=== PATIENT | female | born 1950 | race African-American/Black ===

== ENCOUNTER 2018-09-08 09:30 | Inpatient (IN) | payer OTHER ==
--- NOTE | 2018-09-08 10:40 | PDOC ---
Attending Attestation - Resident Resident Name: KiarraBrittnee - ED Attending Attestation I have performed the following: I have examined & evaluated the patient, The case was reviewed & discussed with the resident, I agree w/resident's findings & plan, Exceptions are as noted - HPI HPI: 09/08/18 10:31 68y F presents with back pain. Pt states she had some mild lower back pain several months ago while carrying her granddaughter, the pain is intermittent but seemed to go away for several months and then came back in late May. It was intermittent however the last several days the pain has become more severe and the patient has been unable to ambulate comfortably. The patient notes that it starts in the mid back, is spasm like in nature and radiates to bilateral legs when she is moving around. Pain is worse when she bends or sits up and feels better when she is laying flat. The patient notes some tingling and dnumnbess on the L thigh, denies any numbness otherwise, any tingling or weakness, urinary bowel incontinence, fevers, chills, chest pain, dominant pain , nausea, vomiting. has been taking neproxen and percocet with imil dimprovement, but has been getting worse the past few days No history of falls or injuries GENERAL: The patient is awake, alert, and fully oriented, Nontoxic - in no acute distress. HEAD: Normocephalic, atraumatic. ABDOMEN: Soft, nontender, normoactive bowel sounds. No guarding, no rebound. . No CVA tenderness EXTREMITIES: Normal range of motion, no edema. No clubbing or cyanosis. No cords, erythema, or tenderness. BACK: No focal mildline tenderness, mild paraspinal lumbar ttp, +SLR b/l, sensation intact b/l in LE NEUROLOGICAL: No facial assymetry, Normal speech, strength, symmetric and intact in LE PSYCH: Normal mood, normal affect. SKIN: Warm, Dry, normal turgor, no rasehes noted on back/abdomen suspect muscle apsms will give toradol/valium will obtain xray lumbar spine to r/o fx, mets ua r/o hematuria will reassess - Physicial Exam PE: 09/08/18 15:37 see above - Medical Decision Making 09/08/18 15:37 pts lumbar xray noted for fx - ct was obtained - concerning for pathologic fracture ct pelvis also reviewed - thickening of wall concerning for stool vs neoplatstic disease will give pt some morphien for pain 09/08/18 18:40 pt with persistent pain admitted for further mangaement of back pain pt will also need workup of her pathoalogic fx at some point as an intpatient or outpatient Heart Score/ECG Review - ECG Impressions Comment:: 09/08/18 18:38 Twelve-lead EKG was performed and reviewed by me. There is normal sinus rhythm with a normal rate. Rate of [address] wave changes
[2018-09-08] MEDS ORDERED: CYCLOBENZAPRINE HCL 10 MG TABLET (FP) PO ONE (10:47)
--- NOTE | 2018-09-08 10:48 | PDOC ---
History of Present Illness - General Chief Complaint: Back Pain Stated Complaint: BACK PAIN Time Seen by Provider: 09/08/18 09:52 History Source: Patient Exam Limitations: No Limitations - History of Present Illness Initial Comments: 09/08/18 10:45 Pt is a 68yo f with no significant PMH BIBA for lower back pain. Pt said sometime in March she was picking up her grandson from the tub when she started having lower back pain associated with spasms. Pain lasted for about 1 week then went away. Pt said the pain returned 2 weeks ago when she was sitting in her car and felt as if her "spine went down." Pt had increasing difficulty walking due to pain. She has been unable to get out of bed for the past few days. Pt says pain is in her lower back and associated with numbness and a pins/ needles sensation in her L lateral thigh. She has been taking ibuprofen, naproxen, percocet for the pain which helps. Per pt pain is intermittent, associated with spasms, worse with movements. She denies saddle anesthesia, loss of bowel/bladder, shooting pains, chest pain, sob, trauma or surgeries. PMD: none PMH: none PSH: Meds: ibuprofen, naproxen, advil, percocet Social: denies Allergies: nkda Past History - Past Medical History Allergies/Adverse Reactions: Allergies Allergy/AdvReac Type Severity Reaction Status Date / Time No Known Allergies Allergy Verified 09/08/18 10:48 Home Medications: Ambulatory Orders Ibuprofen [Motrin -] 600 mg PO PRN PRN 09/08/18 Oxycodone HCl/Acetaminophen [Percocet 5-325 mg Tablet] 1 tab PO Q6H 09/08/18 Cardiac Disorders: Yes (Mitral prolaspe) COPD: No (mitral valve prolapse) - Suicide/Smoking/Psychosocial Hx Smoking History: Never smoked Have you smoked in the past 12 months: No Information on smoking cessation initiated: No Hx Alcohol Use: No Drug/Substance Use Hx: No Substance Use Type: None Review of Systems - Review of Systems Constitutional: No: Chills, Fever, Loss of Appetite HEENTM: No: Symptoms Reported Respiratory: No: Cough, Shortness of Breath Cardiac (ROS): No: Chest Pain, Lightheadedness, Palpitations ABD/GI: Yes: Constipated. No: Diarrhea, Nausea, Vomiting, Abdominal cramping, Tarry Stools : No: Burning, Dysuria, Discharge Musculoskeletal: Yes: See HPI, Back Pain (lower back pain). No: Joint Pain, Muscle Pain, Muscle Weakness, Neck Pain Integumentary: No: Pallor, Rash Neurological: Yes: Numbness (L lateral thigh numbness). No: Headache, Tingling , Weakness, Unsteady Gait *Physical Exam - Vital Signs Last Vital Signs Temp Pulse Resp BP Pulse Ox 98.9 F 108 H 20 172/107 H 99 09/08/18 09:30 09/08/18 09:30 09/08/18 09:30 09/08/18 09:30 09/08/18 09:30 - Physical Exam General Appearance: Yes: Nourished, Appropriately Dressed. No: Apparent Distress HEENT: positive: EOMI, ZARINA, Normal ENT Inspection Neck: positive: Trachea midline, Supple. negative: Carotid bruit, Lymphadenopathy (R), Lymphadenopathy (L) Respiratory/Chest: positive: Lungs Clear, Normal Breath Sounds. negative: Paradoxal Breathing, Crackles, Rales, Rhonchi Cardiovascular: positive: Regular Rhythm, S1, S2, Tachycardia. negative: Edema , JVD, Murmur Vascular Pulses: Carotid (R): 2+, Carotid (L): 2+, Dorsalis-Pedis (R): 2+, Doralis-Pedis (L): 2+ Gastrointestinal/Abdominal: positive: Normal Bowel Sounds, Soft. negative: Distended, Guarding, Rebound, Tenderness Rectal Exam: positive: normal rectal tone Musculoskeletal: positive: Muscle Spasm, Vertebral Tenderness (lumbar spine), Other (full passive ROM. Leg raise illiicits pain in back.). negative: CVA Tenderness, Decreased Range of Motion Extremity: positive: Normal Capillary Refill, Pelvis Stable. negative: Swelling , Calf Tenderness Integumentary: positive: Normal Color, Dry, Warm Neurologic: positive: wafer substrate tester II-XII NML intact, Fully Oriented, Alert, Normal Mood/ Affect, Motor Strength 5/5. negative: Respond to painful stimul, Facial Droop, Sensory Deficit (full sensation) Deep Tendon Reflexes: Ankle (L): 2+, Ankle (R): 2+, Knee (L): 2+, Knee (R): 2+ ED Treatment Course - LABORATORY CBC & Chemistry Diagram: 09/08/18 15:26 09/08/18 15:26 - RADIOLOGY Radiology Studies Ordered: Category Date Time Status SPINE-LUMBAR SACRAL [RAD] Stat Radiology 09/08/18 10:41 Ordered Medical Decision Making - Medical Decision Making 09/08/18 18:28 Pt is a 68yo f with no significant PMH BIBA for lower back pain that started again 2 weeks ago with reduced mobility due to pain. Vitals: PE: Lumbar vertebral tenderness with paravertebral muscle spasm. SLR illicits pain in back, no shooting/radicular pain. full sensation, strength 5/5 , normal rectal tone. DDx: cauda equina, sciatica, fracture, sprain, spasm. -low suspicion for cauda equina given normal sensation, full strength, normal rectal tone. lower suspicion for fracture because no evidence or history of trauma. Pt given flexeril, valium and toradol for pain. Xray pending. Xray showed abnormality in lumbar spine around L2. Will order CT. Pt still having pain. Will order tramadol. Pt refused tramadol, will give Percocet. CT lumbar spine: a marked, probably acute pathologic fracture involving L2 vertebral body with mild bony retropulsion. Abnormal heterogeneous density is seen within the L2 vertebral body. Also a focal osteolytic lesion involving left L@ pedile with focal cortical erosion along superior border. Associated small extraosseous soft tissue component along superior border of left pedicle with mild foraminal narrowing. 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 No discrete disc herniation. Mild L5-S1 degenerative disc space narrowing. No degenerative canal stenosis CT pelvis: Mild wall irregularity seen involving upper rectum/adjacent sigmoid colon which may be on the basis of adherent fecal material or possibly neoplastic disease. Sigmoid diverticulosis. Pt says percocet helped, but still in pain. Given morphine. Pt has the ability to drive but due to her condition she is unable to do so. Pain is not adequately controlled and she does not have the ability to be followed outpatient. Will admit patient for pain control and further investigation of causes of osteolytic lesion. Pt agrees to plan. Pt admitted. CXR and EKG ordered. *DC/Admit/Observation/Transfer Diagnosis at time of Disposition: Compression fracture Back pain Qualifiers: Back pain location: low back pain Chronicity: acute Back pain laterality: midline Sciatica presence: without sciatica Qualified Code(s): M54.5 - Low back pain - Discharge Dispostion Condition at time of disposition: Good Decision to Admit order: Yes - Referrals - Patient Instructions - Post Discharge Activity
[2018-09-08] MEDS ORDERED: CYCLOBENZAPRINE HCL 10 MG TABLET (FP) ONE (10:51)
[2018-09-08] MEDS ORDERED: diazePAM 2 MG TABLET PO ONE (10:54)
[2018-09-08] MEDS ORDERED: KETOROLAC TROMETHAMINE 30 MG/1 ML VIAL IM ONE (10:54)
[2018-09-08] MEDS ORDERED: diazePAM 2 MG TABLET ONE (10:56)
[2018-09-08] MEDS ORDERED: KETOROLAC TROMETHAMINE 30 MG/1 ML VIAL ONE (10:56)
[2018-09-08 12:13] LABS: URINE APPEARANCE CLEAR; URINE BILIRUBIN NEGATIVE (<2.0 mg/dL); URINE COLOR YELLOW; URINE GLUCOSE (UA) NEGATIVE (NEGATIVE); URINE KETONE TRACE (NEGATIVE); URINE LEUK ESTERASE TRACE (NEGATIVE); URINE NITRITE NEGATIVE (NEGATIVE); URINE PROTEIN 1+ (NEGATIVE)
[2018-09-08 12:30] LABS: EPI CELLS RARE /HPF (FEW); URINE BACTERIA RARE /hpf (NONE SEEN); URINE MUCUS RARE
[2018-09-08] MEDS ORDERED: traMADol HCL 50 MG TABLET PO ONE (13:46)
[2018-09-08] MEDS ORDERED: traMADol HCL 50 MG TABLET ONE (14:08)
[2018-09-08 15:43] LABS: BASO % 0.2 % (0-2.0); EOS % 0.3 % (0-4.5); HEMATOCRIT 27.1 % (32.4-45.2); HEMOGLOBIN 8.7 GM/dL (10.7-15.3); LYMPH % 6.2 % (8-40); MCH 20.5 pg (25.7-33.7); MCHC 31.9 g/dl (32.0-36.0); MEAN CELL VOLUME 64.1 fl (80-96); MEAN PLT VOLUME 7.6 fl (7.5-11.1); MONO % 7.1 % (3.8-10.2); NEUT % 86.2 % (42.8-82.8); PLATELET COUNT 377 K/MM3 (134-434); RBC 4.23 M/mm3 (3.60-5.2); RDW 16.9 % (11.6-15.6); WHITE BLOOD COUNT 14.7 K/mm3 (4.0-10.0)
[2018-09-08 15:56] LABS: ALBUMIN 2.7 g/dl (3.4-5.0); ALK PHOS 127 U/L (45-117); ANION GAP 12 MMOL/L (8-16); BILIRUBIN,TOTAL 0.7 mg/dL (0.2-1); BLOOD UREA NITROGEN 9 mg/dL (7-18); CALCIUM 8.2 mg/dL (8.5-10.1); CHLORIDE 84 mmol/L (98-107); CO2 27 mmol/L (21-32); CREATININE 0.3 mg/dL (0.55-1.3); GLUCOSE,RANDOM 102 mg/dL (74-106); POTASSIUM 3.1 mmol/L (3.5-5.1); SGOT/AST 28 U/L (15-37); SGPT/ALT 17 U/L (13-61); SODIUM 124 mmol/L (136-145); TOT PROT 7.2 g/dl (6.4-8.2)
[2018-09-08] MEDS ORDERED: morphine CARPU-JECT 2 MG/1 ML DISP.SYRIN IVPUSH ONE (16:45)
--- NOTE | 2018-09-08 19:29 | HP ---
CHIEF COMPLAINT: Worsening back pain PCP: None HISTORY OF PRESENT ILLNESS: 68 year old female with a PMH significant for MR was BIBA for worsening lower back pain. She reports her back pain started 04/25/18 when she lifted her grandson out of the bathtub. When she went to take a bath herself the same night , she had sudden a onset of muscle spasms on both sides of her lower back which prevented her from getting out of the bathtub. The muscle spasms were severe for about a week and it was difficult for her to walk. She took ibuprofen, naproxen, and percocet which mostly eliminated the discomfort. The spasms gradually subsided but never totally went away. About 2 weeks ago, she was driving for about 3 hours straight and the spasms and pain returned again and have worsened over that period of time. She has numbness to her left lateral thigh. Denies incontinence, fevers, dizziness, never had seizures, no chest pain or SOB, no n/v/d. She reports her pain has improved after pain management by the ED. She does not have a PCP and has not been to the doctor in many years. She is on no regular home medications. Upon admission to the ED, she was afebrile, vitals notable for elevated BP in the 160-170s/100-90s. Labs notible for WBC of 14.7, K 3.1, Na 124, UA with trace esterace and [address] showed acute L2 compression fracture. Pelvic CT showed suspicious lesion on rectal wall. She was given valium, ketorolac, morphine, and percocet. Recent Travel: No PAST MEDICAL HISTORY: PAST SURGICAL HISTORY: x 1 Fibroid removal Social History: Smoking: never Alcohol: No Drugs: No Family History: Former psych nurse, one adult daughter Mother: Diabetes age 77 Father: CAD, age 82 Sister: Breast Cancer, age 60 Allergies No Known Allergies Allergy (Verified 09/08/18 10:48) HOME MEDICATIONS: Home Medications Medication Instructions Recorded Ibuprofen [Motrin -] 600 mg PO PRN PRN 09/08/18 Oxycodone HCl/Acetaminophen 1 tab PO Q6H 09/08/18 [Percocet 5-325 mg Tablet] REVIEW OF SYSTEMS CONSTITUTIONAL: (+) weight loss 60 lbs over the past 2 years, loss of appetite Absent: fever, chills, diaphoresis, generalized weakness, malaise HEENT: Absent: rhinorrhea, nasal congestion, throat pain, throat swelling, difficulty swallowing, mouth swelling, ear pain, eye pain, visual changes CARDIOVASCULAR: Absent: chest pain, syncope, palpitations, irregular heart rate, lightheadedness , peripheral edema RESPIRATORY: Absent: cough, shortness of breath, dyspnea with exertion, orthopnea, wheezing, stridor, hemoptysis GASTROINTESTINAL: Absent: abdominal pain, abdominal distension, nausea, vomiting, diarrhea, constipation, melena, hematochezia GENITOURINARY: Absent: dysuria, frequency, urgency, hesitancy, hematuria, flank pain, genital pain MUSCULOSKELETAL: (+++) lower back pain Absent: myalgia, arthralgia, joint swelling, back pain, neck pain SKIN: Absent: rash, itching, pallor HEMATOLOGIC/IMMUNOLOGIC: Absent: easy bleeding, easy bruising, lymphadenopathy, frequent infections ENDOCRINE: Absent: unexplained weight gain, unexplained weight loss, heat intolerance, cold intolerance NEUROLOGIC: (+) paresthesia to left lateral thigh Absent: headache, focal weakness or paresthesias, dizziness, unsteady gait, seizure, mental status changes, bladder or bowel incontinence PSYCHIATRIC: (+) anxiety/depression Absent: suicidal or homicidal ideation, hallucinations. PHYSICAL EXAMINATION Vital Signs - 24 hr 09/08/18 09/08/18 09/08/18 09:30 15:31 19:00 Temperature 98.9 F 98.9 F Pulse Rate 108 H Pulse Rate [ 102 H Right Radial] Respiratory 20 18 18 Rate Blood Pressure 172/107 H Blood Pressure 169/97 [Left Arm] O2 Sat by Pulse 99 96 96 Oximetry (%) 09/08/18 19:01 Temperature 98.3 F Pulse Rate Pulse Rate [ 93 H Right Radial] Respiratory 18 Rate Blood Pressure Blood Pressure 164/91 [Left Arm] O2 Sat by Pulse 96 Oximetry (%) GENERAL: Lying down, awake, alert, and fully oriented, in no acute distress. HEAD: Normal with no signs of trauma. EYES: Pupils equal, round and reactive to light, extraocular movements intact, sclera anicteric, conjunctiva clear. No lid lag. EARS, NOSE, THROAT: nares patent, oropharynx clear without exudates. Moist mucous membranes. NECK: Normal range of motion, supple without lymphadenopathy, JVD, or masses. LUNGS: Breath sounds equal, clear to auscultation bilaterally. No wheezes, and no crackles. No accessory muscle use. HEART: Rapid rate and regular rhythm, normal S1 and S2 without murmur, rub or gallop. ABDOMEN: Soft, nontender, not distended, normoactive bowel sounds, no guarding, no rebound, no masses. No hepatomegaly or splenomegaly. MUSCULOSKELETAL: Leg raise to about 45 degrees -> pain right lower back, normal range of motion at all joints. No bony deformities or tenderness. No CVA tenderness. UPPER EXTREMITIES: 2+ pulses, warm, well-perfused. No cyanosis. No clubbing. No peripheral edema. LOWER EXTREMITIES: non-pitting edema b/l LE L>R, 2+ pulses, warm, well- perfused. No calf tenderness. NEUROLOGICAL: No facial droop, normal speech. Normal gait. PSYCHIATRIC: Cooperative. Good eye contact. Appropriate mood and affect. SKIN: Warm, dry, normal turgor, no rashes or lesions noted, normal capillary refill. Laboratory Results - last 24 hr 09/08/18 09/08/18 09/08/18 11:45 15:26 15:26 WBC 14.7 H RBC 4.23 Hgb 8.7 L Hct 27.1 L MCV 64.1 L MCH 20.5 L MCHC 31.9 L RDW 16.9 H Plt Count 377 MPV 7.6 Absolute Neuts (auto) 12.7 H Neutrophils % 86.2 H Lymphocytes % 6.2 L Monocytes % 7.1 Eosinophils % 0.3 Basophils % 0.2 Nucleated RBC % 0 Sodium 124 L Potassium 3.1 L Chloride 84 L Carbon Dioxide 27 Anion Gap 12 BUN 9 Creatinine 0.3 L Creat Clearance w eGFR > 60 Random Glucose 102 Calcium 8.2 L Total Bilirubin 0.7 AST 28 ALT 17 Alkaline Phosphatase 127 H Total Protein 7.2 Albumin 2.7 L Urine Color Yellow Urine Appearance Clear Urine pH 6.0 Ur Specific [place] 1.016 Urine Protein 1+ H Urine Glucose (UA) Negative Urine Ketones Trace H Urine Blood Negative Urine Nitrite Negative Urine Bilirubin Negative Urine Urobilinogen 2.0 H Ur Leukocyte Esterase Trace Urine WBC (Auto) 13 Urine RBC (Auto) None Ur Epithelial Cells Rare Urine Bacteria Rare Urine Mucus Rare EKG NSR rate of [address] wave changes CT lumbar spine A marked, probably acute pathologic fracture involving L2 vertebral body with mild bony retropulsion. Abnormal heterogeneous density is seen within the L2 vertebral body. Also a focal osteolytic lesion involving left L@ pedile with focal cortical erosion along superior border. Associated small extraosseous soft tissue component along superior border of left pedicle with mild foraminal narrowing. 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 No discrete disc herniation. Mild L5-S1 degenerative disc space narrowing. No degenerative canal stenosis CT pelvis Mild wall irregularity seen involving upper rectum/adjacent sigmoid colon which may be on the basis of adherent fecal material or possibly neoplastic disease. Sigmoid diverticulosis. ASSESSMENT/PLAN: 68 year old female with a PMH significant for MR was BIBA for worsening lower back pain. CT showed L2 compression fracture. She was placed on observation for pain management and neurosurgery consult. L2 Compression fracture - Seen on CT - Baclofen 10 mg TID - Torodol 30 mg IVP Q8HRS - Oxycodone 5 mg PO q4H PRN for pain > 6-10 - Acetaminophen 650 mg PO Q6H PRN for pain < 1-5 - PT consult ordered - Neurosurgery consult ordered Leukocytosis -WBC 14.7 -Afebrile -UA - trace esterace WBC 13, UC ordered -CXR pending -Repeat CBC Elevated BP -160-170s/100-90s -HR 107-93 -On no home medications -Monitor BP -Given Metoprolol 25 mg x 1 -F/u OP with PCP for antihypertensive medication regimen Hypokalemia -3.1 -KCL 20 meq PO given now -BMP tomorrow Hyponatremia -124 -Repeat BMP Mild wall irregularity upper rectum/sigmoid colon -F/u as OP for colonoscopy, patient has never had a colonoscopy FEN - PO intake adequate - Electrolytes replete as indicated - Regular diet DVT Prophylaxis - SCDs Dispo: pt currently requires further inpatient observation and neurosurgery consult. FULL CODE Visit type - Emergency Visit Emergency Visit: Yes ED Registration Date: 09/08/18 Care time: The patient presented to the Emergency Department on the above date and was hospitalized for further evaluation of their emergent condition. - New Patient This patient is new to me today: Yes Date on this admission: 09/08/18 - Critical Care Critical Care patient: No
[2018-09-08] MEDS ORDERED: POTASSIUM CHLORIDE TABS 20 MEQ TABLET.ER (FP) PO ONE (20:00)
[2018-09-08] MEDS ORDERED: METOPROLOL TARTRATE 25 MG TABLET (FP) PO ONE (20:30)
[2018-09-08 21:25] LABS: ANISOCYTOSIS 2+; OVALOCYTE FEW; TARGET CELLS FEW
[2018-09-08] MEDS: BACLOFEN 10 MG TABLET (FP) PO SCH (22:25)
[2018-09-08 23:23] VITALS: BMI 24.7
[2018-09-09] MEDS: oxyCODONE HCL 5 MG TABLET PO SCH ×5 (00:10→23:56)
[2018-09-09] MEDS: ACETAMINOPHEN 325 MG TABLET (FP) PO SCH ×5 (00:12→23:56)
[2018-09-09] MEDS: KETOROLAC TROMETHAMINE 30 MG/1 ML VIAL IVPUSH SCH ×3 (02:06→18:19)
[2018-09-09] MEDS: BACLOFEN 10 MG TABLET (FP) PO SCH ×3 (06:02→21:09)
[2018-09-09 07:41] LABS: HEMATOCRIT 23.3 % (32.4-45.2); HEMOGLOBIN 7.3 GM/dL (10.7-15.3); MCHC 31.6 g/dl (32.0-36.0); MEAN CELL VOLUME 63.3 fl (80-96); MEAN PLT VOLUME 8.1 fl (7.5-11.1); PLATELET COUNT 337 K/MM3 (134-434); RBC 3.68 M/mm3 (3.60-5.2); RDW 16.5 % (11.6-15.6); WHITE BLOOD COUNT 13.6 K/mm3 (4.0-10.0)
[2018-09-09 08:00] LABS: ANION GAP 15 MMOL/L (8-16); BLOOD UREA NITROGEN 11 mg/dL (7-18); CALCIUM 8.1 mg/dL (8.5-10.1); CHLORIDE 85 mmol/L (98-107); CO2 26 mmol/L (21-32); CREATININE 0.3 mg/dL (0.55-1.3); GLUCOSE,RANDOM 83 mg/dL (74-106); MAGNESIUM 1.9 mg/dL (1.8-2.4); SODIUM 125 mmol/L (136-145)
[2018-09-09] MEDS: METOPROLOL TARTRATE 25 MG TABLET (FP) PO SCH ×2 (10:05→21:10)
[2018-09-09] MEDS ORDERED: diazePAM 2 MG TABLET PO ONE (10:24)
[2018-09-09] MEDS: MORPHINE SULFATE 2 MG/ML VIAL IVPUSH PRN (10:34)
--- NOTE | 2018-09-09 10:46 | EKG ---
Test Reason : Blood Pressure : / mmHG Vent. Rate : 097 BPM Atrial Rate : 097 BPM P-R Int : 176 ms QRS Dur : 084 ms QT Int : 370 ms P-R-T Axes : 058 -04 011 degrees QTc Int : 469 ms NORMAL SINUS RHYTHM NONSPECIFIC T WAVE ABNORMALITY ABNORMAL ECG NO PREVIOUS ECGS AVAILABLE Confirmed by TI CALVERT, HEATHER ([id number]) on 09/09/2018 10:46:17 AM Referred By: Confirmed By:HEATHER LUKE MD
--- NOTE | 2018-09-09 13:55 | PN ---
Physical Exam: SUBJECTIVE: Patient seen and examined. C/o 10 pain and anxiety. OBJECTIVE: Vital Signs Period Temp Pulse Resp BP Sys/Zuniga Pulse Ox Last 24 Hr 98.2 F-98.9 F 90-102 18-20 154-180/86-100 96-96 GENERAL: Lying down, awake, alert, and fully oriented, in no acute distress. HEAD: Normal with no signs of trauma. EYES: Pupils equal, round and reactive to light, extraocular movements intact, sclera anicteric, conjunctiva clear. No lid lag. EARS, NOSE, THROAT: nares patent, oropharynx clear without exudates. Moist mucous membranes. NECK: Normal range of motion, supple without lymphadenopathy, JVD, or masses. LUNGS: Breath sounds equal, clear to auscultation bilaterally. No wheezes, and no crackles. No accessory muscle use. HEART: Rapid rate and regular rhythm, normal S1 and S2 without murmur, rub or gallop. ABDOMEN: Soft, nontender, not distended, normoactive bowel sounds, no guarding, no rebound, no masses. No hepatomegaly or splenomegaly. MUSCULOSKELETAL: Leg raise to about 45 degrees -> pain right lower back, normal range of motion at all joints. No bony deformities or tenderness. No CVA tenderness. UPPER EXTREMITIES: 2+ pulses, warm, well-perfused. No cyanosis. No clubbing. No peripheral edema. LOWER EXTREMITIES: non-pitting edema b/l LE L>R, 2+ pulses, warm, well- perfused. No calf tenderness. NEUROLOGICAL: No facial droop, normal speech. Normal gait. PSYCHIATRIC: Cooperative. Good eye contact. Appropriate mood and affect. SKIN: Warm, dry, normal turgor, no rashes or lesions noted, normal capillary refill. Laboratory Results - last 24 hr 09/08/18 09/08/18 09/09/18 15:26 15:26 05:50 WBC 14.7 H 13.6 H RBC 4.23 3.68 Hgb 8.7 L 7.3 L Hct 27.1 L 23.3 L MCV 64.1 L 63.3 L MCH 20.5 L 20.0 L MCHC 31.9 L 31.6 L RDW 16.9 H 16.5 H Plt Count 377 337 MPV 7.6 8.1 Absolute Neuts (auto) 12.7 H Neutrophils % 86.2 H Lymphocytes % 6.2 L Monocytes % 7.1 Eosinophils % 0.3 Basophils % 0.2 Nucleated RBC % 0 Hypochromia 2+ Anisocytosis 2+ Target Cells Few Ovalocytes Few Sodium 124 L Potassium 3.1 L Chloride 84 L Carbon Dioxide 27 Anion Gap 12 BUN 9 Creatinine 0.3 L Creat Clearance w eGFR > 60 Random Glucose 102 Calcium 8.2 L Magnesium Total Bilirubin 0.7 AST 28 ALT 17 Alkaline Phosphatase 127 H Total Protein 7.2 Albumin 2.7 L 09/09/18 05:50 WBC RBC Hgb Hct MCV MCH MCHC RDW Plt Count MPV Absolute Neuts (auto) Neutrophils % Lymphocytes % Monocytes % Eosinophils % Basophils % Nucleated RBC % Hypochromia Anisocytosis Target Cells Ovalocytes Sodium 125 L Potassium 3.0 L Chloride 85 L Carbon Dioxide 26 Anion Gap 15 BUN 11 Creatinine 0.3 L Creat Clearance w eGFR > 60 Random Glucose 83 Calcium 8.1 L Magnesium 1.9 Total Bilirubin AST ALT Alkaline Phosphatase Total Protein Albumin Active Medications Generic Name Dose Route Start Last Admin Trade Name Freq PRN Reason Stop Dose Admin Acetaminophen 325 mg 09/09/18 00:00 09/09/18 12:00 Tylenol - PO 325 mg Q6HPO SAMI Administration Baclofen 10 mg 09/08/18 22:00 09/09/18 06:02 Lioresal - PO 10 mg TID SAMI Administration Ketorolac Tromethamine 30 mg 09/09/18 02:00 09/09/18 09:24 Toradol Injection - IVPUSH 09/13/18 01:59 30 mg Q8H-IV SAMI Administration Metoprolol Tartrate 25 mg 09/09/18 10:00 09/09/18 10:05 Lopressor - PO 25 mg BID SAMI Administration Morphine Sulfate 2 mg 09/09/18 09:59 09/09/18 10:34 Morphine Sulfate IVPUSH 2 mg Q6H PRN Administration PAIN LEVEL 7 - 10 Oxycodone HCl 5 mg 09/09/18 00:00 09/09/18 12:00 Roxicodone - PO 5 mg Q6HPO SAMI Administration ASSESSMENT/PLAN: 68 year old female with a PMH significant for MR was BIBA for worsening lower back pain. CT showed L2 compression fracture. She was placed on observation for pain management and neurosurgery consult. L2 Compression fracture - Seen on CT - Baclofen 10 mg TID - Torodol 30 mg IVP Q8HRS - Apap/Oxycodone 5 mg/Morphine 2 mg IV q 6 hrs PRN - TSLO brace - Lumbar MRI ordered - PT consult ordered - Neurosurgery consult with Dr. Jarvis Leukocytosis -WBC 14.7 -> 13.6 -Afebrile -UA - trace esterace WBC 13, UC ordered -CXR pending -Repeat CBC Elevated BP -160-170s/100-90s -HR 107-93 -On no home medications -Start Metoprolol Tartrate 25 mg BID -Echo ordered -Monitor BP -Consider cardiac consult Hypokalemia -3.1 -> 3.0 -Start KCL 20 meq PO qday. -BMP tomorrow Hyponatremia -124 -> 125 -Start NaCl 1G tabs qday -Monitor BMP -urine osmolarity ordered -Consider renal consult Mild wall irregularity upper rectum/sigmoid colon -F/u as OP for colonoscopy, patient has never had a colonoscopy FEN - PO intake adequate - Electrolytes replete as indicated - Regular diet DVT Prophylaxis - SCDs Dispo: pt currently requires further inpatient observation and neurosurgery consult. FULL CODE Visit type - Emergency Visit Emergency Visit: No - New Patient This patient is new to me today: No - Critical Care Critical Care patient: No
[2018-09-09] MEDS ORDERED: PT OWN MED DRAWER 7, Y5N ONE (15:16)
[2018-09-09] MEDS: POTASSIUM CHLORIDE TABS 20 MEQ TABLET.ER (FP) PO SCH (15:17)
[2018-09-09] MEDS: SODIUM CHLORIDE 1 GM TABLET PO SCH (16:55)
[2018-09-10] MEDS: KETOROLAC TROMETHAMINE 30 MG/1 ML VIAL IVPUSH SCH ×3 (02:47→17:17)
[2018-09-10] MEDS: oxyCODONE HCL 5 MG TABLET PO SCH ×3 (05:21→17:17)
[2018-09-10] MEDS: ACETAMINOPHEN 325 MG TABLET (FP) PO SCH ×3 (05:21→17:16)
[2018-09-10] MEDS: BACLOFEN 10 MG TABLET (FP) PO SCH ×3 (05:21→21:58)
[2018-09-10 07:42] LABS: ANION GAP 8 MMOL/L (8-16); BLOOD UREA NITROGEN 11 mg/dL (7-18); CALCIUM 8.6 mg/dL (8.5-10.1); CHLORIDE 91 mmol/L (98-107); CO2 28 mmol/L (21-32); CREATININE 0.4 mg/dL (0.55-1.3); GLUCOSE,RANDOM 93 mg/dL (74-106); MAGNESIUM 2.2 mg/dL (1.8-2.4); SODIUM 128 mmol/L (136-145)
[2018-09-10 07:46] LABS: HEMATOCRIT 23.5 % (32.4-45.2); HEMOGLOBIN 7.4 GM/dL (10.7-15.3); MCHC 31.3 g/dl (32.0-36.0); MEAN CELL VOLUME 63.6 fl (80-96); MEAN PLT VOLUME 7.6 fl (7.5-11.1); PLATELET COUNT 365 K/MM3 (134-434); RDW 16.8 % (11.6-15.6)
[2018-09-10 08:42] LABS: MCH 19.9 pg (25.7-33.7)
[2018-09-10] MEDS: MORPHINE SULFATE 2 MG/ML VIAL IVPUSH PRN (08:43)
[2018-09-10] MEDS ORDERED: PT OWN MED DRAWER 7, Y5N ONE (09:00)
[2018-09-10] MEDS: POTASSIUM CHLORIDE TABS 20 MEQ TABLET.ER (FP) PO SCH ×2 (09:02→10:00)
[2018-09-10] MEDS: SODIUM CHLORIDE 1 GM TABLET PO SCH (09:02)
[2018-09-10] MEDS: METOPROLOL TARTRATE 25 MG TABLET (FP) PO SCH (09:02)
--- NOTE | 2018-09-10 10:03 | PN ---
Physical Exam: SUBJECTIVE: Patient seen and examined. denies shortness of breath or chest pain OBJECTIVE: for a lumbar spine mri. hmg/hct noted - will monitor/stool for occult blood ordered sigmoid mass? per imaging. gi consulted. incentive spirometer refusing further blood draws today Period Temp Pulse Resp BP Sys/Zuniga Pulse Ox Last 24 Hr 98.2 F-98.6 F 82-96 20-21 153-178/88-100 96 GENERAL: The patient is awake, alert, and fully oriented, in no acute distress. HEAD: Normal with no signs of trauma. EYES: PERRL, extraocular movements intact, sclera anicteric, conjunctiva clear. No ptosis. ENT: Ears normal, nares patent, oropharynx clear without exudates, moist mucous membranes. NECK: Trachea midline, full range of motion, supple. LUNGS: diminished breath sounds anteriorly, limited sounds posterily 2/2 to pain HEART: Regular rate and rhythm, S1, S2 without murmur, rub or gallop. ABDOMEN: Soft, nontender, nondistended, normoactive bowel sounds, no guarding, no rebound, no hepatosplenomegaly, no masses. EXTREMITIES: left leg with non pitting edema NEUROLOGICAL: Normal speech, gait not observed. PSYCH: Normal mood, normal affect. SKIN: Warm, dry, normal turgor, no rashes or lesions noted\ Laboratory Results - last 24 hr 09/10/18 09/10/18 09/10/18 06:30 06:30 07:00 WBC 13.0 H RBC 3.70 Hgb 7.4 L Hct 23.5 L MCV 63.6 L MCH 19.9 L MCHC 31.3 L RDW 16.8 H Plt Count 365 MPV 7.6 Sodium 128 L Potassium 3.0 L Chloride 91 L Carbon Dioxide 28 Anion Gap 8 BUN 11 Creatinine 0.4 L Creat Clearance w eGFR > 60 Random Glucose 93 Calcium 8.6 Magnesium 2.2 Urine Osmolality 139 L Ur Random Sodium 09/10/18 07:00 WBC RBC Hgb Hct MCV MCH MCHC RDW Plt Count MPV Sodium Potassium Chloride Carbon Dioxide Anion Gap BUN Creatinine Creat Clearance w eGFR Random Glucose Calcium Magnesium Urine Osmolality Ur Random Sodium < 18 L Active Medications Generic Name Dose Route Start Last Admin Trade Name Freq PRN Reason Stop Dose Admin Acetaminophen 325 mg 09/09/18 00:00 09/10/18 05:21 Tylenol - PO 325 mg Q6HPO SAMI Administration Baclofen 10 mg 09/08/18 22:00 09/10/18 05:21 Lioresal - PO 10 mg TID ASMI Administration Ketorolac Tromethamine 30 mg 09/09/18 02:00 09/10/18 09:02 Toradol Injection - IVPUSH 09/13/18 01:59 30 mg Q8H-IV SAMI Administration Metoprolol Tartrate 25 mg 09/09/18 10:00 09/10/18 09:02 Lopressor - PO 25 mg BID SAMI Administration Morphine Sulfate 2 mg 09/09/18 09:59 09/10/18 08:43 Morphine Sulfate IVPUSH 2 mg Q6H PRN Administration PAIN LEVEL 7 - 10 Oxycodone HCl 5 mg 09/09/18 00:00 09/10/18 05:21 Roxicodone - PO 5 mg Q6HPO SAMI Administration Potassium Chloride 40 meq 09/10/18 09:11 K-Dur - PO DAILY SAMI Sodium Chloride 1 gm 09/09/18 14:30 09/10/18 09:02 Sodium Chloride Tablet - PO 1 gm DAILY ASMI Administration ASSESSMENT/PLAN: Patient is a 68 year old female with no reported past medical history. She presented to the ED on 09/09/18 for worsening lower back pain. Patient reports that her back pain began on 03/2018 when she lifted her grandson out of the bathtub and began to experience back spasms and severe back pain. The muscle spasms were severe for about a week and it was difficult for her to walk. In time, the spasms gradually subsided but never totally went away. About 2 weeks ago, the back spasms began and gradualy worsened. She has numbness to her left lateral thigh. Of note, patient does not have a PCP and has not been to the doctor in many years. She is on no regular home medications. In the ED she was noted to have hypertensive urgency, elevate wbc @ 14.7, K 3.1 , NA 124. A Lumbar CT in the ED shows acute L2 compression fracture. Pelvic CT showed suspicious lesion on rectal wall. Imaging: Lumbar spine MRI 09/10/2018: L2 significant acute pathological compression fx of l2 vertebral body with total bone marrow replacement of veretral body. bone marrow edema. L5-S1: partial desiccated disc. no evidence of disc displacement. L5 vertebral body hemangioma. left hydronephrosis On T2 coronal images, several t2 mildly hyperintense lesions noted in the right lobe of the liver measuring apx 11mm 12 to 15mm concerning for metastatic disease. ------ hyponatremia hypertensive urgency Back pain L2 Compression fracture Leukocytosis electrolyte imbalance Sigmoid mass? Liver lesions Back Pain L2 compression fracture. On Baclofen, toradol, TSLO brace, oxycodone. Lumbar MRI as noted above. L2 acute pathological compression fracture with incidential findings of levier lesions on the right lobe of the liver concerning for metastatic disease. neurosurgery consulted (Dr. Jarvis) GI: Liver lesions, suspision of mets Sigmoid colon mass/mild wall irregularity upper rectum/sigmoid colon Will send out for tumor markers GI consulted for possible colonoscopy Heme: Anemia, unspecified iron studies monitor hmg/hct stool for occult blood sent ID: Leukocytosis WBC 13.0, afebrile. Will send out blood cultures Card: Hypertensive Urgency BP improving, but not at goal On Metoprolol Tartrate 25 mg BID, will uptitrate Echo done today> LV normal, moderate concentric left vent hypertrophy, left ventricle is hyperdynamic. trace MR, trace tricuspid regurg. Electrolyte imbalance Hypokalemia @ 3.20. will supplement with daily KCL meq Hyponatremia 124>128. started on salt tablets. urine studies ordered. Renal consult fen tolerarting PO monitor electrolytes low salt diet prophy Visit type - Emergency Visit Emergency Visit: Yes ED Registration Date: 09/09/18 Care time: The patient presented to the Emergency Department on the above date and was hospitalized for further evaluation of their emergent condition. - New Patient This patient is new to me today: Yes Date on this admission: 09/10/18 - Critical Care Critical Care patient: No - Discharge Referral Referred to [facility] Med [facility].: No
--- NOTE | 2018-09-10 14:32 | ECHO ---
Name: ROWAN BAY Exam:Adult Echocardiogram Study Date: 09/10/2018 09:00 AM Age: 68 yrs Reason For Study: MR, HTN with Tachycardia Height: 66 in Weight: 153 lb BSA: 1.8 m2 MMode/2D Measurements & Calculations IVSd: 1.3 cm Ao root diam: 2.8 cm LVIDd: 3.2 cm ACS: 1.8 cm LVIDs: 2.1 cm LVPWd: 1.5 cm EDV(Teich): 41.7 ml LVOT diam: 2.1 cm ESV(Teich): 14.4 ml RV S Valentin: 20.7 cm/sec Doppler Measurements & Calculations Med Peak E' Valentin: 12.9 cm/sec Lat Peak E' Valentin: 15.9 cm/sec Procedure A two-dimensional transthoracic echocardiogram with color flow and Doppler was performed. The patient was in normal sinus rhythm during the exam. The patient was in a tachycardic rhythm during the exam. Left Ventricle The left ventricle is normal in size. There is moderate concentric left ventricular hypertrophy. The left ventricle is hyperdynamic. Ejection Fraction = 70. Right Ventricle The right ventricle is normal in size and function. Atria Normal left and right atrial size and function. Mitral Valve There is mild mitral valve thickening. There is trace mitral regurgitation. Tricuspid Valve The tricuspid valve is not well visualized, but is grossly normal. There is trace tricuspid regurgita tion. There was insufficient TR detected to calculate RV systolic pressure. Aortic Valve The aortic valve is normal in structure and function. There is mild aortic valve thickening. No hemodynamically significant valvular aortic stenosis. No aortic regurgitation is present. Pulmonic Valve The pulmonic valve is not well visualized. Great Vessels The aortic root is normal size. Pericardium/Pleura There is no pericardial effusion. Interpretation Summary The left ventricle is normal in size. There is moderate concentric left ventricular hypertrophy. The left ventricle is hyperdynamic. The patient was in a tachycardic rhythm during the exam. There is trace mitral regurgitation. There is trace tricuspid regurgitation. There was insufficient TR detected to calculate RV systolic pressure. No hemodynamically significant valvular aortic stenosis. There is no pericardial effusion. MD Ronny Vazquez 09/10/2018 02:32 PM
--- NOTE | 2018-09-10 16:42 | CONSULT ---
Consult - text type - Consultation Consultation Note: Renal Consult for Hyponatremia This is a 68 year old AA woman with no significnat past medical history that presented with lower back pain and found to have a Na of 124. Pt denies any history of hypnatremia in the past. Does drink ~4L of water daily. Denies any confuison, lethargy or weakness. No N/V. No fever or chills. No diuretics being used at home. Reports that she has been eating and drinking well at home. PMhx: as above Allergies: NKDA Family Hx: NC Social Hx: No T/A/D ROS: as per HPI Home Medications Medication Instructions Recorded Ibuprofen [Motrin -] 600 mg PO PRN PRN 09/08/18 Oxycodone HCl/Acetaminophen 1 tab PO Q6H 09/08/18 [Percocet 5-325 mg Tablet] Vital Signs Temperature 99.1 F 09/10/18 13:39 Pulse Rate 93 H 09/10/18 13:39 Respiratory Rate 18 09/10/18 13:39 Blood Pressure 163/87 09/10/18 13:39 O2 Sat by Pulse Oximetry (%) 96 09/10/18 09:00 Intake & Output 09/07/18 09/08/18 09/09/18 09/10/18 23:59 23:59 23:59 23:59 Intake Total 100 500 Output Total 450 800 Balance -350 -300 Weight 69.513 kg NAD awake and alert Neck supple no JVD RRR, No M/R Dec BS, no rales soft NT/ND no LE edema, clubbing or cyanosis CBC, BMP 09/10/18 06:30 09/10/18 06:30 Current Medications Acetaminophen (Tylenol -) 325 mg PO Q6HPO SAMI Last Admin: 09/10/18 12:09 Dose: 325 mg Baclofen (Lioresal -) 10 mg PO TID SAMI Last Admin: 09/10/18 14:19 Dose: 10 mg Ketorolac Tromethamine (Toradol Injection -) 30 mg IVPUSH Q8H-IV SAMI Stop: 09/13/18 01:59 Last Admin: 09/10/18 09:02 Dose: 30 mg Metoprolol Tartrate (Lopressor -) 50 mg PO BID [facility] Morphine Sulfate (Morphine Sulfate) 2 mg IVPUSH Q6H PRN PRN Reason: PAIN LEVEL 7 - 10 Last Admin: 09/10/18 08:43 Dose: 2 mg Oxycodone HCl (Roxicodone -) 5 mg PO Q6HPO [facility] Last Admin: 09/10/18 12:10 Dose: 5 mg Pantoprazole Sodium (Protonix -) 40 mg PO DAILY [facility] Potassium Chloride (K-Dur -) 40 meq PO DAILY [facility] Last Admin: 09/10/18 10:00 Dose: 40 meq Sodium Chloride (Sodium Chloride Tablet -) 1 gm PO DAILY [facility] Last Admin: 09/10/18 09:02 Dose: 1 gm 68 year old AA woman with no significnat past medical history that presented with lower back pain and found to have a Na of 124. #Hyponatremia (SIADH vs. Hypovolemic hyponatremia, urine Na was < 20 supportive of total body salt depletion) #Lumbar Fracture #Extensive Metastatic lesions (liver, lungs) #Hypokalemia Given low urine Na, will start saline at low rate and trend Na Fluid restriction of 1.5L daily Consider Oncology work up for Lesions noted on imaging studies check Doppler of LE to r/o DVT Continue oral KCL Check Mg levels Hiram Kovacs DO
[2018-09-10] MEDS ORDERED: SODIUM CHLORIDE 1,000 ML IV SCH (17:00)
--- NOTE | 2018-09-10 17:03 | CONSULT ---
Consult - text type - Consultation Consultation Note: NEUROSURGERY CONSULTATIOn Juanis Yeh is a 68 year old female who has a 6 month history of intermittent and progressive back and leg pains. The patient first noted pain when lifting her grandchild from a bath 6 months ago. She developed back pain and then had to lie down. Her pain was severe with any weight bearing such as sitting or standing. She used a mop as a support to move around the house and for 6 weeks, used 2 mops, one in each hand, to help her to get around her house. After this time period, she improved somewhat, however, her back pain has not completely abated. The patient has had episodes of increased pain and recently it has become so bad that she cannot walk and she came to the [facility] ER for further evaluation. CT demonstrates a burst fracture of L2 with retropusion of bone and soft tissue into the anterior spinal canal. There is loss of height in the anterior column and erosion of some of the marrow spaces suggestive of potential pathological fracture. I had a discussion with the patient concerning the risks, benefits and alternatives to various treatment strategies including cement augmentation, bracing, observation and decompression and fusion with either a T12-L4 construct versus a L1-3 construct with possible anterior column support if her bone quality is insufficient for short segment reconstruction. I described the risks of the surgical options as including, but not being limited to: , coma, paralysis, bleeding, infection, CSF leakage possibly requiring spinal drainage or additional surgery, failure to fuse, instrumentation migration/ malfunction/malposition, failure to obtain a diagnosis of the underlying lesion and the need for additional surgery. I explained that metastatic tumors would likely require adjuvant chemotherapy or radiation depending upon the histology and staging. I offered her the option of seeking another opinion or another surgeon. All questions were answered. MRI was not performed when I spoke to the patient. MRI was performed on the afternoon of September 10, 2018 which confirms the suspicion of pathological burst fracture of L2. There is severe spinal canal compromise from bone, disc and potentially tumor. I will meet with the patient on Sunday to review these findings and my recommendation to proceed with surgical decompression and stabilization, potentially on .
--- NOTE | 2018-09-10 18:19 | CON.GI ---
Consult Consult Specialty:: GI - History of Present Illness History of Present Illness: 68 y/o F was admitted with low back pain. MRI revealed a pathologic fracture L2. She denies abdominal pain, nausea, rectal bleeding, melena, dysphagia. Ct was done which possible revealed a possible sigmoid mass. - Alcohol/Substance Use Hx Alcohol Use: No - Smoking History Smoking history: Never smoked Have you smoked in the past 12 months: No Home Medications - Allergies Allergies/Adverse Reactions: Allergies Allergy/AdvReac Type Severity Reaction Status Date / Time No Known Allergies Allergy Verified 09/08/18 10:48 - Home Medications Home Medications: Ambulatory Orders Ibuprofen [Motrin -] 600 mg PO PRN PRN 09/08/18 Oxycodone HCl/Acetaminophen [Percocet 5-325 mg Tablet] 1 tab PO Q6H 09/08/18 Physical Exam-GI Vital Signs: Vital Signs Temperature 99.1 F 09/10/18 13:39 Pulse Rate 93 H 09/10/18 13:39 Respiratory Rate 18 09/10/18 13:39 Blood Pressure 163/87 09/10/18 13:39 O2 Sat by Pulse Oximetry (%) 96 09/10/18 09:00 Constitutional: Yes: Well Nourished Eyes: Yes: Conjunctiva Clear HENT: Yes: Atraumatic, Tonsillar Exudate Cardiovascular: Yes: Regular Rate and Rhythm Respiratory: Yes: CTA Bilaterally ...Palpate: Yes: Soft. No: Firm/Rigid, Guarding, Hepatomegaly, Mass, Pulsatile Mass, Splenomegaly, Tenderness Labs: CBC, BMP 09/10/18 06:30 09/10/18 06:30 Problem List - Problems (1) Microcytic anemia Assessment/Plan: associated with possible sigmoid mass by catscan, pathological fracture of L@, hyponatremia R> 1)will need GI w/u including EGD and colonoscopy once pathological fracture is stabilized and hyponatremia is resolved 2) hematology consult 3) please recall once medically cleared for GI w/u Code(s): D50.9 - IRON DEFICIENCY ANEMIA, UNSPECIFIED
[2018-09-10] MEDS: DOCUSATE SODIUM 100 MG CAPSULE (FP) PO SCH (21:58)
[2018-09-10] MEDS: METOPROLOL TARTRATE 50 MG TABLET (FP) PO SCH (21:58)
[2018-09-11] MEDS: oxyCODONE HCL 5 MG TABLET PO SCH ×4 (00:08→17:44)
[2018-09-11] MEDS: ACETAMINOPHEN 325 MG TABLET (FP) PO SCH ×4 (00:08→17:45)
[2018-09-11] MEDS: KETOROLAC TROMETHAMINE 30 MG/1 ML VIAL IVPUSH SCH ×2 (02:37→10:24)
[2018-09-11] MEDS: DOCUSATE SODIUM 100 MG CAPSULE (FP) PO SCH ×3 (06:07→21:06)
[2018-09-11] MEDS: BACLOFEN 10 MG TABLET (FP) PO SCH ×3 (06:08→21:06)
[2018-09-11 08:32] LABS: ANION GAP 12 MMOL/L (8-16); BLOOD UREA NITROGEN 13 mg/dL (7-18); CALCIUM 8.1 mg/dL (8.5-10.1); CHLORIDE 96 mmol/L (98-107); CO2 24 mmol/L (21-32); CREATININE 0.3 mg/dL (0.55-1.3); GLUCOSE,RANDOM 86 mg/dL (74-106); POTASSIUM 3.5 mmol/L (3.5-5.1); SODIUM 132 mmol/L (136-145)
[2018-09-11 09:17] LABS: BASO % 0.6 % (0-2.0); EOS % 0.9 % (0-4.5); HEMOGLOBIN 7.7 GM/dL (10.7-15.3); LYMPH % 6.9 % (8-40); MCHC 30.7 g/dl (32.0-36.0); MEAN PLT VOLUME 7.5 fl (7.5-11.1); NEUT % 85.6 % (42.8-82.8); PLATELET COUNT 405 K/MM3 (134-434); RBC 3.84 M/mm3 (3.60-5.2); RDW 16.6 % (11.6-15.6); WHITE BLOOD COUNT 16.4 K/mm3 (4.0-10.0)
[2018-09-11 09:39] LABS: ALBUMIN 2.4 g/dl (3.4-5.0); ALK PHOS 134 U/L (45-117); ANION GAP 10 MMOL/L (8-16); BILIRUBIN,TOTAL 0.7 mg/dL (0.2-1); BLOOD UREA NITROGEN 12 mg/dL (7-18); CALCIUM 8.3 mg/dL (8.5-10.1); CHLORIDE 96 mmol/L (98-107); CO2 26 mmol/L (21-32); CREATININE 0.3 mg/dL (0.55-1.3); GLUCOSE,RANDOM 112 mg/dL (74-106); POTASSIUM 3.7 mmol/L (3.5-5.1); SGOT/AST 20 U/L (15-37); SGPT/ALT 19 U/L (13-61); SODIUM 133 mmol/L (136-145); TOT PROT 6.7 g/dl (6.4-8.2)
[2018-09-11] MEDS: PANTOPRAZOLE 40 MG TABLET (FP) PO SCH (10:24)
[2018-09-11] MEDS: POTASSIUM CHLORIDE TABS 20 MEQ TABLET.ER (FP) PO SCH (10:24)
[2018-09-11] MEDS: METOPROLOL TARTRATE 50 MG TABLET (FP) PO SCH ×2 (10:24→21:07)
--- NOTE | 2018-09-11 10:52 | PN ---
Progress Note (short form) - Note Progress Note: Renal follow up for Hyponatremia Pt seen and examined at the bedside awake and alert has no acute complaints no sob, cp, abd pain, N/V/D on IVF overnight making urine has back pain, same as presentation Vital Signs Temperature 98.7 F 09/11/18 05:50 Pulse Rate 93 H 09/11/18 05:50 Respiratory Rate 20 09/11/18 05:50 Blood Pressure 169/95 09/11/18 05:50 O2 Sat by Pulse Oximetry (%) 95 09/10/18 21:00 Intake & Output 09/08/18 09/09/18 09/10/18 09/11/18 23:59 23:59 23:59 23:59 Intake Total 100 2000 700 Output Total 450 1500 Balance -350 500 700 Weight 69.513 kg NAD RRR CTA Trace LE edema CBC, BMP 09/11/18 08:50 09/11/18 06:30 Current Medications Acetaminophen (Tylenol -) 325 mg PO Q6HPO [facility] Last Admin: 09/11/18 06:08 Dose: 325 mg Baclofen (Lioresal -) 10 mg PO TID [facility] Last Admin: 09/11/18 06:08 Dose: 10 mg Docusate Sodium (Colace -) 100 mg PO TID [facility] Last Admin: 09/11/18 06:07 Dose: 100 mg Heparin Sodium (Porcine) (Heparin -) 5,000 unit SQ TID [facility] Sodium Chloride (Normal Saline -) 1,000 mls @ 70 mls/hr IV ASDIR [facility] Last Admin: 09/10/18 17:16 Dose: 70 mls/hr Metoprolol Tartrate (Lopressor -) 50 mg PO BID [facility] Last Admin: 09/11/18 10:24 Dose: 50 mg Morphine Sulfate (Morphine Sulfate) 2 mg IVPUSH Q6H PRN PRN Reason: PAIN LEVEL 7 - 10 Last Admin: 09/10/18 08:43 Dose: 2 mg Oxycodone HCl (Roxicodone -) 5 mg PO Q6HPO [facility] Last Admin: 09/11/18 06:07 Dose: 5 mg Pantoprazole Sodium (Protonix -) 40 mg PO DAILY [facility] Last Admin: 09/11/18 10:24 Dose: 40 mg Polyethylene Glycol (Miralax (For Daily Use) -) 17 gm PO DAILY [facility] Potassium Chloride (K-Dur -) 40 meq PO DAILY [facility]I Last Admin: 09/11/18 10:24 Dose: 40 meq 68 year old AA woman with no significnat past medical history that presented with lower back pain and found to have a Na of 124. #Hyponatremia (SIADH vs. Hypovolemic hyponatremia, urine Na was < 20 supportive of total body salt depletion) #Lumbar Fracture #Extensive Metastatic lesions (liver, lungs) #Hypokalemia #Left Hydronephrosis with preserved renal function Serum na imported with isotonic saline will hold IVF at this time, continue 1.5L fluid restriction and encouraged oral solute intake as tolerated no indication for 3% saline Doppler of LE pending to get CT of Head, Chest, Abd/Pelvis with IV contrast Hydronephrosis seen on Lumbar CT, will further characterize with Abd CT Oncology consult Consider Urologic evaluation but less urgency at this time as pt with preserved renal function Hiram Kovacs DO
--- NOTE | 2018-09-11 10:53 | PN ---
Physical Exam: SUBJECTIVE: Patient seen and examined at the bedside. OBJECTIVE: wbc trending up to 16. blood cultures/urine cultures pending, afebrile, + tachycardia supraclavicular node biopsy and full imaging of spine with MRI ordered, ct scan of head/abd-pelvis ct ordered npo at midnight for possible supraventicular node biopsy with IR. ua now Period Temp Pulse Resp BP Sys/Zuniga Pulse Ox Last 24 Hr 98.7 F-99.1 F 93-100 18-20 159-169/60-100 95 GENERAL: The patient is awake, alert, and fully oriented, in no acute distress. HEAD: Normal with no signs of trauma. EYES: PERRL, extraocular movements intact, sclera anicteric, conjunctiva clear. No ptosis. ENT: Ears normal, nares patent, oropharynx clear without exudates, moist mucous membranes. NECK: Trachea midline, full range of motion, supple. LUNGS: diminished breath sounds anteriorly, limited sounds posterily 2/2 to pain HEART: Regular rate and rhythm, S1, S2 without murmur, rub or gallop. ABDOMEN: Soft, nontender, nondistended, normoactive bowel sounds, no guarding, no rebound, no hepatosplenomegaly, no masses. EXTREMITIES: left leg with non pitting edema NEUROLOGICAL: Normal speech, gait not observed. PSYCH: Normal mood, normal affect. Laboratory Results - last 24 hr 09/10/18 09/11/18 09/11/18 21:15 06:00 06:30 WBC RBC Hgb Hct MCV MCH MCHC RDW Plt Count MPV Absolute Neuts (auto) Neutrophils % Lymphocytes % Monocytes % Eosinophils % Basophils % Nucleated RBC % Sodium 130 L 133 L 132 L Potassium 3.7 3.5 Chloride 96 L 96 L Carbon Dioxide 26 24 Anion Gap 10 12 BUN 12 13 Creatinine 0.3 L 0.3 L Creat Clearance w eGFR > 60 > 60 Random Glucose 112 H 86 Calcium 8.3 L 8.1 L Phosphorus Ferritin Total Bilirubin 0.7 AST 20 ALT 19 Alkaline Phosphatase 134 H Total Protein 6.7 Albumin 2.4 L 09/11/18 09/11/18 09/11/18 08:50 08:50 08:50 WBC 16.4 H RBC 3.84 Hgb 7.7 L Hct 25.0 L MCV 65.0 L MCH 20.0 L MCHC 30.7 L RDW 16.6 H Plt Count 405 MPV 7.5 Absolute Neuts (auto) 14.0 H Neutrophils % 85.6 H Lymphocytes % 6.9 L Monocytes % 6.0 Eosinophils % 0.9 D Basophils % 0.6 Nucleated RBC % 0 Sodium Potassium Chloride Carbon Dioxide Anion Gap BUN Creatinine Creat Clearance w eGFR Random Glucose Calcium Phosphorus 3.1 Ferritin 27.7 Total Bilirubin AST ALT Alkaline Phosphatase Total Protein Albumin Active Medications Generic Name Dose Route Start Last Admin Trade Name Freq PRN Reason Stop Dose Admin Acetaminophen 325 mg 09/09/18 00:00 09/11/18 06:08 Tylenol - PO 325 mg Q6HPO SAMI Administration Baclofen 10 mg 09/08/18 22:00 09/11/18 06:08 Lioresal - PO 10 mg TID SAMI Administration Docusate Sodium 100 mg 09/10/18 22:00 09/11/18 06:07 Colace - PO 100 mg TID SAMI Administration Heparin Sodium (Porcine) 5,000 unit 09/11/18 14:00 Heparin - SQ TID [facility]I Sodium Chloride 1,000 mls @ 70 mls/hr 09/10/18 17:00 09/10/18 17:16 Normal Saline - IV 70 mls/hr ASDIR SAMI Administration Metoprolol Tartrate 50 mg 09/10/18 15:50 09/11/18 10:24 Lopressor - PO 50 mg BID SAMI Administration Morphine Sulfate 2 mg 09/09/18 09:59 09/10/18 08:43 Morphine Sulfate IVPUSH 2 mg Q6H PRN Administration PAIN LEVEL 7 - 10 Oxycodone HCl 5 mg 09/09/18 00:00 09/11/18 06:07 Roxicodone - PO 5 mg Q6HPO SAMI Administration Pantoprazole Sodium 40 mg 09/11/18 10:00 09/11/18 10:24 Protonix - PO 40 mg DAILY [facility]I Administration Polyethylene Glycol 17 gm 09/12/18 10:00 Miralax (For Daily Use) - PO DAILY [facility] Potassium Chloride 40 meq 09/10/18 09:11 09/11/18 10:24 K-Dur - PO 40 meq DAILY [facility]I Administration ASSESSMENT/PLAN: Patient is a 68 year old female with no reported past medical history. She presented to the ED on 09/09/18 for worsening lower back pain. Patient reports that her back pain began on 03/2018 when she lifted her grandson out of the bathtub and began to experience back spasms and severe back pain. The muscle spasms were severe for about a week and it was difficult for her to walk. In time, the spasms gradually subsided but never totally went away. About 2 weeks ago, the back spasms began and gradualy worsened. She has numbness to her left lateral thigh. Imaging: Lumbar spine MRI 09/10/2018: L2 significant acute pathological compression fx of l2 vertebral body with total bone marrow replacement of vertebral body. bone marrow edema. L5-S1: partial desiccated disc. no evidence of disc displacement. L5 vertebral body hemangioma. left hydronephrosis On T2 coronal images, several t2 mildly hyperintense lesions noted in the right lobe of the liver measuring apx 11mm 12 to 15mm concerning for metastatic disease. ------ hyponatremia hypertensive urgency Back pain L2 Compression fracture Leukocytosis electrolyte imbalance Sigmoid mass? Liver lesions Back Pain L2 compression fracture. On Baclofen, toradol, TSLO brace, oxycodone. Lumbar MRI as noted above. L2 acute pathological compression fracture with incidental findings of liver lesions on the right lobe of the liver concerning for metastatic disease. neurosurgery consulted (Dr. Jarvis), patient offered surgery for pathological fracture Oncology/Hematology Patient with liver lesions, chest xray with possible metastatic disease, and possible sigmoid mass. unknown primary cancer supraclavicular node biopsy and full imaging of spine with MRI ordered, ct scan of head/abd-pelvis ct ordered npo at midnight for possible supraventicular node biopsy with IR. Vascular study pending oncology following, radiation oncology consulted by oncology. Anemia, unspecified iron studies are pending GI: Liver lesions, suspicion of mets Sigmoid colon mass/mild wall irregularity upper rectum/sigmoid colon tumor markers pending GI consulted and following ID: Leukocytosis WBC 16.0, afebrile. meets SIRS criteria. ID consulted and following Blood and urine cultures pending Card: Hypertensive Urgency BP improving, but not at goal On Metoprolol Tartrate 25 mg BID, will uptitrate Echo done today> LV normal, moderate concentric left vent hypertrophy, left ventricle is hyperdynamic. trace MR, trace tricuspid regurg. Renal: Electrolyte imbalance Hypokalemia @ 3.5 Hyponatremia 124>128>132. on NS Renal consult and following fen tolerating PO monitor electrolytes low salt diet prophy hepain protonix
--- NOTE | 2018-09-11 11:32 | CON.ID ---
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 originally had back pain in April 03 for two weeks which she attributed to taking care of her grandson. THe back pain improved but never really resolved. Two and a half weeks ago the back pain worsened. mp fevers has lost about 25 pounds over the last 2 years no PMD-has not been to a doctor in years no blood in stool no meds w/u to date leukocytosis anemia hyponatremia pathologic compression fracture L2 left hydronephrosis ?sigmoid lesion of ct scan ?liver lesions abnl cxray - History Source History Provided By: Patient, Medical Record Limitations to Obtaining History: No Limitations - Past Medical History Musculoskeletal: Yes: Other (left ankle fracture) - Past Surgical History Past Surgical History: Yes: (30 years ago, fibroids removed, bartholin cyst in her 20s) - Alcohol/Substance Use Hx Alcohol Use: No - Smoking History Smoking history: Never smoked Have you smoked in the past 12 months: No - Social History Usual Living Arrangement: Alone ADL: Independent Occupation: NURSE- worked several months ago Place of : [facility] History of Recent Travel: No Home Medications - Allergies Allergies/Adverse Reactions: Allergies Allergy/AdvReac Type Severity Reaction Status Date / Time No Known Allergies Allergy Verified 09/08/18 10:48 - Home Medications Home Medications: Ambulatory Orders Ibuprofen [Motrin -] 600 mg PO PRN PRN 09/08/18 Oxycodone HCl/Acetaminophen [Percocet 5-325 mg Tablet] 1 tab PO Q6H 09/08/18 Family Disease History - Family Disease History Family Disease History: CA: Sister (breast ) Review of Systems - Review of Systems Constitutional: reports: No Symptoms, Unintentional Wgt. Loss. denies: Chills, Diaphoresis, Fever, Lethargy, Weakness Eyes: reports: No Symptoms. denies: Blind Spots, Blurred Vision HENT: reports: No Symptoms. denies: Difficult Swallowing, Throat Pain Neck: reports: No Symptoms. denies: Decreased ROM Cardiovascular: reports: No Symptoms, Edema. denies: Chest Pain Respiratory: reports: No Symptoms. denies: Cough, Hemoptysis Gastrointestinal: reports: No Symptoms. denies: Abdominal Pain, Constipation, Diarrhea Genitourinary: reports: No Symptoms. denies: Burning, Discharge Musculoskeletal: reports: Back Pain Physical Exam Vital Signs: Vital Signs Temperature 98.7 F 09/11/18 05:50 Pulse Rate 93 H 09/11/18 05:50 Respiratory Rate 20 09/11/18 05:50 Blood Pressure 169/95 09/11/18 05:50 O2 Sat by Pulse Oximetry (%) 95 09/10/18 21:00 Constitutional: Yes: Well Nourished, No Distress, Calm Eyes: Yes: Conjunctiva Clear HENT: Yes: Atraumatic, Normocephalic Neck: Yes: Supple, Trachea Midline, Lymphadenopathy (hard 3 cm left supraclavicular node) Cardiovascular: Yes: Regular Rate and Rhythm Respiratory: Yes: Regular, CTA Bilaterally Gastrointestinal: Yes: Normal Bowel Sounds, Soft ...Rectal Exam: Yes: Deferred Extremities: Yes: Other (LLE edema) Edema: Yes Edema: LLE: 1+ Peripheral Pulses WNL: Yes Integumentary: Yes: WNL Neurological: Yes: Alert, Oriented Labs: CBC, BMP 09/11/18 08:50 09/11/18 06:30 Imaging - Results Chest X-ray: Report Reviewed, Image Reviewed Cat Scan: Report Reviewed Problem List - Problems (1) Leukocytosis Code(s): D72.829 - ELEVATED WHITE BLOOD CELL COUNT, UNSPECIFIED (2) Malignancy Code(s): C80.1 - MALIGNANT (PRIMARY) NEOPLASM, UNSPECIFIED (3) Microcytic anemia Code(s): D50.9 - IRON DEFICIENCY ANEMIA, UNSPECIFIED (4) Compression fracture Code(s): [id number] - Assessment/Plan suspect reactive leukocytosis but cannot r/o obsturcutive uropathy with left hydronephrosis abnl cxray- suspect malignancy given diffuse nature and lack of infectious symptomtology +hard supraclavicular node c/w malignancy- hyponatremia-?SIADH r/o DVT compression fracture L2 suggest ct scan of chest and abdomen, already had pelvis consider head ct as well cultures sent observe off antibiotics consider biopsy of node oncology consult pending gi consult noted d/w hospitalist d/w renal
[2018-09-11] MEDS: HEPARIN NA (PORCINE) 5,000 UNITS/ML 1ML VIAL SQ SCH ×2 (14:37→21:06)
--- NOTE | 2018-09-11 16:15 | PN ---
Progress Note (short form) - Note Progress Note: I reviewed the imaging findings and clinical suspicion of L2 pathological fracture with severe cauda equina compression with the patient in great detail. I explained the risks of severe neurological injury which may be associated with changes position, hypotension or delay in decompression. I offered the patient decompression and stabilization with T12-L4 posterior fusion and possible anterior column reconstruction. I again reviewed the risks, benefits and alternatives in detail. The patient understands this information and I offered surgery as soon as tomorrow. The patient wishes for "a few days to marinate" to consider her options. I explained the potential deleterious consequences of delay of decompression and the patient accepts this information. I will speak to the patient again tomorrow to reassess her position.
--- NOTE | 2018-09-11 16:33 | CONSULT ---
Consult Consult Specialty:: Heme/Onc Referred by:: Hospitalist Reason for Consultation:: Sigmoid/Liver Mass - History of Present Illness Chief Complaint: Back pain History of Present Illness: 68F with history of mitral valve prolapse (found by Dr. Vaughn at [facility] during an employee physical which was done about 10 years ago) , presents to the hospital for back pain which started when she lifted her grandson from the tub. She states she had back pain in March of this year but it went away after a couple of weeks but did not go away completely. She states the pain was unbearable which made her come to the ER. She was found to have a pathological fracture at L2 with osteolytic lesions. She was also noted to have some liver masses suspicious for metastasis. She also had a CXR which shows possible metastatic lesions. She has not had any dedicated imaging for cancer work up. These lesions were found while working up L2 fracture. On CT of the pelvis she also was noted to have focal wall irregularity and thickening along the upper rectum/adjacent sigmoid colon and concern for neoplastic disease. She has not seen a doctor in many years. She has not had a colonoscopy. Patient seen by GI and GI will work patient up once fracture stabilized and taken care of. Patient has compression of thecal sac and compression of L2 nerve. Patient will possible go for surgery with Dr. Espinoza from neurosurgery. Patient endorses 25 pound intentional weight loss over the past 2 years. Denies blood in her stool. - History Source History Provided By: Patient - Past Medical History Musculoskeletal: Yes: Other (left ankle fracture) Additional Medical History: MItral valve prolapse - Past Surgical History Past Surgical History: Yes: (30 years ago, fibroids removed, bartholin cyst in her 20s) - Alcohol/Substance Use Hx Alcohol Use: No - Smoking History Smoking history: Never smoked Have you smoked in the past 12 months: No - Social History Usual Living Arrangement: Alone ADL: Independent Occupation: NURSE- worked several months ago History of Recent Travel: No Home Medications - Allergies Allergies/Adverse Reactions: Allergies Allergy/AdvReac Type Severity Reaction Status Date / Time No Known Allergies Allergy Verified 09/08/18 10:48 - Home Medications Home Medications: Ambulatory Orders Ibuprofen [Motrin -] 600 mg PO PRN PRN 09/08/18 Oxycodone HCl/Acetaminophen [Percocet 5-325 mg Tablet] 1 tab PO Q6H 09/08/18 Family Disease History - Family Disease History Family Disease History: CA: Sister (breast ) Review of Systems - Review of Systems Constitutional: reports: Other (25 pound intentional weightloss over 2 years) Eyes: reports: No Symptoms HENT: reports: No Symptoms Neck: reports: No Symptoms Cardiovascular: reports: No Symptoms Respiratory: reports: No Symptoms Gastrointestinal: reports: No Symptoms Genitourinary: reports: No Symptoms Breasts: reports: No Symptoms Reported Musculoskeletal: reports: No Symptoms Integumentary: reports: No Symptoms Neurological: reports: No Symptoms Endocrine: reports: No Symptoms Hematology/Lymphatic: reports: No Symptoms Physical Exam Vital Signs: Vital Signs Temperature 98.4 F 09/11/18 13:49 Pulse Rate 100 H 09/11/18 13:49 Respiratory Rate 21 H 09/11/18 13:49 Blood Pressure 151/93 09/11/18 13:49 O2 Sat by Pulse Oximetry (%) 95 09/10/18 21:00 Constitutional: Yes: No Distress Eyes: Yes: EOM Intact, PERRL, Other (conjunctival pallor) HENT: Yes: Atraumatic, Normocephalic Neck: No: Lymphadenopathy Cardiovascular: Yes: Tachycardia, Murmur (3/6 systolic) Respiratory: Yes: Regular, CTA Bilaterally (anteriorly auscultated. Patient could not lean forward due to pain.), Other (their is a Left supraclavicular lymph node present on exam) Gastrointestinal: Yes: Normal Bowel Sounds, Soft. No: Tenderness Breast(s): Yes: Other (no axillary nodes appreciated) Extremities: Yes: Other (no inguinal lymphadenopathy) Edema: No Neurological: Yes: Alert, Oriented, Cran Nerves II-XII Intact, Other (bilateral lower extremity and upper extremity sensation intact. MUscle strength 4/5 in lower extremities at hip flexion. Knee flexion and extension intact but patient hesitant due to pain. dorsiflexion and plantar flexion 5/5. Upper extremity strength 5/5) Labs: CBC, BMP 09/11/18 08:50 09/11/18 06:30 Imaging - Results Chest X-ray: Report Reviewed, Image Reviewed X-ray: Report Reviewed, Image Reviewed Cat Scan: Report Reviewed, Image Reviewed MRI: Report Reviewed, Image Reviewed Assessment/Plan 68F with no significant PMH presents to the ER with a pathological fracture of L2. Problem List: Hypochromic microcytic anemia possible colon Ca liver lung and bone metastasis pathological fracture L2 Impending cord impingement leukocytosis possible hypertension Patient has a left supraclavicular lymph node which should be biopsed for tissue diagnosis. Will get radiation oncology consult would consider complete MRI of spine which may identify other lesions that needs to be treated would also consider CT of chest/Abdomen/Pelvis with IV contrast for staging- ordered When stable consider GI evaluation - Dr dominguez to see after fracture taken care of Will start patient on decadron 10mg iv now and then 6mg iv q6h PPI given steroids Will follow Case discussed with Primary team and neurosurgery Of note went back to see patient with attending Dr. Self. Daughter was present and asked us to come back tomorrow as her mom did not want to hear any bad news. Patient woke up we stated we wanted to take a history and do a physical and we would not discuss any findings with the patient but the patient declined and asked us to leave and return tomorrow.
[2018-09-11] MEDS ORDERED: DEXAMETHASONE SOD PHOSPHATE 4 MG/1 ML VIAL IVPUSH ONE (18:45)
--- NOTE | 2018-09-11 19:36 | PN ---
Teaching Attending Note Name of Resident: Toby Barba ATTENDING PHYSICIAN STATEMENT I saw and evaluated the patient. I reviewed the resident's note and discussed the case with the resident. I agree with the resident's findings and plan as documented. SUBJECTIVE: Patient declined examination and history taking. Daughter at bedside supported decision. Information obtained and discussed with Dr. Barba, primary care, and Dr. Jarvis Patient has extensive bone repulsion impinging on thecal sac and spinal cord. RT and steroids apparently would not adequately deal with this unstable spine condition. In this regard, surgical intervention seems appropriate. Steroids and PPI will be instituted. Consideration for supraclavicular node biopsy and full imaging of spine with MRI and CT imaging for staging will need be done. OBJECTIVE: ASSESSMENT AND PLAN:
[2018-09-11 21:35] LABS: URINE APPEARANCE CLEAR; URINE BILIRUBIN NEGATIVE (<2.0 mg/dL); URINE COLOR YELLOW; URINE GLUCOSE (UA) NEGATIVE (NEGATIVE); URINE KETONE 1+ (NEGATIVE); URINE LEUK ESTERASE 1+ (NEGATIVE); URINE NITRITE NEGATIVE (NEGATIVE); URINE PROTEIN NEGATIVE (NEGATIVE)
[2018-09-11 21:43] LABS: EPI CELLS RARE /HPF (FEW); URINE BACTERIA RARE /hpf (NONE SEEN); URINE MUCUS RARE
[2018-09-12] MEDS: oxyCODONE HCL 5 MG TABLET PO SCH ×4 (00:26→18:59)
[2018-09-12] MEDS: ACETAMINOPHEN 325 MG TABLET (FP) PO SCH ×4 (00:28→18:57)
[2018-09-12] MEDS: DEXAMETHASONE SOD PHOSPHATE 4 MG/1 ML VIAL IVPUSH SCH ×3 (03:11→16:36)
[2018-09-12] MEDS: BACLOFEN 10 MG TABLET (FP) PO SCH ×3 (05:56→22:43)
[2018-09-12] MEDS: DOCUSATE SODIUM 100 MG CAPSULE (FP) PO SCH ×3 (05:57→22:43)
[2018-09-12 06:06] LABS: SERUM IRON SATURATION 5 % (15-55); TOTAL IRON BINDING CAPACITY 312 ug/dL (250-450); UIBC 297 ug/dL (118-369)
[2018-09-12 08:05] LABS: BASO % 0.3 % (0-2.0); HEMATOCRIT 24.7 % (32.4-45.2); HEMOGLOBIN 7.6 GM/dL (10.7-15.3); LYMPH % 2.4 % (8-40); MCHC 30.6 g/dl (32.0-36.0); MEAN CELL VOLUME 65.3 fl (80-96); MEAN PLT VOLUME 7.5 fl (7.5-11.1); MONO % 0.7 % (3.8-10.2); NEUT % 96.6 % (42.8-82.8); PLATELET COUNT 461 K/MM3 (134-434); RBC 3.79 M/mm3 (3.60-5.2); RDW 16.8 % (11.6-15.6); WHITE BLOOD COUNT 15.7 K/mm3 (4.0-10.0)
[2018-09-12 08:27] LABS: ALBUMIN 2.4 g/dl (3.4-5.0); ALK PHOS 139 U/L (45-117); ANION GAP 8 MMOL/L (8-16); BILIRUBIN,TOTAL 0.5 mg/dL (0.2-1); BLOOD UREA NITROGEN 13 mg/dL (7-18); CALCIUM 8.7 mg/dL (8.5-10.1); CHLORIDE 100 mmol/L (98-107); CO2 26 mmol/L (21-32); CREATININE 0.4 mg/dL (0.55-1.3); GLUCOSE,RANDOM 145 mg/dL (74-106); MAGNESIUM 2.1 mg/dL (1.8-2.4); PHOSPHOROUS 4.2 mg/dL (2.5-4.9); POTASSIUM 4.5 mmol/L (3.5-5.1); SGOT/AST 16 U/L (15-37); SGPT/ALT 16 U/L (13-61); SODIUM 134 mmol/L (136-145); TOT PROT 6.9 g/dl (6.4-8.2)
[2018-09-12] MEDS ORDERED: HEPARIN NA (PORCINE) 5,000 UNITS/ML 1ML VIAL IVPUSH PRN ×2 (11:09)
[2018-09-12] MEDS ORDERED: HEPARIN NA (PORCINE) 5,000 UNITS/ML 1ML VIAL IVPUSH ONE (11:09)
--- NOTE | 2018-09-12 11:09 | PN ---
Progress Note (short form) - Note Progress Note: Patient seen and examined at bedside no events overnight DVT study positive for bilateral DVTs Vital Signs Temperature 98.3 F 09/12/18 05:58 Pulse Rate 94 H 09/12/18 05:58 Respiratory Rate 20 09/12/18 05:58 Blood Pressure 168/90 09/12/18 05:58 O2 Sat by Pulse Oximetry (%) 95 09/11/18 21:00 PE: Constitutional: Yes: No Distress Eyes: Yes: EOM Intact, PERRL, Other (conjunctival pallor) HENT: Yes: Atraumatic, Normocephalic Neck: No: Lymphadenopathy Cardiovascular: Yes: Tachycardia, Murmur (3/6 systolic) Respiratory: Yes: Regular, CTA Bilaterally (anteriorly auscultated. Patient could not lean forward due to pain.), Other (their is a Left supraclavicular lymph node present on exam) Gastrointestinal: Yes: Normal Bowel Sounds, Soft. No: Tenderness Breast(s): Yes: Other (no axillary nodes appreciated) Breast exam done with film rental clerk SARAH Padilla. No masses appreciated. Left breast significantly larger than right (Patient states its been like this as long as she can remember) No nipple inversion or discharge. No discoloration of breasts. Left breast does have large pores and there was a concern for peau D'orange but no discoloration warmth or tenderness and patient states she always had the pores large Extremities: Yes: Other (no inguinal lymphadenopathy) Neurological: Yes: Alert, Oriented, Cranial Nerves II-XII grossly Intact, Other (bilateral lower extremity and upper extremity sensation intact. Muscle strength 4/5 in lower extremities at hip flexion. Knee flexion and extension intact but patient hesitant due to pain. dorsiflexion and plantar flexion 5/5. Upper extremity strength 5/5) 09/12/18 09/12/18 06:30 06:30 WBC 15.7 H RBC 3.79 Hgb 7.6 L Hct 24.7 L MCV 65.3 L MCHC 30.6 L RDW 16.8 H Plt Count 461 H Neutrophils % 96.6 H Lymphocytes % 2.4 L D Monocytes % 0.7 L D Eosinophils % 0.0 D Basophils % 0.3 Sodium 134 L Potassium 4.5 Chloride 100 Carbon Dioxide 26 Anion Gap 8 BUN 13 Creatinine 0.4 L 09/10/18 20:00 Urine Culture - Final Urine - Urine Clean Catch NO GROWTH OBTAINED 09/10/18 21:15 Blood Culture - Preliminary Blood - Peripheral Venous NO GROWTH OBTAINED AFTER 24 HOURS, INCUBATION TO CONTINUE FOR 4 DAYS. 09/10/18 21:00 Blood Culture - Preliminary Blood - Peripheral Venous NO GROWTH OBTAINED AFTER 24 HOURS, INCUBATION TO CONTINUE FOR 4 DAYS. 68F with no significant PMH presents to the ER with a pathological fracture of L2. Problem List: Hypochromic microcytic anemia possible colon Ca liver lung and bone metastasis pathological fracture L2 Impending cord impingement leukocytosis possible hypertension Iron deficiency anemia Extensive bilateral DVTs Patient has a left supraclavicular lymph node which should be biopsed for tissue diagnosis-patient was schedule for IR guided biopsy of left supraclavicular lymph node but she refused and she states mentally she can not handle bad news today and wants to do it tomorrow so she can mentally prepare herself. Patient has bilateral DVTs and would start on anticoagulation-in cancer patient lovenox is the anticoagulant of choice of given the likely possibility of multiple procedures in the near future patient was placed on heparin gtt by primary team Will get radiation oncology consult would consider complete MRI of spine which may identify other lesions that needs to be treated would also consider CT of chest/Abdomen/Pelvis with IV contrast for staging- ordered and pending When stable consider GI evaluation - Dr dominguez to see after fracture taken care of Will start patient on decadron 10mg iv now and then 6mg iv q6h PPI given steroids Iron studies noted patient has iron deficiency Will follow Case discussed with Primary team and neurosurgery Of note went back to see patient with attending Dr. Aramis vazquez and Daughter was present and asked us to come back the next day as her mom did not want to hear any bad news. Patient woke up we stated we wanted to take a history and do a physical and we would not discuss any findings with the patient but the patient declined and asked us to leave and return the next day.
[2018-09-12] MEDS ORDERED: HEPARIN INFUSION - 25,000 UNITS/500 ML INFUS.BAG IVPB SCH (11:15)
[2018-09-12 11:53] LABS: INR 1.21 (0.83-1.09); PROTHROMBIN TIME (PATIENT) 14.3 SEC (9.7-13.0)
[2018-09-12 11:56] LABS: ACTIVATED PTT 27.8 SECONDS (25.2-36.5)
[2018-09-12] MEDS: POTASSIUM CHLORIDE TABS 20 MEQ TABLET.ER (FP) PO SCH (12:01)
[2018-09-12] MEDS: PANTOPRAZOLE 40 MG TABLET (FP) PO SCH (12:01)
[2018-09-12] MEDS: METOPROLOL TARTRATE 50 MG TABLET (FP) PO SCH ×2 (12:02→22:43)
[2018-09-12] MEDS: POLYETHYLENE GLYCOL 3350 119 GM BTL PO SCH (13:20)
--- NOTE | 2018-09-12 13:38 | PN ---
Physical Exam: SUBJECTIVE: Patient seen and examined at the bedside. OBJECTIVE: Patient refusing to have surgical intervention of her compression fracture at this time. Dr. Jarvis discussed the importance of immediate surgical intervention, but patient still refused Patient also refusing to go to IR today for biopsy of left supraclavicular node. further refusing to have mri, ct scan done today. wants to wait til tomorrow. US/Duplex/vascular 2 leg study shows the following: bilateral DVT on right proximal, superficial femoral vein, popliteal and posterior tibial vein, left superficial femoral, popliteal and posterior tibial vein. Patient placed on a heparin drip. Patient is for biopsy of left supraclavicular node tomorrow. heparin drip to be stopped 09/13/2018 at 0600 as per IR. discussed with primary RN who will inform the night RN. ordered placed on EMAR. Vital Signs Period Temp Pulse Resp BP Sys/Zuniga Pulse Ox Last 24 Hr 98.3 F-98.4 F 79-100 20-21 120-168/60-93 95 GENERAL: The patient is awake, alert, and fully oriented, in no acute distress. HEAD: Normal with no signs of trauma. EYES: PERRL, extraocular movements intact, sclera anicteric, conjunctiva clear. No ptosis. ENT: Ears normal, nares patent, oropharynx clear without exudates, moist mucous membranes. NECK: Trachea midline, full range of motion, supple. LUNGS: diminished breath sounds anteriorly, limited sounds posterily 2/2 to pain HEART: Regular rate and rhythm ABDOMEN: Soft, nontender, nondistended, normoactive bowel sounds, no guarding, no rebound, no hepatosplenomegaly, no masses. EXTREMITIES: left leg with non pitting edema, extensive bilateral dvts per imaging. NEUROLOGICAL: Normal speech, gait not observed. PSYCH: Normal mood, normal affect. Laboratory Results - last 24 hr 09/11/18 09/11/18 09/11/18 08:50 08:50 20:30 WBC RBC Hgb Hct MCV MCH MCHC RDW Plt Count MPV Absolute Neuts (auto) Neutrophils % Lymphocytes % Monocytes % Eosinophils % Basophils % Nucleated RBC % PT with INR INR PTT (Actin FS) Sodium Potassium Chloride Carbon Dioxide Anion Gap BUN Creatinine Creat Clearance w eGFR Random Glucose Calcium Phosphorus Magnesium Iron 15 L TIBC 312 Iron Saturation 5 L Total Bilirubin AST ALT Alkaline Phosphatase Total Protein Albumin CA 125 Antigen 152.9 H TSH Urine Color Yellow Urine Appearance Clear Urine pH 5.0 Ur Specific [place] 1.014 Urine Protein Negative Urine Glucose (UA) Negative Urine Ketones 1+ H Urine Blood Negative Urine Nitrite Negative Urine Bilirubin Negative Urine Urobilinogen 2.0 H Ur Leukocyte Esterase 1+ H Urine WBC (Auto) 22 Urine RBC (Auto) 1 Ur Epithelial Cells Rare Urine Bacteria Rare Urine Mucus Rare 09/12/18 09/12/18 09/12/18 06:30 06:30 11:15 WBC 15.7 H RBC 3.79 Hgb 7.6 L Hct 24.7 L MCV 65.3 L MCH 20.0 L MCHC 30.6 L RDW 16.8 H Plt Count 461 H MPV 7.5 Absolute Neuts (auto) 15.1 H Neutrophils % 96.6 H Lymphocytes % 2.4 L D Monocytes % 0.7 L D Eosinophils % 0.0 D Basophils % 0.3 Nucleated RBC % 0 PT with INR 14.30 H INR 1.21 H PTT (Actin FS) 27.8 Sodium 134 L Potassium 4.5 Chloride 100 Carbon Dioxide 26 Anion Gap 8 BUN 13 Creatinine 0.4 L Creat Clearance w eGFR > 60 Random Glucose 145 H Calcium 8.7 Phosphorus 4.2 Magnesium 2.1 Iron TIBC Iron Saturation Total Bilirubin 0.5 AST 16 ALT 16 Alkaline Phosphatase 139 H Total Protein 6.9 Albumin 2.4 L CA 125 Antigen TSH 0.76 Urine Color Urine Appearance Urine pH Ur Specific [place] Urine Protein Urine Glucose (UA) Urine Ketones Urine Blood Urine Nitrite Urine Bilirubin Urine Urobilinogen Ur Leukocyte Esterase Urine WBC (Auto) Urine RBC (Auto) Ur Epithelial Cells Urine Bacteria Urine Mucus Active Medications Generic Name Dose Route Start Last Admin Trade Name Freq PRN Reason Stop Dose Admin Acetaminophen 325 mg 09/09/18 00:00 09/12/18 12:01 Tylenol - PO 325 mg Q6HPO SAMI Administration Baclofen 10 mg 09/08/18 22:00 09/12/18 13:20 Lioresal - PO 10 mg TID SAMI Administration Dexamethasone Sodium Phosphate 6 mg 09/12/18 03:00 09/12/18 09:05 Decadron Injection - IVPUSH 6 mg Q6H-IV SAMI Administration Docusate Sodium 100 mg 09/10/18 22:00 09/12/18 13:20 Colace - PO 100 mg TID SAMI Administration Heparin Sodium (Porcine) 2,800 unit 09/12/18 11:09 Heparin - 40 unit/kg (2800 unit) IVPUSH PRN PRN For aPTT 35 to 45 seconds Heparin Sodium (Porcine) 5,600 unit 09/12/18 11:09 09/12/18 12:25 Heparin - 80 unit/kg (5600 unit) 5,600 unit IVPUSH Administration PRN PRN aPTT <35 seconds Heparin Sodium/Dextrose 25,000 units in 500 mls @ 25.025 mls/hr 09/12/18 11: 15 09/12/18 12:26 Heparin Infusion - IVPB 18 units/kg/hr TITR SAMI 25.025 mls/hr Administration Protocol 18 UNITS/KG/HR Metoprolol Tartrate 50 mg 09/10/18 15:50 09/12/18 12:02 Lopressor - PO 50 mg BID SAMI Administration Oxycodone HCl 5 mg 09/09/18 00:00 09/12/18 12:02 Roxicodone - PO 5 mg Q6HPO SAMI Administration Pantoprazole Sodium 40 mg 09/11/18 10:00 09/12/18 12:01 Protonix - PO 40 mg DAILY SAMI Administration Polyethylene Glycol 17 gm 09/12/18 10:00 09/12/18 13:20 Miralax (For Daily Use) - PO 17 grams DAILY SAMI Administration Potassium Chloride 40 meq 09/10/18 09:11 09/12/18 12:01 K-Dur - PO 40 meq DAILY SAMI Administration ASSESSMENT/PLAN: Patient is a 68 year old female with no reported past medical history. She presented to the ED on 09/09/18 for worsening lower back pain. Patient reports that her back pain began on 03/2018 when she lifted her grandson out of the bathtub and began to experience back spasms and severe back pain. The muscle spasms were severe for about a week and it was difficult for her to walk. In time, the spasms gradually subsided but never totally went away. About 2 weeks ago, the back spasms began and gradualy worsened. She has numbness to her left lateral thigh. Imaging: Lumbar spine MRI 09/10/2018: L2 significant acute pathological compression fx of l2 vertebral body with total bone marrow replacement of vertebral body. bone marrow edema. L5-S1: partial desiccated disc. no evidence of disc displacement. L5 vertebral body hemangioma. left hydronephrosis On T2 coronal images, several t2 mildly hyperintense lesions noted in the right lobe of the liver measuring apx 11mm 12 to 15mm concerning for metastatic disease. Vascular doppler study 09/12/2018:bilateral DVT on right proximal, superficial femoral vein, popliteal and posterior tibial vein, left superficial femoral, popliteal and posterior tibial vein. Patient placed on a heparin drip. ------ hyponatremia hypertensive urgency Back pain L2 Compression fracture Leukocytosis electrolyte imbalance Sigmoid mass? Liver lesions elevated tumor markers extensive bilateral dvt Back Pain L2 compression fracture. On Baclofen, toradol, TSLO brace, oxycodone. Lumbar MRI as noted above. L2 acute pathological compression fracture with incidental findings of liver lesions on the right lobe of the liver concerning for metastatic disease. neurosurgery consulted (Dr. Jarvis), patient offered surgery for pathological fracture, but currently refusing surgery. importance of surgery discussed in detail but still refusing. wants to think more about it and discuss with her daughter. Oncology/Hematology Patient with liver lesions, chest xray with possible metastatic disease, and possible sigmoid mass. unknown primary cancer supraclavicular node biopsy and full imaging of spine with MRI ordered, ct scan of head/abd-pelvis ct ordered npo at midnight for possible supraventicular node biopsy with IR. pt refused to have this done today. oncology following, radiation oncology consulted by oncology. Anemia, unspecified hematology following DVT Extensive DVTs on bilateral lower extremities Started on heparin drip per protocol GI: Liver lesions, suspicion of mets Sigmoid colon mass/mild wall irregularity upper rectum/sigmoid colon tumor marker ca 125 and CEA significantly elevated GI consulted ID: Leukocytosis afebrile. meets SIRS criteria. ID consulted and following Blood and urine cultures pending Card: Hypertensive Urgency BP elevated again today. On Metoprolol Tartrate 25 mg BID. Echo done today> LV normal, moderate concentric left vent hypertrophy, left ventricle is hyperdynamic. trace MR, trace tricuspid regurg. cardiology consulted Renal: Electrolyte imbalance Hypokalemia, resolved Hyponatremia, improving Renal consult and following fen tolerating PO monitor electrolytes low salt diet prophy hepain protonix Visit type - Emergency Visit Emergency Visit: Yes ED Registration Date: 09/09/18 Care time: The patient presented to the Emergency Department on the above date and was hospitalized for further evaluation of their emergent condition. - New Patient This patient is new to me today: No - Critical Care Critical Care patient: No - Discharge Referral Referred to [facility] No
[2018-09-12 14:25] LABS: ANISOCYTOSIS 2+; MACROCYTOSIS 0; PLATELET ESTIMATE NORMAL; TARGET CELLS 1+
[2018-09-12] MEDS ORDERED: MORPHINE SULFATE 2 MG/ML VIAL IVPUSH ONE (16:50)
--- NOTE | 2018-09-12 17:03 | CON.CARD ---
Consult Consult Specialty:: cardio Reason for Consultation:: preop eval - History of Present Illness Chief Complaint: back pain History of Present Illness: 68 F presented with severe back pain. Seen by neurosurgery who diagnosed pathological L spine fracture with severe compression of cauda equina at risk for neurological compromise--rec'd surgery but pt deferred for now. We were consulted for preop CV eval in light of uncontrolled HTN and audible murmur. Echo completed 09/10 here shows LVH, hyperdynamic LVEF, with no signif valve dysfunction (including no ). Pt seen by heme-onc consult, due to bilateral DVTs diagnosed as well--being treated with UFH gtt. There are imaging findings consistent with liver, lung, bony mets possibly from colon Ca primary. pt denies any cp or sob with activity at home. no cp here either. PMH: no known CV dz, HTN, DM - Past Medical History Musculoskeletal: Yes: Other (left ankle fracture) Additional Medical History: MItral valve prolapse - Past Surgical History Past Surgical History: Yes: (30 years ago, fibroids removed, bartholin cyst in her 20s) - Alcohol/Substance Use Hx Alcohol Use: No - Smoking History Smoking history: Never smoked Have you smoked in the past 12 months: No - Social History Usual Living Arrangement: Alone ADL: Independent Occupation: NURSE- worked several months ago History of Recent Travel: No Home Medications - Allergies Allergies/Adverse Reactions: Allergies Allergy/AdvReac Type Severity Reaction Status Date / Time No Known Allergies Allergy Verified 09/08/18 10:48 - Home Medications Home Medications: Ambulatory Orders Ibuprofen [Motrin -] 600 mg PO PRN PRN 09/08/18 Oxycodone HCl/Acetaminophen [Percocet 5-325 mg Tablet] 1 tab PO Q6H 09/08/18 Family Disease History - Family Disease History Family Disease History: CA: Sister (breast ) Review of Systems - Review of Systems Constitutional: denies: Chills, Fever Eyes: denies: Eye Pain HENT: denies: Nasal Congestion Neck: denies: Stiffness Cardiovascular: denies: Palpitations Respiratory: denies: Orthopnea, PND Gastrointestinal: denies: Diarrhea, Rectal Bleeding Genitourinary: denies: Burning, Hematuria Musculoskeletal: denies: Muscle Pain Integumentary: denies: Rash Neurological: denies: Numbness, Seizure, Syncope Endocrine: denies: Excessive Sweating Hematology/Lymphatic: denies: Excessive Bleeding Vital Signs: Vital Signs Temperature 98.5 F 09/12/18 14:00 Pulse Rate 115 H 09/12/18 14:00 Respiratory Rate 18 09/12/18 14:00 Blood Pressure 178/107 H 09/12/18 14:00 O2 Sat by Pulse Oximetry (%) 95 09/11/18 21:00 Constitutional: Yes: Well Nourished, No Distress Eyes: No: Sclera Icterus HENT: No: Nasal Congestion Neck: No: Decreased ROM Respiratory: Yes: CTA Bilaterally. No: Accessory Muscle Use, Rales, Wheezes Gastrointestinal: Yes: Normal Bowel Sounds. No: Distention, Hepatomegaly, Palpable Mass, Tenderness Cardiovascular: Yes: Regular Rate and Rhythm JVD: No Carotid Bruit: No PMI: Non-Displaced Heart Sounds: Yes: S1, S2. No: Gallop Murmur: No: Systolic Murmur, Diastolic Murmur Musculoskeletal: Yes: Other (No kyphosis) Extremities: No: Cool, Cyanosis Edema: No Peripheral Pulses: 2+ Left Carotid, 2+ Right Carotid, 2+ Left Doralis Pedis, 2+ Right Dorsalis Pedis Integumentary: No: Jaundice Neurological: Yes: Alert, Oriented (x3) Psychiatric: No: Agitated - Other Data Labs, Other Data: CBC, BMP 09/12/18 06:30 09/12/18 06:30 INR, PTT INR 1.21 (0.83-1.09) H 09/12/18 11:15 Laboratory Tests 09/12/18 09/12/18 06:30 06:30 WBC 15.7 H Hgb 7.6 L Plt Count 461 H Sodium 134 L Potassium 4.5 Carbon Dioxide 26 BUN 13 Creatinine 0.4 L AST 16 ALT 16 Assessment/Plan ECG: NSR, LVH by voltage; nonsp TWA septal leads (no old) Echo here 09/10/18: nl LV size, mod conc LVH, hyperdynamic LVEF. nl RV. nl LA. no /AI, trace MR/TR. CXR: congestive and infiltrative changes with possible met.s images reviewed: findings are likely all sec to met.s, given no vasc redistribution pattern, effusions, or grayson B lines present HTN: -bp here ranging mostly 150s-180s/80s-100 -no prior known h/o HTN, not on bp meds at home--presence of significant concentric LVH on echo suggests longstanding HTN previously -possibly dexamethasone is contributing to BP elevations (given tachycardia also noted), vs ? pain contributing to BP/HR behavior -started on metoprolol 50 bid on 09/10 -bp remains uncontrolled today--start amlodipine 5mg qd malignancy-associated DVTs: -currently on UFH -prison tx per heme-onc pathological L spine frx with cord compressions: -tx per neurosurgery, pt considering surgical intervention preop CV eval: -Revised CV Risk Index = 0, unknown functional capacity -no clinical s/sx of active ischemia or CHF here, echo with normal cardiac function -she is at acceptable CV risk for spine surgery, and no further CV testing is warranted per established guidelines -prefer to have her bp <170/100 preop--observe bp trend with titration of meds ordered
[2018-09-12] MEDS: amLODIPine BESYLATE 5 MG TABLET (FP) PO SCH (18:55)
[2018-09-12] MEDS ORDERED: ALBUTEROL SO4 2.5/IPRATROPIUM 0.5 INH SOL 3 ML VIAL.NEB. NEB PRN (19:33)
[2018-09-12 19:54] LABS: INR 1.24 (0.83-1.09); PROTHROMBIN TIME (PATIENT) 14.7 SEC (9.7-13.0)
--- NOTE | 2018-09-12 20:57 | PN ---
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 supraclavicular node, b/l dvts, L2 fx/retropulsion, thecal sac compression patient not cooperative with w/u very reluctant to make decisions discusseddiagnostic possibilities with her--she nderstands but is still thinking and has not made decisions about ct imaging/surgery etc. agrees to lt. melanie bx
[2018-09-12] MEDS: DEXAMETHASONE SOD PHOSPHATE 4 MG/1 ML VIAL IVPB SCH (22:43)
--- NOTE | 2018-09-12 23:14 | PN ---
Progress Note (short form) - Note Progress Note: Radiation Oncology Pt seen and evaluated this afternoon, chart and films reviewed, dictated consult to follow. 68 yo woman with pathologic L2 fracture associated with cord impingement by bony retropulsion and epidural tumor and paraspinal mass impinging left nerve root causing LLE radiculopathy. Discussed with pt the presumptive diagnosis of metatastic cancer from as yet to be identified origin, the need for additional workup including tissue diagnosis. Agrees to proceed with bx of left SCV mass. Discussed that once diagnosis of malignancy is made, she would be a candidate for palliative RT to spine. However, because of the significant bony retropulsion into the canal and degree of pathologic fracture which could worsen (and certainly not improve) with RT, I would favor surgical stabilization and decompression before RT. She has spoken to neurosurgery and seems to be leaning towards having surgery. On heparin drip for BLE DVTs. Continue decadron/PPI, close neurologic monitoring/followup.
[2018-09-13] MEDS: oxyCODONE HCL 5 MG TABLET PO SCH ×5 (00:01→23:25)
[2018-09-13] MEDS: ACETAMINOPHEN 325 MG TABLET (FP) PO SCH ×5 (00:02→23:25)
[2018-09-13] MEDS: DEXAMETHASONE SOD PHOSPHATE 4 MG/1 ML VIAL IVPB SCH ×3 (03:48→14:54)
[2018-09-13] MEDS: DOCUSATE SODIUM 100 MG CAPSULE (FP) PO SCH ×3 (05:56→22:05)
[2018-09-13] MEDS: BACLOFEN 10 MG TABLET (FP) PO SCH ×3 (05:56→22:05)
[2018-09-13] MEDS: POTASSIUM CHLORIDE TABS 20 MEQ TABLET.ER (FP) PO SCH (11:15)
[2018-09-13] MEDS: METOPROLOL TARTRATE 50 MG TABLET (FP) PO SCH ×2 (11:15→22:05)
[2018-09-13] MEDS: PANTOPRAZOLE 40 MG TABLET (FP) PO SCH (11:16)
[2018-09-13] MEDS: amLODIPine BESYLATE 5 MG TABLET (FP) PO SCH (11:16)
[2018-09-13] MEDS: POLYETHYLENE GLYCOL 3350 119 GM BTL PO SCH (11:17)
[2018-09-13 11:31] LABS: BASO % 0.2 % (0-2.0); HEMATOCRIT 24.4 % (32.4-45.2); HEMOGLOBIN 7.3 GM/dL (10.7-15.3); LYMPH % 6.1 % (8-40); MCHC 29.9 g/dl (32.0-36.0); MEAN CELL VOLUME 64.8 fl (80-96); MEAN PLT VOLUME 7.3 fl (7.5-11.1); MONO % 4.2 % (3.8-10.2); NEUT % 89.5 % (42.8-82.8); PLATELET COUNT 601 K/MM3 (134-434); RBC 3.76 M/mm3 (3.60-5.2); RDW 17.3 % (11.6-15.6)
[2018-09-13 11:35] LABS: MCH 19.4 pg (25.7-33.7)
[2018-09-13 11:56] LABS: ALBUMIN 2.5 g/dl (3.4-5.0); ALK PHOS 132 U/L (45-117); ANION GAP 9 MMOL/L (8-16); BILIRUBIN,TOTAL 0.5 mg/dL (0.2-1); BLOOD UREA NITROGEN 15 mg/dL (7-18); CALCIUM 9.2 mg/dL (8.5-10.1); CHLORIDE 102 mmol/L (98-107); CO2 25 mmol/L (21-32); CREATININE 0.4 mg/dL (0.55-1.3); GLUCOSE,RANDOM 113 mg/dL (74-106); MAGNESIUM 2.3 mg/dL (1.8-2.4); POTASSIUM 4.3 mmol/L (3.5-5.1); SGOT/AST 15 U/L (15-37); SGPT/ALT 16 U/L (13-61); SODIUM 135 mmol/L (136-145); TOT PROT 6.8 g/dl (6.4-8.2)
--- NOTE | 2018-09-13 12:21 | PN ---
Progress Note (short form) - Note Progress Note: Patient seen and examined at bedside no events overnight Going for IR guided biopsy of left supraclavicular LN Vital Signs Temperature 98.5 F 09/12/18 14:00 Pulse Rate 94 H 09/12/18 18:00 Respiratory Rate 20 09/12/18 18:00 Blood Pressure 172/105 H 09/12/18 18:00 O2 Sat by Pulse Oximetry (%) 95 09/11/18 21:00 PE: Constitutional: Yes: No Distress Eyes: Yes: EOM Intact, PERRL, Other (conjunctival pallor) HENT: Yes: Atraumatic, Normocephalic Neck: No: Lymphadenopathy Cardiovascular: Yes: Tachycardia, Murmur (3/6 systolic) Respiratory: Yes: Regular, CTA Bilaterally (anteriorly auscultated. Patient could not lean forward due to pain.), Other (their is a Left supraclavicular lymph node present on exam) Gastrointestinal: Yes: Normal Bowel Sounds, Soft. No: Tenderness Breast(s): Yes: Other (no axillary nodes appreciated) Breast exam done with bindery machine operator SARAH Padilla on 09/12/2018. No masses appreciated. Left breast significantly larger than right (Patient states its been like this as long as she can remember) No nipple inversion or discharge. No discoloration of breasts. Left breast does have large pores and there was a concern for peau D' orange but no discoloration warmth or tenderness and patient states she always had the pores large Extremities: Yes: Other (no inguinal lymphadenopathy) Neurological: Yes: Alert, Oriented, Cranial Nerves II-XII grossly Intact, Other (bilateral lower extremity and upper extremity sensation intact. Muscle strength 4/5 in lower extremities at hip flexion. Knee flexion and extension intact but patient hesitant due to pain. dorsiflexion and plantar flexion 5/5. Upper extremity strength 5/5) 09/12/18 09/13/18 09/13/18 18:45 10:05 10:05 WBC 15.0 H RBC 3.76 Hgb 7.3 L Hct 24.4 L MCV 64.8 L MCHC 29.9 L RDW 17.3 H Plt Count 601 H D Neutrophils % 89.5 H Lymphocytes % 6.1 L D Monocytes % 4.2 D Eosinophils % 0.0 Basophils % 0.2 INR 1.24 H Sodium 135 L Potassium 4.3 Chloride 102 Carbon Dioxide 25 Anion Gap 9 BUN 15 Creatinine 0.4 L 09/10/18 21:15 Blood Culture - Preliminary Blood - Peripheral Venous NO GROWTH OBTAINED AFTER 48 HOURS, INCUBATION TO CONTINUE FOR 3 DAYS. 09/10/18 21:00 Blood Culture - Preliminary Blood - Peripheral Venous NO GROWTH OBTAINED AFTER 48 HOURS, INCUBATION TO CONTINUE FOR 3 DAYS. 09/10/18 20:00 Urine Culture - Final Urine - Urine Clean Catch NO GROWTH OBTAINED 68F with no significant PMH presents to the ER with a pathological fracture of L2. Problem List: Hypochromic microcytic anemia possible colon Ca liver lung and bone metastasis pathological fracture L2 Impending cord impingement leukocytosis possible hypertension Iron deficiency anemia Extensive bilateral DVTs Patient has a left supraclavicular lymph node which should be biopsed for tissue diagnosis-patient scheduled for IR guided biopsy of left supraclavicular lymph node today Patient has bilateral DVTs and would start on anticoagulation-in cancer patient lovenox is the anticoagulant of choice of given the likely possibility of multiple procedures in the near future patient was placed on heparin gtt by primary team radiation oncology consult noted and appreciated would consider complete MRI of spine which may identify other lesions that needs to be treated would also consider CT of chest/Abdomen/Pelvis with IV contrast for staging- ordered but patient refusing today. She endorses she can only mentally focus on one thing at a time and today is dedicated for the biopsy of left supraclavicular LN. Gently tried to convince patient to go down for CT scan today so we can have an idea of the extent of her disease but she kindly refused. When stable consider GI evaluation - Dr dominguez saw and will be reconculted after fracture taken care of decadron 6mg iv q6h PPI given steroids Iron studies noted patient has iron deficiency Will follow Case discussed with Primary team
--- NOTE | 2018-09-13 13:03 | PN ---
Progress Note (short form) - Note Progress Note: Patient with stable Neurological exam in her lower extremities and is not complaining of pain. Patient with increasing level of inappropriate behavior and speech including exposing herself and confusion as well as affective lability. I am concerned that she may have intracranial metastases and would include brain imaging (MRI or CT with and without contrast) Spoke about case at length with patient's daughter Rhina who agrees with my recommendations. -await IR biopsy of supraclavicular lymph node -GI prophylaxis -Brain imaging with CT or MRI -DVT treatment -Psychiatry evaluation -consider health care proxy -if patient is competent and declines all care, there seems to be little role for continuing with inpatient care and hospice or SNF may be considered
[2018-09-13] MEDS ORDERED: HEPARIN NA (PORCINE) 5,000 UNITS/ML 1ML VIAL IVPUSH PRN (13:40)
[2018-09-13] MEDS ORDERED: HEPARIN NA (PORCINE) 5,000 UNITS/ML 1ML VIAL IVPUSH ONE (13:40)
[2018-09-13] MEDS: HEPARIN INFUSION - 25,000 UNITS/500 ML INFUS.BAG IVPB SCH (14:55)
--- NOTE | 2018-09-13 15:46 | CONS ---
DATE OF CONSULTATION: 09/12/2018 REFERRING PHYSICIAN: Emanuel Self MD REASON FOR CONSULTATION: Pathologic lumbar fracture with cord impingement. HISTORY OF PRESENT ILLNESS: The patient is a 68-year-old woman with a history of low back pain for at least 6 months, which acutely worsened after lifting her grandson out of the bathtub in March. She described the pain as a sharp pain, followed by persistent muscle spasms, primarily on the left. The pain improved, but did not completely resolve and 2 weeks ago the pain began to worsen with new pain in the left hip and thigh, as well as numbness in the left lower extremity. She had no changes in urination, including incontinence, or retention, but noted mild constipation, which she has had previously. She denied any weakness in the extremities. She had a 30-pound weight loss over the past 12 to 18 months and states that she was intentionally trying to lose weight. On evaluation at [facility], she underwent chest radiograph, CT scans of the lumbar spine and pelvis and an MRI of the lumbar spine, which disclosed interstitial lung changes with nodularity suspicious for metastasis, multiple liver masses suspicious for metastasis, as well as a severe pathologic fracture of the L2 vertebra with total marrow replacement and bony retropulsion into the spinal canal with significant spinal stenosis and compression of the thecal sac with abnormal left paraspinal soft tissue and stenosis of the L2-L3 neuroforamina and compression of the L2 nerve. In addition, thickening of the rectum and sigmoid colon were noted, as well as left hydronephrosis. She also has a left supraclavicular node. She has been seen by Neurosurgery and Dr. Goodwin has discussed spinal decompression and stabilization. She has commenced Decadron and notes that the left hip pain has improved. She had lower extremity duplex ultrasound, which demonstrated bilateral DVTs. She is on a heparin drip. She was seen by GI and further workup was deferred until the spine is stabilized. She denies history of radiation therapy, inflammatory bowel disease, or collagen vascular disease. She denied melena, bright red blood per rectum, nausea, abdominal pain, pelvic pain, hematuria, incontinence, headaches, dizziness, cough, shortness of breath, hoarseness, or chest pain. PAST MEDICAL HISTORY: Hypertension on this admission, mitral valve prolapse, bilateral lower extremity deep vein thrombosis on this admission, section. PAST SURGICAL HISTORY: As noted above. ALLERGIES: No known drug allergies. CURRENT MEDICATIONS: 1. Decadron 4 mg IV every 6. 2. Heparin drip. 3. Metoprolol. 4. Colace. 5. MiraLax. 6. Norvasc. 7. Baclofen. 8. Oxycodone 5 mg every 6. 9. Protonix 40 mg. 10. Potassium chloride 40 mEq. FAMILY HISTORY: A sister had breast cancer diagnosed at age 60, in her 70s. SOCIAL HISTORY: She is a retired nurse. She has one daughter and a grandson. She does not smoke or consume alcohol regularly. REVIEW OF SYSTEMS: As noted above. PHYSICAL EXAMINATION: General: Well-appearing, well-developed female appearing her chronological age in no acute distress. Vitals: Temperature 98.5, blood pressure 178/107, pulse 115, respiratory rate 18, SAO2 95% room air. HEENT: Normocephalic atraumatic. Moist mucous membranes. Clear oral cavity without mucositis or ulcerations. Neck: Approximately 2 cm mobile mass in the left supraclavicular fossa. Chest: Clear bilaterally. Cardiovascular: Tachycardic with murmur. Abdomen: Soft without tenderness or distention. No abdominal mass or inguinal adenopathy. Extremities: 1+ left lower extremity edema below the calf. No Gloria's or cords. Musculoskeletal: Point tenderness at L2. Neurologic: Alert and oriented x3. Cranial nerves II through XII are grossly intact. Sensation to light touch is intact and no sensory level. Deep tendon reflex equal bilaterally. No pronator drift. Motor 5/5 in bilateral upper extremities and left lower extremity 4+/5 limited by pain. Gait was not tested. Coordination was normal. RADIOLOGIC DATA: See HPI. LABORATORY DATA: WBC 15.7, hemoglobin 7.6, platelet count 461,000. Sodium 134, potassium 4.5, BUN 13, creatinine 0.4, calcium 8.7, phosphorus 4.2, magnesium 2.1, alkaline phosphatase 139, albumin 2.4. CEA 3287, CA125 152.9. IMPRESSION: A 68-year-old woman with pathologic L2 vertebral compression fracture associated with cord/thecal sac compression by bony retropulsion and epidural tumor and paraspinal impingement of the left nerve root causing left lower extremity radiculopathy likely from metastatic cancer. The site of origin has not been identified, though the rectosigmoid region may be one possibility. She has been seen by Dr. Garcia and further GI workup is deferred until the spine is stabilized. She is awaiting supraclavicular node biopsy to establish a diagnosis of malignancy. We discussed the role for palliative radiation therapy to the lumbar spine once a pathologic diagnosis is established. However, because of the significant degree of bony retropulsion into the canal and the degree of pathologic fracture , which could worsen and certainly would not improve with radiation therapy, I would favor surgical stabilization and decompression prior to instituting radiotherapy. She will need additional workup to assess the extent of disease and I agree with CT scans of the chest and abdomen, as well as MRI of the upper spine. She will need to continue Decadron and GI prophylaxis. She is on heparin drip for DVT pending further workup and/or surgery. She is considering surgery and seems agreeable to the overall plan that we discussed. PLAN: Proceed with biopsy for tissue diagnosis and surgical decompression/stabilization if patient is agreeable, followed by consideration for spinal radiotherapy. I will continue to follow her with you. Thank you for asking me to see this patient. NITO BRODERICK M.D. [id number] MTDD
[2018-09-13] MEDS ORDERED: DEXAMETHASONE SOD PHOSPHATE 4 MG/1 ML VIAL IVPB SCH (18:00)
--- NOTE | 2018-09-13 21:43 | PN ---
Physical Exam: SUBJECTIVE: Patient seen and examined, refusing further testing, refusing surgery. wants to do the biopsy per our conversation. no further testing or imaging today. OBJECTIVE: will consult psyche to assess for capacity patient had IR guided biopsy of left supraclavicular node today Vital Signs Period Temp Pulse Resp BP Sys/Zuniga Pulse Ox Last 24 Hr 98.2 F-98.8 F 89-107 18-18 147-168/94-101 GENERAL: The patient is awake, alert, and fully oriented, in no acute distress. HEAD: Normal with no signs of trauma. EYES: PERRL, extraocular movements intact, sclera anicteric, conjunctiva clear. No ptosis. ENT: Ears normal, nares patent, oropharynx clear without exudates, moist mucous membranes. NECK: Trachea midline, full range of motion, supple. LUNGS: diminished breath sounds anteriorly, limited sounds posterily 2/2 to pain HEART: Regular rate and rhythm ABDOMEN: Soft, nontender, nondistended, normoactive bowel sounds, no guarding, no rebound, no hepatosplenomegaly, no masses. EXTREMITIES: left leg with non pitting edema, extensive bilateral dvts per imaging. NEUROLOGICAL: Normal speech, gait not observed. PSYCH: Normal mood, normal affect Laboratory Results - last 24 hr 09/12/18 09/13/18 09/13/18 06:30 05:00 10:05 WBC 15.0 H RBC 3.76 Hgb 7.3 L Hct 24.4 L MCV 64.8 L MCH 19.4 L MCHC 29.9 L RDW 17.3 H Plt Count 601 H D MPV 7.3 L Absolute Neuts (auto) 13.4 H Neutrophils % 89.5 H Lymphocytes % 6.1 L D Monocytes % 4.2 D Eosinophils % 0.0 Basophils % 0.2 Nucleated RBC % 0 PTT (Actin FS) 45.7 H Sodium Potassium Chloride Carbon Dioxide Anion Gap BUN Creatinine Creat Clearance w eGFR Random Glucose Calcium Magnesium Total Bilirubin AST ALT Alkaline Phosphatase Total Protein Albumin Cortisol AM Sample 4.6 09/13/18 10:05 WBC RBC Hgb Hct MCV MCH MCHC RDW Plt Count MPV Absolute Neuts (auto) Neutrophils % Lymphocytes % Monocytes % Eosinophils % Basophils % Nucleated RBC % PTT (Actin FS) Sodium 135 L Potassium 4.3 Chloride 102 Carbon Dioxide 25 Anion Gap 9 BUN 15 Creatinine 0.4 L Creat Clearance w eGFR > 60 Random Glucose 113 H Calcium 9.2 Magnesium 2.3 Total Bilirubin 0.5 AST 15 ALT 16 Alkaline Phosphatase 132 H Total Protein 6.8 Albumin 2.5 L Cortisol AM Sample Active Medications Generic Name Dose Route Start Last Admin Trade Name Freq PRN Reason Stop Dose Admin Acetaminophen 325 mg 09/09/18 00:00 09/13/18 18:58 Tylenol - PO 325 mg Q6HPO SAMI Administration Albuterol/Ipratropium 1 amp 09/12/18 19:33 Duoneb - NEB Q6H PRN SHORTNESS OF BREATH Amlodipine Besylate 5 mg 09/12/18 17:15 09/13/18 11:16 Norvasc - PO 5 mg DAILY SAMI Administration Baclofen 10 mg 09/08/18 22:00 09/13/18 14:54 Lioresal - PO 10 mg TID SAMI Administration Dexamethasone Sodium Phosphate 4 mg 09/13/18 18:00 09/13/18 18:58 Decadron Injection - IVPB 4 mg Q8H-IV SAMI Administration Docusate Sodium 100 mg 09/10/18 22:00 09/13/18 14:54 Colace - PO 100 mg TID SAMI Administration Heparin Sodium (Porcine) 2,800 unit 09/13/18 13:40 Heparin - 40 unit/kg (2800 unit) IVPUSH PRN PRN For aPTT 35 to 45 seconds Heparin Sodium (Porcine) 5,600 unit 09/13/18 13:40 Heparin - 80 unit/kg (5600 unit) IVPUSH PRN PRN aPTT <35 seconds Heparin Sodium/Dextrose 25,000 units in 500 mls @ 25.025 mls/hr 09/13/18 13: 45 09/13/18 14:55 Heparin Infusion - IVPB 18 units/kg/hr TITR SAMI 25.025 mls/hr Administration Protocol 18 UNITS/KG/HR Metoprolol Tartrate 50 mg 09/10/18 15:50 09/13/18 11:15 Lopressor - PO 50 mg BID SAMI Administration Oxycodone HCl 5 mg 09/09/18 00:00 09/13/18 18:58 Roxicodone - PO 5 mg Q6HPO SAMI Administration Pantoprazole Sodium 40 mg 09/11/18 10:00 09/13/18 11:16 Protonix - PO 40 mg DAILY SAMI Administration Polyethylene Glycol 17 gm 09/12/18 10:00 09/13/18 11:17 Miralax (For Daily Use) - PO 17 grams DAILY SAMI Administration Potassium Chloride 40 meq 09/10/18 09:11 09/13/18 11:15 K-Dur - PO 40 meq DAILY SAMI Administration ASSESSMENT/PLAN: Patient is a 68 year old female with no reported past medical history. She presented to the ED on 09/09/18 for worsening lower back pain. Patient reports that her back pain began on 03/2018 when she lifted her grandson out of the bathtub and began to experience back spasms and severe back pain. The muscle spasms were severe for about a week and it was difficult for her to walk. In time, the spasms gradually subsided but never totally went away. About 2 weeks ago, the back spasms began and gradualy worsened. She has numbness to her left lateral thigh. Imaging: Lumbar spine MRI 09/10/2018: L2 significant acute pathological compression fx of l2 vertebral body with total bone marrow replacement of vertebral body. bone marrow edema. L5-S1: partial desiccated disc. no evidence of disc displacement. L5 vertebral body hemangioma. left hydronephrosis On T2 coronal images, several t2 mildly hyperintense lesions noted in the right lobe of the liver measuring apx 11mm 12 to 15mm concerning for metastatic disease. Vascular doppler study 09/12/2018:bilateral DVT on right proximal, superficial femoral vein, popliteal and posterior tibial vein, left superficial femoral, popliteal and posterior tibial vein. Patient placed on a heparin drip. ------ hyponatremia hypertensive urgency Back pain L2 Compression fracture Leukocytosis electrolyte imbalance Sigmoid mass? Liver lesions elevated tumor markers extensive bilateral dvt Back Pain L2 compression fracture. On Baclofen, toradol, TSLO brace, oxycodone. Lumbar MRI as noted above. L2 acute pathological compression fracture with incidental findings of liver lesions on the right lobe of the liver concerning for metastatic disease.neurosurgery consulted (Dr. Jarvis), patient offered surgery for pathological fracture, but currently refusing surgery. importance of surgery discussed in detail but still refusing. wants to think more about it and discuss with her daughter. Oncology/Hematology Patient with liver lesions, chest xray with possible metastatic disease, and possible sigmoid mass. unknown primary cancer supraclavicular node biopsy done today. full imaging of spine with MRI ordered, ct scan of head/abd-pelvis ct ordered, patient refusing to go today Anemia, unspecified hematology following DVT Extensive DVTs on bilateral lower extremities. Started on heparin drip per protocol. will need ivc filter prior to surgical procedure. GI: Liver lesions, suspicion of mets Sigmoid colon mass/mild wall irregularity upper rectum/sigmoid colon tumor marker ca 125 and CEA significantly elevated GI consulted ID: Leukocytosis afebrile. meets SIRS criteria. ID consulted and following Blood and urine cultures pending Card: Hypertension. improving. On Metoprolol Tartrate 25 mg BID. increased amlodopine. Echo> LV normal, moderate concentric left vent hypertrophy, left ventricle is hyperdynamic. trace MR, trace tricuspid regurg. Renal: Electrolyte imbalance Hypokalemia, resolved Hyponatremia, improving fen tolerating PO monitor electrolytes low salt diet prophy hepain protonix Visit type - Emergency Visit Emergency Visit: Yes ED Registration Date: 09/09/18 Care time: The patient presented to the Emergency Department on the above date and was hospitalized for further evaluation of their emergent condition. - New Patient This patient is new to me today: No - Critical Care Critical Care patient: No - Discharge Referral Referred to [facility] Med P.[facility].: No
[2018-09-13] MEDS: HEPARIN NA (PORCINE) 5,000 UNITS/ML 1ML VIAL IVPUSH PRN (23:26)
--- NOTE | 2018-09-14 00:55 | PN ---
Progress Note (short form) - Note Progress Note: Patient seen and examined s/p lt. scln bx Last Vital Signs Temp Pulse Resp BP Pulse Ox 98.4 F 99 H 20 176/107 H 95 09/13/18 22:11 09/13/18 22:11 09/13/18 22:11 09/13/18 22:11 09/11/18 21:00 Cor: RSR, No murmurs, No gallops Lungs: Clear to P&A Abd: Soft, Normal bowel sounds, No organomegaly Ext:No significant edema Abnormal Lab Results 09/13/18 09/13/18 09/13/18 05:00 10:05 10:05 WBC 15.0 H Hgb 7.3 L Hct 24.4 L MCV 64.8 L MCH 19.4 L MCHC 29.9 L RDW 17.3 H Plt Count 601 H D MPV 7.3 L Absolute Neuts (auto) 13.4 H Neutrophils % 89.5 H Lymphocytes % 6.1 L D PTT (Actin FS) 45.7 H Sodium 135 L Creatinine 0.4 L Random Glucose 113 H Alkaline Phosphatase 132 H Albumin 2.5 L 09/13/18 22:00 WBC Hgb Hct MCV MCH MCHC RDW Plt Count MPV Absolute Neuts (auto) Neutrophils % Lymphocytes % PTT (Actin FS) 39.3 H Sodium Creatinine Random Glucose Alkaline Phosphatase Albumin Active Medications Generic Name Dose Route Start Last Admin Trade Name Freq PRN Reason Stop Dose Admin Acetaminophen 325 mg 09/09/18 00:00 09/13/18 23:25 Tylenol - PO 325 mg Q6HPO SAMI Administration Albuterol/Ipratropium 1 amp 09/12/18 19:33 Duoneb - NEB Q6H PRN SHORTNESS OF BREATH Amlodipine Besylate 10 mg 09/13/18 21:52 Norvasc - PO DAILY SAMI Baclofen 10 mg 09/08/18 22:00 09/13/18 22:05 Lioresal - PO 10 mg TID SAMI Administration Dexamethasone Sodium Phosphate 4 mg 09/13/18 18:00 09/13/18 18:58 Decadron Injection - IVPB 4 mg Q8H-IV SAMI Administration Docusate Sodium 100 mg 09/10/18 22:00 09/13/18 22:05 Colace - PO 100 mg TID SAMI Administration Heparin Sodium (Porcine) 2,800 unit 09/13/18 13:40 09/13/18 23:26 Heparin - 40 unit/kg (2800 unit) 2,800 unit IVPUSH Administration PRN PRN For aPTT 35 to 45 seconds Heparin Sodium (Porcine) 5,600 unit 09/13/18 13:40 Heparin - 80 unit/kg (5600 unit) IVPUSH PRN PRN aPTT <35 seconds Heparin Sodium/Dextrose 25,000 units in 500 mls @ 25.025 mls/hr 09/13/18 13: 45 09/13/18 23:43 Heparin Infusion - IVPB 22 units/kg/hr TITR SAMI 30.586 mls/hr Titration Protocol 18 UNITS/KG/HR Metoprolol Tartrate 50 mg 09/10/18 15:50 09/13/18 22:05 Lopressor - PO 50 mg BID SAMI Administration Oxycodone HCl 5 mg 09/09/18 00:00 09/13/18 23:25 Roxicodone - PO 5 mg Q6HPO SAMI Administration Pantoprazole Sodium 40 mg 09/11/18 10:00 09/13/18 11:16 Protonix - PO 40 mg DAILY SAMI Administration Polyethylene Glycol 17 gm 09/12/18 10:00 09/13/18 11:17 Miralax (For Daily Use) - PO 17 grams DAILY SAMI Administration Potassium Chloride 40 meq 09/10/18 09:11 09/13/18 11:15 K-Dur - PO 40 meq DAILY SAMI Administration a/p 68 y/o patient with 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 supraclavicular node, b/l dvts, L2 fx/retropulsion, thecal sac compression patient not cooperative with w/u very reluctant to make decisions discusseddiagnostic possibilities with her--she nderstands but is still thinking and has not made decisions about ct imaging/surgery discussed neurocomplications including paraperesis with thecal sac compression and possible dvt related complications on interruption of a/c. need for ivc filter. she understands the tough spot she is in but is unsure about her decision at this time
[2018-09-14] MEDS: oxyCODONE HCL 5 MG TABLET PO SCH ×3 (06:24→17:47)
[2018-09-14] MEDS: BACLOFEN 10 MG TABLET (FP) PO SCH ×3 (06:24→21:45)
[2018-09-14] MEDS: ACETAMINOPHEN 325 MG TABLET (FP) PO SCH ×3 (06:24→17:48)
[2018-09-14] MEDS: DOCUSATE SODIUM 100 MG CAPSULE (FP) PO SCH ×3 (06:25→21:45)
[2018-09-14 08:05] LABS: BASO % 0.2 % (0-2.0); EOS % 0.1 % (0-4.5); HEMATOCRIT 24.6 % (32.4-45.2); HEMOGLOBIN 7.5 GM/dL (10.7-15.3); LYMPH % 10.9 % (8-40); MCHC 30.3 g/dl (32.0-36.0); MEAN CELL VOLUME 64.6 fl (80-96); MEAN PLT VOLUME 7.3 fl (7.5-11.1); MONO % 6.3 % (3.8-10.2); NEUT % 82.5 % (42.8-82.8); PLATELET COUNT 563 K/MM3 (134-434); RBC 3.81 M/mm3 (3.60-5.2); RDW 17.4 % (11.6-15.6)
[2018-09-14 08:11] LABS: MCH 19.6 pg (25.7-33.7)
[2018-09-14 08:33] LABS: ALBUMIN 2.6 g/dl (3.4-5.0); ALK PHOS 130 U/L (45-117); ANION GAP 8 MMOL/L (8-16); BILIRUBIN,TOTAL 0.6 mg/dL (0.2-1); BLOOD UREA NITROGEN 16 mg/dL (7-18); CALCIUM 9.2 mg/dL (8.5-10.1); CHLORIDE 101 mmol/L (98-107); CO2 25 mmol/L (21-32); CREATININE 0.4 mg/dL (0.55-1.3); GLUCOSE,RANDOM 90 mg/dL (74-106); MAGNESIUM 2.3 mg/dL (1.8-2.4); POTASSIUM 4.3 mmol/L (3.5-5.1); SGOT/AST 15 U/L (15-37); SGPT/ALT 18 U/L (13-61); SODIUM 135 mmol/L (136-145); TOT PROT 6.9 g/dl (6.4-8.2)
[2018-09-14] MEDS: HEPARIN INFUSION - 25,000 UNITS/500 ML INFUS.BAG IVPB SCH ×2 (08:45→21:45)
[2018-09-14] MEDS: PANTOPRAZOLE 40 MG TABLET (FP) PO SCH (10:11)
[2018-09-14] MEDS: amLODIPine BESYLATE 10 MG TABLET (FP) PO SCH (10:11)
[2018-09-14] MEDS: DEXAMETHASONE SOD PHOSPHATE 4 MG/1 ML VIAL IVPB SCH ×3 (10:11→21:45)
[2018-09-14] MEDS: POTASSIUM CHLORIDE TABS 20 MEQ TABLET.ER (FP) PO SCH (10:11)
[2018-09-14] MEDS: METOPROLOL TARTRATE 50 MG TABLET (FP) PO SCH ×2 (10:11→21:45)
[2018-09-14] MEDS: POLYETHYLENE GLYCOL 3350 119 GM BTL PO SCH (10:12)
--- NOTE | 2018-09-14 14:52 | PN ---
Physical Exam: SUBJECTIVE: Patient seen and examined at the bedside. Patient refusing to do head ct, or other studies. still refusing surgery. psych follow up for capacity to make medical decisions. patient is alert and oriented seems hesitant on moving forward with surgery or other tests/ procedures. discussed with her that she has a right to refuse medical treatment and our plan is give her the best care/options. OBJECTIVE: Vital Signs Period Temp Pulse Resp BP Sys/Zuniga Pulse Ox Last 24 Hr 97.9 F-98.6 F 78-99 18-20 139-176/83-107 GENERAL: The patient is awake, alert, and fully oriented, in no acute distress. HEAD: Normal with no signs of trauma. EYES: PERRL, extraocular movements intact, sclera anicteric, conjunctiva clear. No ptosis. ENT: Ears normal, nares patent, oropharynx clear without exudates, moist mucous membranes. NECK: Trachea midline, full range of motion, supple. LUNGS: diminished breath sounds anteriorly, limited sounds posterily 2/2 to pain HEART: Regular rate and rhythm ABDOMEN: Soft, nontender, nondistended, normoactive bowel sounds, no guarding, no rebound, no hepatosplenomegaly, no masses. EXTREMITIES: left leg with non pitting edema, extensive bilateral dvts per imaging. NEUROLOGICAL: Normal speech, gait not observed. PSYCH: Normal mood, normal affect Laboratory Results - last 24 hr 09/13/18 09/14/18 09/14/18 22:00 07:30 07:30 WBC 11.0 H RBC 3.81 Hgb 7.5 L Hct 24.6 L MCV 64.6 L MCH 19.6 L MCHC 30.3 L RDW 17.4 H Plt Count 563 H MPV 7.3 L Absolute Neuts (auto) 9.1 H Neutrophils % 82.5 Lymphocytes % 10.9 D Monocytes % 6.3 Eosinophils % 0.1 D Basophils % 0.2 Nucleated RBC % 0 PTT (Actin FS) 39.3 H Sodium 135 L Potassium 4.3 Chloride 101 Carbon Dioxide 25 Anion Gap 8 BUN 16 Creatinine 0.4 L Creat Clearance w eGFR > 60 POC Glucometer Random Glucose 90 Calcium 9.2 Magnesium 2.3 Total Bilirubin 0.6 AST 15 ALT 18 Alkaline Phosphatase 130 H Total Protein 6.9 Albumin 2.6 L 09/14/18 09/14/18 07:30 11:32 WBC RBC Hgb Hct MCV MCH MCHC RDW Plt Count MPV Absolute Neuts (auto) Neutrophils % Lymphocytes % Monocytes % Eosinophils % Basophils % Nucleated RBC % PTT (Actin FS) 28.1 Sodium Potassium Chloride Carbon Dioxide Anion Gap BUN Creatinine Creat Clearance w eGFR POC Glucometer 114 Random Glucose Calcium Magnesium Total Bilirubin AST ALT Alkaline Phosphatase Total Protein Albumin Active Medications Generic Name Dose Route Start Last Admin Trade Name Freq PRN Reason Stop Dose Admin Acetaminophen 325 mg 09/09/18 00:00 09/14/18 12:21 Tylenol - PO 325 mg Q6HPO SAMI Administration Albuterol/Ipratropium 1 amp 09/12/18 19:33 Duoneb - NEB Q6H PRN SHORTNESS OF BREATH Amlodipine Besylate 10 mg 09/13/18 21:52 09/14/18 10:11 Norvasc - PO 10 mg DAILY [facility]I Administration Baclofen 10 mg 09/08/18 22:00 09/14/18 06:24 Lioresal - PO 10 mg TID SAMI Administration Dexamethasone Sodium Phosphate 4 mg 09/14/18 09:00 09/14/18 10:11 Decadron Injection - IVPB 4 mg Q6H-IV SAMI Administration Docusate Sodium 100 mg 09/10/18 22:00 09/14/18 06:25 Colace - PO 100 mg TID SAMI Administration Heparin Sodium (Porcine) 2,800 unit 09/13/18 13:40 09/13/18 23:26 Heparin - 40 unit/kg (2800 unit) 2,800 unit IVPUSH Administration PRN PRN For aPTT 35 to 45 seconds Heparin Sodium (Porcine) 5,600 unit 09/13/18 13:40 09/14/18 08:43 Heparin - 80 unit/kg (5600 unit) 5,600 unit IVPUSH Administration PRN PRN aPTT <35 seconds Heparin Sodium/Dextrose 25,000 units in 500 mls @ 25.025 mls/hr 09/13/18 13: 45 09/13/18 23:43 Heparin Infusion - IVPB 22 units/kg/hr TITR SAMI 30.586 mls/hr Titration Protocol 18 UNITS/KG/HR Metoprolol Tartrate 50 mg 09/10/18 15:50 09/14/18 10:11 Lopressor - PO 50 mg BID SAMI Administration Oxycodone HCl 5 mg 09/09/18 00:00 09/14/18 12:22 Roxicodone - PO 5 mg Q6HPO [facility]I Administration Pantoprazole Sodium 40 mg 09/11/18 10:00 09/14/18 10:11 Protonix - PO 40 mg DAILY [facility]I Administration Polyethylene Glycol 17 gm 09/12/18 10:00 09/14/18 10:12 Miralax (For Daily Use) - PO Not Given DAILY [facility]I Potassium Chloride 40 meq 09/10/18 09:11 09/14/18 10:11 K-Dur - PO 40 meq DAILY [facility]I Administration ASSESSMENT/PLAN: Patient is a 68 year old female with no reported past medical history. She presented to the ED on 09/09/18 for worsening lower back pain. About 2 weeks ago, the back spasms began and gradually worsened. She has numbness to her left lateral thigh. Lumbar spine MRI showed incidental finding of acute pathological compression of l2 vertebral body with total bone marrow replacement of vertebral body and bone marrow edema. On further imaging she was also found to have liver lesions, possible mets on her chest xray as well as extensive bilateral DVTs. Unknown primary cancer, but likely colon/rectal per hematology/oncology. CEA is elevated. Patient refusing to have repeat CT/MRI scans that have been ordered but agreed and had biopsy of her left supraclaviular node which is still pending. Imaging: Lumbar spine MRI 09/10/2018: L2 significant acute pathological compression fx of l2 vertebral body with total bone marrow replacement of vertebral body. bone marrow edema. L5-S1: partial desiccated disc. no evidence of disc displacement. L5 vertebral body hemangioma. left hydronephrosis On T2 coronal images, several t2 mildly hyperintense lesions noted in the right lobe of the liver measuring apx 11mm 12 to 15mm concerning for metastatic disease. Vascular doppler study 09/12/2018:bilateral DVT on right proximal, superficial femoral vein, popliteal and posterior tibial vein, left superficial femoral, popliteal and posterior tibial vein. Patient placed on a heparin drip. Back Pain: L2 compression fracture. On Baclofen, toradol, TSLO brace, oxycodone. Lumbar MRI as noted above. L2 acute pathological compression fracture with incidental findings of liver lesions on the right lobe of the liver concerning for metastatic disease.neurosurgery consulted (Dr. Jarvis), patient offered surgery for pathological fracture, but currently refusing surgery. importance of surgery discussed in detail but still refusing. wants to think more about it and discuss with her daughter. Oncology/Hematology: Patient with liver lesions, chest xray with possible metastatic disease, and possible sigmoid mass. unknown primary cancer supraclavicular node biopsy pending. full imaging of spine with MRI ordered, ct scan of head/abd-pelvis ct ordered, but patient refusing Anemia, unspecified. hematology following. 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 Started on heparin drip per protocol. will need ivc filter prior to surgical procedure. GI: Liver lesions, suspicion of mets. Sigmoid colon mass/mild wall irregularity upper rectum/sigmoid colon. tumor marker ca 125 and CEA significantly elevated GI consulted and following. ID: Leukocytosis, improving. monitor off antibiotics. Blood and urine cultures negative. Card: Hypertension. improving. On Metoprolol tartrate 25 mg BID. increased amlodopine. Echo> LV normal, moderate concentric left vent hypertrophy, left ventricle is hyperdynamic. trace MR, trace tricuspid regurg. Renal: Electrolyte imbalance. Hypokalemia, resolved Hyponatremia, improving fen tolerating PO monitor electrolytes low salt diet prophy hepain drip protonix Visit type - Emergency Visit Emergency Visit: Yes ED Registration Date: 09/09/18 Care time: The patient presented to the Emergency Department on the above date and was hospitalized for further evaluation of their emergent condition. - New Patient This patient is new to me today: No - Critical Care Critical Care patient: No - Discharge Referral Referred to [facility] Med P.C.: No
[2018-09-15] MEDS: oxyCODONE HCL 5 MG TABLET PO SCH ×5 (00:25→23:45)
[2018-09-15] MEDS: ACETAMINOPHEN 325 MG TABLET (FP) PO SCH ×5 (00:25→23:46)
[2018-09-15] MEDS: DEXAMETHASONE SOD PHOSPHATE 4 MG/1 ML VIAL IVPB SCH ×4 (03:27→22:03)
[2018-09-15] MEDS: DOCUSATE SODIUM 100 MG CAPSULE (FP) PO SCH ×3 (06:14→22:03)
[2018-09-15] MEDS: BACLOFEN 10 MG TABLET (FP) PO SCH ×3 (06:15→22:03)
[2018-09-15] MEDS: HEPARIN INFUSION - 25,000 UNITS/500 ML INFUS.BAG IVPB SCH ×2 (08:07→23:45)
[2018-09-15 08:52] LABS: BASO % 0.1 % (0-2.0); HEMATOCRIT 29.2 % (32.4-45.2); HEMOGLOBIN 8.9 GM/dL (10.7-15.3); LYMPH % 7.6 % (8-40); MCHC 30.4 g/dl (32.0-36.0); MEAN CELL VOLUME 65.2 fl (80-96); MEAN PLT VOLUME 7.8 fl (7.5-11.1); NEUT % 89.3 % (42.8-82.8); PLATELET COUNT 675 K/MM3 (134-434); RBC 4.48 M/mm3 (3.60-5.2); RDW 17.3 % (11.6-15.6); WHITE BLOOD COUNT 7.4 K/mm3 (4.0-10.0)
[2018-09-15 08:59] LABS: ALBUMIN 2.8 g/dl (3.4-5.0); ALK PHOS 135 U/L (45-117); ANION GAP 11 MMOL/L (8-16); BILIRUBIN,TOTAL 0.6 mg/dL (0.2-1); BLOOD UREA NITROGEN 13 mg/dL (7-18); CALCIUM 9.2 mg/dL (8.5-10.1); CHLORIDE 102 mmol/L (98-107); CO2 21 mmol/L (21-32); CREATININE 0.4 mg/dL (0.55-1.3); GLUCOSE,RANDOM 120 mg/dL (74-106); MAGNESIUM 2.3 mg/dL (1.8-2.4); POTASSIUM 4.3 mmol/L (3.5-5.1); SGOT/AST 15 U/L (15-37); SGPT/ALT 17 U/L (13-61); SODIUM 134 mmol/L (136-145); TOT PROT 7.2 g/dl (6.4-8.2)
[2018-09-15 09:01] LABS: MCH 19.8 pg (25.7-33.7)
[2018-09-15] MEDS: METOPROLOL TARTRATE 50 MG TABLET (FP) PO SCH ×2 (09:57→22:03)
[2018-09-15] MEDS: POTASSIUM CHLORIDE TABS 20 MEQ TABLET.ER (FP) PO SCH (09:57)
[2018-09-15] MEDS: amLODIPine BESYLATE 10 MG TABLET (FP) PO SCH (09:57)
[2018-09-15] MEDS: POLYETHYLENE GLYCOL 3350 119 GM BTL PO SCH (10:02)
[2018-09-15] MEDS: PANTOPRAZOLE 40 MG TABLET (FP) PO SCH (10:03)
--- NOTE | 2018-09-15 17:05 | PN ---
GI Progress Note Subjective: chart reviewed. Cea 3000 associated with possible sigmoid mass and liver lesions.Work up on going, made aware the possibility of a sigmoid mass, She refuses colonoscopy at this time - Objective Vital Signs: Vital Signs Temperature 98.0 F 09/15/18 14:00 Pulse Rate 78 09/15/18 14:00 Respiratory Rate 20 09/15/18 14:00 Blood Pressure 146/81 09/15/18 14:00 O2 Sat by Pulse Oximetry (%) 93 L 09/14/18 21:00 Constitutional: Well Nourished Eyes: Yes: Conjunctiva Clear HENT: Yes: Atraumatic Neck: Yes: Supple Respiratory: Yes: CTA Bilaterally ...Palpate: Yes: Soft. No: Firm/Rigid, Guarding, Hepatomegaly, Mass, Pulsatile Mass, Splenomegaly, Tenderness Labs: CBC, BMP 09/15/18 06:00 09/15/18 06:00 INR, PTT INR 1.24 (0.83-1.09) H 09/12/18 18:45 Problem List - Problems (1) Microcytic anemia Code(s): D50.9 - IRON DEFICIENCY ANEMIA, UNSPECIFIED (2) Metastases to the liver Assessment/Plan: r/o sigmoid mass R> for colonoscopy if patient agrees, high risk of developing paraplegia post procedure due to L2 compression Code(s): C78.7 - SECONDARY MALIG NEOPLASM OF LIVER AND INTRAHEPATIC BILE DUCT
--- NOTE | 2018-09-15 19:06 | PN ---
Physical Exam: SUBJECTIVE: Patient seen and examined at the bedside. patient states she is not refusing surgery, just does not want it now does not want further imaging done at this time OBJECTIVE: Vital Signs Period Temp Pulse Resp BP Sys/Zuniga Pulse Ox Last 24 Hr 97.9 F-98.5 F 68-88 17-20 139-160/80-100 93 GENERAL: The patient is awake, alert, and fully oriented, in no acute distress. HEAD: Normal with no signs of trauma. EYES: PERRL, extraocular movements intact, sclera anicteric, conjunctiva clear. No ptosis. ENT: Ears normal, nares patent, oropharynx clear without exudates, moist mucous membranes. NECK: Trachea midline, full range of motion, supple. LUNGS: diminished breath sounds anteriorly, limited sounds posterily 2/2 to pain HEART: Regular rate and rhythm ABDOMEN: Soft, nontender, nondistended, normoactive bowel sounds, no guarding, no rebound, no hepatosplenomegaly, no masses. EXTREMITIES: left leg with non pitting edema, extensive bilateral dvts per imaging. NEUROLOGICAL: Normal speech, gait not observed. PSYCH: Normal mood, normal affect Laboratory Results - last 24 hr 09/14/18 09/15/18 09/15/18 21:30 06:00 06:00 WBC 7.4 RBC 4.48 Hgb 8.9 L Hct 29.2 L D MCV 65.2 L MCH 19.8 L MCHC 30.4 L RDW 17.3 H Plt Count 675 H MPV 7.8 Absolute Neuts (auto) 6.6 Neutrophils % 89.3 H Lymphocytes % 7.6 L D Monocytes % 3.0 L Eosinophils % 0.0 D Basophils % 0.1 Nucleated RBC % 0 PTT (Actin FS) 55.0 H Sodium 134 L Potassium 4.3 Chloride 102 Carbon Dioxide 21 Anion Gap 11 BUN 13 Creatinine 0.4 L Creat Clearance w eGFR > 60 Random Glucose 120 H Calcium 9.2 Magnesium 2.3 Total Bilirubin 0.6 AST 15 ALT 17 Alkaline Phosphatase 135 H Total Protein 7.2 Albumin 2.8 L 09/15/18 09/15/18 06:15 15:45 WBC RBC Hgb Hct MCV MCH MCHC RDW Plt Count MPV Absolute Neuts (auto) Neutrophils % Lymphocytes % Monocytes % Eosinophils % Basophils % Nucleated RBC % PTT (Actin FS) 77.6 H 68.5 H Sodium Potassium Chloride Carbon Dioxide Anion Gap BUN Creatinine Creat Clearance w eGFR Random Glucose Calcium Magnesium Total Bilirubin AST ALT Alkaline Phosphatase Total Protein Albumin Active Medications Generic Name Dose Route Start Last Admin Trade Name Moyq PRN Reason Stop Dose Admin Acetaminophen 325 mg 09/09/18 00:00 09/15/18 17:24 Tylenol - PO 325 mg Q6HPO SAMI Administration Albuterol/Ipratropium 1 amp 09/12/18 19:33 Duoneb - NEB Q6H PRN SHORTNESS OF BREATH Amlodipine Besylate 10 mg 09/13/18 21:52 09/15/18 09:57 Norvasc - PO 10 mg DAILY SAMI Administration Baclofen 10 mg 09/08/18 22:00 09/15/18 14:00 Lioresal - PO 10 mg TID SAMI Administration Dexamethasone Sodium Phosphate 4 mg 09/14/18 09:00 09/15/18 15:30 Decadron Injection - IVPB 4 mg Q6H-IV SAMI Administration Docusate Sodium 100 mg 09/10/18 22:00 09/15/18 14:00 Colace - PO 100 mg TID SAMI Administration Heparin Sodium (Porcine) 2,800 unit 09/13/18 13:40 09/13/18 23:26 Heparin - 40 unit/kg (2800 unit) 2,800 unit IVPUSH Administration PRN PRN For aPTT 35 to 45 seconds Heparin Sodium (Porcine) 5,600 unit 09/13/18 13:40 09/14/18 08:43 Heparin - 80 unit/kg (5600 unit) 5,600 unit IVPUSH Administration PRN PRN aPTT <35 seconds Heparin Sodium/Dextrose 25,000 units in 500 mls @ 25.025 mls/hr 09/13/18 13: 45 09/15/18 08:07 Heparin Infusion - IVPB 26 units/kg/hr TITR SAMI 36.147 mls/hr Administration Protocol 18 UNITS/KG/HR Metoprolol Tartrate 50 mg 09/10/18 15:50 09/15/18 09:57 Lopressor - PO 50 mg BID SAMI Administration Oxycodone HCl 5 mg 09/09/18 00:00 09/15/18 17:23 Roxicodone - PO 5 mg Q6HPO SAMI Administration Pantoprazole Sodium 40 mg 09/11/18 10:00 11/18/18 10:03 Protonix - PO 40 mg DAILY SAMI Administration Polyethylene Glycol 17 gm 09/12/18 10:00 09/15/18 10:02 Miralax (For Daily Use) - PO Not Given DAILY SAMI Potassium Chloride 40 meq 09/10/18 09:11 09/15/18 09:57 K-Dur - PO 40 meq DAILY SAMI Administration ASSESSMENT/PLAN: Patient is a 68 year old female with no reported past medical history. She presented to the ED on 09/09/18 for worsening lower back pain. About 2 weeks ago, the back spasms began and gradually worsened. She has numbness to her left lateral thigh. Lumbar spine MRI showed incidental finding of acute pathological compression of l2 vertebral body with total bone marrow replacement of vertebral body and bone marrow edema. On further imaging she was also found to have liver lesions, possible mets on her chest xray as well as extensive bilateral DVTs. Unknown primary cancer, but likely colon/rectal per hematology/oncology. CEA is elevated. Patient refusing to have repeat CT/MRI scans that have been ordered but agreed and had biopsy of her left supraclaviular node which is still pending. Imaging: Lumbar spine MRI 09/10/2018: L2 significant acute pathological compression fx of l2 vertebral body with total bone marrow replacement of vertebral body. bone marrow edema. L5-S1: partial desiccated disc. no evidence of disc displacement. L5 vertebral body hemangioma. left hydronephrosis On T2 coronal images, several t2 mildly hyperintense lesions noted in the right lobe of the liver measuring apx 11mm 12 to 15mm concerning for metastatic disease. Vascular doppler study 09/12/2018:bilateral DVT on right proximal, superficial femoral vein, popliteal and posterior tibial vein, left superficial femoral, popliteal and posterior tibial vein. Patient placed on a heparin drip. Back Pain: L2 compression fracture. On Baclofen, toradol, TSLO brace, oxycodone. Lumbar MRI as noted above. L2 acute pathological compression fracture with incidental findings of liver lesions on the right lobe of the liver concerning for metastatic disease.neurosurgery consulted (Dr. Jarvis), patient offered surgery for pathological fracture, but currently refusing surgery. importance of surgery discussed in detail but still refusing. wants to think more about it and discuss with her daughter. Oncology/Hematology: Patient with liver lesions, chest xray with possible metastatic disease, and possible sigmoid mass. unknown primary cancer supraclavicular node biopsy pending. full imaging of spine with MRI ordered, ct scan of head/abd-pelvis ct ordered, but patient refusing Anemia, unspecified. hematology following. 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 Started on heparin drip per protocol. will need ivc filter prior to surgical procedure. GI: Liver lesions, suspicion of mets. Sigmoid colon mass/mild wall irregularity upper rectum/sigmoid colon. tumor marker ca 125 and CEA significantly elevated GI consulted and following. ID: Leukocytosis, improving. monitor off antibiotics. Blood and urine cultures negative. Card: Hypertension. improving. On Metoprolol tartrate 25 mg BID. increased amlodopine. Echo> LV normal, moderate concentric left vent hypertrophy, left ventricle is hyperdynamic. trace MR, trace tricuspid regurg. Renal: Electrolyte imbalance. Hypokalemia, resolved Hyponatremia, improving fen tolerating PO monitor electrolytes low salt diet prophy hepain drip protonix Visit type - Emergency Visit Emergency Visit: Yes ED Registration Date: 09/09/18 Care time: The patient presented to the Emergency Department on the above date and was hospitalized for further evaluation of their emergent condition. - New Patient This patient is new to me today: No - Critical Care Critical Care patient: No - Discharge Referral Referred to [facility] Med P.C.: No
[2018-09-16] MEDS: DEXAMETHASONE SOD PHOSPHATE 4 MG/1 ML VIAL IVPB SCH ×4 (02:47→21:40)
[2018-09-16] MEDS: oxyCODONE HCL 5 MG TABLET PO SCH ×4 (05:56→23:55)
[2018-09-16] MEDS: ACETAMINOPHEN 325 MG TABLET (FP) PO SCH ×3 (05:57→17:34)
[2018-09-16] MEDS: DOCUSATE SODIUM 100 MG CAPSULE (FP) PO SCH ×3 (05:57→21:40)
[2018-09-16] MEDS: BACLOFEN 10 MG TABLET (FP) PO SCH ×3 (05:57→21:40)
[2018-09-16 08:49] LABS: ALBUMIN 2.8 g/dl (3.4-5.0); ALK PHOS 139 U/L (45-117); ANION GAP 10 MMOL/L (8-16); BILIRUBIN,TOTAL 0.4 mg/dL (0.2-1); BLOOD UREA NITROGEN 14 mg/dL (7-18); CALCIUM 8.8 mg/dL (8.5-10.1); CHLORIDE 103 mmol/L (98-107); CO2 22 mmol/L (21-32); CREATININE 0.5 mg/dL (0.55-1.3); GLUCOSE,RANDOM 117 mg/dL (74-106); MAGNESIUM 2.3 mg/dL (1.8-2.4); SGOT/AST 15 U/L (15-37); SGPT/ALT 18 U/L (13-61); SODIUM 134 mmol/L (136-145); TOT PROT 7.2 g/dl (6.4-8.2)
[2018-09-16 08:50] LABS: BASO % 0.3 % (0-2.0); HEMATOCRIT 28.4 % (32.4-45.2); HEMOGLOBIN 8.6 GM/dL (10.7-15.3); LYMPH % 7.3 % (8-40); MCHC 30.2 g/dl (32.0-36.0); MEAN CELL VOLUME 64.7 fl (80-96); MONO % 2.8 % (3.8-10.2); NEUT % 89.6 % (42.8-82.8); PLATELET COUNT 710 K/MM3 (134-434); RBC 4.38 M/mm3 (3.60-5.2); RDW 17.5 % (11.6-15.6); WHITE BLOOD COUNT 11.1 K/mm3 (4.0-10.0)
[2018-09-16 08:54] LABS: MCH 19.6 pg (25.7-33.7)
[2018-09-16] MEDS: POTASSIUM CHLORIDE TABS 20 MEQ TABLET.ER (FP) PO SCH (10:27)
[2018-09-16] MEDS: PANTOPRAZOLE 40 MG TABLET (FP) PO SCH (10:28)
[2018-09-16] MEDS: amLODIPine BESYLATE 10 MG TABLET (FP) PO SCH (10:28)
[2018-09-16] MEDS: METOPROLOL TARTRATE 50 MG TABLET (FP) PO SCH ×2 (10:28→21:40)
[2018-09-16 11:04] LABS: ACANTHOCYTES 1+; ANISOCYTOSIS 2+; MACROCYTOSIS 0; PLATELET ESTIMATE INCREASED; TARGET CELLS 1+
--- NOTE | 2018-09-16 11:17 | PN ---
Progress Note (short form) - Note Progress Note: Renal follow up for Hyponatremia Pt discussing tx options with Nuerosurgery and Oncology team Vital Signs Temperature 98.0 F 09/16/18 06:41 Pulse Rate 79 09/16/18 06:41 Respiratory Rate 20 09/16/18 06:41 Blood Pressure 144/83 09/16/18 06:41 O2 Sat by Pulse Oximetry (%) 93 L 09/15/18 21:00 Intake & Output 09/13/18 09/14/18 09/15/18 09/16/18 23:59 23:59 23:59 23:59 Intake Total 1220 1334 1912 1334.4 Output Total 800 2250 2000 1250 Balance 420 -916 -88 84.4 CBC, BMP 09/16/18 06:30 09/16/18 06:30 Current Medications Acetaminophen (Tylenol -) 325 mg PO Q6HPO [facility] Last Admin: 09/16/18 05:57 Dose: 325 mg Albuterol/Ipratropium (Duoneb -) 1 amp NEB Q6H PRN PRN Reason: SHORTNESS OF BREATH Amlodipine Besylate (Norvasc -) 10 mg PO DAILY [facility] Last Admin: 09/16/18 10:28 Dose: 10 mg Baclofen (Lioresal -) 10 mg PO TID [facility] Last Admin: 09/16/18 05:57 Dose: 10 mg Dexamethasone Sodium Phosphate (Decadron Injection -) 4 mg IVPB Q6H-IV [facility] Last Admin: 09/16/18 10:27 Dose: 4 mg Docusate Sodium (Colace -) 100 mg PO TID [facility] Last Admin: 09/16/18 05:57 Dose: 100 mg Heparin Sodium (Porcine) (Heparin -) 2,800 unit 40 unit/kg (2800 unit) IVPUSH PRN PRN PRN Reason: For aPTT 35 to 45 seconds Last Admin: 09/13/18 23:26 Dose: 2,800 unit Heparin Sodium (Porcine) (Heparin -) 5,600 unit 80 unit/kg (5600 unit) IVPUSH PRN PRN PRN Reason: aPTT <35 seconds Last Admin: 09/14/18 08:43 Dose: 5,600 unit Heparin Sodium/Dextrose (Heparin Infusion -) 25,000 units in 500 mls @ 25.025 mls/hr IVPB TITR SAMI; Protocol Last Titration: 09/16/18 10:24 Dose: 23 units/kg/hr, 31.976 mls/hr Metoprolol Tartrate (Lopressor -) 50 mg PO BID [facility] Last Admin: 09/16/18 10:28 Dose: 50 mg Oxycodone HCl (Roxicodone -) 5 mg PO Q6HPO [facility] Last Admin: 09/16/18 05:56 Dose: 5 mg Pantoprazole Sodium (Protonix -) 40 mg PO DAILY [facility] Last Admin: 09/16/18 10:28 Dose: 40 mg Polyethylene Glycol (Miralax (For Daily Use) -) 17 gm PO DAILY [facility] Last Admin: 09/15/18 10:02 Dose: Not Given Potassium Chloride (K-Dur -) 40 meq PO DAILY [facility] Last Admin: 09/16/18 10:27 Dose: 40 meq 68 year old AA woman with no significnat past medical history that presented with lower back pain and found to have a Na of 124. #Hyponatremia (SIADH vs. Hypovolemic hyponatremia, urine Na was < 20 supportive of total body salt depletion) #Lumbar Fracture #Extensive Metastatic lesions (liver, lungs) #Hypokalemia #Left Hydronephrosis with preserved renal function Serum sodium stable at this time no indication for 3% saline Would continue to have 1.5L fluid restriction for now Further management as per primary team, oncology will sign off case at this time please re-consult if any change in status Hiram Kovacs DO
[2018-09-16] MEDS: POLYETHYLENE GLYCOL 3350 119 GM BTL PO SCH (13:00)
--- NOTE | 2018-09-16 13:18 | PN ---
Progress Note (short form) - Note Progress Note: Radiation Oncology Had biopsy of lt scv node, path is pending. Neurologically intact on decadron. 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 Pt remains reluctant to proceed with further workup or surgical decompression/ stabilization. Wants more time to think about it. She understands that we may have a narrow window of opportunity to prevent further neurologic deficits incl loss of bowel/bladder control and paralysis. Cont steroids. Follow up biopsy result. ?RT without surgery (not ideal) given degree of fracture and bony involvement.
--- NOTE | 2018-09-16 13:39 | CON.PSY ---
Psychiatry Consult Chief Complaint: 68 year old female admitted with Back pain. patient seen for Psych eval to determine capacity bto make decisions at this time> she apparantly refusing testing. - Previous Psychiatric Treatment Outpatient: None Inpatient: None - Previous Substance Abuse Treatment Outpatient: None Inpatient: None - Current Medications Current Medications: Active Medications Acetaminophen (Tylenol -) 325 mg PO Q6HPO [facility] Last Admin: 09/16/18 13:01 Dose: 325 mg Albuterol/Ipratropium (Duoneb -) 1 amp NEB Q6H PRN PRN Reason: SHORTNESS OF BREATH Amlodipine Besylate (Norvasc -) 10 mg PO DAILY [facility] Last Admin: 09/16/18 10:28 Dose: 10 mg Baclofen (Lioresal -) 10 mg PO TID [facility] Last Admin: 09/16/18 13:00 Dose: 10 mg Dexamethasone Sodium Phosphate (Decadron Injection -) 4 mg IVPB Q6H-IV [facility] Last Admin: 09/16/18 10:27 Dose: 4 mg Docusate Sodium (Colace -) 100 mg PO TID [facility] Last Admin: 09/16/18 13:01 Dose: 100 mg Heparin Sodium (Porcine) (Heparin -) 2,800 unit 40 unit/kg (2800 unit) IVPUSH PRN PRN PRN Reason: For aPTT 35 to 45 seconds Last Admin: 09/13/18 23:26 Dose: 2,800 unit Heparin Sodium (Porcine) (Heparin -) 5,600 unit 80 unit/kg (5600 unit) IVPUSH PRN PRN PRN Reason: aPTT <35 seconds Last Admin: 09/14/18 08:43 Dose: 5,600 unit Heparin Sodium/Dextrose (Heparin Infusion -) 25,000 units in 500 mls @ 25.025 mls/hr IVPB TITR [facility]; Protocol Last Titration: 09/16/18 10:24 Dose: 23 units/kg/hr, 31.976 mls/hr Metoprolol Tartrate (Lopressor -) 50 mg PO BID [facility] Last Admin: 09/16/18 10:28 Dose: 50 mg Oxycodone HCl (Roxicodone -) 5 mg PO Q6HPO [facility] Last Admin: 09/16/18 13:00 Dose: 5 mg Pantoprazole Sodium (Protonix -) 40 mg PO DAILY [facility] Last Admin: 09/16/18 10:28 Dose: 40 mg Polyethylene Glycol (Miralax (For Daily Use) -) 17 gm PO DAILY [facility] Last Admin: 09/16/18 13:00 Dose: 17 grams Potassium Chloride (K-Dur -) 40 meq PO DAILY [facility] Last Admin: 09/16/18 10:27 Dose: 40 meq - Allergies Allergies: Allergies Allergy/AdvReac Type Severity Reaction Status Date / Time No Known Allergies Allergy Verified 09/08/18 10:48 - Current Living Status Usual Living Arrangement: With Child - Current Mental Status Evaluation Appearance: Well Groomed Attitude: Cooperative - Affect Affect: Full Range Appropriateness: Appropriate to Content - Mood Mood: Euthymic - Speech/Language Expressive: Coherent - Psychomotor Activity Psychomotor Activity: Normal - Thought Process Thought Process: Intact - Thought Content Hallucinations: Absent Delusions: Absent - Self Perception Self Perception: No Impairment - Cognition Attention: Alert Orientation: Time Memory, Immediate Recall: Intact Memory, Short Term: 3/3 Memory, Remote with Promptin/3 - Concentration Serial Sevens Intact: No Simple Calculations Intact: Yes - Abstraction Proverb Interpretation: Intact Judgement: Intact - Insight Insight: Intact - Impulse Control Impulse Control: Good Control - Suicidal Ideation Suicidal Ideation: No - Homicidal Ideation Homicidal Ideation: No Assessment/Plan 1) patient has the mental capacity to to make decisons at this time.
--- NOTE | 2018-09-16 18:34 | PN ---
Physical Exam: SUBJECTIVE: Patient seen and examined at the bedside. patient refusing surgery, but has agreed to CT scan for abd/pelvis/head and chest. Awaiting final biopsy report done september 13. patient seen by Dr Benedict, deemed competent to make her own medical decisions. OBJECTIVE: Vital Signs Period Temp Pulse Resp BP Sys/Zuniga Pulse Ox Last 24 Hr 98.0 F-98.6 F 79-83 20 144-155/83-98 93 GENERAL: The patient is awake, alert, and fully oriented, in no acute distress. HEAD: Normal with no signs of trauma. EYES: PERRL, extraocular movements intact, sclera anicteric, conjunctiva clear. No ptosis. ENT: Ears normal, nares patent, oropharynx clear without exudates, moist mucous membranes. NECK: Trachea midline, full range of motion, supple. LUNGS: diminished breath sounds anteriorly, limited sounds posterily 2/2 to pain HEART: Regular rate and rhythm ABDOMEN: Soft, nontender, nondistended, normoactive bowel sounds, no guarding, no rebound, no hepatosplenomegaly, no masses. EXTREMITIES: left leg with non pitting edema, extensive bilateral dvts per imaging. on a heparin drip. NEUROLOGICAL: Normal speech, gait not observed. PSYCH: Normal mood, normal affect Laboratory Results - last 24 hr 09/16/18 09/16/18 09/16/18 00:00 06:30 06:30 WBC 11.1 H RBC 4.38 Hgb 8.6 L Hct 28.4 L MCV 64.7 L MCH 19.6 L MCHC 30.2 L RDW 17.5 H Plt Count 710 H MPV 8.0 Absolute Neuts (auto) 10.0 H Neutrophils % 89.6 H Lymphocytes % 7.3 L Monocytes % 2.8 L Eosinophils % 0.0 Basophils % 0.3 Nucleated RBC % 0 Hypochromia 1+ Platelet Estimate Increased Polychromasia 0 Poikilocytosis 3+ Anisocytosis 2+ Microcytosis 2+ Macrocytosis 0 Target Cells 1+ Acanthocytes (Spur) 1+ Schistocytes 2+ PTT (Actin FS) 125.1 H Sodium 134 L Potassium 4.0 Chloride 103 Carbon Dioxide 22 Anion Gap 10 BUN 14 Creatinine 0.5 L Creat Clearance w eGFR > 60 Random Glucose 117 H Calcium 8.8 Magnesium 2.3 Total Bilirubin 0.4 AST 15 ALT 18 Alkaline Phosphatase 139 H Total Protein 7.2 Albumin 2.8 L 09/16/18 09/16/18 06:30 16:00 WBC RBC Hgb Hct MCV MCH MCHC RDW Plt Count MPV Absolute Neuts (auto) Neutrophils % Lymphocytes % Monocytes % Eosinophils % Basophils % Nucleated RBC % Hypochromia Platelet Estimate Polychromasia Poikilocytosis Anisocytosis Microcytosis Macrocytosis Target Cells Acanthocytes (Spur) Schistocytes PTT (Actin FS) 119.1 H 86.3 H Sodium Potassium Chloride Carbon Dioxide Anion Gap BUN Creatinine Creat Clearance w eGFR Random Glucose Calcium Magnesium Total Bilirubin AST ALT Alkaline Phosphatase Total Protein Albumin Active Medications Generic Name Dose Route Start Last Admin Trade Name Freq PRN Reason Stop Dose Admin Acetaminophen 325 mg 09/09/18 00:00 09/16/18 17:34 Tylenol - PO 325 mg Q6HPO SAMI Administration Albuterol/Ipratropium 1 amp 09/12/18 19:33 Duoneb - NEB Q6H PRN SHORTNESS OF BREATH Amlodipine Besylate 10 mg 09/13/18 21:52 09/16/18 10:28 Norvasc - PO 10 mg DAILY SAMI Administration Baclofen 10 mg 09/08/18 22:00 09/16/18 13:00 Lioresal - PO 10 mg TID SAMI Administration Dexamethasone Sodium Phosphate 4 mg 09/14/18 09:00 09/16/18 14:23 Decadron Injection - IVPB 4 mg Q6H-IV SAMI Administration Docusate Sodium 100 mg 09/10/18 22:00 09/16/18 13:01 Colace - PO 100 mg TID SAMI Administration Heparin Sodium (Porcine) 2,800 unit 09/13/18 13:40 09/13/18 23:26 Heparin - 40 unit/kg (2800 unit) 2,800 unit IVPUSH Administration PRN PRN For aPTT 35 to 45 seconds Heparin Sodium (Porcine) 5,600 unit 09/13/18 13:40 09/14/18 08:43 Heparin - 80 unit/kg (5600 unit) 5,600 unit IVPUSH Administration PRN PRN aPTT <35 seconds Heparin Sodium/Dextrose 25,000 units in 500 mls @ 25.025 mls/hr 09/13/18 13: 45 09/16/18 10:24 Heparin Infusion - IVPB 23 units/kg/hr TITR SAMI 31.976 mls/hr Titration Protocol 18 UNITS/KG/HR Metoprolol Tartrate 50 mg 09/10/18 15:50 09/16/18 10:28 Lopressor - PO 50 mg BID SAMI Administration Oxycodone HCl 5 mg 09/09/18 00:00 09/16/18 17:33 Roxicodone - PO 5 mg Q6HPO SAMI Administration Pantoprazole Sodium 40 mg 09/11/18 10:00 09/16/18 10:28 Protonix - PO 40 mg DAILY SAMI Administration Polyethylene Glycol 17 gm 09/12/18 10:00 09/16/18 13:00 Miralax (For Daily Use) - PO 17 grams DAILY SAMI Administration Potassium Chloride 40 meq 09/10/18 09:11 09/16/18 10:27 K-Dur - PO 40 meq DAILY SAMI Administration ASSESSMENT/PLAN: Patient is a 68 year old female with no reported past medical history. She presented to the ED on 09/09/18 for worsening lower back pain. About 2 weeks ago, the back spasms began and gradually worsened. She has numbness to her left lateral thigh. Lumbar spine MRI showed incidental finding of acute pathological compression of l2 vertebral body with total bone marrow replacement of vertebral body and bone marrow edema. On further imaging she was also found to have liver lesions, possible mets on her chest xray as well as extensive bilateral DVTs. Unknown primary cancer, but likely colon/rectal per hematology/oncology. CEA is elevated. Patient refusing to have repeat CT/MRI scans that have been ordered but agreed and had biopsy of her left supraclaviular node which is still pending. Imaging: Lumbar spine MRI 09/10/2018: L2 significant acute pathological compression fx of l2 vertebral body with total bone marrow replacement of vertebral body. bone marrow edema. L5-S1: partial desiccated disc. no evidence of disc displacement. L5 vertebral body hemangioma. left hydronephrosis On T2 coronal images, several t2 mildly hyperintense lesions noted in the right lobe of the liver measuring apx 11mm 12 to 15mm concerning for metastatic disease. Vascular doppler study 09/12/2018:bilateral DVT on right proximal, superficial femoral vein, popliteal and posterior tibial vein, left superficial femoral, popliteal and posterior tibial vein. Patient placed on a heparin drip. Back Pain: L2 compression fracture. On Baclofen, toradol, TSLO brace, oxycodone. Lumbar MRI as noted above. L2 acute pathological compression fracture with incidental findings of liver lesions on the right lobe of the liver concerning for metastatic disease.neurosurgery consulted (Dr. Jarvis), patient offered surgery for pathological fracture, but currently refusing surgery. importance of surgery discussed in detail but still refusing. wants to think more about it and discuss with her daughter. Oncology/Hematology: Patient with liver lesions, chest xray with possible metastatic disease, and possible sigmoid mass. unknown primary cancer supraclavicular node biopsy pending. full imaging of spine with MRI ordered, but patient refused. ct scan of head/abd-pelvis ct ordered, and patient has agreed to do this test. Anemia, unspecified. hematology following. 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 Started on heparin drip per protocol. will need ivc filter prior to any surgical procedure. GI: Liver lesions, suspicion of mets. Sigmoid colon mass/mild wall irregularity upper rectum/sigmoid colon. tumor marker ca 125 and CEA significantly elevated GI consulted and following. ID: Leukocytosis, improving. monitor off antibiotics. Blood and urine cultures negative. Card: Hypertension. improving. On Metoprolol tartrate 25 mg BID. increased amlodopine. Echo> LV normal, moderate concentric left vent hypertrophy, left ventricle is hyperdynamic. trace MR, trace tricuspid regurg. Renal: Electrolyte imbalance. Hypokalemia, resolved Hyponatremia, improving fen tolerating PO monitor electrolytes low salt diet prophy hepain drip protonix Visit type - Emergency Visit Emergency Visit: Yes ED Registration Date: 09/09/18 Care time: The patient presented to the Emergency Department on the above date and was hospitalized for further evaluation of their emergent condition. - New Patient This patient is new to me today: No - Critical Care Critical Care patient: No - Discharge Referral Referred to [facility] Med [facility].: No
[2018-09-17] MEDS: ACETAMINOPHEN 325 MG TABLET (FP) PO SCH ×5 (00:01→23:58)
[2018-09-17] MEDS: DEXAMETHASONE SOD PHOSPHATE 4 MG/1 ML VIAL IVPB SCH ×4 (03:02→21:52)
[2018-09-17] MEDS: BACLOFEN 10 MG TABLET (FP) PO SCH ×3 (05:40→21:52)
[2018-09-17] MEDS: oxyCODONE HCL 5 MG TABLET PO SCH ×4 (05:40→23:56)
[2018-09-17] MEDS: DOCUSATE SODIUM 100 MG CAPSULE (FP) PO SCH ×3 (05:40→21:52)
--- NOTE | 2018-09-17 08:58 | PN ---
Progress Note (short form) - Note Progress Note: Vital Signs Temperature 98.2 F 09/17/18 07:47 Pulse Rate 68 09/17/18 07:47 Respiratory Rate 20 09/17/18 07:47 Blood Pressure 139/89 09/17/18 07:47 O2 Sat by Pulse Oximetry (%) 93 L 09/15/18 21:00 GENERAL: The patient is awake, alert, and fully oriented, in no acute distress. HEAD: Normal with no signs of trauma. EYES: PERRL, extraocular movements intact, sclera anicteric, conjunctiva clear. ENT: Ears normal, oropharynx clear without exudates, moist mucous membranes. NECK: Trachea midline, full range of motion, supple. LUNGS: diminished breath sounds anteriorly, limited sounds posterily 2/2 to pain HEART: Regular rate and rhythm ABDOMEN: Soft, nontender, nondistended, normoactive bowel sounds, no guarding, no rebound, no hepatosplenomegaly, no masses. EXTREMITIES: left leg with non pitting edema, extensive bilateral dvts per imaging. NEUROLOGICAL: Normal speech, gait not observed. PSYCH: Normal mood, normal affect CBCD WBC 11.1 K/mm3 (4.0-10.0) H 09/16/18 06:30 RBC 4.38 M/mm3 (3.60-5.2) 09/16/18 06:30 Hgb 8.6 GM/dL (10.7-15.3) L 09/16/18 06:30 Hct 28.4 % (32.4-45.2) L 09/16/18 06:30 MCV 64.7 fl (80-96) L 09/16/18 06:30 MCHC 30.2 g/dl (32.0-36.0) L 09/16/18 06:30 RDW 17.5 % (11.6-15.6) H 09/16/18 06:30 Plt Count 710 K/MM3 (134-434) H 09/16/18 06:30 MPV 8.0 fl (7.5-11.1) 09/16/18 06:30 CMP Sodium 134 mmol/L (136-145) L 09/16/18 06:30 Potassium 4.0 mmol/L (3.5-5.1) 09/16/18 06:30 Chloride 103 mmol/L (98-107) 09/16/18 06:30 Carbon Dioxide 22 mmol/L (21-32) 09/16/18 06:30 Anion Gap 10 MMOL/L (8-16) 09/16/18 06:30 BUN 14 mg/dL (7-18) 09/16/18 06:30 Creatinine 0.5 mg/dL (0.55-1.3) L 09/16/18 06:30 Creat Clearance w eGFR > 60 (>60) 09/16/18 06:30 Random Glucose 117 mg/dL (74-106) H 09/16/18 06:30 Calcium 8.8 mg/dL (8.5-10.1) 09/16/18 06:30 Total Bilirubin 0.4 mg/dL (0.2-1) 09/16/18 06:30 AST 15 U/L (15-37) 09/16/18 06:30 ALT 18 U/L (13-61) 09/16/18 06:30 Alkaline Phosphatase 139 U/L (45-117) H 09/16/18 06:30 Total Protein 7.2 g/dl (6.4-8.2) 09/16/18 06:30 Albumin 2.8 g/dl (3.4-5.0) L 09/16/18 06:30 Current Medications Generic Name Dose Route Start Last Admin Trade Name Freq PRN Reason Stop Dose Admin Acetaminophen 325 mg 09/09/18 00:00 09/17/18 05:40 Tylenol - PO 325 mg Q6HPO SAMI Administration Albuterol/Ipratropium 1 amp 09/12/18 19:33 Duoneb - NEB Q6H PRN SHORTNESS OF BREATH Amlodipine Besylate 10 mg 09/13/18 21:52 09/16/18 10:28 Norvasc - PO 10 mg DAILY SAMI Administration Baclofen 10 mg 09/08/18 22:00 09/17/18 05:40 Lioresal - PO 10 mg TID SAMI Administration Dexamethasone Sodium Phosphate 4 mg 09/14/18 09:00 09/17/18 03:02 Decadron Injection - IVPB 4 mg Q6H-IV SAMI Administration Docusate Sodium 100 mg 09/10/18 22:00 09/17/18 05:40 Colace - PO 100 mg TID SAMI Administration Heparin Sodium (Porcine) 2,800 unit 09/13/18 13:40 09/13/18 23:26 Heparin - 40 unit/kg (2800 unit) 2,800 unit IVPUSH Administration PRN PRN For aPTT 35 to 45 seconds Heparin Sodium (Porcine) 5,600 unit 09/13/18 13:40 09/14/18 08:43 Heparin - 80 unit/kg (5600 unit) 5,600 unit IVPUSH Administration PRN PRN aPTT <35 seconds Heparin Sodium/Dextrose 25,000 units in 500 mls @ 25.025 mls/hr 09/13/18 13: 45 09/17/18 02:42 Heparin Infusion - IVPB 18 units/kg/hr TITR SAMI 25.025 mls/hr Titration Protocol 18 UNITS/KG/HR Metoprolol Tartrate 50 mg 09/10/18 15:50 09/16/18 21:40 Lopressor - PO 50 mg BID SAMI Administration Oxycodone HCl 5 mg 09/09/18 00:00 09/17/18 05:40 Roxicodone - PO 5 mg Q6HPO SAMI Administration Pantoprazole Sodium 40 mg 09/11/18 10:00 09/16/18 10:28 Protonix - PO 40 mg DAILY SAMI Administration Polyethylene Glycol 17 gm 09/12/18 10:00 09/16/18 13:00 Miralax (For Daily Use) - PO 17 grams DAILY SAMI Administration Potassium Chloride 40 meq 09/10/18 09:11 09/16/18 10:27 K-Dur - PO 40 meq DAILY SAMI Administration Home Medications Medication Instructions Recorded Ibuprofen [Motrin -] 600 mg PO PRN PRN 09/08/18 Oxycodone HCl/Acetaminophen 1 tab PO Q6H 09/08/18 [Percocet 5-325 mg Tablet] ASSESSMENT/PLAN: Patient is a 68 year old female with no reported past medical history. She presented to the ED on 09/09/18 for worsening lower back pain. About 2 weeks ago, the back spasms began and gradually worsened. She has numbness to her left lateral thigh. Lumbar spine MRI showed incidental finding of acute pathological compression of l2 vertebral body with total bone marrow replacement of vertebral body and bone marrow edema. On further imaging she was also found to have liver lesions, possible mets on her chest xray as well as extensive bilateral DVTs. Unknown primary cancer, but likely colon/rectal per hematology/oncology. CEA is elevated. Patient refusing to have repeat CT/MRI scans that have been ordered but agreed and had biopsy of her left supraclaviular node which is still pending. Imaging: Lumbar spine MRI 09/10/2018: L2 significant acute pathological compression fx of l2 vertebral body with total bone marrow replacement of vertebral body. bone marrow edema. L5-S1: partial desiccated disc. no evidence of disc displacement. L5 vertebral body hemangioma. left hydronephrosis On T2 coronal images, several t2 mildly hyperintense lesions noted in the right lobe of the liver measuring apx 11mm 12 to 15mm concerning for metastatic disease. Vascular doppler study 09/12/2018:bilateral DVT on right proximal, superficial femoral vein, popliteal and posterior tibial vein, left superficial femoral, popliteal and posterior tibial vein. Patient placed on a heparin drip. Back Pain: L2 compression fracture. On Baclofen, toradol, TSLO brace, oxycodone. Lumbar MRI as noted above. L2 acute pathological compression fracture with incidental findings of liver lesions on the right lobe of the liver concerning for metastatic disease.neurosurgery consulted (Dr. Jarvis), patient offered surgery for pathological fracture, but currently refusing surgery. importance of surgery discussed in detail but still refusing. wants to think more about it and discuss with her daughter. Oncology/Hematology: Patient with liver lesions, chest xray with possible metastatic disease, and possible sigmoid mass. unknown primary cancer supraclavicular node biopsy pending. full imaging of spine with MRI ordered, but patient refused. ct scan of head/abd-pelvis ct ordered, and patient has agreed to do this test. Anemia, unspecified. hematology following. 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 Started on heparin drip per protocol. will need ivc filter prior to any surgical procedure. GI: Liver lesions, suspicion of mets. Sigmoid colon mass/mild wall irregularity upper rectum/sigmoid colon. tumor marker ca 125 and CEA significantly elevated GI consulted and following. ID: Leukocytosis, improving. monitor off antibiotics. Blood and urine cultures negative. Card: Hypertension. improving. On Metoprolol tartrate 25 mg BID. increased amlodopine. Echo> LV normal, moderate concentric left vent hypertrophy, left ventricle is hyperdynamic. trace MR, trace tricuspid regurg. Renal: Electrolyte imbalance. Hypokalemia, resolved Hyponatremia, improving fen tolerating PO monitor electrolytes low salt diet prophy hepain drip protonix
[2018-09-17] MEDS: HEPARIN INFUSION - 25,000 UNITS/500 ML INFUS.BAG IVPB SCH ×3 (09:29→20:28)
[2018-09-17] MEDS: amLODIPine BESYLATE 10 MG TABLET (FP) PO SCH (09:30)
[2018-09-17] MEDS: POTASSIUM CHLORIDE TABS 20 MEQ TABLET.ER (FP) PO SCH (09:30)
[2018-09-17] MEDS: PANTOPRAZOLE 40 MG TABLET (FP) PO SCH (09:30)
[2018-09-17] MEDS: METOPROLOL TARTRATE 50 MG TABLET (FP) PO SCH ×2 (09:30→21:52)
[2018-09-17] MEDS: POLYETHYLENE GLYCOL 3350 119 GM BTL PO SCH (12:15)
--- NOTE | 2018-09-17 16:29 | PN ---
Progress Note, Physician Chief Complaint: She is currently comfortable and laying in bed. Ms. Yeh reports intermittent "pulling/stretching" pain in b/l lower extremities. She is unable to get out of bed or ambulate. 2. Pt requesting more information regarding c-scope and possible risks associated with procedure. She is willing to perform procedure after . She is currently considering her options if she does infact have a malignancy. - Current Medication List Current Medications: Active Medications Acetaminophen (Tylenol -) 325 mg PO Q6HPO [facility] Last Admin: 09/17/18 12:13 Dose: 325 mg Albuterol/Ipratropium (Duoneb -) 1 amp NEB Q6H PRN PRN Reason: SHORTNESS OF BREATH Amlodipine Besylate (Norvasc -) 10 mg PO DAILY [facility] Last Admin: 09/17/18 09:30 Dose: 10 mg Baclofen (Lioresal -) 10 mg PO TID [facility] Last Admin: 09/17/18 14:57 Dose: 10 mg Dexamethasone Sodium Phosphate (Decadron Injection -) 4 mg IVPB Q6H-IV SAMI Last Admin: 09/17/18 14:57 Dose: 4 mg Docusate Sodium (Colace -) 100 mg PO TID [facility] Last Admin: 09/17/18 14:57 Dose: 100 mg Heparin Sodium (Porcine) (Heparin -) 2,800 unit 40 unit/kg (2800 unit) IVPUSH PRN PRN PRN Reason: For aPTT 35 to 45 seconds Last Admin: 09/13/18 23:26 Dose: 2,800 unit Heparin Sodium (Porcine) (Heparin -) 5,600 unit 80 unit/kg (5600 unit) IVPUSH PRN PRN PRN Reason: aPTT <35 seconds Last Admin: 09/14/18 08:43 Dose: 5,600 unit Heparin Sodium/Dextrose (Heparin Infusion -) 25,000 units in 500 mls @ 25.025 mls/hr IVPB TITR [facility]; Protocol Last Admin: 09/17/18 10:35 Dose: 15.03 units/kg/hr, 20.9 mls/hr Metoprolol Tartrate (Lopressor -) 50 mg PO BID [facility] Last Admin: 09/17/18 09:30 Dose: 50 mg Oxycodone HCl (Roxicodone -) 5 mg PO Q6HPO [facility] Last Admin: 11/20/18 12:15 Dose: 5 mg Pantoprazole Sodium (Protonix -) 40 mg PO DAILY [facility] Last Admin: 09/17/18 09:30 Dose: 40 mg Polyethylene Glycol (Miralax (For Daily Use) -) 17 gm PO DAILY [facility] Last Admin: 09/17/18 12:15 Dose: Not Given Potassium Chloride (K-Dur -) 40 meq PO DAILY [facility] Last Admin: 09/17/18 09:30 Dose: 40 meq - Objective Vital Signs: Vital Signs Temperature 98.6 F 09/17/18 14:14 Pulse Rate 59 L 09/17/18 14:14 Respiratory Rate 20 09/17/18 11:00 Blood Pressure 134/96 09/17/18 11:00 O2 Sat by Pulse Oximetry (%) 93 L 09/15/18 21:00 Constitutional: Yes: Well Nourished, No Distress, Calm. No: Anxious, Ashen, Cachectic, Diaphoresis, Mild Distress, Moderate Distress, Severe Distress, Obese , Pallor, Poor Hygeine, Thin, Other Eyes: Yes: Conjunctiva Clear, EOM Intact, PERRL. No: WNL, Cataracts, Diplopia, Occular Prosthesis, Ptosis, Sclera Icterus, Tearing, Other HENT: Yes: Atraumatic, Normocephalic. No: WNL, Drooling, Epistaxis, Hoarseness , Nasal Congestion, Pharyngeal Erythema, Rhinnorhea, Thrush, Tonsillar Exudate, Other Neck: Yes: Supple, Trachea Midline. No: WNL, Decreased ROM, Lymphadenopathy, Rigid, Tenderness, Thyromegaly, Other Cardiovascular: Yes: Regular Rate and Rhythm. No: WNL, Bradycardia, Tachycardia , Pulse Irregular, Bruit, JVD, Gallop, Murmur, Rub, S1, S2, S3, S4, Varicosities , Other Respiratory: Yes: CTA Bilaterally. No: WNL, Regular, Accessory Muscle Use, Bradypnea, Ramón-Rodgers, Cough, Diminished, Dullness, Hyperresonant, Intubated , Kussmaul, Mechanically Ventilated, On BiPap, On Nasal O2, On Venti-Mask, Orthopnea, Poor Air Entry, Rales, Rhonchi, SOB, SOB on Exertion, Stridor, Tachypnea, Wheezes, Other Gastrointestinal: Yes: Normal Bowel Sounds, Soft. No: WNL, Abdomen, Obese, Ascites, Distention, Hematemesis, Hemorrhoids, Hepatomegaly, Hernia, Hyperactive Bowel Sounds, Hypoactive Bowel Sounds, Melena, Palpable Mass, Pulsatile Mass, Rectal Bleeding, Splenomegaly, Tenderness, Tenderness, Epigastrium, Tenderness, Rebound, Vomiting, Other ...Rectal Exam: Yes: Deferred. No: WNL, Erythema, Guaiac Negative, Guaiac Positive, Guaiac Trace, Hemorrhoids/External, Hemorrhoids/Internal, Induration, Inflammation, Mass, Sphincter Tone Normal, Sphincter Tone Poor, Other Extremities: No: WNL, Amputation, Calf Tenderness, Cold, Cool, Cyanosis, Deformity, Delayed Capillary Refill, Erythema, External Rotation, Internal Rotation, Pallor, Shortened, Other Edema: Yes Edema: LLE: 1+ (ankle and pedal edema) Peripheral Pulses: Left Radial: 2+, Right Radial: 2+, Left Doralis Pedis: 2+, Right Dorsalis Pedis: 2+ Integumentary: Yes: WNL. No: Body Piercing, Bruising, Erythema, Incision, Jaundice, Laceration, Petechiae, Pressure Ulcer, Rash, Skin Tear, Tattoos, Tenting, Onychomycosis, Venous Stasis Changes, Other Neurological: Yes: Alert, Oriented, Loss of Sensation, Numbness, Paresthesia, Tingling, Weakness ...Motor Strength: LLE (4/5), RLE (4/5 b/l) Psychiatric: Yes: Alert, Oriented Labs: CBC, BMP 09/16/18 06:30 09/16/18 06:30 INR, PTT INR 1.24 (0.83-1.09) H 09/12/18 18:45 - ....Imaging Cat Scan: Report Reviewed (HEAD CT: 09/16 moderate atrophy No gross evidence of focal intracranial lesions or hemorrhage is seen. MRI brain would be more sensitive in view of the clinical history. CT chest 09/16: official report pending CT abdomen and pelvis 09/16: official report pending) Problem List - Problems (1) Back pain Code(s): M54.9 - DORSALGIA, UNSPECIFIED Qualifiers: Back pain location: low back pain Chronicity: acute Back pain laterality : midline Sciatica presence: without sciatica Qualified Code(s): M54.5 - Low back pain (2) Compression fracture Assessment/Plan: pt ambivalent about spinal surgery neurosurgery signed off, reconsulted if necessary [facility] deemed patient to have mental capacity to make decisions pain controlled with current regimen, no changes warranted. Code(s): LTS7651 - (3) Malignancy Assessment/Plan: pt willing to undergo colonscopy Code(s): C80.1 - MALIGNANT (PRIMARY) NEOPLASM, UNSPECIFIED (4) Metastases to the liver Assessment/Plan: pt being followed by oncology, recommendations appreciated awaiting Left SCV node biopsy results c/w decadron Code(s): C78.7 - SECONDARY MALIG NEOPLASM OF LIVER AND INTRAHEPATIC BILE DUCT (5) DVT (deep venous thrombosis) Assessment/Plan: c/w heparin infusion as per protocol bleeding precautions trend H/H and PLts on heparin drip Code(s): I82.409 - ACUTE EMBOLISM AND THOMBOS UNSP DEEP VN UNSP LOWER EXTREMITY (6) HTN (hypertension) Assessment/Plan: BP improved, today 139/89mmHg c/w metoprolol 50mg BID and norvasc 10mg daily Code(s): I10 - ESSENTIAL (PRIMARY) HYPERTENSION Visit type - Emergency Visit Emergency Visit: Yes ED Registration Date: 09/09/18 Care time: The patient presented to the Emergency Department on the above date and was hospitalized for further evaluation of their emergent condition. - New Patient This patient is new to me today: Yes Date on this admission: 09/17/18 - Critical Care Critical Care patient: No - Discharge Referral Referred to [facility] Med [facility] No
[2018-09-17] MEDS: HEPARIN NA (PORCINE) 5,000 UNITS/ML 1ML VIAL IVPUSH PRN (20:29)
[2018-09-18] MEDS: DEXAMETHASONE SOD PHOSPHATE 4 MG/1 ML VIAL IVPB SCH ×4 (02:45→22:46)
[2018-09-18] MEDS: HEPARIN INFUSION - 25,000 UNITS/500 ML INFUS.BAG IVPB SCH ×4 (03:45→23:55)
[2018-09-18] MEDS: oxyCODONE HCL 5 MG TABLET PO SCH ×4 (06:40→23:08)
[2018-09-18] MEDS: DOCUSATE SODIUM 100 MG CAPSULE (FP) PO SCH ×3 (06:40→22:45)
[2018-09-18] MEDS: BACLOFEN 10 MG TABLET (FP) PO SCH ×3 (06:40→22:45)
[2018-09-18] MEDS: ACETAMINOPHEN 325 MG TABLET (FP) PO SCH ×3 (06:41→23:07)
[2018-09-18] MEDS: METOPROLOL TARTRATE 50 MG TABLET (FP) PO SCH ×2 (10:41→22:45)
[2018-09-18] MEDS: amLODIPine BESYLATE 10 MG TABLET (FP) PO SCH (10:41)
[2018-09-18] MEDS: PANTOPRAZOLE 40 MG TABLET (FP) PO SCH (10:41)
[2018-09-18] MEDS: POTASSIUM CHLORIDE TABS 20 MEQ TABLET.ER (FP) PO SCH (10:41)
[2018-09-18] MEDS: POLYETHYLENE GLYCOL 3350 119 GM BTL PO SCH (12:48)
--- NOTE | 2018-09-18 18:12 | PN ---
Physical Exam: SUBJECTIVE: Patient seen and examined. She is eager to get up and walk around again. She reports her pain is well-controlled, she says she is trying to process all the possiblity of her having metastatic cancer. OBJECTIVE: Vital Signs Period Temp Pulse Resp BP Sys/Zuniga Pulse Ox Last 24 Hr 98.0 F-98.5 F 67-81 18-20 121-153/74-89 97 GENERAL: The patient is awake, alert, and fully oriented, in no acute distress. HEAD: Normal with no signs of trauma. EYES: PERRL, extraocular movements intact, sclera anicteric, conjunctiva clear. No ptosis. ENT: Ears normal, nares patent, oropharynx clear without exudates, moist mucous membranes. NECK: Trachea midline, full range of motion, supple. LUNGS: diminished breath sounds anteriorly, limited sounds posterily 2/2 to pain HEART: Regular rate and rhythm ABDOMEN: Soft, nontender, nondistended, normoactive bowel sounds, no guarding, no rebound, no hepatosplenomegaly, no masses. EXTREMITIES: left leg with non pitting edema, extensive bilateral dvts per imaging. on a heparin drip. NEUROLOGICAL: Normal speech, gait not observed. PSYCH: Normal mood, normal affect Laboratory Results - last 24 hr 09/17/18 09/18/18 09/18/18 18:00 02:30 09:58 PTT (Actin FS) 44.6 H 153.5 H 98.5 H Active Medications Generic Name Dose Route Start Last Admin Trade Name Freq PRN Reason Stop Dose Admin Acetaminophen 325 mg 09/09/18 00:00 09/18/18 12:48 Tylenol - PO 325 mg Q6HPO SAMI Administration Albuterol/Ipratropium 1 amp 09/12/18 19:33 Duoneb - NEB Q6H PRN SHORTNESS OF BREATH Amlodipine Besylate 10 mg 09/13/18 21:52 09/18/18 10:41 Norvasc - PO 10 mg DAILY SAMI Administration Baclofen 10 mg 09/08/18 22:00 09/18/18 15:00 Lioresal - PO 10 mg TID SAMI Administration Dexamethasone Sodium Phosphate 4 mg 09/14/18 09:00 09/18/18 15:00 Decadron Injection - IVPB 4 mg Q6H-IV SAMI Administration Docusate Sodium 100 mg 09/10/18 22:00 09/18/18 15:00 Colace - PO 100 mg TID SAMI Administration Heparin Sodium (Porcine) 2,800 unit 09/13/18 13:40 09/17/18 20:29 Heparin - 40 unit/kg (2800 unit) 2,800 unit IVPUSH Administration PRN PRN For aPTT 35 to 45 seconds Heparin Sodium (Porcine) 5,600 unit 09/13/18 13:40 09/14/18 08:43 Heparin - 80 unit/kg (5600 unit) 5,600 unit IVPUSH Administration PRN PRN aPTT <35 seconds Heparin Sodium/Dextrose 25,000 units in 500 mls @ 25.025 mls/hr 09/13/18 13: 45 09/18/18 13:26 Heparin Infusion - IVPB 18 units/kg/hr TITR SAMI 25.025 mls/hr Administration Protocol 18 UNITS/KG/HR Metoprolol Tartrate 50 mg 09/10/18 15:50 09/18/18 10:41 Lopressor - PO 50 mg BID SAMI Administration Oxycodone HCl 5 mg 09/09/18 00:00 09/18/18 17:21 Roxicodone - PO 5 mg Q6HPO SAMI Administration Pantoprazole Sodium 40 mg 09/11/18 10:00 09/18/18 10:41 Protonix - PO 40 mg DAILY SAMI Administration Polyethylene Glycol 17 gm 09/12/18 10:00 09/18/18 12:48 Miralax (For Daily Use) - PO Not Given DAILY SAMI Potassium Chloride 40 meq 09/10/18 09:11 09/18/18 10:41 K-Dur - PO 40 meq DAILY SAMI Administration ASSESSMENT/PLAN: 68 year old female who had been out of medical care for many years presented d to the ED on 09/09/18 for worsening lower back pain over 2 weeks. Lumbar spine MRI showed incidental finding of acute pathological compression of l2 vertebral body with total bone marrow replacement of vertebral body and bone marrow edema. On further imaging she was also found to have liver lesions, possible mets on her chest xray as well as extensive bilateral DVTs. Unknown primary cancer, but likely colon/rectal per hematology/oncology. CEA is elevated. Patient refusing to have repeat CT/MRI scans that have been ordered but agreed and had biopsy of her left supraclaviular node which is still pending. Imaging: Lumbar spine MRI 09/10/2018: L2 significant acute pathological compression fx of l2 vertebral body with total bone marrow replacement of vertebral body. bone marrow edema. L5-S1: partial desiccated disc. no evidence of disc displacement. L5 vertebral body hemangioma. left hydronephrosis On T2 coronal images, several t2 mildly hyperintense lesions noted in the right lobe of the liver measuring apx 11mm 12 to 15mm concerning for metastatic disease. Vascular doppler study 09/12/2018:bilateral DVT on right proximal, superficial femoral vein, popliteal and posterior tibial vein, left superficial femoral, popliteal and posterior tibial vein. Patient placed on a heparin drip. Back Pain - L2 compression fracture - Continue Baclofen, toradol, TSLO brace, oxycodone. - Neurosurgery consult with Dr. Jarvis. - Patient declining surgery for pathological fracture; she wants to think more about it and discuss with her daughter. Liver lesions - CXR with possible metastatic disease, and possible sigmoid mass - Unknown primary cancer supraclavicular node biopsy pending - Full imaging of spine with MRI ordered, but patient refused - Ct scan of head/abd-pelvis ct ordered, and patient has agreed to do this test. 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 Sigmoid colon mass/mild wall irregularity upper rectum/sigmoid colon - Tumor marker ca 125 and CEA significantly elevated - GI consulted and following. Leukocytosis - Improving; monitor off antibiotics - Blood and urine cultures negative. Hypertension - Improving - On Metoprolol tartrate 25 mg BID - Amlodopine 10 mg PO qday - Echo> LV normal, moderate concentric left vent hypertrophy, left ventricle is hyperdynamic. trace MR, trace tricuspid regurg. Hypokalemia, resolved Hyponatremia, improving FEN - Tolerating PO - Monitor electrolytes - Low sodium diet Prophylaxis DVT: Hepain drip GI: Protonix Disp: Patient requires further inpatient monitoring. Visit type - Emergency Visit Emergency Visit: No - New Patient This patient is new to me today: No - Critical Care Critical Care patient: No
[2018-09-19] MEDS: ACETAMINOPHEN 325 MG TABLET (FP) PO SCH ×5 (01:03→23:27)
[2018-09-19] MEDS: DEXAMETHASONE SOD PHOSPHATE 4 MG/1 ML VIAL IVPB SCH ×4 (03:04→21:58)
[2018-09-19] MEDS: DOCUSATE SODIUM 100 MG CAPSULE (FP) PO SCH ×3 (05:28→22:24)
[2018-09-19] MEDS: BACLOFEN 10 MG TABLET (FP) PO SCH ×3 (05:29→22:24)
[2018-09-19] MEDS: oxyCODONE HCL 5 MG TABLET PO SCH ×4 (05:29→23:27)
[2018-09-19] MEDS: HEPARIN INFUSION - 25,000 UNITS/500 ML INFUS.BAG IVPB SCH ×2 (07:32→14:03)
[2018-09-19 08:32] LABS: ANION GAP 11 MMOL/L (8-16); BLOOD UREA NITROGEN 16 mg/dL (7-18); CALCIUM 8.7 mg/dL (8.5-10.1); CHLORIDE 103 mmol/L (98-107); CO2 22 mmol/L (21-32); CREATININE 0.5 mg/dL (0.55-1.3); GLUCOSE,RANDOM 121 mg/dL (74-106); MAGNESIUM 2.2 mg/dL (1.8-2.4); POTASSIUM 4.5 mmol/L (3.5-5.1); SODIUM 136 mmol/L (136-145)
[2018-09-19] MEDS: PANTOPRAZOLE 40 MG TABLET (FP) PO SCH (09:07)
[2018-09-19] MEDS: POTASSIUM CHLORIDE TABS 20 MEQ TABLET.ER (FP) PO SCH (09:08)
[2018-09-19] MEDS: METOPROLOL TARTRATE 50 MG TABLET (FP) PO SCH ×2 (09:08→22:24)
[2018-09-19] MEDS: amLODIPine BESYLATE 10 MG TABLET (FP) PO SCH (09:08)
[2018-09-19] MEDS: POLYETHYLENE GLYCOL 3350 119 GM BTL PO SCH (09:08)
[2018-09-19 09:16] LABS: HEMATOCRIT 23.6 % (32.4-45.2); HEMOGLOBIN 7.6 GM/dL (10.7-15.3); MCH 20.6 pg (25.7-33.7); MCHC 32.4 g/dl (32.0-36.0); MEAN CELL VOLUME 63.5 fl (80-96); PLATELET COUNT 617 K/MM3 (134-434); RBC 3.72 M/mm3 (3.60-5.2); RDW 17.6 % (11.6-15.6); WHITE BLOOD COUNT 17.8 K/mm3 (4.0-10.0)
--- NOTE | 2018-09-19 12:39 | PN ---
Physical Exam: SUBJECTIVE: Patient seen and examined. No new complaints, pain well controlled, no chest pain, SOB, n/v/d. Eating well. Patient remains eager to get OOB. Patient concerned about having discomfort when she is being positioned for her upcoming MRI. OBJECTIVE: Vital Signs Period Temp Pulse Resp BP Sys/Zuniga Pulse Ox Last 24 Hr 97.7 F-98.9 F 64-75 16-20 109-152/60-82 97-97 GENERAL: The patient is awake, alert, resting comfortably, mildly confused. HEAD: Normal with no signs of trauma. EYES: PERRL, extraocular movements intact, sclera anicteric, conjunctiva clear. No ptosis. ENT: Ears normal, nares patent, oropharynx clear without exudates, moist mucous membranes. NECK: Trachea midline, full range of motion, supple. LUNGS: diminished breath sounds anteriorly, limited sounds posterily 2/2 to pain HEART: Regular rate and rhythm ABDOMEN: Soft, nontender, nondistended, normoactive bowel sounds, no guarding, no rebound, no hepatosplenomegaly, no masses. EXTREMITIES: left leg with non pitting edema, extensive bilateral dvts per imaging. on a heparin drip. NEUROLOGICAL: Normal speech, gait not observed. PSYCH: Normal mood, normal affect Laboratory Results - last 24 hr 09/18/18 09/19/18 09/19/18 18:50 07:30 07:30 WBC 17.8 H RBC 3.72 Hgb 7.6 L Hct 23.6 L D MCV 63.5 L MCH 20.6 L MCHC 32.4 RDW 17.6 H Plt Count 617 H MPV 8.0 PTT (Actin FS) 51.1 H 53.7 H Sodium Potassium Chloride Carbon Dioxide Anion Gap BUN Creatinine Creat Clearance w eGFR Random Glucose Calcium Magnesium 09/19/18 07:30 WBC RBC Hgb Hct MCV MCH MCHC RDW Plt Count MPV PTT (Actin FS) Sodium 136 Potassium 4.5 Chloride 103 Carbon Dioxide 22 Anion Gap 11 BUN 16 Creatinine 0.5 L Creat Clearance w eGFR > 60 Random Glucose 121 H Calcium 8.7 Magnesium 2.2 Active Medications Generic Name Dose Route Start Last Admin Trade Name Freq PRN Reason Stop Dose Admin Acetaminophen 325 mg 09/09/18 00:00 09/19/18 11:54 Tylenol - PO 325 mg Q6HPO SAMI Administration Albuterol/Ipratropium 1 amp 09/12/18 19:33 Duoneb - NEB Q6H PRN SHORTNESS OF BREATH Amlodipine Besylate 10 mg 09/13/18 21:52 09/19/18 09:08 Norvasc - PO 10 mg DAILY SAMI Administration Baclofen 10 mg 09/08/18 22:00 09/19/18 05:29 Lioresal - PO 10 mg TID SAMI Administration Dexamethasone Sodium Phosphate 4 mg 09/14/18 09:00 09/19/18 09:08 Decadron Injection - IVPB 4 mg Q6H-IV SAMI Administration Docusate Sodium 100 mg 09/10/18 22:00 09/19/18 05:28 Colace - PO 100 mg TID SAMI Administration Heparin Sodium (Porcine) 2,800 unit 09/13/18 13:40 09/17/18 20:29 Heparin - 40 unit/kg (2800 unit) 2,800 unit IVPUSH Administration PRN PRN For aPTT 35 to 45 seconds Heparin Sodium (Porcine) 5,600 unit 09/13/18 13:40 09/14/18 08:43 Heparin - 80 unit/kg (5600 unit) 5,600 unit IVPUSH Administration PRN PRN aPTT <35 seconds Heparin Sodium/Dextrose 25,000 units in 500 mls @ 25.025 mls/hr 09/13/18 13: 45 09/19/18 07:32 Heparin Infusion - IVPB 18 units/kg/hr TITR SAMI 25.025 mls/hr Administration Protocol 18 UNITS/KG/HR Metoprolol Tartrate 50 mg 09/10/18 15:50 09/19/18 09:08 Lopressor - PO 50 mg BID SAMI Administration Oxycodone HCl 5 mg 09/09/18 00:00 09/19/18 11:54 Roxicodone - PO 5 mg Q6HPO SAMI Administration Pantoprazole Sodium 40 mg 09/11/18 10:00 09/19/18 09:07 Protonix - PO 40 mg DAILY SAMI Administration Polyethylene Glycol 17 gm 09/12/18 10:00 09/19/18 09:08 Miralax (For Daily Use) - PO Not Given DAILY SAMI Potassium Chloride 40 meq 09/10/18 09:11 09/19/18 09:08 K-Dur - PO 40 meq DAILY SAMI Administration ASSESSMENT/PLAN: 68 year old female who had been out of medical care for many years presented d to the ED on 09/09/18 for worsening lower back pain over 2 weeks. Lumbar spine MRI showed incidental finding of acute pathological compression of l2 vertebral body with total bone marrow replacement of vertebral body and bone marrow edema. On further imaging she was also found to have liver lesions, possible mets on her chest xray as well as extensive bilateral DVTs. Unknown primary cancer, but likely colon/rectal per hematology/oncology. CEA is elevated. Patient refusing to have repeat CT/MRI scans that have been ordered but agreed and had biopsy of her left supraclaviular node which is still pending. Imaging: Lumbar spine MRI 09/10/2018: L2 significant acute pathological compression fx of l2 vertebral body with total bone marrow replacement of vertebral body. bone marrow edema. L5-S1: partial desiccated disc. no evidence of disc displacement. L5 vertebral body hemangioma. left hydronephrosis On T2 coronal images, several t2 mildly hyperintense lesions noted in the right lobe of the liver measuring apx 11mm 12 to 15mm concerning for metastatic disease. Vascular doppler study 09/12/2018:bilateral DVT on right proximal, superficial femoral vein, popliteal and posterior tibial vein, left superficial femoral, popliteal and posterior tibial vein. Patient placed on a heparin drip. Back Pain - L2 compression fracture - Continue Baclofen, toradol, TSLO brace, oxycodone. - Neurosurgery consult with Dr. Jarvis. - Patient declining surgery for pathological fracture; she wants to think more about it and discuss with her daughter. Liver lesions - CXR with possible metastatic disease, and possible sigmoid mass - Unknown primary cancer supraclavicular node biopsy pending - Full imaging of spine with MRI ordered, but patient refused - Ct scan of head/abd-pelvis ct ordered, and patient has agreed to do this test. 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 Sigmoid colon mass/mild wall irregularity upper rectum/sigmoid colon - Tumor marker ca 125 and CEA significantly elevated - GI consulted and following. Leukocytosis - Worsening 11.1 ->17.8 in 3 days - Afebrile - Blood and urine cultures ordered Hypertension - Improving - On Metoprolol tartrate 25 mg BID - Amlodopine 10 mg PO qday - Echo> LV normal, moderate concentric left vent hypertrophy, left ventricle is hyperdynamic. trace MR, trace tricuspid regurg. Hypokalemia, resolved Hyponatremia, resolved FEN - Tolerating PO - Monitor electrolytes - Low sodium diet Prophylaxis DVT: Hepain drip GI: Protonix Disp: Patient requires further inpatient monitoring. Visit type - Emergency Visit Emergency Visit: No - New Patient This patient is new to me today: No - Critical Care Critical Care patient: No
[2018-09-19 15:22] LABS: URINE APPEARANCE CLEAR; URINE BILIRUBIN NEGATIVE (<2.0 mg/dL); URINE COLOR LTYELLOW; URINE GLUCOSE (UA) NEGATIVE (NEGATIVE); URINE KETONE NEGATIVE (NEGATIVE); URINE LEUK ESTERASE NEGATIVE (NEGATIVE); URINE NITRITE NEGATIVE (NEGATIVE); URINE PROTEIN NEGATIVE (NEGATIVE); URINE UROBILINOGEN 4.0 E.U/dl mg/dL (0.2-1.0)
[2018-09-20] MEDS: DEXAMETHASONE SOD PHOSPHATE 4 MG/1 ML VIAL IVPB SCH ×4 (03:46→21:43)
[2018-09-20] MEDS: HEPARIN INFUSION - 25,000 UNITS/500 ML INFUS.BAG IVPB SCH ×2 (03:48→14:00)
[2018-09-20] MEDS: DOCUSATE SODIUM 100 MG CAPSULE (FP) PO SCH ×3 (06:21→22:19)
[2018-09-20] MEDS: ACETAMINOPHEN 325 MG TABLET (FP) PO SCH ×4 (06:22→23:37)
[2018-09-20] MEDS: BACLOFEN 10 MG TABLET (FP) PO SCH ×3 (06:23→21:43)
[2018-09-20] MEDS: oxyCODONE HCL 5 MG TABLET PO SCH ×4 (06:23→23:36)
[2018-09-20 08:05] LABS: HEMATOCRIT 25.3 % (32.4-45.2); HEMOGLOBIN 8.1 GM/dL (10.7-15.3); MCH 20.6 pg (25.7-33.7); MEAN CELL VOLUME 64.2 fl (80-96); MEAN PLT VOLUME 7.7 fl (7.5-11.1); PLATELET COUNT 584 K/MM3 (134-434); RBC 3.94 M/mm3 (3.60-5.2); RDW 17.7 % (11.6-15.6); WHITE BLOOD COUNT 15.3 K/mm3 (4.0-10.0)
[2018-09-20 08:33] LABS: ANION GAP 10 MMOL/L (8-16); BLOOD UREA NITROGEN 16 mg/dL (7-18); CALCIUM 8.8 mg/dL (8.5-10.1); CHLORIDE 101 mmol/L (98-107); CO2 25 mmol/L (21-32); CREATININE 0.4 mg/dL (0.55-1.3); GLUCOSE,RANDOM 115 mg/dL (74-106); MAGNESIUM 2.2 mg/dL (1.8-2.4); POTASSIUM 4.5 mmol/L (3.5-5.1); SODIUM 136 mmol/L (136-145)
[2018-09-20] MEDS: PANTOPRAZOLE 40 MG TABLET (FP) PO SCH (09:08)
[2018-09-20] MEDS: METOPROLOL TARTRATE 50 MG TABLET (FP) PO SCH ×2 (09:08→22:19)
[2018-09-20] MEDS: POLYETHYLENE GLYCOL 3350 119 GM BTL PO SCH (09:08)
[2018-09-20] MEDS: POTASSIUM CHLORIDE TABS 20 MEQ TABLET.ER (FP) PO SCH (09:08)
[2018-09-20] MEDS: amLODIPine BESYLATE 10 MG TABLET (FP) PO SCH (09:08)
--- NOTE | 2018-09-20 10:53 | PATH ---
Surgical Pathology Report Patient Name: ROWAN BAY Med. Rec. #: [id number] /Age/Gender: 1950 (Age: 68) / F Account: [id number] Location: [address] [place] [address]/[facility] Taken: 09/13/2018 Received: 09/13/2018 Reported: 09/20/2018 Physicians: Roberto Forte M.D. PHYSICIAN EMERGENCY DEPT Specimen(s) Received LEFT NECK MASS (ALSO RECEIVED TISSUEIN RPMI) Clinical History 68 year old female with multiple metastatic process of unclear primary Final Diagnosis NECK MASS, LEFT, CORE BIOPSY: ADENOCARCINOMA, MODERATELY DIFFERENTIATED. SEE COMMENT. Comment: Immunohistochemical stains performed and interpreted at [facility] show the tumor is positive for AE1/3 and CK20, while negative for CK7, TTF-1;. Additional immunohistochemical stains performed at [place], [place] ([id number]) and interpreted at [facility] show the tumor cells to be positive for CDX2 and SATB2, while negative for NAPSIN A. Overall findings are consistent with lower gastrointestinal tract origin. Suggest clinical and radiologic correlation. Findings discussed with Dr. Velasco by Dr. Avelar on 09/17/2018. Electronically Signed Luisa Crawford M.D. Gross Description Received in formalin labeled "left neck mass," are 7 garcia fragments of soft tissue from 0.2-0.6 cm in length and averaging 0.1 cm in diameter. The specimens are submitted in toto in one cassette. There is additional tissue received in RPMI solution which is sent for flow cytometry. /09/13/2018 saudi09/13/2018
--- NOTE | 2018-09-20 13:33 | PN ---
Physical Exam: SUBJECTIVE: Patient seen and examined. Patient refused MRI yesterday. Patient reporting that her pain is not well controlled, even though she denies pain now and denied pain upon exam yesterday. RN reported she refused pain medication this AM because she said OBJECTIVE: Vital Signs Period Temp Pulse Resp BP Sys/Zuniga Pulse Ox Last 24 Hr 98.0 F-98.5 F 61-72 17-18 127-139/72-89 97-97 GENERAL: The patient is awake, alert, resting comfortably, mildly confused/ agitated HEAD: Normal with no signs of trauma. EYES: PERRL, extraocular movements intact, sclera anicteric, conjunctiva clear. No ptosis. ENT: Ears normal, nares patent, oropharynx clear without exudates, moist mucous membranes. NECK: Trachea midline, full range of motion, supple. LUNGS: diminished breath sounds anteriorly, limited sounds posterily 2/2 to pain HEART: Regular rate and rhythm ABDOMEN: Soft, nontender, nondistended, normoactive bowel sounds, no guarding, no rebound, no hepatosplenomegaly, no masses. EXTREMITIES: left leg with non pitting edema, extensive bilateral dvts per imaging. on a heparin drip. NEUROLOGICAL: Normal speech, gait not observed. PSYCH: Agitated mood, flat affect Laboratory Results - last 24 hr 09/19/18 09/20/18 09/20/18 14:00 06:45 06:45 WBC 15.3 H RBC 3.94 Hgb 8.1 L Hct 25.3 L MCV 64.2 L MCH 20.6 L MCHC 32.0 RDW 17.7 H Plt Count 584 H MPV 7.7 PTT (Actin FS) Sodium 136 Potassium 4.5 Chloride 101 Carbon Dioxide 25 Anion Gap 10 BUN 16 Creatinine 0.4 L Creat Clearance w eGFR > 60 Random Glucose 115 H Calcium 8.8 Magnesium 2.2 Urine Color Ltyellow Urine Appearance Clear Urine pH 6.0 Ur Specific [place] 1.011 Urine Protein Negative Urine Glucose (UA) Negative Urine Ketones Negative Urine Blood Negative Urine Nitrite Negative Urine Bilirubin Negative Urine Urobilinogen 4.0 e.u/dl H Ur Leukocyte Esterase Negative 09/20/18 06:45 WBC RBC Hgb Hct MCV MCH MCHC RDW Plt Count MPV PTT (Actin FS) 61.8 H Sodium Potassium Chloride Carbon Dioxide Anion Gap BUN Creatinine Creat Clearance w eGFR Random Glucose Calcium Magnesium Urine Color Urine Appearance Urine pH Ur Specific [place] Urine Protein Urine Glucose (UA) Urine Ketones Urine Blood Urine Nitrite Urine Bilirubin Urine Urobilinogen Ur Leukocyte Esterase Active Medications Generic Name Dose Route Start Last Admin Trade Name Freq PRN Reason Stop Dose Admin Acetaminophen 325 mg 09/09/18 00:00 09/20/18 11:36 Tylenol - PO Not Given Q6HPO SAMI Albuterol/Ipratropium 1 amp 09/12/18 19:33 Duoneb - NEB Q6H PRN SHORTNESS OF BREATH Amlodipine Besylate 10 mg 09/13/18 21:52 09/20/18 09:08 Norvasc - PO 10 mg DAILY SAMI Administration Baclofen 10 mg 09/08/18 22:00 09/20/18 06:23 Lioresal - PO 10 mg TID SAMI Administration Dexamethasone Sodium Phosphate 4 mg 09/14/18 09:00 09/20/18 09:08 Decadron Injection - IVPB 4 mg Q6H-IV SAMI Administration Docusate Sodium 100 mg 09/10/18 22:00 09/20/18 06:21 Colace - PO 100 mg TID SAMI Administration Heparin Sodium (Porcine) 2,800 unit 09/13/18 13:40 09/17/18 20:29 Heparin - 40 unit/kg (2800 unit) 2,800 unit IVPUSH Administration PRN PRN For aPTT 35 to 45 seconds Heparin Sodium (Porcine) 5,600 unit 09/13/18 13:40 09/14/18 08:43 Heparin - 80 unit/kg (5600 unit) 5,600 unit IVPUSH Administration PRN PRN aPTT <35 seconds Heparin Sodium/Dextrose 25,000 units in 500 mls @ 25.025 mls/hr 09/13/18 13: 45 09/20/18 03:48 Heparin Infusion - IVPB 18 units/kg/hr TITR SAMI 25.025 mls/hr Administration Protocol 18 UNITS/KG/HR Metoprolol Tartrate 50 mg 09/10/18 15:50 09/20/18 09:08 Lopressor - PO 50 mg BID SAMI Administration Oxycodone HCl 5 mg 09/09/18 00:00 09/20/18 11:36 Roxicodone - PO Not Given Q6HPO SAMI Pantoprazole Sodium 40 mg 09/11/18 10:00 09/20/18 09:08 Protonix - PO 40 mg DAILY SAMI Administration Polyethylene Glycol 17 gm 09/12/18 10:00 09/20/18 09:08 Miralax (For Daily Use) - PO Not Given DAILY SAMI Potassium Chloride 40 meq 09/10/18 09:11 09/20/18 09:08 K-Dur - PO 40 meq DAILY SAMI Administration ASSESSMENT/PLAN: 68 year old female who had been out of medical care for many years presented d to the ED on 09/09/18 for worsening lower back pain over 2 weeks. Lumbar spine MRI showed incidental finding of acute pathological compression of l2 vertebral body with total bone marrow replacement of vertebral body and bone marrow edema. On further imaging she was also found to have liver lesions, possible mets on her chest xray as well as extensive bilateral DVTs. Unknown primary cancer, but likely colon/rectal per hematology/oncology. CEA is elevated. Patient refusing to have repeat CT/MRI scans that have been ordered but agreed and had biopsy of her left supraclaviular node which is still pending. Imaging: Lumbar spine MRI 09/10/2018: L2 significant acute pathological compression fx of l2 vertebral body with total bone marrow replacement of vertebral body. bone marrow edema. L5-S1: partial desiccated disc. no evidence of disc displacement. L5 vertebral body hemangioma. left hydronephrosis On T2 coronal images, several t2 mildly hyperintense lesions noted in the right lobe of the liver measuring apx 11mm 12 to 15mm concerning for metastatic disease. Vascular doppler study 09/12/2018:bilateral DVT on right proximal, superficial femoral vein, popliteal and posterior tibial vein, left superficial femoral, popliteal and posterior tibial vein. Patient placed on a heparin drip. Back Pain - L2 compression fracture - Continue Baclofen, toradol, TSLO brace, oxycodone. - Neurosurgery consult with Dr. Jarvis. - Patient declining surgery for pathological fracture; she wants to think more about it and discuss with her daughter. 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 Irregular concentric wall thickening involving the lower sigmoid colon/upper rectum which could be the basis of neoplastic disease. Marked pathologic L2 vertebral body compression fracture with bony retropulsion. - Refused MRI yesterday - Discussed with case management about plan. 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 trace MR, trace tricuspid regurg. Hypokalemia, resolved Hyponatremia, resolved FEN - Tolerating PO - Monitor electrolytes - Low sodium diet Prophylaxis DVT: Hepain drip GI: Protonix Disp: Patient requires further inpatient monitoring. Visit type - Emergency Visit Emergency Visit: No - New Patient This patient is new to me today: No - Critical Care Critical Care patient: No
--- NOTE | 2018-09-20 15:31 | PN ---
Progress Note (short form) - Note Progress Note: Patient seen and examined Continues to procrastinate and not want to deal with medical necessity. Last Vital Signs Temp Pulse Resp BP Pulse Ox 98.4 F 67 18 136/89 97 09/20/18 07:35 09/20/18 07:35 09/20/18 07:35 09/20/18 07:35 09/20/18 08:48 left supraclavicular node Cor: RSR, systolic murmur Lungs: Clear to P&A Abd: Soft, Normal bowel sounds, No organomegaly Ext:No significant edema Skin: No rashes, Integument intact CBC, BMP 09/20/18 06:45 09/20/18 06:45 Current Medications Generic Name Dose Route Start Last Admin Trade Name Freq PRN Reason Stop Dose Admin Acetaminophen 325 mg 09/09/18 00:00 09/20/18 11:36 Tylenol - PO Not Given Q6HPO SAMI Albuterol/Ipratropium 1 amp 09/12/18 19:33 Duoneb - NEB Q6H PRN SHORTNESS OF BREATH Amlodipine Besylate 10 mg 09/13/18 21:52 09/20/18 09:08 Norvasc - PO 10 mg DAILY SAMI Administration Baclofen 10 mg 09/08/18 22:00 09/20/18 14:17 Lioresal - PO 10 mg TID SAMI Administration Dexamethasone Sodium Phosphate 4 mg 09/14/18 09:00 09/20/18 14:17 Decadron Injection - IVPB 4 mg Q6H-IV SAMI Administration Docusate Sodium 100 mg 09/10/18 22:00 09/20/18 14:17 Colace - PO 100 mg TID SAMI Administration Heparin Sodium/Dextrose 25,000 units in 500 mls @ 25.025 mls/hr 09/13/18 13: 45 09/20/18 03:48 Heparin Infusion - IVPB 18 units/kg/hr TITR SAMI 25.025 mls/hr Administration Protocol 18 UNITS/KG/HR Metoprolol Tartrate 50 mg 09/10/18 15:50 09/20/18 09:08 Lopressor - PO 50 mg BID SAMI Administration Oxycodone HCl 5 mg 09/09/18 00:00 09/20/18 11:36 Roxicodone - PO Not Given Q6HPO SAMI Pantoprazole Sodium 40 mg 09/11/18 10:00 09/20/18 09:08 Protonix - PO 40 mg DAILY SAMI Administration Polyethylene Glycol 17 gm 09/12/18 10:00 09/20/18 09:08 Miralax (For Daily Use) - PO Not Given DAILY SAMI Potassium Chloride 40 meq 09/10/18 09:11 09/20/18 09:08 K-Dur - PO 40 meq DAILY SAMI Administration Impression: Widespread metastatic disease Continuing to procrastinate as to management and need for spinal surgery. Knowing the primary would not change the acute management nor need for surgical intervention. It might be risky in fact for colonoscopy n view of spinal disease.
[2018-09-21] MEDS: HEPARIN INFUSION - 25,000 UNITS/500 ML INFUS.BAG IVPB SCH ×2 (00:35→23:08)
[2018-09-21] MEDS: DEXAMETHASONE SOD PHOSPHATE 4 MG/1 ML VIAL IVPB SCH ×4 (02:24→21:59)
[2018-09-21] MEDS: oxyCODONE HCL 5 MG TABLET PO SCH ×3 (06:22→18:02)
[2018-09-21] MEDS: ACETAMINOPHEN 325 MG TABLET (FP) PO SCH ×3 (06:23→18:02)
[2018-09-21] MEDS: DOCUSATE SODIUM 100 MG CAPSULE (FP) PO SCH ×3 (06:23→21:59)
[2018-09-21] MEDS: BACLOFEN 10 MG TABLET (FP) PO SCH ×3 (06:23→21:59)
[2018-09-21 06:30] LABS: HEMATOCRIT 25.8 % (32.4-45.2); HEMOGLOBIN 7.7 GM/dL (10.7-15.3); MEAN CELL VOLUME 63.9 fl (80-96); MEAN PLT VOLUME 7.1 fl (7.5-11.1); PLATELET COUNT 373 K/MM3 (134-434); RBC 4.03 M/mm3 (3.60-5.2); RDW 17.8 % (11.6-15.6); WHITE BLOOD COUNT 15.8 K/mm3 (4.0-10.0)
[2018-09-21 06:57] LABS: MCH 19.2 pg (25.7-33.7)
[2018-09-21 07:19] LABS: ANION GAP 11 MMOL/L (8-16); BLOOD UREA NITROGEN 19 mg/dL (7-18); CALCIUM 8.5 mg/dL (8.5-10.1); CHLORIDE 103 mmol/L (98-107); CO2 22 mmol/L (21-32); CREATININE 0.5 mg/dL (0.55-1.3); GLUCOSE,RANDOM 137 mg/dL (74-106); MAGNESIUM 2.2 mg/dL (1.8-2.4); POTASSIUM 4.2 mmol/L (3.5-5.1); SODIUM 136 mmol/L (136-145)
[2018-09-21] MEDS: POLYETHYLENE GLYCOL 3350 119 GM BTL PO SCH (09:09)
[2018-09-21] MEDS: PANTOPRAZOLE 40 MG TABLET (FP) PO SCH (09:09)
[2018-09-21] MEDS: METOPROLOL TARTRATE 50 MG TABLET (FP) PO SCH ×2 (09:09→21:59)
[2018-09-21] MEDS: POTASSIUM CHLORIDE TABS 20 MEQ TABLET.ER (FP) PO SCH (09:09)
[2018-09-21] MEDS: amLODIPine BESYLATE 10 MG TABLET (FP) PO SCH (09:09)
--- NOTE | 2018-09-21 15:25 | PN ---
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 Refusing to move ahead with management of spine pathologic fracture, thinking about getting a second opinion. Informed that while it's not unreasonable to do so, delaying treatment +/- stabilization of spine may lead to severe and permanent neurologic deficits including paralysis and loss of bladder/bowel control. Discussed BAR of palliative RT ideally after surgical stabilization/ decompression. Wants to wait till Sunday to decide. Cont steroids.
--- NOTE | 2018-09-21 19:48 | PN ---
Physical Exam: SUBJECTIVE: Patient seen and examined. Still undecided about whether to do surgical intervention vs palliative. She would like a second opinion from [facility]. Resistant to making a decision. Seen by Radiation Oncology who revealed neck biopsy results with her and discussed treatment options. OBJECTIVE: Vital Signs Period Temp Pulse Resp BP Sys/Zuniga Pulse Ox Last 24 Hr 98.3 F-98.7 F 70-87 18-20 117-138/71-82 97 GENERAL: The patient is awake, alert, resting comfortably, mildly confused/ agitated HEAD: Normal with no signs of trauma. EYES: PERRL, extraocular movements intact, sclera anicteric, conjunctiva clear. No ptosis. ENT: Ears normal, nares patent, oropharynx clear without exudates, moist mucous membranes. NECK: Trachea midline, full range of motion, supple. LUNGS: diminished breath sounds anteriorly, limited sounds posterily 2/2 to pain HEART: Regular rate and rhythm ABDOMEN: Soft, nontender, nondistended, normoactive bowel sounds, no guarding, no rebound, no hepatosplenomegaly, no masses. EXTREMITIES: left leg with non pitting edema, extensive bilateral dvts per imaging. on a heparin drip. NEUROLOGICAL: Normal speech, gait not observed. PSYCH: Agitated mood, flat affect Laboratory Results - last 24 hr 09/21/18 09/21/18 09/21/18 01:08 06:10 06:10 WBC 15.8 H RBC 4.03 Hgb 7.7 L Hct 25.8 L MCV 63.9 L MCH 19.2 L MCHC 30.0 L RDW 17.8 H Plt Count 373 D MPV 7.1 L PTT (Actin FS) 46.7 H 65.8 H Sodium Potassium Chloride Carbon Dioxide Anion Gap BUN Creatinine Creat Clearance w eGFR Random Glucose Calcium Magnesium 09/21/18 09/21/18 06:10 14:25 WBC RBC Hgb Hct MCV MCH MCHC RDW Plt Count MPV PTT (Actin FS) 56.3 H Sodium 136 Potassium 4.2 Chloride 103 Carbon Dioxide 22 Anion Gap 11 BUN 19 H Creatinine 0.5 L Creat Clearance w eGFR > 60 Random Glucose 137 H Calcium 8.5 Magnesium 2.2 Active Medications Generic Name Dose Route Start Last Admin Trade Name Freq PRN Reason Stop Dose Admin Acetaminophen 325 mg 09/09/18 00:00 09/21/18 18:02 Tylenol - PO 325 mg Q6HPO SAMI Administration Amlodipine Besylate 10 mg 09/13/18 21:52 09/21/18 09:09 Norvasc - PO 10 mg DAILY SAMI Administration Baclofen 10 mg 09/08/18 22:00 09/21/18 14:06 Lioresal - PO 10 mg TID SAMI Administration Dexamethasone Sodium Phosphate 4 mg 09/14/18 09:00 09/21/18 14:06 Decadron Injection - IVPB 4 mg Q6H-IV SAMI Administration Docusate Sodium 100 mg 09/10/18 22:00 09/21/18 14:06 Colace - PO 100 mg TID SAMI Administration Heparin Sodium/Dextrose 25,000 units in 500 mls @ 25.025 mls/hr 09/13/18 13: 45 09/21/18 15:49 Heparin Infusion - IVPB 18 units/kg/hr TITR SAMI 25.025 mls/hr Titration Protocol 18 UNITS/KG/HR Metoprolol Tartrate 50 mg 09/10/18 15:50 09/21/18 09:09 Lopressor - PO 50 mg BID SAMI Administration Oxycodone HCl 5 mg 09/09/18 00:00 09/21/18 18:02 Roxicodone - PO 5 mg Q6HPO SAMI Administration Pantoprazole Sodium 40 mg 09/11/18 10:00 09/21/18 09:09 Protonix - PO 40 mg DAILY SAMI Administration Polyethylene Glycol 17 gm 09/12/18 10:00 09/21/18 09:09 Miralax (For Daily Use) - PO Not Given DAILY SAMI Potassium Chloride 40 meq 09/10/18 09:11 09/21/18 09:09 K-Dur - PO 40 meq DAILY SAMI Administration ASSESSMENT/PLAN: 68 year old female who had been out of medical care for many years presented d to the ED on 09/09/18 for worsening lower back pain over 2 weeks. Lumbar spine MRI showed incidental finding of acute pathological compression of l2 vertebral body with total bone marrow replacement of vertebral body and bone marrow edema. On further imaging she was also found to have liver lesions, possible mets on her chest xray as well as extensive bilateral DVTs. Unknown primary cancer, but likely colon/rectal per hematology/oncology. CEA is elevated. 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 Imaging: Lumbar spine MRI 09/10/2018: L2 significant acute pathological compression fx of l2 vertebral body with total bone marrow replacement of vertebral body. bone marrow edema. L5-S1: partial desiccated disc. no evidence of disc displacement. L5 vertebral body hemangioma. left hydronephrosis On T2 coronal images, several t2 mildly hyperintense lesions noted in the right lobe of the liver measuring apx 11mm 12 to 15mm concerning for metastatic disease. Vascular doppler study 09/12/2018:bilateral DVT on right proximal, superficial femoral vein, popliteal and posterior tibial vein, left superficial femoral, popliteal and posterior tibial vein. Patient placed on a heparin drip. Back Pain - L2 compression fracture - Continue Baclofen, toradol, TSLO brace, oxycodone. - Neurosurgery consult with Dr. Jarvis. - Patient declining surgery for pathological fracture; she wants to think more about it and discuss with her daughter. Sigmoid colon mass/mild wall irregularity upper rectum/sigmoid colon - Left neck mass biopsy: Adenocarcinoma, moderately differentiated, findings consistent with lower GI origin. - Seen by radiation oncology today who discussed results and treatment options with her. 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 Irregular concentric wall thickening involving the lower sigmoid colon/upper rectum which could be the basis of neoplastic disease. Marked pathologic L2 vertebral body compression fracture with bony retropulsion. - Patient says she will make a decision on Sunday. 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 trace MR, trace tricuspid regurg. Hypokalemia, resolved Hyponatremia, resolved FEN - Tolerating PO - Monitor electrolytes - Low sodium diet Prophylaxis DVT: Hepain drip GI: Protonix Disp: Patient requires further inpatient monitoring. Visit type - Emergency Visit Emergency Visit: No - New Patient This patient is new to me today: No - Critical Care Critical Care patient: No
[2018-09-22] MEDS: ACETAMINOPHEN 325 MG TABLET (FP) PO SCH ×5 (00:01→23:59)
[2018-09-22] MEDS: oxyCODONE HCL 5 MG TABLET PO SCH ×4 (00:02→18:32)
[2018-09-22] MEDS: DEXAMETHASONE SOD PHOSPHATE 4 MG/1 ML VIAL IVPB SCH ×4 (02:40→22:14)
[2018-09-22] MEDS: BACLOFEN 10 MG TABLET (FP) PO SCH ×3 (05:54→22:14)
[2018-09-22] MEDS: DOCUSATE SODIUM 100 MG CAPSULE (FP) PO SCH ×3 (05:54→22:14)
[2018-09-22 08:41] LABS: HEMATOCRIT 26.4 % (32.4-45.2); HEMOGLOBIN 7.9 GM/dL (10.7-15.3); MCHC 30.1 g/dl (32.0-36.0); MEAN CELL VOLUME 64.6 fl (80-96); MEAN PLT VOLUME 8.2 fl (7.5-11.1); PLATELET COUNT 245 K/MM3 (134-434); RBC 4.08 M/mm3 (3.60-5.2); WHITE BLOOD COUNT 16.4 K/mm3 (4.0-10.0)
[2018-09-22 08:45] LABS: MCH 19.4 pg (25.7-33.7)
[2018-09-22 09:08] LABS: ANION GAP 12 MMOL/L (8-16); BLOOD UREA NITROGEN 18 mg/dL (7-18); CALCIUM 8.8 mg/dL (8.5-10.1); CHLORIDE 100 mmol/L (98-107); CO2 22 mmol/L (21-32); CREATININE 0.4 mg/dL (0.55-1.3); GLUCOSE,RANDOM 104 mg/dL (74-106); POTASSIUM 4.3 mmol/L (3.5-5.1); SODIUM 134 mmol/L (136-145)
[2018-09-22] MEDS: METOPROLOL TARTRATE 50 MG TABLET (FP) PO SCH ×2 (09:13→22:14)
[2018-09-22] MEDS: PANTOPRAZOLE 40 MG TABLET (FP) PO SCH (09:13)
[2018-09-22] MEDS: POTASSIUM CHLORIDE TABS 20 MEQ TABLET.ER (FP) PO SCH (09:13)
[2018-09-22] MEDS: POLYETHYLENE GLYCOL 3350 119 GM BTL PO SCH (09:13)
[2018-09-22] MEDS: amLODIPine BESYLATE 10 MG TABLET (FP) PO SCH (09:13)
--- NOTE | 2018-09-22 10:48 | PN ---
Physical Exam: SUBJECTIVE: Patient seen and examined. Appears very depressed today, poor eye contact minimal verbal responses. Denies pain. Reports she is "fine." OBJECTIVE: Vital Signs Period Temp Pulse Resp BP Sys/Zuniga Pulse Ox Last 24 Hr 98.1 F-98.7 F 64-73 20-20 117-143/72-90 GENERAL: The patient is awake, alert, resting comfortably, mildly confused/ agitated HEAD: Normal with no signs of trauma. EYES: PERRL, extraocular movements intact, sclera anicteric, conjunctiva clear. No ptosis. ENT: Ears normal, nares patent, oropharynx clear without exudates, moist mucous membranes. NECK: Trachea midline, full range of motion, supple. LUNGS: diminished breath sounds anteriorly, limited sounds posterily 2/2 to pain HEART: Regular rate and rhythm ABDOMEN: Soft, nontender, nondistended, normoactive bowel sounds, no guarding, no rebound, no hepatosplenomegaly, no masses. EXTREMITIES: left leg with non pitting edema, extensive bilateral dvts per imaging. on a heparin drip. NEUROLOGICAL: Normal speech, gait not observed. PSYCH: depressed mood, flat affect Laboratory Results - last 24 hr 09/21/18 09/21/18 09/22/18 14:25 22:38 08:00 WBC 16.4 H RBC 4.08 Hgb 7.9 L Hct 26.4 L MCV 64.6 L MCH 19.4 L MCHC 30.1 L RDW 18.0 H Plt Count 245 D MPV 8.2 D PTT (Actin FS) 56.3 H 68.8 H Sodium Potassium Chloride Carbon Dioxide Anion Gap BUN Creatinine Creat Clearance w eGFR Random Glucose Calcium 09/22/18 09/22/18 08:00 08:00 WBC RBC Hgb Hct MCV MCH MCHC RDW Plt Count MPV PTT (Actin FS) 69.8 H Sodium 134 L Potassium 4.3 Chloride 100 Carbon Dioxide 22 Anion Gap 12 BUN 18 Creatinine 0.4 L Creat Clearance w eGFR > 60 Random Glucose 104 Calcium 8.8 Active Medications Generic Name Dose Route Start Last Admin Trade Name Freq PRN Reason Stop Dose Admin Acetaminophen 325 mg 09/09/18 00:00 09/22/18 05:54 Tylenol - PO 325 mg Q6HPO SAMI Administration Amlodipine Besylate 10 mg 09/13/18 21:52 09/22/18 09:13 Norvasc - PO 10 mg DAILY SAMI Administration Baclofen 10 mg 09/08/18 22:00 09/22/18 05:54 Lioresal - PO 10 mg TID SAMI Administration Dexamethasone Sodium Phosphate 4 mg 09/14/18 09:00 09/22/18 09:13 Decadron Injection - IVPB 4 mg Q6H-IV SAMI Administration Docusate Sodium 100 mg 09/10/18 22:00 09/22/18 05:54 Colace - PO 100 mg TID SAMI Administration Heparin Sodium/Dextrose 25,000 units in 500 mls @ 25.025 mls/hr 09/13/18 13: 45 09/22/18 09:06 Heparin Infusion - IVPB 18 units/kg/hr TITR SAMI 25.025 mls/hr Titration Protocol 18 UNITS/KG/HR Metoprolol Tartrate 50 mg 09/10/18 15:50 09/22/18 09:13 Lopressor - PO 50 mg BID SAMI Administration Oxycodone HCl 5 mg 09/09/18 00:00 09/22/18 05:54 Roxicodone - PO 5 mg Q6HPO SAMI Administration Pantoprazole Sodium 40 mg 09/11/18 10:00 09/22/18 09:13 Protonix - PO 40 mg DAILY SAMI Administration Polyethylene Glycol 17 gm 09/12/18 10:00 09/22/18 09:13 Miralax (For Daily Use) - PO Not Given DAILY SAMI Potassium Chloride 40 meq 09/10/18 09:11 09/22/18 09:13 K-Dur - PO 40 meq DAILY SAMI Administration ASSESSMENT/PLAN: 68 year old female who had been out of medical care for many years presented d to the ED on 09/09/18 for worsening lower back pain over 2 weeks. Lumbar spine MRI showed incidental finding of acute pathological compression of l2 vertebral body with total bone marrow replacement of vertebral body and bone marrow edema. On further imaging she was also found to have liver lesions, possible mets on her chest xray as well as extensive bilateral DVTs. Unknown primary cancer, but likely colon/rectal per hematology/oncology. CEA is elevated. 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 Imaging: Lumbar spine MRI 09/10/2018: L2 significant acute pathological compression fx of l2 vertebral body with total bone marrow replacement of vertebral body. bone marrow edema. L5-S1: partial desiccated disc. no evidence of disc displacement. L5 vertebral body hemangioma. left hydronephrosis On T2 coronal images, several t2 mildly hyperintense lesions noted in the right lobe of the liver measuring apx 11mm 12 to 15mm concerning for metastatic disease. Vascular doppler study 09/12/2018:bilateral DVT on right proximal, superficial femoral vein, popliteal and posterior tibial vein, left superficial femoral, popliteal and posterior tibial vein. Patient placed on a heparin drip. Back Pain - L2 compression fracture - Continue Baclofen, toradol, TSLO brace, oxycodone. - Neurosurgery consult with Dr. Jarvis. - Patient declining surgery for pathological fracture; she wants to think more about it and discuss with her daughter. Sigmoid colon mass/mild wall irregularity upper rectum/sigmoid colon - Left neck mass biopsy: Adenocarcinoma, moderately differentiated, findings consistent with lower GI origin. - Seen by radiation oncology today who discussed results and treatment options with her. 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 Irregular concentric wall thickening involving the lower sigmoid colon/upper rectum which could be the basis of neoplastic disease. Marked pathologic L2 vertebral body compression fracture with bony retropulsion. - Patient says she will make a decision on Sunday. Anemia, unspecified - 8.6 ->7.6 ->8.1 -> 7.7 -> 7.9 - Monitor CBC - FOB pending - UA neg for blood - Followed by hematology Bilateal DVTs - Extensive DVTs on bilateral lower extremities - On heparin drip per protocol - Will need ivc filter prior to any surgical procedure Leukocytosis - 11.1 ->17.8 -> 15.3 -> 15.8 -> 16.4 - Afebrile - UA negative - Blood and urine cultures ordered - Possibly r/t steroid use Hypertension - Improving - On Metoprolol tartrate 25 mg BID - Amlodopine 10 mg PO qday - Echo> LV normal, moderate concentric left vent hypertrophy, left ventricle is hyperdynamic. trace MR, trace tricuspid regurg. Hypokalemia, resolved Hyponatremia, resolved FEN - Tolerating PO - Monitor electrolytes - Low sodium diet Prophylaxis DVT: Hepain drip GI: Protonix Disp: Patient requires further inpatient monitoring. Visit type - Emergency Visit Emergency Visit: No - New Patient This patient is new to me today: No - Critical Care Critical Care patient: No
[2018-09-22] MEDS: HEPARIN INFUSION - 25,000 UNITS/500 ML INFUS.BAG IVPB SCH ×3 (14:27→22:15)
[2018-09-23] MEDS: DEXAMETHASONE SOD PHOSPHATE 4 MG/1 ML VIAL IVPB SCH ×4 (02:56→21:20)
[2018-09-23] MEDS: BACLOFEN 10 MG TABLET (FP) PO SCH ×3 (05:56→21:20)
[2018-09-23] MEDS: ACETAMINOPHEN 325 MG TABLET (FP) PO SCH ×3 (05:56→17:28)
[2018-09-23] MEDS: DOCUSATE SODIUM 100 MG CAPSULE (FP) PO SCH ×3 (05:56→21:20)
[2018-09-23] MEDS: oxyCODONE HCL 5 MG TABLET PO SCH ×4 (05:57→17:28)
[2018-09-23 07:18] LABS: HEMATOCRIT 26.2 % (32.4-45.2); HEMOGLOBIN 8.4 GM/dL (10.7-15.3); MCH 20.3 pg (25.7-33.7); MCHC 32.2 g/dl (32.0-36.0); MEAN CELL VOLUME 63.1 fl (80-96); MEAN PLT VOLUME 8.3 fl (7.5-11.1); PLATELET COUNT 232 K/MM3 (134-434); RBC 4.15 M/mm3 (3.60-5.2); RDW 18.4 % (11.6-15.6); WHITE BLOOD COUNT 13.6 K/mm3 (4.0-10.0)
[2018-09-23 08:01] LABS: ANION GAP 10 MMOL/L (8-16); BLOOD UREA NITROGEN 18 mg/dL (7-18); CALCIUM 8.9 mg/dL (8.5-10.1); CHLORIDE 98 mmol/L (98-107); CO2 23 mmol/L (21-32); CREATININE 0.5 mg/dL (0.55-1.3); GLUCOSE,RANDOM 118 mg/dL (74-106); POTASSIUM 4.2 mmol/L (3.5-5.1); SODIUM 131 mmol/L (136-145)
[2018-09-23] MEDS: PANTOPRAZOLE 40 MG TABLET (FP) PO SCH (09:18)
[2018-09-23] MEDS: POTASSIUM CHLORIDE TABS 20 MEQ TABLET.ER (FP) PO SCH (09:18)
[2018-09-23] MEDS: amLODIPine BESYLATE 10 MG TABLET (FP) PO SCH (09:18)
[2018-09-23] MEDS: METOPROLOL TARTRATE 50 MG TABLET (FP) PO SCH ×2 (09:18→21:22)
[2018-09-23] MEDS: POLYETHYLENE GLYCOL 3350 119 GM BTL PO SCH (09:21)
--- NOTE | 2018-09-23 13:22 | PN ---
Progress Note (short form) - Note Progress Note: PROGRESS NOTE FOR HEMATOLOGY/ONCOLOGY Patient seen and examined by me at bedside. Patient still refusing treatment. Radiation Oncologist spoke to patient () and discussed neck node biopsy and the importance of treatment. Explained to patient that delaying treatment may lead to severe or permanent neurological deficit such as paralysis. Patient would like second opinion from [facility]. Otherwise, patient reports she is able to lift her legs but unable to walk. Otherwise, patient denies any fever, chills, nausea, vomiting, chest pain, palpitations, shortness of breath. Vital Signs Temperature 98.6 F 09/23/18 10:00 Pulse Rate 81 09/23/18 10:00 Respiratory Rate 20 09/23/18 10:00 Blood Pressure 142/89 09/23/18 10:00 O2 Sat by Pulse Oximetry (%) 97 09/20/18 22:00 PHYSICAL EXAMINATION GENERAL: Awake, Alert, oriented x3. In no acute distress NECK: Left Supraclavicular node. CARDIO: RRR, 3/6 Systolic murmur LUNGS: CTA Bilaterally ABDOMEN: Soft, Non-tender, nondistended, normal bowel sounds, no organomegaly EXTREMITIES: No peripheral edema Skin: No rashes or lesions noted Laboratory Tests 09/23/18 06:30 09/23/18 06:30 ASSESSMENT AND PLAN: Patient is a 68 year old female who presented with back pain and was found to have a Pathological fracture with metastatic cancer. Problem List: Hypochromic microcytic anemia Possible Colon Ca liver lung and bone metastasis Pathological fracture L2 with severe cauda equina compression Leukocytosis Possible hypertension Iron deficiency anemia Extensive bilateral DVTs PLAN: Patient has widespread metastatic disease with neck node biopsy showing Adenocarcinoma, probably of lower GI origin. Patient continues to delay management and has refused spinal surgery and radiation, despite risks explained to her such as permanent paralysis. In view of spinal disease, might be high risk for colonoscopy to rule out lower GI origin of malignancy Patient requesting second opinion from [facility] Will need to set up a family discussion.
--- NOTE | 2018-09-23 16:19 | PN ---
Progress Note, Physician Chief Complaint: Patient expresses desire for second opinion. [facility] in [place] and pt must be ambulatory without the need for tertiary care in order to be seen outpt. Entire medical records must be brought at the time of her visit. Patient would like to restart PT because she has not been out of bed for several days. - Current Medication List Current Medications: Active Medications Acetaminophen (Tylenol -) 325 mg PO Q6HPO [facility] Last Admin: 09/23/18 11:50 Dose: 325 mg Amlodipine Besylate (Norvasc -) 10 mg PO DAILY [facility] Last Admin: 09/23/18 09:18 Dose: 10 mg Baclofen (Lioresal -) 10 mg PO TID [facility]I Last Admin: 09/23/18 14:48 Dose: 10 mg Dexamethasone Sodium Phosphate (Decadron Injection -) 4 mg IVPB Q6H-IV [facility]I Last Admin: 09/23/18 14:48 Dose: 4 mg Docusate Sodium (Colace -) 100 mg PO TID [facility] Last Admin: 09/23/18 14:48 Dose: Not Given Heparin Sodium/Dextrose (Heparin Infusion -) 25,000 units in 500 mls @ 25.025 mls/hr IVPB TITR SAMI; Protocol Last Titration: 09/23/18 07:49 Dose: 16 units/kg/hr, 22.244 mls/hr Metoprolol Tartrate (Lopressor -) 50 mg PO BID [facility] Last Admin: 09/23/18 09:18 Dose: 50 mg Oxycodone HCl (Roxicodone -) 5 mg PO Q6HPO [facility] Last Admin: 09/23/18 11:50 Dose: 5 mg Pantoprazole Sodium (Protonix -) 40 mg PO DAILY [facility] Last Admin: 09/23/18 09:18 Dose: 40 mg Polyethylene Glycol (Miralax (For Daily Use) -) 17 gm PO DAILY [facility] Last Admin: 09/23/18 09:21 Dose: Not Given Potassium Chloride (K-Dur -) 40 meq PO DAILY [facility] Last Admin: 09/23/18 09:18 Dose: 40 meq - Objective Vital Signs: Vital Signs Temperature 98.6 F 09/23/18 10:00 Pulse Rate 81 09/23/18 10:00 Respiratory Rate 20 09/23/18 10:00 Blood Pressure 142/89 09/23/18 10:00 O2 Sat by Pulse Oximetry (%) 97 09/20/18 22:00 Constitutional: Yes: No Distress, Calm Eyes: Yes: Conjunctiva Clear HENT: Yes: Atraumatic, Normocephalic Neck: Yes: Supple Cardiovascular: Yes: Regular Rate and Rhythm Respiratory: Yes: Regular, CTA Bilaterally Gastrointestinal: Yes: Normal Bowel Sounds, Soft ...Rectal Exam: Yes: Deferred Musculoskeletal: Yes: Back Pain, Muscle Pain, Muscle Weakness Extremities: Yes: WNL Edema: No Peripheral Pulses WNL: Yes Peripheral Pulses: Left Radial: 2+, Right Radial: 2+, Left Doralis Pedis: 2+, Right Dorsalis Pedis: 2+ Integumentary: Yes: WNL Neurological: Yes: Alert, Oriented, Paresthesia, Unsteady Gait, Weakness ...Motor Strength: LLE (4/5), RLE (4/5) Psychiatric: Yes: Alert, Oriented Labs: CBC, BMP 09/23/18 06:30 09/23/18 06:30 INR, PTT INR 1.24 (0.83-1.09) H 09/12/18 18:45 Problem List - Problems (1) Back pain Assessment/Plan: baclofen and toradol for pain control PT re-ordered. Code(s): M54.9 - DORSALGIA, UNSPECIFIED Qualifiers: Back pain location: low back pain Chronicity: acute Back pain laterality : midline Sciatica presence: without sciatica Qualified Code(s): M54.5 - Low back pain (2) Compression fracture Assessment/Plan: pt followed by Dr. Jarvis currently refuses surgical intervention PRN oxycodone for pain Code(s): QZR7951 - (3) Malignancy Assessment/Plan: left neck biopsy + adenocarcinoma pt remains ambivalent regarding making a decision for treatment Code(s): C80.1 - MALIGNANT (PRIMARY) NEOPLASM, UNSPECIFIED (4) Metastases to the liver Assessment/Plan: will continue to monitor LFTs Code(s): C78.7 - SECONDARY MALIG NEOPLASM OF LIVER AND INTRAHEPATIC BILE DUCT (5) DVT (deep venous thrombosis) Assessment/Plan: d/c heparin start rivaroxaban 15 mg twice a day for 21 days, then 20 mg daily; bleeding precautions on oral anticoagulation Code(s): I82.409 - ACUTE EMBOLISM AND THOMBOS UNSP DEEP VN UNSP LOWER EXTREMITY (6) HTN (hypertension) Assessment/Plan: continue metoprolol 25mg BID amd norvasc 10mg daily low sodium diet Code(s): I10 - ESSENTIAL (PRIMARY) HYPERTENSION (7) Prophylactic measure Assessment/Plan: AC with Xarelto fall precautions bleeding precautions Code(s): Z29.9 - ENCOUNTER FOR PROPHYLACTIC MEASURES, UNSPECIFIED Impression/Plan Impression/Plan: DISPO: Full code Visit type - Emergency Visit Emergency Visit: Yes ED Registration Date: 09/09/18 Care time: The patient presented to the Emergency Department on the above date and was hospitalized for further evaluation of their emergent condition. - New Patient This patient is new to me today: No - Critical Care Critical Care patient: No - Discharge Referral Referred to [facility] No
[2018-09-23] MEDS: HEPARIN INFUSION - 25,000 UNITS/500 ML INFUS.BAG IVPB SCH (17:29)
--- NOTE | 2018-09-23 23:17 | PN ---
Teaching Attending Note Name of Resident: Aviva Tariq ATTENDING PHYSICIAN STATEMENT I saw and evaluated the patient. I reviewed the resident's note and discussed the case with the resident. I agree with the resident's findings and plan as documented. 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
[2018-09-24] MEDS: oxyCODONE HCL 5 MG TABLET PO SCH ×4 (00:31→18:07)
[2018-09-24] MEDS: ACETAMINOPHEN 325 MG TABLET (FP) PO SCH ×4 (00:32→18:07)
[2018-09-24] MEDS: DEXAMETHASONE SOD PHOSPHATE 4 MG/1 ML VIAL IVPB SCH ×4 (02:07→21:26)
[2018-09-24] MEDS: DOCUSATE SODIUM 100 MG CAPSULE (FP) PO SCH ×3 (05:49→21:26)
[2018-09-24] MEDS: BACLOFEN 10 MG TABLET (FP) PO SCH ×3 (05:50→21:28)
[2018-09-24 08:36] LABS: BASO % 0.1 % (0-2.0); HEMATOCRIT 24.9 % (32.4-45.2); HEMOGLOBIN 8.1 GM/dL (10.7-15.3); LYMPH % 4.2 % (8-40); MCH 20.6 pg (25.7-33.7); MCHC 32.4 g/dl (32.0-36.0); MEAN CELL VOLUME 63.6 fl (80-96); MEAN PLT VOLUME 8.7 fl (7.5-11.1); MONO % 2.7 % (3.8-10.2); PLATELET COUNT 193 K/MM3 (134-434); RBC 3.91 M/mm3 (3.60-5.2); WHITE BLOOD COUNT 14.9 K/mm3 (4.0-10.0)
[2018-09-24 09:09] LABS: ALBUMIN 2.6 g/dl (3.4-5.0); ALK PHOS 159 U/L (45-117); ANION GAP 11 MMOL/L (8-16); BILIRUBIN,TOTAL 0.3 mg/dL (0.2-1); BLOOD UREA NITROGEN 19 mg/dL (7-18); CALCIUM 8.5 mg/dL (8.5-10.1); CHLORIDE 100 mmol/L (98-107); CO2 22 mmol/L (21-32); CREATININE 0.5 mg/dL (0.55-1.3); GLUCOSE,RANDOM 121 mg/dL (74-106); POTASSIUM 4.3 mmol/L (3.5-5.1); SGOT/AST 15 U/L (15-37); SGPT/ALT 46 U/L (13-61); SODIUM 132 mmol/L (136-145); TOT PROT 6.4 g/dl (6.4-8.2)
[2018-09-24] MEDS: PANTOPRAZOLE 40 MG TABLET (FP) PO SCH (09:22)
[2018-09-24] MEDS: METOPROLOL TARTRATE 50 MG TABLET (FP) PO SCH ×2 (09:22→21:26)
[2018-09-24] MEDS: POTASSIUM CHLORIDE TABS 20 MEQ TABLET.ER (FP) PO SCH (09:22)
[2018-09-24] MEDS: POLYETHYLENE GLYCOL 3350 119 GM BTL PO SCH (09:23)
[2018-09-24] MEDS: amLODIPine BESYLATE 10 MG TABLET (FP) PO SCH (09:25)
[2018-09-24 10:59] LABS: ANISOCYTOSIS 2+; MACROCYTOSIS 0; PLATELET ESTIMATE NORMAL; TARGET CELLS 1+
[2018-09-24] MEDS: RIVAROXABAN 15 MG TABLET PO SCH ×2 (11:45→21:26)
--- NOTE | 2018-09-24 13:54 | PN ---
Physical Exam: SUBJECTIVE: Patient seen and examined at the bedside. Spoke to patient again about her options. she wants to go to SNF for physical therapy and is in agreement. does not want to have surgery here "I dont want it right now" despite being informed of her risks of paralysis and worsening functional status without surgery by various disciplines/providers. She wants a 2nd opinion at [facility] regarding her metastatic disease.She has been deemed competent to make her own medical decisions by psyche. OBJECTIVE: discharge planning: stopped heparin drip. started on rivaroxaban 15mg BID x 3 weeks (from 09/24/2018 ->10/14/2018), then rivaroxaban 20mg once per day. she will need follow up with hematology/onc[facility] [place] [facility]. Vital Signs Period Temp Pulse Resp BP Sys/Zuniga Pulse Ox Last 24 Hr 98.4 F-98.5 F 67-72 18-20 132-147/42-87 GENERAL: The patient is awake, alert, and fully oriented, in no acute distress. HEAD: Normal with no signs of trauma. EYES: PERRL, extraocular movements intact, sclera anicteric, conjunctiva clear. No ptosis. ENT: Ears normal, nares patent, oropharynx clear without exudates, moist mucous membranes. NECK: Trachea midline, full range of motion, supple. LUNGS: Breath sounds equal, clear to auscultation bilaterally, no wheezes HEART: Regular rate and rhythm ABDOMEN: Soft, nontender, nondistended, normoactive bowel sounds, no guarding EXTREMITIES: left lower ext non pitting edema. found to have bilateral extensive dvts NEUROLOGICAL: Normal speech, gait not observed. PSYCH: Normal mood, normal affect. SKIN: Warm, dry, normal turgor, no rashes or lesions noted Laboratory Results - last 24 hr 09/23/18 09/24/18 09/24/18 14:30 05:55 05:55 WBC 14.9 H RBC 3.91 Hgb 8.1 L Hct 24.9 L MCV 63.6 L MCH 20.6 L MCHC 32.4 RDW 18.0 H Plt Count 193 MPV 8.7 Absolute Neuts (auto) 13.8 H Neutrophils % 93.0 H Neutrophils % (Manual) 96.0 H Band Neutrophils % 0.0 Lymphocytes % 4.2 L D Lymphocytes % (Manual) 1.0 L Monocytes % 2.7 L Monocytes % (Manual) 3 L D Eosinophils % 0.0 Eosinophils % (Manual) 0.0 Basophils % 0.1 Basophils % (Manual) 0.0 Myelocytes % (Man) 0 Promyelocytes % (Man) 0 Blast Cells % (Manual) 0 Nucleated RBC % 0 Metamyelocytes 0 Hypochromia 2+ Platelet Estimate Normal Polychromasia 0 Poikilocytosis 2+ Anisocytosis 2+ Microcytosis 2+ Macrocytosis 0 Target Cells 1+ Schistocytes 1+ PTT (Actin FS) 56.7 H 67.0 H Sodium Potassium Chloride Carbon Dioxide Anion Gap BUN Creatinine Creat Clearance w eGFR Random Glucose Calcium Total Bilirubin AST ALT Alkaline Phosphatase Total Protein Albumin 09/24/18 09/24/18 05:55 12:34 WBC RBC Hgb Hct MCV MCH MCHC RDW Plt Count MPV Absolute Neuts (auto) Neutrophils % Neutrophils % (Manual) Band Neutrophils % Lymphocytes % Lymphocytes % (Manual) Monocytes % Monocytes % (Manual) Eosinophils % Eosinophils % (Manual) Basophils % Basophils % (Manual) Myelocytes % (Man) Promyelocytes % (Man) Blast Cells % (Manual) Nucleated RBC % Metamyelocytes Hypochromia Platelet Estimate Polychromasia Poikilocytosis Anisocytosis Microcytosis Macrocytosis Target Cells Schistocytes PTT (Actin FS) 32.9 Sodium 132 L Potassium 4.3 Chloride 100 Carbon Dioxide 22 Anion Gap 11 BUN 19 H Creatinine 0.5 L Creat Clearance w eGFR > 60 Random Glucose 121 H Calcium 8.5 Total Bilirubin 0.3 AST 15 ALT 46 Alkaline Phosphatase 159 H Total Protein 6.4 Albumin 2.6 L Active Medications Generic Name Dose Route Start Last Admin Trade Name Freq PRN Reason Stop Dose Admin Acetaminophen 325 mg 09/09/18 00:00 09/24/18 11:45 Tylenol - PO 325 mg Q6HPO SAMI Administration Amlodipine Besylate 10 mg 09/13/18 21:52 09/24/18 09:25 Norvasc - PO 10 mg DAILY SAMI Administration Baclofen 10 mg 09/08/18 22:00 09/24/18 05:50 Lioresal - PO 10 mg TID SAMI Administration Dexamethasone Sodium Phosphate 4 mg 09/14/18 09:00 09/24/18 09:23 Decadron Injection - IVPB 4 mg Q6H-IV SAMI Administration Docusate Sodium 100 mg 09/10/18 22:00 09/24/18 05:49 Colace - PO 100 mg TID SAMI Administration Metoprolol Tartrate 50 mg 09/10/18 15:50 09/24/18 09:22 Lopressor - PO 50 mg BID SAMI Administration Oxycodone HCl 5 mg 09/09/18 00:00 09/24/18 11:45 Roxicodone - PO 5 mg Q6HPO ASMI Administration Pantoprazole Sodium 40 mg 09/11/18 10:00 09/24/18 09:22 Protonix - PO 40 mg DAILY SAMI Administration Polyethylene Glycol 17 gm 09/12/18 10:00 09/24/18 09:23 Miralax (For Daily Use) - PO 17 grams DAILY SAMI Administration Potassium Chloride 40 meq 09/10/18 09:11 09/24/18 09:22 K-Dur - PO 40 meq DAILY SAMI Administration Rivaroxaban 15 mg 09/24/18 11:30 09/24/18 11:45 Xarelto - PO 15 mg BID SAMI Administration ASSESSMENT/PLAN: Patient is a 68 year old female with no reported past medical history. She presented to the ED on 09/09/18 for worsening lower back pain. Lumbar spine MRI showed incidental finding of acute pathological compression of l2 vertebral body with total bone marrow replacement of vertebral body and bone marrow edema. On further imaging she was also found to have liver lesions, possible mets on her chest xray as well as extensive bilateral DVTs. Unknown primary cancer, but likely colon/rectal per hematology/oncology. CEA is elevated. 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 Imaging: Lumbar spine MRI 09/10/2018: L2 significant acute pathological compression fx of l2 vertebral body with total bone marrow replacement of vertebral body. bone marrow edema. L5-S1: partial desiccated disc. no evidence of disc displacement. L5 vertebral body hemangioma. left hydronephrosis On T2 coronal images, several t2 mildly hyperintense lesions noted in the right lobe of the liver measuring apx 11mm 12 to 15mm concerning for metastatic disease. Vascular doppler study 09/12/2018:bilateral DVT on right proximal, superficial femoral vein, popliteal and posterior tibial vein, left superficial femoral, popliteal and posterior tibial vein. --------- Back Pain: L2 compression fracture. On Baclofen, toradol, TSLO brace, oxycodone. Lumbar MRI as noted above. L2 acute pathological compression fracture with incidental findings of liver lesions on the right lobe of the liver concerning for metastatic disease.neurosurgery consulted (Dr. Jarvis), patient offered surgery for pathological fracture, but currently refusing surgery. again, importance of surgery discussed in detail but still refusing. Oncology/Hematology: Patient with liver lesions, chest xray with possible metastatic disease, and possible sigmoid mass. 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 Anemia, unspecified. hematology following. 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 stopped heparin drip today. started on rivaroxaban 15mg BID x 3 weeks (from 09/24/2018 ->2017), then rivaroxaban 20mg once per day. she will need follow up with hematology/onc. GI: Liver lesions, suspicion of mets. Sigmoid colon mass/mild wall irregularity upper rectum/sigmoid colon. tumor marker ca 125 and CEA significantly elevated GI following. ID: Leukocytosis, improving. monitor off antibiotics. Blood and urine cultures have been negative. Card: Hypertension. controlled. On Metoprolol tartrate 25 mg BID. amlodopine 10mg Echo> LV normal, moderate concentric left vent hypertrophy, left ventricle is hyperdynamic. trace MR, trace tricuspid regurg. Renal: Electrolyte imbalance. Hypokalemia, resolved Hyponatremia, improving fen tolerating PO monitor electrolytes low salt diet prophy xarelto protonix full code Visit type - Emergency Visit Emergency Visit: Yes ED Registration Date: 09/09/18 Care time: The patient presented to the Emergency Department on the above date and was hospitalized for further evaluation of their emergent condition. - New Patient This patient is new to me today: No - Critical Care Critical Care patient: No - Discharge Referral Referred to [facility] Med P.C.: No
[2018-09-24] MEDS ORDERED: PT OWN MED DRAWER 7, Y5N ONE (20:43)
[2018-09-25] MEDS: ACETAMINOPHEN 325 MG TABLET (FP) PO SCH ×3 (00:29→11:27)
[2018-09-25] MEDS: oxyCODONE HCL 5 MG TABLET PO SCH ×3 (00:29→11:28)
[2018-09-25] MEDS: DEXAMETHASONE SOD PHOSPHATE 4 MG/1 ML VIAL IVPB SCH ×2 (03:04→10:47)
[2018-09-25] MEDS: BACLOFEN 10 MG TABLET (FP) PO SCH ×2 (06:28→13:28)
[2018-09-25] MEDS: DOCUSATE SODIUM 100 MG CAPSULE (FP) PO SCH ×2 (06:29→13:28)
[2018-09-25 09:56] LABS: BASO % 0.1 % (0-2.0); HEMATOCRIT 30.6 % (32.4-45.2); HEMOGLOBIN 9.9 GM/dL (10.7-15.3); LYMPH % 3.9 % (8-40); MCH 20.6 pg (25.7-33.7); MCHC 32.3 g/dl (32.0-36.0); MEAN CELL VOLUME 63.7 fl (80-96); MEAN PLT VOLUME 8.8 fl (7.5-11.1); MONO % 4.7 % (3.8-10.2); NEUT % 91.3 % (42.8-82.8); PLATELET COUNT 143 K/MM3 (134-434); RDW 18.3 % (11.6-15.6); WHITE BLOOD COUNT 21.2 K/mm3 (4.0-10.0)
[2018-09-25 10:27] LABS: ALK PHOS 179 U/L (45-117); ANION GAP 13 MMOL/L (8-16); BILIRUBIN,TOTAL 0.4 mg/dL (0.2-1); BLOOD UREA NITROGEN 31 mg/dL (7-18); CALCIUM 8.8 mg/dL (8.5-10.1); CHLORIDE 98 mmol/L (98-107); CO2 19 mmol/L (21-32); CREATININE 0.6 mg/dL (0.55-1.3); GLUCOSE,RANDOM 95 mg/dL (74-106); POTASSIUM 4.1 mmol/L (3.5-5.1); SGOT/AST 15 U/L (15-37); SGPT/ALT 44 U/L (13-61); SODIUM 130 mmol/L (136-145); TOT PROT 7.3 g/dl (6.4-8.2)
[2018-09-25] MEDS: amLODIPine BESYLATE 10 MG TABLET (FP) PO SCH (10:46)
[2018-09-25] MEDS: POTASSIUM CHLORIDE TABS 20 MEQ TABLET.ER (FP) PO SCH (10:46)
[2018-09-25] MEDS: METOPROLOL TARTRATE 50 MG TABLET (FP) PO SCH (10:47)
[2018-09-25] MEDS: PANTOPRAZOLE 40 MG TABLET (FP) PO SCH (10:47)
[2018-09-25] MEDS: POLYETHYLENE GLYCOL 3350 119 GM BTL PO SCH (10:47)
[2018-09-25] MEDS ORDERED: LOPERAMIDE HCL 2 MG CAPSULE PO ONE ×2 (10:48→13:40)
[2018-09-25] MEDS ORDERED: PT OWN MED DRAWER 7, Y5N ONE (10:53)
[2018-09-25] MEDS: RIVAROXABAN 15 MG TABLET PO SCH (10:55)
--- NOTE | 2018-09-25 12:56 | DS ---
Physical Exam: SUBJECTIVE: Patient seen and examined OBJECTIVE: Vital Signs Period Temp Pulse Resp BP Sys/Zuniga Pulse Ox Last 24 Hr 98.2 F-98.4 F 74-91 20-20 116-130/78-92 PHYSICAL EXAM GENERAL: The patient is awake, alert, and fully oriented, in no acute distress. HEAD: Normal with no signs of trauma. EYES: PERRL, extraocular movements intact, sclera anicteric, conjunctiva clear. ENT: Ears normal, nares patent, oropharynx clear without exudates, moist mucous membranes. NECK: Trachea midline, full range of motion, supple. LUNGS: Breath sounds equal, clear to auscultation bilaterally, no wheezes, no crackles, no accessory muscle use. HEART: Regular rate and rhythm, S1, S2 without murmur, rub or gallop. ABDOMEN: Soft, nontender, nondistended, normoactive bowel sounds, no guarding, no rebound, no hepatosplenomegaly, no masses. EXTREMITIES: 2+ pulses, warm, well-perfused, no edema. NEUROLOGICAL: Cranial nerves II through XII grossly intact. Normal speech, gait not observed. PSYCH: Normal mood, normal affect. SKIN: Warm, dry, normal turgor, no rashes or lesions noted. LABS Laboratory Results - last 24 hr 09/24/18 09/25/18 09/25/18 12:34 09:05 09:05 WBC 21.2 H RBC 4.80 Hgb 9.9 L Hct 30.6 L D MCV 63.7 L MCH 20.6 L MCHC 32.3 RDW 18.3 H Plt Count 143 D MPV 8.8 Absolute Neuts (auto) 19.4 H Neutrophils % 91.3 H Lymphocytes % 3.9 L Monocytes % 4.7 Eosinophils % 0.0 Basophils % 0.1 Nucleated RBC % 0 PTT (Actin FS) 32.9 Sodium 130 L Potassium 4.1 Chloride 98 Carbon Dioxide 19 L Anion Gap 13 BUN 31 H Creatinine 0.6 Creat Clearance w eGFR > 60 Random Glucose 95 Calcium 8.8 Magnesium 2.0 Total Bilirubin 0.4 AST 15 ALT 44 Alkaline Phosphatase 179 H Total Protein 7.3 Albumin 3.0 L HOSPITAL COURSE: Date of Admission:09/09/18 Date of Discharge: 09/25/18 discharge planning: stopped heparin drip. started on rivaroxaban 15mg BID x 3 weeks (from 09/24/2018 ->10/14/2018), then rivaroxaban 20mg once per day. she will need follow up with hematology/onc. here or at [place]. Discharge Summary Reason For Visit: COMPRESSION FRACTURE, BACK PAIN Current Active Problems Back pain (Acute) Compression fracture (Acute) DVT (deep venous thrombosis) (Acute) HTN (hypertension) (Acute) Leukocytosis (Acute) Malignancy (Acute) Metastases to the liver (Acute) Microcytic anemia (Acute) Prophylactic measure (Acute) Condition: Fair - Instructions Referrals: Negrito Jarvis MD, FAANS [Staff Physician] - 1 Week Priscila Velasco MD [Staff Physician] - 1 Week Emanuel Self MD [Staff Physician] - 1 Week Hiram Kovacs MD [Staff Physician] - Disposition: [facility] - Home Medications Comprehensive Discharge Medication List: Ambulatory Orders Ibuprofen [Motrin -] 600 mg PO PRN PRN 09/08/18 Oxycodone HCl/Acetaminophen [Percocet 5-325 mg Tablet] 1 tab PO Q6H 09/08/18 - Discharge Referral Referred to [facility] Med P.C.: No
--- NOTE | 2018-09-25 13:23 | DS ---
Physical Exam: SUBJECTIVE: Patient seen and examined at the bedside. denies pain, denies shortness of breath. OBJECTIVE: for discharge today to [facility] Vital Signs Period Temp Pulse Resp BP Sys/Zuniga Pulse Ox Last 24 Hr 98.2 F-98.4 F 74-91 20-20 116-130/78-92 PHYSICAL EXAM GENERAL: The patient is awake, alert, and fully oriented, in no acute distress. HEAD: Normal with no signs of trauma. EYES: PERRL, extraocular movements intact, sclera anicteric, conjunctiva clear. No ptosis. ENT: Ears normal, nares patent, oropharynx clear without exudates, moist mucous membranes. NECK: Trachea midline, full range of motion, supple. LUNGS: Breath sounds equal, clear to auscultation bilaterally, no wheezes HEART: Regular rate and rhythm ABDOMEN: Soft, nontender, nondistended, normoactive bowel sounds, no guarding EXTREMITIES: left lower ext non pitting edema. found to have bilateral extensive dvts NEUROLOGICAL: Normal speech, gait not observed. PSYCH: Normal mood, normal affect. SKIN: Warm, dry, normal turgor, no rashes or lesions noted LABS Laboratory Results - last 24 hr 09/24/18 09/25/18 09/25/18 12:34 09:05 09:05 WBC 21.2 H RBC 4.80 Hgb 9.9 L Hct 30.6 L D MCV 63.7 L MCH 20.6 L MCHC 32.3 RDW 18.3 H Plt Count 143 D MPV 8.8 Absolute Neuts (auto) 19.4 H Neutrophils % 91.3 H Lymphocytes % 3.9 L Monocytes % 4.7 Eosinophils % 0.0 Basophils % 0.1 Nucleated RBC % 0 PTT (Actin FS) 32.9 Sodium 130 L Potassium 4.1 Chloride 98 Carbon Dioxide 19 L Anion Gap 13 BUN 31 H Creatinine 0.6 Creat Clearance w eGFR > 60 Random Glucose 95 Calcium 8.8 Magnesium 2.0 Total Bilirubin 0.4 AST 15 ALT 44 Alkaline Phosphatase 179 H Total Protein 7.3 Albumin 3.0 L HOSPITAL COURSE: Patient is a 68 year old female with no reported past medical history. She presented to the ED on 09/09/18 for worsening lower back pain. Lumbar spine MRI showed incidental finding of acute pathological compression of l2 vertebral body with total bone marrow replacement of vertebral body and bone marrow edema. On further imaging she was also found to have liver lesions, possible mets on her chest xray as well as extensive bilateral DVTs. Unknown primary cancer, but likely colon/rectal per hematology/oncology. CEA is elevated. 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 Imaging: Lumbar spine MRI 09/10/2018: L2 significant acute pathological compression fx of l2 vertebral body with total bone marrow replacement of vertebral body. bone marrow edema. L5-S1: partial desiccated disc. no evidence of disc displacement. L5 vertebral body hemangioma. left hydronephrosis On T2 coronal images, several t2 mildly hyperintense lesions noted in the right lobe of the liver measuring apx 11mm 12 to 15mm concerning for metastatic disease. Vascular doppler study 09/12/2018:bilateral DVT on right proximal, superficial femoral vein, popliteal and posterior tibial vein, left superficial femoral, popliteal and posterior tibial vein. --------- Back Pain: L2 compression fracture. On Baclofen, toradol, TSLO brace, oxycodone. Lumbar MRI as noted above. L2 acute pathological compression fracture with incidental findings of liver lesions on the right lobe of the liver concerning for metastatic disease.neurosurgery consulted (Dr. Jarvis), patient offered surgery for pathological fracture, but currently refusing surgery. again, importance of surgery discussed in detail but still refusing. Oncology/Hematology: Patient with liver lesions, chest xray with possible metastatic disease, and possible sigmoid mass. 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 Hematology and oncology evaluated patient during hospitalization and recommended back surgery to stablize fracture. Radiation therapy also followed patient. patient refused. Anemia, unspecified. hematology follow up outpatient. 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 stopped heparin drip on 09/24/18. started on rivaroxaban 15mg BID x 3 weeks (from 09/24/2018 -> 10/14/2018), then rivaroxaban 20mg once per day. she will need follow up with hematology/onc. GI: Liver lesions, suspicion of mets. Sigmoid colon mass/mild wall irregularity upper rectum/sigmoid colon. tumor marker ca 125 and CEA significantly elevated GI following. ID: Leukocytosis, elevated secondary to Decadron. No signs of infection Card: Hypertension. controlled. On Metoprolol tartrate 25 mg BID. amlodopine 10mg Echo> LV normal, moderate concentric left vent hypertrophy, left ventricle is hyperdynamic. trace MR, trace tricuspid regurg. Renal: Hypokalemia, resolved Hyponatremia, - hydration by mouth encouraged. hyponatremia likely secondary to her advanced cancer. Date of Admission:09/09/18 Date of Discharge: 09/25/18 Minutes to complete discharge: 60 Discharge Summary Reason For Visit: COMPRESSION FRACTURE, BACK PAIN Current Active Problems Back pain (Acute) Compression fracture (Acute) DVT (deep venous thrombosis) (Acute) HTN (hypertension) (Acute) Leukocytosis (Acute) Malignancy (Acute) Metastases to the liver (Acute) Microcytic anemia (Acute) Prophylactic measure (Acute) Condition: Fair - Instructions Diet, Activity, Other Instructions: Mrs Yeh: You were admitted for back pain and an L2 significant acute pathological compression fx of l2 vertebral body with total bone marrow replacement of vertebral body and bone marrow edema was found on our imaging. Further imaging and testing consistent with colon/rectal cancer. You were also found to have extensive DVTs on vascular study. You have been started on Xarelto on 09/24/2018. Continue taking it as follows: Started on rivaroxaban (xarelto) 15mg BID x 3 weeks (from 09/24/2018 ->10/14/2018), then rivaroxaban (Xarelto) 20mg once per day. You will need follow up with hematology /onc. here or at [facility]. 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 stopped heparin. started on rivaroxaban 15mg BID x 3 weeks (from 09/24/2018 ->10/14/2018), then rivaroxaban 20mg once per day. You will need follow up with hematology/onc (referrals enclosed) GI: Liver lesions, suspicion of mets. Sigmoid colon mass/mild wall irregularity upper rectum/sigmoid colon. tumor marker ca 125 and CEA significantly elevated GI follow up outpatient. ID: Leukocytosis, wbc elevated, no fevers, vitals stable. Patient on Decadron which is causing her elevated WBC. Card: Hypertension. controlled. On Metoprolol tartrate 25 mg BID. amlodopine 10mg Echo> LV normal, moderate concentric left vent hypertrophy, left ventricle is hyperdynamic. trace MR, trace tricuspid regurg. Renal: Electrolyte imbalance. follow up with Dr. Fermín Gandhi for any electrolyte abnormalities. Imaging: Lumbar spine MRI 09/10/2018: L5-S1: partial desiccated disc. no evidence of disc displacement. L5 vertebral body hemangioma. left hydronephrosis On T2 coronal images, several t2 mildly hyperintense lesions noted in the right lobe of the liver measuring apx 11mm 12 to 15mm concerning for metastatic disease. Vascular doppler study 09/12/2018:bilateral DVT on right proximal, superficial femoral vein, popliteal and posterior tibial vein, left superficial femoral, popliteal and posterior tibial vein. -------- We strongly urge you to reach out to Dr. Jarvis or another neurosurgeon of your choosing for possible surgery of the L2 compression fracture. Please call me with any questions that you may have. I have also attached referrals for Dr. Francois and Dr. Self (oncologist) in your discharge packet. Please call me with any questions that you may have. Thank you for allowing us to care for you. Continue the Decadron 4 times per day without skipping doses. Please follow up with Dr. Self/Dr. Francois [facility] [phone] Referrals: Negrito Jarvis MD, FAANS [Staff Physician] - 1 Week Priscila Velasco MD [Staff Physician] - 1 Week Emanuel Self MD [Staff Physician] - 1 Week Hiram Kovacs MD [Staff Physician] - Disposition: ASSISTED FACILITY - Home Medications Comprehensive Discharge Medication List: Ambulatory Orders Oxycodone HCl/Acetaminophen [Percocet 5-325 mg Tablet] 1 tab PO Q6H 09/08/18 Amlodipine Besylate [Norvasc -] 10 mg PO DAILY tablet 09/25/18 Baclofen [Lioresal -] 10 mg PO TID tablet 09/25/18 Dexamethasone [Decadron -] 4 mg PO Q6HPO tablet 09/25/18 Docusate Sodium [Colace -] 100 mg PO TID capsule 09/25/18 Metoprolol Tartrate [Lopressor -] 50 mg PO BID tablet 09/25/18 Pantoprazole Sodium [Protonix -] 40 mg PO DAILY tablet.ec 09/25/18 Polyethylene Glycol 3350 [Miralax 119 gm Btl -] 17 gm PO DAILY bottle 09/25/18 Potassium Chloride [K-Dur -] 40 meq PO DAILY tablet.er 09/25/18 Rivaroxaban [Xarelto -] 15 mg PO BID tablet 09/25/18 oxyCODONE HCL [Roxicodone -] 5 mg PO Q6HPO #30 tablet MDD 4 09/25/18 This patient is new to me today: No Emergency Visit: Yes ED Registration Date: 09/09/18 Care time: The patient presented to the Emergency Department on the above date and was hospitalized for further evaluation of their emergent condition. Critical Care patient: No - Discharge Referral Referred to [facility] Med P.C.: No
[2018-09-25] MEDS ORDERED: LORazepam 0.5 MG TABLET PO PRN (14:17)
[2018-09-25 14:30] LABS: ANISOCYTOSIS 2+; MACROCYTOSIS 0; PLATELET ESTIMATE DECREASED
[2018-09-25 14:36] VITALS: BP 123/72; PULSE 87; TEMP 97.8
[2018-09-25] MEDS ORDERED: oxyCODONE HCL 5 MG TABLET PO ONE (15:31)
[2018-09-25] MEDS ORDERED: DEXAMETHASONE 4 MG TABLET (FP) PO SCH (18:00)
== END 2018-09-25 17:22 | DRG 375 ==
LOC: JER 09:30 → JERBED 18:13 → J6S 21:54 → OBSVTOIN 09-09 11:16
PROVIDERS: ADMIT Internal Medicine; ATTEND Nurse Practitioner Family
PROC: 07D23ZX Extraction of Left Neck Lymphatic, Percutaneous Approach, Diagnostic (ICD-10-PCS; principal; 2018-09-13)
DX: D37.4 Neoplasm of uncertain behavior of colon (principal); M84.58XA Pathological fracture in neoplastic disease, other specified site, initial encounter for fracture; E87.1 Hypo-osmolality and hyponatremia; N13.30 Unspecified hydronephrosis; C78.7 Secondary malignant neoplasm of liver and intrahepatic bile duct; R64 Cachexia; G95.20 Unspecified cord compression; I82.413 Acute embolism and thrombosis of femoral vein, bilateral; I82.433 Acute embolism and thrombosis of popliteal vein, bilateral; I82.443 Acute embolism and thrombosis of tibial vein, bilateral; D72.829 Elevated white blood cell count, unspecified; C76.0 Malignant neoplasm of head, face and neck; E87.6 Hypokalemia; I16.0 Hypertensive urgency; E87.8 Other disorders of electrolyte and fluid balance, not elsewhere classified; D64.9 Anemia, unspecified; D50.9 Iron deficiency anemia, unspecified; M89.58 Osteolysis, other site; D18.00 Hemangioma unspecified site; I34.1 Nonrheumatic mitral (valve) prolapse
CPT/HCPCS: 36415; 70450-TC; 71045-TC-FY; 71250-TC; 72100-TC-FY; 72131-TC; 72148-TC; 72192-TC; 74176-TC; 76942-TC; 80048; 80053; 81003; 81015; 82378; 82533; 82728; 82962; 83540; 83550; 83735; 83935; 84100; 84295; 84300; 84443; 85025; 85027; 85610; 85730; 86304; 87040; 87086; 87899; 88305-TC; 88341-TC; 93005; 93010; 93306-TC; 93970-TC; 97116-GP; 97162-GP; 99284-25; G0378; J0475; J1644; J7030

== ENCOUNTER 2018-10-03 13:27 | Inpatient (IN) | payer OTHER ==
[2018-10-03 14:06] VITALS: BMI 27.4
--- NOTE | 2018-10-03 14:13 | PDOC ---
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 Patient bed bound following compression fracture, in brace. Reports waking up yesterday morning ( unknown time), with weakness, and difficulty lifting arm and leg. Reports waking up this AM 0600 with inability to move right leg,a dn inability to rase right arm, but still able to move right hand. Recent [facility] admission. Colon/rectal per heme /onc and elevated CEA, and CA-125. 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 Lumbar spiune MRI 09/10/18 with L2 acute pathological compression and total bone marrow replacement of vertebral body. T2 cornoal images with mildly hyperintense lesdions of right lobe liver 11 x 12 x 15 mm concerning for mets. 09/12/18 with BL DVT R proximal, superficial femoral, popliteal and post tibial vein. Patient on Xarelto 15 mg BID (09/24/18- 10/14/18). Patient refuses neurosurgery for pathologic fracture. Seen by Dr. chris prior hospitalization. Patient seen by Dr. Shai conti and noted to have mental capacity. Patient denies N/V, F,C, CP, SOB, urinary complaints, abdominal pain, diarrhea, constipation, lightheadedness, weakness, sensory changes. PMHx: as noted above ROS: as noted Allergies: Lactose PMD: Zohreh Darnell = <Petros Elizalde - Last Filed: 10/04/18 00:40> <Jose Elias Ellsworth - Last Filed: 10/04/18 02:07> - General Stated Complaint: POSS STROKE Time Seen by Provider: 10/03/18 13:39 Past History - Past Medical History Cardiac Disorders: Yes (Mitral prolaspe) COPD: No (mitral valve prolapse) - Suicide/Smoking/Psychosocial Hx Smoking History: Unknown if ever smoked Have you smoked in the past 12 months: No Information on smoking cessation initiated: No Hx Alcohol Use: No Drug/Substance Use Hx: No Substance Use Type: None <Petros Elizalde - Last Filed: 10/04/18 00:40> <Jose Elias Ellsworth - Last Filed: 10/04/18 02:07> - Past Medical History Allergies/Adverse Reactions: Allergies Allergy/AdvReac Type Severity Reaction Status Date / Time lactose AdvReac Verified 09/16/18 20:49 Home Medications: Ambulatory Orders Amlodipine Besylate [Norvasc -] 10 mg PO DAILY tablet 09/25/18 Baclofen [Lioresal -] 10 mg PO TID tablet 09/25/18 Metoprolol Tartrate [Lopressor -] 50 mg PO BID tablet 09/25/18 Pantoprazole Sodium [Protonix -] 40 mg PO DAILY tablet.ec 09/25/18 Polyethylene Glycol 3350 [Miralax 119 gm Btl -] 17 gm PO DAILY bottle 09/25/18 Rivaroxaban [Xarelto] 15 mg PO BID tablet 09/25/18 oxyCODONE HCL [Roxicodone -] 5 mg PO Q6HPO #30 tablet MDD 4 09/25/18 Dexamethasone [Decadron -] 4 mg PO TID 10/03/18 Docusate Sodium [Colace -] 100 mg PO DAILY 10/03/18 Potassium Chloride [K-Dur -] 10 meq PO DAILY 10/03/18 Silver Sulfadiazine 1% Top Cr [Silvadene -] 1 applic TP PRN PRN 10/03/18 Review of Systems - Review of Systems Comments:: 10/03/18 14:13 GENERAL/CONSTITUTIONAL: No fever or chills. No weakness. HEAD, EYES, EARS, NOSE AND THROAT: No change in vision. No ear pain or discharge. No sore throat. CARDIOVASCULAR: No chest pain or shortness of breath RESPIRATORY: No cough, wheezing, or hemoptysis. GASTROINTESTINAL: No nausea, vomiting, diarrhea or constipation. GENITOURINARY: No dysuria, frequency, or change in urination. MUSCULOSKELETAL: + Back pain. SKIN: No rash NEUROLOGIC: + R sided weakness. No headache, vertigo, loss of consciousness, or change in sensation. ENDOCRINE: No increased thirst. No abnormal weight change HEMATOLOGIC/LYMPHATIC: No anemia, easy bleeding, or history of blood clots. ALLERGIC/IMMUNOLOGIC: No hives or skin allergy. <Petros Elizalde - Last Filed: 10/04/18 00:40> *Physical Exam - Vital Signs Last Vital Signs Temp Pulse Resp BP Pulse Ox 98.1 F 95 H 18 113/84 92 L 10/03/18 13:54 10/03/18 13:54 10/03/18 13:54 10/03/18 13:54 10/03/18 13:54 - Physical Exam Comments: 10/03/18 14:13 GENERAL: Awake, alert, and fully oriented, in no acute distress HEAD: No signs of trauma, normocephalic, atraumatic EYES: PERRLA, EOMI, sclera anicteric, conjunctiva clear ENT: Auricles normal inspection, hearing grossly normal, nares patent, oropharynx clear without exudates. Moist mucosa NECK: Normal ROM, supple, no lymphadenopathy, JVD, or masses LUNGS: No distress, speaks full sentences, clear to auscultation bilaterally HEART: Regular rate and rhythm, normal S1 and S2, no murmurs, rubs or gallops, peripheral pulses normal and equal bilaterally. ABDOMEN: Soft, nontender, normoactive bowel sounds. No guarding, no rebound. No masses EXTREMITIES : Normal inspection, Normal range of motion, no edema. No clubbing or cyanosis. NEUROLOGICAL: + 0/5 strength, R arm, RLE. 4/5 LLE. Cranial nerves II through XII grossly intact. no focal sensory deficit. Patient immobilized with back brace in place. SKIN: Warm, Dry, normal turgor, no rashes or lesions noted <Petros Elizalde - Last Filed: 10/04/18 00:40> - Vital Signs Last Vital Signs Temp Pulse Resp BP Pulse Ox 98.1 F 91 H 17 112/79 100 10/03/18 13:54 10/03/18 17:23 10/03/18 19:13 10/03/18 17:23 10/03/18 19:13 <Jose Elias Ellsworth - Last Filed: 10/04/18 02:07> NIH Stroke Scale - Last Known Well Date/Time & Onset Date Last Known Well: 10/01/18 Time Last Known Well: 10:00 - Initial Evaluation Level of consciousness: Alert Ask patient the month and their age: Answers both correctly Ask patient to open & close eyes; make fist and let go: Obeys both correctly Best gaze (horizontal eye movement): Normal Visual field testing: No visual field loss Facial paresis (Show teeth/raise eyebrows/close eyes tight): Normal symmetrical movement Motor Function: Left Arm: Normal Motor Function: Right Arm: No movement Motor Function: Left Leg: Normal (extends leg 30 degrees for 5 seconds without drift) Motor Function: Right Leg: No movement Limb Ataxia: No ataxia Sensory(Use pinprick test arms,legs,trunk,face/side to side): Normal Best language (Describe picture, name items, read sentences): Mild to moderate aphasia Dysarthria (read several words): Mild to moderate slurring of words Extinction and Inattention: No abnormality - Total Score NIH Stroke Scale Score: 10 <Petros Elizalde - Last Filed: 10/04/18 00:40> tPA Exclusion checklist 3-4.5h - Time Elapsed Date last known well: 10/01/18 Time last known well: 10:00 Elaspsed time: 2 Day(s) and 14 Hour(s) and 40 Minutes - Thrombolytic Therapy Candidate Is patient eligible for thrombolytic therapy: No - Exclusion Criteria 3-4.5 hr SBP greater than 185 or DBP greater than 110mmHg despite tx: No Recent IC/spinal surgery,head trauma or stroke<3mos.: No Hx IC hemorrhage, IC neoplasm, AV malformation or aneurysm: No Active internal bleeding: No Blding diathesis(low plt ct, inc PTT,INR>1.7 or use of NOAC): No Symptoms suggest subarachnoid hemorrhage: No CT demonstrates multilobar infarct(>1/3 cerebral hemiphere): No Arterial puncture at noncompressible site in previous 7 days: No Blood glucose concentration less than 50mg/dL (2.7mmol/L): No - Relative Exclusion Criteria 3-4.5 hr Life expectancy <1 yr or severe co-morbid illness: Yes : No Patient/family refused: No Rapid improvement: No Stroke severity too mild: No Recent acute ME (w/in previous 3 months): No Seizure at onset with postictal residual neuro impairments: No Major surgery or serious trauma w/in previous 14 days: No Recent GI or hemorrhage (w/in previous 21 days): No - Add'l Relative Exclusion 3-4.5 hr Age > 80: No Hx of both diabetes AND prior ischemic stroke: No Taking an oral anticoagulant regardless of INR: Yes NIHSS >25: No - Ineligibility reason(s) Reasons No tPA given: See reason(s) noted above <Petros Elizalde - Last Filed: 10/04/18 00:40> Moderate Sedation - Procedure Monitoring Vital Signs: Procedure Monitoring Vital Signs Temperature 98.1 F 10/03/18 13:54 Pulse Rate 95 H 10/03/18 13:54 Respiratory Rate 18 10/03/18 13:54 Blood Pressure 113/84 10/03/18 13:54 O2 Sat by Pulse Oximetry (%) 92 L 10/03/18 13:54 <Petros Elizalde - Last Filed: 10/04/18 00:40> - Procedure Monitoring Vital Signs: Procedure Monitoring Vital Signs Temperature 98.1 F 10/03/18 13:54 Pulse Rate 91 H 10/03/18 17:23 Respiratory Rate 17 10/03/18 19:13 Blood Pressure 112/79 10/03/18 17:23 O2 Sat by Pulse Oximetry (%) 100 10/03/18 19:13 <Jose Elias Ellsworth - Last Filed: 10/04/18 02:07> Critical Care Time/MDM Note - Medical Decision Making Note: 10/03/18 14:35 68 yo F with h/o HTN, Tricuspid regurgitation, metastatic cancer ( unknown origin ), metastatic vertebral metastasis with pathologic compression of L2 vertebral body, BL LE DVT on Xarelto, Unknown primary cancer ( GI suspected), [facility] acute right sided leg, and arm weakness. VSS, AF , A&Ox3, + 0/5 strength, NIHSS ~10,R arm, RLE. 4/5 LLE. Possible CVA/TIA vs. cervical cord compression. Patient on Xarelto not TpA candidate. Ed Course: CTH/TIA No sensory level Dr. Oro evaluated patient bedside. Does not believe presentation is stroke related. Possible cord compression. IV dexamethaosne 10 mg. 10/03/18 14:49 EKG: NSR with absent LENA, STD. Normal axis and interval 10/03/18 15:13 CTH: No acute change. Chronic microvascular ischemic changes. 10/03/18 16:[address] Darnell. Patient pending MRI. MRI CERVICAL SPINE Morphine 2mg, Zofran 4 mg 10/03/18 18:38 Patient refusing MRI 10/03/18 20:26 Dr. Chris made aware of case. [place]. Second attempt to notify Dr. Kiet Kirk (Neurosurgery exhibition designer) of patient case. Message left at [phone] 10/03/18 20:28 Patient continues to refuse MRI. Daughter at bedside reports that pt. does not want to continue with MRI until neurosurgery approves. 10/03/18 21:22 Ativan 1 mg 10/04/18 00:[address] C SPINE NON CON. Refuses contrast Continued back pain, and nausea. Baclofen, Zofran Will admit to med/surg <Petros Elizalde - Last Filed: 10/04/18 00:40> *DC/Admit/Observation/Transfer - Discharge Dispostion Decision to Admit order: Yes <Petros Elizalde - Last Filed: 10/04/18 00:40> - Discharge Dispostion Decision to Admit order: Yes <Jose Elias Ellsworth - Last Filed: 10/04/18 02:07> Diagnosis at time of Disposition: Hemiplegia affecting dominant side, Intractable back pain - Referrals Referrals: Zohreh Darnell MD [Primary Care Provider] -
[2018-10-03] MEDS: SODIUM CHLORIDE 1,000 ML IV SCH (14:33)
[2018-10-03 14:53] LABS: BASO % 0.2 % (0-2.0); HEMATOCRIT 28.1 % (32.4-45.2); HEMOGLOBIN 9.1 GM/dL (10.7-15.3); LYMPH % 1.7 % (8-40); MCH 20.9 pg (25.7-33.7); MCHC 32.5 g/dl (32.0-36.0); MEAN CELL VOLUME 64.3 fl (80-96); MEAN PLT VOLUME 8.4 fl (7.5-11.1); MONO % 4.5 % (3.8-10.2); NEUT % 93.6 % (42.8-82.8); PLATELET COUNT 165 K/MM3 (134-434); RBC 4.37 M/mm3 (3.60-5.2); RDW 20.3 % (11.6-15.6); WHITE BLOOD COUNT 22.7 K/mm3 (4.0-10.0)
[2018-10-03 15:12] LABS: ACTIVATED PTT 24.2 SECONDS (25.2-36.5)
[2018-10-03] MEDS ORDERED: DEXAMETHASONE SOD PHOSPHATE 10 MG/1 ML VIAL IVPUSH ONE (15:15)
--- NOTE | 2018-10-03 15:15 | CON.NEURO ---
Consult - Past Medical History Musculoskeletal: Yes: Other (left ankle fracture) Additional Medical History: MItral valve prolapse - Past Surgical History Past Surgical History: Yes: (30 years ago, fibroids removed, bartholin cyst in her 20s) - Alcohol/Substance Use Hx Alcohol Use: No - Smoking History Smoking history: Unknown if ever smoked Have you smoked in the past 12 months: No - Social History Usual Living Arrangement: With Child ADL: Independent Occupation: NURSE- worked several months ago History of Recent Travel: No Home Medications - Allergies Allergies/Adverse Reactions: Allergies Allergy/AdvReac Type Severity Reaction Status Date / Time lactose AdvReac Verified 09/16/18 20:49 - Home Medications Home Medications: Ambulatory Orders Amlodipine Besylate [Norvasc -] 10 mg PO DAILY tablet 09/25/18 Baclofen [Lioresal -] 10 mg PO TID tablet 09/25/18 Dexamethasone [Decadron -] 4 mg PO Q6HPO tablet 09/25/18 Docusate Sodium [Colace -] 100 mg PO TID capsule 09/25/18 Metoprolol Tartrate [Lopressor -] 50 mg PO BID tablet 09/25/18 Pantoprazole Sodium [Protonix -] 40 mg PO DAILY tablet.ec 09/25/18 Polyethylene Glycol 3350 [Miralax 119 gm Btl -] 17 gm PO DAILY bottle 09/25/18 Potassium Chloride [K-Dur -] 40 meq PO DAILY tablet.er 09/25/18 Rivaroxaban [Xarelto] 15 mg PO BID tablet 09/25/18 oxyCODONE HCL [Roxicodone -] 5 mg PO Q6HPO #30 tablet MDD 4 09/25/18 Family Disease History - Family Disease History Family Disease History: CA: Sister (breast ) Physical Exam-Neuro Vital Signs: Vital Signs Temperature 98.1 F 10/03/18 13:54 Pulse Rate 95 H 10/03/18 13:54 Respiratory Rate 18 10/03/18 13:54 Blood Pressure 113/84 10/03/18 13:54 O2 Sat by Pulse Oximetry (%) 98 10/03/18 14:42 Labs: CBC, BMP 10/03/18 13:46 Assessment/Plan cc Sudden onset right arm and leg weakness HPI 68 year old female history of HTN, Metastatic cancer ( unknown origin), she has vertebral mets and pathological compression fracture of L 2. Patient was seen by Dr Anderson and refused surgery. Patient had supraclavicular lymph node biopsy and primary was suspected to be GI adenocarcinoma. Patient was at home and woke up this morning feeling right arm and leg weakness. On questioning she also feel left leg weakness. She did not ahve neck pain or denies any sensory symptoms or bowel or bladder symptoms. She is on xarelto for dvt . Patient denies any dysphagia, dysarthria or diplopia, or droopiness of face or swallowing difficulty. Her ct scan of brain was unremarkable. PMHx: as noted above Allergies: Lactose PMD: Annabi, Iyad = Allergies/Adverse Reactions: Allergies Allergy/AdvReac Type Severity Reaction Status Date / Time lactose AdvReac Verified 09/16/18 20:49 Home Medications: Ambulatory Orders Amlodipine Besylate [Norvasc -] 10 mg PO DAILY tablet 09/25/18 Baclofen [Lioresal -] 10 mg PO TID tablet 09/25/18 Dexamethasone [Decadron -] 4 mg PO Q6HPO tablet 09/25/18 Docusate Sodium [Colace -] 100 mg PO TID capsule 09/25/18 Metoprolol Tartrate [Lopressor -] 50 mg PO BID tablet 09/25/18 Pantoprazole Sodium [Protonix -] 40 mg PO DAILY tablet.ec 09/25/18 Polyethylene Glycol 3350 [Miralax 119 gm Btl -] 17 gm PO DAILY bottle 09/25/18 Potassium Chloride [K-Dur -] 40 meq PO DAILY tablet.er 09/25/18 Rivaroxaban [Xarelto] 15 mg PO BID tablet 09/25/18 oxyCODONE HCL [Roxicodone -] 5 mg PO Q6HPO #30 tablet MDD 4 09/25/18 ROS and FH reviewed in chart NEUROLOGICAL EXAMINATION alert oriented x 3, speech is normal , able to repeat she is quite nervous but able to give history and engage in conversation. she denies any neck pain, no neck tenderness EOMI, PUPILS reactive, no face asymmetry Motor right upper extremity is grade 2 and right lower extremity is grade 3 Left lower extremity is weakness on hip flexion and knee extensor to grade 4- left upper extremity is grade 5 sensation is normal planter is mute reflex are generalized diminished, no evidence of spasticity ct head unrearmakable Assessment :68 year old female historyoy of HTN, Metatstic cancer ( primary unknown) , dvt on xarelto, came with right sided arm and leg weakness ( sudden onset ) without any sensory symptoms. She denies any neck pain. Patient was on dexamethasone for Spinal fracture. Plan: Suspician for cord compression is high given right arm and leg weakness and left leg weakness, I suggest to do ct of C spine and consult Neurosurgery kristyn . and Given one dose of dexamethasone 10 mg iv once, Spoke to resident Dr grace at bedside. - may do further stroke work up if there is no evidence of cord compression, - will follow up with primary Thanking you so much Aneesh Oro MD
[2018-10-03 15:21] LABS: ALBUMIN 2.6 g/dl (3.4-5.0); ALK PHOS 161 U/L (45-117); ANION GAP 10 MMOL/L (8-16); BILIRUBIN,TOTAL 0.5 mg/dL (0.2-1); BLOOD UREA NITROGEN 26 mg/dL (7-18); CALCIUM 8.7 mg/dL (8.5-10.1); CHLORIDE 101 mmol/L (98-107); CHOLESTEROL 329 mg/dL (50-200); CO2 24 mmol/L (21-32); CREATININE 0.6 mg/dL (0.55-1.3); GLUCOSE,RANDOM 98 mg/dL (74-106); HDL CHOLESTEROL 62 mg/dL (40-60); POTASSIUM 4.2 mmol/L (3.5-5.1); SGOT/AST 23 U/L (15-37); SGPT/ALT 24 U/L (13-61); SODIUM 135 mmol/L (136-145); TOT PROT 6.2 g/dl (6.4-8.2); TRIGLYCERIDES 149 mg/dL (0-150)
[2018-10-03 15:31] LABS: URINE APPEARANCE SLCLOUDY; URINE BILIRUBIN NEGATIVE (<2.0 mg/dL); URINE COLOR YELLOW; URINE GLUCOSE (UA) NEGATIVE (NEGATIVE); URINE KETONE NEGATIVE (NEGATIVE); URINE LEUK ESTERASE NEGATIVE (NEGATIVE); URINE NITRITE NEGATIVE (NEGATIVE); URINE PROTEIN NEGATIVE (NEGATIVE); URINE UROBILINOGEN NEGATIVE mg/dL (0.2-1.0)
[2018-10-03] MEDS ORDERED: DEXAMETHASONE SOD PHOSPHATE 10 MG/1 ML VIAL ONE (15:49)
[2018-10-03 15:51] LABS: EPI CELLS RARE /HPF (FEW); URINE BACTERIA MANY /hpf (NONE SEEN); URINE HYALINE CAST 2 /lpf; URINE MUCUS FEW; YEAST FEW
[2018-10-03] MEDS ORDERED: morphine CARPU-JECT 4 MG/1 ML DISP.SYRIN IVPUSH ONE (16:09)
[2018-10-03] MEDS ORDERED: morphine SULFATE 4 MG/ML VIAL ONE (16:17)
[2018-10-03 16:59] LABS: INR 1.58 (0.83-1.09); PROTHROMBIN TIME (PATIENT) 18.7 SEC (9.7-13.0)
[2018-10-03] MEDS ORDERED: ONDANSETRON 4 MG/2 ML VIAL IVPB ONE (17:13)
[2018-10-03] MEDS ORDERED: morphine CARPU-JECT 2 MG/1 ML DISP.SYRIN IVPUSH ONE (17:13)
[2018-10-03] MEDS ORDERED: MORPHINE SULFATE 2 MG/ML VIAL ONE (17:18)
[2018-10-03] MEDS ORDERED: ONDANSETRON 4 MG/2 ML VIAL ONE (17:18)
[2018-10-03 20:07] LABS: ANISOCYTOSIS 1+; PLATELET ESTIMATE ADEQUATE
[2018-10-03] MEDS ORDERED: LORazepam 2 MG/ML SDV VIAL ONE (21:41)
[2018-10-04] MEDS ORDERED: ONDANSETRON 4 MG/2 ML VIAL IVPB ONE (00:17)
[2018-10-04] MEDS ORDERED: BACLOFEN 10 MG TABLET (FP) PO ONE (00:17)
--- NOTE | 2018-10-04 02:35 | HP ---
CHIEF COMPLAINT: Right upper and lower limb paralysis PCP: Mann HISTORY OF PRESENT ILLNESS: 68 year old female history of HTN, Metatstic cancer ( primary unknown-suspected GI) , dvt on xarelto presented with acute onset of upper and lower extremity weakness for one day duration. No reported sensory deficits appreciated. C/o severe back pain. Patient was given one time dose of dexamethasone 10mg IV as per neurology recommendations. Recent [facility] admission. Colon/rectal per heme/onc and elevated CEA, and CA-125. 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 Lumbar spiune MRI 09/10/18 with L2 acute pathological compression and total bone marrow replacement of vertebral body. ER course was notable for: (1) CT C spine (2) head CT (3) Recent Travel: no PAST MEDICAL HISTORY: as above PAST SURGICAL HISTORY: no Social History: Smoking: no Alcohol: no Drugs: no Family History: no Allergies lactose Adverse Reaction (Verified 09/16/18 20:49) HOME MEDICATIONS: Home Medications Medication Instructions Recorded Amlodipine Besylate [Norvasc -] 10 mg PO DAILY tablet 09/25/18 Baclofen [Lioresal -] 10 mg PO TID tablet 09/25/18 Metoprolol Tartrate [Lopressor -] 50 mg PO BID tablet 09/25/18 Pantoprazole Sodium [Protonix -] 40 mg PO DAILY tablet.ec 09/25/18 Polyethylene Glycol 3350 [Miralax 17 gm PO DAILY bottle 09/25/18 119 gm Btl -] Rivaroxaban [Xarelto] 15 mg PO BID tablet 09/25/18 oxyCODONE HCL [Roxicodone -] 5 mg PO Q6HPO #30 tablet MDD 4 09/25/18 Dexamethasone [Decadron -] 4 mg PO TID 10/03/18 Docusate Sodium [Colace -] 100 mg PO DAILY 10/03/18 Potassium Chloride [K-Dur -] 10 meq PO DAILY 10/03/18 Silver Sulfadiazine 1% Top Cr 1 applic TP PRN PRN 10/03/18 [Silvadene -] REVIEW OF SYSTEMS CONSTITUTIONAL: Absent: fever, chills, diaphoresis, generalized weakness, malaise, loss of appetite, weight change HEENT: Absent: rhinorrhea, nasal congestion, throat pain, throat swelling, difficulty swallowing, mouth swelling, ear pain, eye pain, visual changes CARDIOVASCULAR: Absent: chest pain, syncope, palpitations, irregular heart rate, lightheadedness , peripheral edema RESPIRATORY: Absent: cough, shortness of breath, dyspnea with exertion, orthopnea, wheezing, stridor, hemoptysis GASTROINTESTINAL: Absent: abdominal pain, abdominal distension, nausea, vomiting, diarrhea, constipation, melena, hematochezia GENITOURINARY: Absent: dysuria, frequency, urgency, hesitancy, hematuria, flank pain, genital pain MUSCULOSKELETAL: Absent: myalgia, arthralgia, joint swelling, back pain, neck pain SKIN: Absent: rash, itching, pallor HEMATOLOGIC/IMMUNOLOGIC: Absent: easy bleeding, easy bruising, lymphadenopathy, frequent infections ENDOCRINE: Absent: unexplained weight gain, unexplained weight loss, heat intolerance, cold intolerance NEUROLOGIC: Absent: headache,, dizziness, unsteady gait, seizure, mental status changes, bladder or bowel incontinence Present- focal weakness or paresthesias PSYCHIATRIC: Absent: anxiety, depression, suicidal or homicidal ideation, hallucinations. PHYSICAL EXAMINATION Vital Signs - 24 hr 10/03/18 10/03/18 10/03/18 13:54 14:42 15:35 Temperature 98.1 F Pulse Rate 95 H Pulse Rate [ 102 H Apical] Respiratory 18 17 Rate Blood Pressure 113/84 Blood Pressure 120/90 [Left] O2 Sat by Pulse 92 L 98 100 Oximetry (%) 10/03/18 10/03/18 10/03/18 16:01 16:20 17:23 Temperature Pulse Rate Pulse Rate [ 113 H 91 H Apical] Respiratory 17 Rate Blood Pressure Blood Pressure 129/81 112/79 [Left] O2 Sat by Pulse 99 99 100 Oximetry (%) 10/03/18 19:13 Temperature Pulse Rate Pulse Rate [ Apical] Respiratory 17 Rate Blood Pressure Blood Pressure [Left] O2 Sat by Pulse 100 Oximetry (%) GENERAL: drowsy HEAD: Normal with no signs of trauma. EYES: Pupils equal, round and reactive to light, extraocular movements intact, sclera anicteric, conjunctiva clear. No lid lag. EARS, NOSE, THROAT: Ears normal, nares patent, oropharynx clear without exudates. Moist mucous membranes. NECK: Normal range of motion, supple without lymphadenopathy, JVD, or masses. LUNGS: Breath sounds equal, clear to auscultation bilaterally. No wheezes, and no crackles. No accessory muscle use. HEART: Regular rate and rhythm, normal S1 and S2 without murmur, rub or gallop. ABDOMEN: Soft, nontender, not distended, normoactive bowel sounds, no guarding, no rebound, no masses. No hepatomegaly or splenomegaly. MUSCULOSKELETAL: Normal range of motion at all joints. No bony deformities or tenderness. No CVA tenderness. UPPER EXTREMITIES: right upper extremity paralysis LOWER EXTREMITIES: right lower extremity paralysis NEUROLOGICAL: as above, bedbound PSYCHIATRIC: drowsy SKIN: Warm, dry, normal turgor, no rashes or lesions noted, normal capillary refill. Laboratory Results - last 24 hr 10/03/18 10/03/18 10/03/18 13:46 13:46 13:46 WBC 22.7 H RBC 4.37 Hgb 9.1 L Hct 28.1 L MCV 64.3 L MCH 20.9 L MCHC 32.5 RDW 20.3 H Plt Count 165 MPV 8.4 Absolute Neuts (auto) 21.3 H Neutrophils % 93.6 H Neutrophils % (Manual) 84.0 H Band Neutrophils % 6.0 Lymphocytes % 1.7 L D Lymphocytes % (Manual) 6.0 L D Monocytes % 4.5 Monocytes % (Manual) 4 D Eosinophils % 0.0 Basophils % 0.2 Nucleated RBC % 0 Hypochromia 3+ Platelet Estimate Adequate Platelet Comment No clumping noted Anisocytosis 1+ Microcytosis 1+ PT with INR INR PTT (Actin FS) Sodium 135 L Potassium 4.2 Chloride 101 Carbon Dioxide 24 Anion Gap 10 BUN 26 H Creatinine 0.6 Creat Clearance w eGFR > 60 Random Glucose 98 Calcium 8.7 Total Bilirubin 0.5 AST 23 ALT 24 Alkaline Phosphatase 161 H Creatine Kinase 56 Troponin I 0.32 H Cancelled Total Protein 6.2 L Albumin 2.6 L Triglycerides 149 Cholesterol 329 H Total LDL Cholesterol 241 H HDL Cholesterol 62 H Urine Color Urine Appearance Urine pH Ur Specific [place] Urine Protein Urine Glucose (UA) Urine Ketones Urine Blood Urine Nitrite Urine Bilirubin Urine Urobilinogen Ur Leukocyte Esterase Urine WBC (Auto) Urine RBC (Auto) Ur Epithelial Cells Urine Bacteria Hyaline Casts Urine Mucus Urine Yeast Blood Type Antibody Screen 10/03/18 10/03/18 10/03/18 13:46 13:46 15:00 WBC RBC Hgb Hct MCV MCH MCHC RDW Plt Count MPV Absolute Neuts (auto) Neutrophils % Neutrophils % (Manual) Band Neutrophils % Lymphocytes % Lymphocytes % (Manual) Monocytes % Monocytes % (Manual) Eosinophils % Basophils % Nucleated RBC % Hypochromia Platelet Estimate Platelet Comment Anisocytosis Microcytosis PT with INR 18.70 H INR 1.58 H PTT (Actin FS) 24.2 L Sodium Potassium Chloride Carbon Dioxide Anion Gap BUN Creatinine Creat Clearance w eGFR Random Glucose Calcium Total Bilirubin AST ALT Alkaline Phosphatase Creatine Kinase Troponin I Total Protein Albumin Triglycerides Cholesterol Total LDL Cholesterol HDL Cholesterol Urine Color Yellow Urine Appearance Slcloudy Urine pH 5.0 Ur Specific [place] 1.018 Urine Protein Negative Urine Glucose (UA) Negative Urine Ketones Negative Urine Blood 1+ H Urine Nitrite Negative Urine Bilirubin Negative Urine Urobilinogen Negative Ur Leukocyte Esterase Negative Urine WBC (Auto) 3 Urine RBC (Auto) 1 Ur Epithelial Cells Rare Urine Bacteria Many Hyaline Casts 2 Urine Mucus Few Urine Yeast Few Blood Type O POSITIVE Antibody Screen Negative 10/03/18 20:41 WBC RBC Hgb Hct MCV MCH MCHC RDW Plt Count MPV Absolute Neuts (auto) Neutrophils % Neutrophils % (Manual) Band Neutrophils % Lymphocytes % Lymphocytes % (Manual) Monocytes % Monocytes % (Manual) Eosinophils % Basophils % Nucleated RBC % Hypochromia Platelet Estimate Platelet Comment Anisocytosis Microcytosis PT with INR INR PTT (Actin FS) Sodium Potassium Chloride Carbon Dioxide Anion Gap BUN Creatinine Creat Clearance w eGFR Random Glucose Calcium Total Bilirubin AST ALT Alkaline Phosphatase Creatine Kinase Troponin I Total Protein Albumin Triglycerides Cholesterol Total LDL Cholesterol HDL Cholesterol Urine Color Urine Appearance Urine pH Ur Specific [place] Urine Protein Urine Glucose (UA) Urine Ketones Urine Blood Urine Nitrite Urine Bilirubin Urine Urobilinogen Ur Leukocyte Esterase Urine WBC (Auto) Urine RBC (Auto) Ur Epithelial Cells Urine Bacteria Hyaline Casts Urine Mucus Urine Yeast Blood Type O POSITIVE Antibody Screen Head CT and C Spine CTs reviewed- pulm nodules suggestive of mets seen. ASSESSMENT/PLAN: #68yo woman with metastatic cancer of uncertain origin with new onset of right lower and upper extremity paralysis concerning for CVA vs mets to spine with resultant compression. Head CT was negative. High dose steroids given. -admit to telemetry -neurology consult - Dr. Hamm -neurosurgery consult - Dr. Chris -MRI of thorax/lumbar spine/sacrum -adequate pain control with morphine IV prn -dexamethasone 10mg loading dose given initially, will continue 4mg IV q6hrs for now -NPO -check fingersticks -f/u neuro recs for possible CVA -echo -carotid duplex b/l -neuro checks q4hrs #History of b/l DVT -on xarelto -SCDs Visit type - Emergency Visit Emergency Visit: Yes ED Registration Date: 10/04/18 Care time: The patient presented to the Emergency Department on the above date and was hospitalized for further evaluation of their emergent condition. - New Patient This patient is new to me today: Yes Date on this admission: 10/04/18 - Critical Care Critical Care patient: No
[2018-10-04] MEDS ORDERED: morphine CARPU-JECT 4 MG/1 ML DISP.SYRIN IVPUSH PRN (02:40)
[2018-10-04] MEDS ORDERED: SILVER SULFADIAZINE 1% TOP CREAM 400 GM JAR TP PRN (02:40)
[2018-10-04] MEDS ORDERED: morphine SULFATE 4 MG/ML VIAL ONE (03:00)
[2018-10-04] MEDS ORDERED: morphine SULFATE 4 MG/ML VIAL IVPUSH PRN (03:12)
[2018-10-04] MEDS ORDERED: DEXAMETHASONE 4 MG TABLET (FP) PO SCH (06:00)
[2018-10-04] MEDS: DOCUSATE SODIUM 100 MG CAPSULE (FP) PO SCH ×3 (06:42→22:05)
[2018-10-04] MEDS: BACLOFEN 10 MG TABLET (FP) PO SCH ×2 (06:42→14:06)
[2018-10-04] MEDS ORDERED: RIVAROXABAN 15 MG TABLET PO SCH ×2 (08:00→17:30)
[2018-10-04] MEDS ORDERED: POLYETHYLENE GLYCOL 3350 119 GM BTL PO SCH (10:00)
[2018-10-04] MEDS ORDERED: ENOXAPARIN NA (PORCINE) 40 MG/0.4 ML DISP.SYRIN SQ SCH (10:00)
[2018-10-04] MEDS ORDERED: POTASSIUM CHLORIDE TABS 10 MEQ TABLET.ER (FP) PO SCH (10:00)
[2018-10-04] MEDS ORDERED: METOPROLOL TARTRATE 50 MG TABLET (FP) PO SCH ×2 (10:00→22:00)
[2018-10-04] MEDS ORDERED: amLODIPine BESYLATE 10 MG TABLET (FP) PO SCH (10:00)
[2018-10-04] MEDS ORDERED: PANTOPRAZOLE 40 MG TABLET (FP) PO SCH (10:00)
[2018-10-04] MEDS ORDERED: DOCUSATE SODIUM 100 MG CAPSULE (FP) PO SCH (10:00)
--- NOTE | 2018-10-04 10:25 | CONSULT ---
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 Peer admission note, pt was verbal, oriented, no speech/language deficits, no facial droop Selected Entries 10/03/18 10/04/18 13:54 04:35 Temperature 98.1 F 98.4 F Laboratory Tests 10/03/18 13:46 WBC 22.7 H This is my first consult with this pt. Apparent progression of symptoms since admission. Pt seen bedside, non vocal, non verbal, Severe Aphasia, right facial paralysis noted when grimaCES/MOANS. History Source: Medical Record Limitations to Obtaining History: Clinical Condition (Aphasia. Non verbal.) - Past Medical History Musculoskeletal: Yes: Other (left ankle fracture) - Past Surgical History Past Surgical History: Yes: (30 years ago, fibroids removed, bartholin cyst in her 20s) - Smoking History Smoking history: Unknown if ever smoked Have you smoked in the past 12 months: No - Alcohol/Substance Use Hx Alcohol Use: No - Social History ADL: Independent Occupation: NURSE- worked several months ago History of Recent Travel: No History - Admission Reason For Visit: HEMIPLEGIA OF DOMINANT SIGN - Diagnostics X-ray: Report Reviewed CT Scan: Report Reviewed MRI: Pending (head), Report Reviewed (spine noted. also, r/o PNA) - General Ability to Follow Directions: Poor - Hearing Hearing: Normal Speech Evaluation - Communication Primary Language: WELSH Communication: Yes: Non-Communicable Oral Expression Ability: Yes: Non-Verbal (audible phonation while moaning only. No volitional phonation) - Speech Production Apraxia: Yes Able to Make Needs Known: Yes: Severely Impaired - Language/Auditory Comprehension Observation: Able to respond to yes/no queries: No, Comprehends Conversational Speech: No (followed "squeeze hand" only) - Swallow Evaluation/Bedside Assessment Current Nutritional Intake: NPO Facial Symmetry at Rest: Facial Droop Right Laryngeal Elevation: Impaired Laryngeal Movement: Reduced Excursion, Labored,delay initiation Bolus Size: Small Labial Seal: WFL Oral Prep Time: Increased A-P Transit: Impaired Timing of Swallow: Delayed Coughing/Throat Clear: Yes (with and without PO trial. Cough/congestion) Recommendations - Speech Evaluation, Impression/Plan Impression: Apparent progression of symptoms since admission. Pt seen bedside, non vocal, non verbal, Severe Aphasia, right facial paralysis noted when grimaces/moans. No yes/no head shake but tracks with eyes. Follows "squeeze hand /release" with left hand .Pt with delayed, weak swallow.Pt sounds congested, has cough. Aphasia/Apraxia/Dysphagia/Right Hemiplegia . r/o acute Left CVA/r/o PNA - Dysphagia Impressions/Plan Swallowing Skills: Impaired Dysphagia Impressions: Ongoing Evaluation *Silent aspiration: cannot be R/O at bedside Recommendations: Neuro Consult (f/u) - Recommendations Diet Consistency: NPO Medication Administration: Crushed with applesauce (if neccessary) Liquids: NPO
--- NOTE | 2018-10-04 10:36 | ECHO ---
Name: ROWAN BAY Exam:Adult Echocardiogram Study Date: 10/04/2018 08:41 AM Age: 68 yrs Reason For Study: FOCAL NEURO DEFICITS Height: 62 in Weight: 150 lb BSA: 1.7 m2 MMode/2D Measurements & Calculations IVSd: 0.96 cm Ao root diam: 2.9 cm LVIDd: 3.4 cm LA dimension: 2.7 cm LVIDs: 2.6 cm LVPWd: 0.89 cm EDV(Teich): 48.3 ml ESV(Teich): 23.8 ml Doppler Measurements & Calculations MV E max dao: 98.2 cm/sec AI P1/2t: 298.7 msec MV A max dao: 19.3 cm/sec MV E/A: 5.1 MV dec time: 0.12 sec AI max dao: 165.1 cm/sec AI max P.9 mmHg AI dec slope: 161.8 cm/sec2 Left Ventricle There is mild concentric left ventricular hypertrophy. Left ventricular systolic function is normal. Ejection Fraction = 50-55%. Left Ventricular Filling pattern is normal for age. Right Ventricle The right ventricle is grossly normal size. The right ventricular systolic function is grossly normal . Atria The left atrial size is normal. The interatrial septum is not well visualized. Mitral Valve The mitral valve is normal in structure and function. There is no mitral valve stenosis. There is tra ce mitral regurgitation. Tricuspid Valve The tricuspid valve is not well visualized, but is grossly normal. There is mild tricuspid regurgitat ion. Aortic Valve The aortic valve opens well. No hemodynamically significant valvular aortic stenosis. Trace to mild a ortic regurgitation. Pulmonic Valve The pulmonic valve is not well seen, but is grossly normal. There is no pulmonic valvular stenosis. T here is no pulmonic valvular regurgitation. Great Vessels The aortic root is normal size. Pericardium/Pleura There is no pericardial effusion. Interpretation Summary There is mild concentric left ventricular hypertrophy. Left ventricular systolic function is normal. Ejection Fraction = 50-55%. The interatrial septum is not well visualized. There is trace mitral regurgitation. There is mild tricuspid regurgitation. Trace to mild aortic regurgitation. There is no pericardial effusion. MD Lawrence *Rosemarie 10/04/2018 10:35 AM
[2018-10-04] MEDS: DEXAMETHASONE SOD PHOSPHATE 4 MG/1 ML VIAL IVPUSH SCH ×3 (10:39→22:05)
[2018-10-04 10:47] LABS: HEMATOCRIT 27.2 % (32.4-45.2); HEMOGLOBIN 8.8 GM/dL (10.7-15.3); MCH 20.9 pg (25.7-33.7); MCHC 32.3 g/dl (32.0-36.0); MEAN CELL VOLUME 64.6 fl (80-96); MEAN PLT VOLUME 8.8 fl (7.5-11.1); PLATELET COUNT 145 K/MM3 (134-434); RBC 4.21 M/mm3 (3.60-5.2); RDW 21.3 % (11.6-15.6); WHITE BLOOD COUNT 19.8 K/mm3 (4.0-10.0)
[2018-10-04 11:40] LABS: ANION GAP 13 MMOL/L (8-16); BLOOD UREA NITROGEN 33 mg/dL (7-18); CALCIUM 8.4 mg/dL (8.5-10.1); CHLORIDE 102 mmol/L (98-107); CO2 23 mmol/L (21-32); CREATININE 0.6 mg/dL (0.55-1.3); GLUCOSE,RANDOM 118 mg/dL (74-106); POTASSIUM 4.2 mmol/L (3.5-5.1); SODIUM 139 mmol/L (136-145)
--- NOTE | 2018-10-04 11:42 | PN ---
Progress Note, Physician - Current Medication List Current Medications: Active Medications Albuterol/Ipratropium (Duoneb -) 1 amp NEB RQID [facility] Amlodipine Besylate (Norvasc -) 10 mg PO DAILY [facility] Last Admin: 10/04/18 10:40 Dose: Not Given Baclofen (Lioresal -) 10 mg PO TID [facility] Last Admin: 10/04/18 06:42 Dose: Not Given Dexamethasone Sodium Phosphate (Decadron Injection -) 4 mg IVPUSH Q6H-IV [facility] Last Admin: 10/04/18 10:39 Dose: 4 mg Docusate Sodium (Colace -) 100 mg PO TID [facility] Last Admin: 10/04/18 06:42 Dose: Not Given Sodium Chloride (Normal Saline -) 1,000 mls @ 42 mls/hr IV ASDIR [facility] Last Admin: 10/03/18 14:33 Dose: 42 mls/hr Metoprolol Tartrate (Lopressor -) 50 mg PO BID [facility] Last Admin: 10/04/18 10:38 Dose: Not Given Morphine Sulfate (Morphine Sulfate) 4 mg IVPUSH Q4H PRN PRN Reason: PAIN LEVEL 6-10 Pantoprazole Sodium (Protonix -) 40 mg PO DAILY [facility] Last Admin: 10/04/18 10:38 Dose: Not Given Polyethylene Glycol (Miralax (For Daily Use) -) 17 gm PO DAILY [facility] Last Admin: 10/04/18 10:38 Dose: Not Given Potassium Chloride (K-Dur -) 10 meq PO DAILY [facility] Last Admin: 10/04/18 10:38 Dose: Not Given Rivaroxaban (Xarelto) 15 mg PO BIDWM [facility] Last Admin: 10/04/18 10:37 Dose: Not Given - Objective Vital Signs: Vital Signs Temperature 98.4 F 10/04/18 04:35 Pulse Rate 114 H 10/04/18 04:35 Respiratory Rate 20 10/04/18 04:35 Blood Pressure 123/90 10/04/18 04:35 O2 Sat by Pulse Oximetry (%) 93 L 10/04/18 02:07 Cardiovascular: Yes: S1, S2 Respiratory: Yes: Diminished, Rhonchi Gastrointestinal: Yes: Normal Bowel Sounds, Soft Neurological: Yes: Alert, Unresponsive, Weakness, Other (unable to move right side and left leg) Labs: CBC, BMP 10/04/18 10:10 10/04/18 10:10 INR, PTT INR 1.58 (0.83-1.09) H 10/03/18 13:46 Problem List - Problems (1) Hemiplegia affecting dominant side Assessment/Plan: -Progressive--now with left leg paralysis--r/o CVA --progressive neuropathy neuropathy--maliganacy--mets -Icu care -neurology consult - Dr. Hamm -neurosurgery consult - Dr. Chris -MRI of thorax/lumbar spine/sacrum -dexamethasone 10mg loading dose given initially, will continue 4mg IV q6hrs for now -NPO -check fingersticks -MRI of head stat -neuro checks q4hrs -Emg Code(s): G81.90 - HEMIPLEGIA, UNSPECIFIED AFFECTING UNSPECIFIED SIDE (2) HTN (hypertension) Code(s): I10 - ESSENTIAL (PRIMARY) HYPERTENSION (3) Malignancy Assessment/Plan: -Oncology consult -Continue with steroids Code(s): C80.1 - MALIGNANT (PRIMARY) NEOPLASM, UNSPECIFIED (4) Troponin level elevated Assessment/Plan: monitor tele cardio Code(s): R74.8 - ABNORMAL LEVELS OF OTHER SERUM ENZYMES (5) Leukocytosis Assessment/Plan: -Maybe from steoids -r/o sepsis -id -abx -cxr Code(s): D72.829 - ELEVATED WHITE BLOOD CELL COUNT, UNSPECIFIED
[2018-10-04] MEDS ORDERED: PIPERACILLIN/TAZOB 3.375 GM 3.375 GM in DEXTROSE 5%-WATER - 50 ML IVPB SCH ×2 (11:45→18:00)
--- NOTE | 2018-10-04 11:47 | EKG ---
Test Reason : Blood Pressure : / mmHG Vent. Rate : 097 BPM Atrial Rate : 097 BPM P-R Int : 154 ms QRS Dur : 080 ms QT Int : 344 ms P-R-T Axes : 057 012 039 degrees QTc Int : 436 ms NORMAL SINUS RHYTHM POSSIBLE LEFT ATRIAL ENLARGEMENT BORDERLINE ECG WHEN COMPARED WITH ECG OF 08-SEP-2018 18:33, T WAVE INVERSION NO LONGER EVIDENT IN ANTERIOR LEADS Confirmed by MARY ANNE CALVERT, LAZARA ([id number]) on 10/04/2018 11:46:59 AM Referred By: Confirmed By:LAZARA NORTH MD
[2018-10-04] MEDS: PIPERACILLIN/TAZOB 3.375 GM 3.375 GM in DEXTROSE 5%-WATER - 50 ML IVPB SCH ×2 (12:00→17:17)
[2018-10-04] MEDS: ALBUTEROL SO4 2.5/IPRATROPIUM 0.5 INH SOL 3 ML VIAL.NEB. NEB SCH ×3 (12:15→20:50)
[2018-10-04 12:30] LABS: ALBUMIN 2.7 g/dl (3.4-5.0); ALK PHOS 162 U/L (45-117); BILIRUBIN,DIRECT 0.2 mg/dL (0.0-0.2); BILIRUBIN,TOTAL 0.6 mg/dL (0.2-1); SGOT/AST 27 U/L (15-37); SGPT/ALT 27 U/L (13-61); TOT PROT 6.4 g/dl (6.4-8.2)
--- NOTE | 2018-10-04 12:46 | CON.CARD ---
Consult Consult Specialty:: cardiology Referred by:: Mohini Reason for Consultation:: Elevated cardiac markers - History of Present Illness Chief Complaint: Acute paralysis History of Present Illness: The patient is a 68-year-old female, with a history of hypertension, metastatic cancer of unknown primary, DVT [place] relative, now admitted with acute upper and lower extremity paralysis. The patient is alert but nonverbal. She is in no apparent distress. - History Source History Provided By: Medical Record Limitations to Obtaining History: Other (non verbal) - Past Medical History RESIDENTIAL BUILDER: Yes: CVA Cardio/Vascular: Yes: Deep Vein Thrombosis, HTN Musculoskeletal: Yes: Other (left ankle fracture) Additional Medical History: MItral valve prolapse - Past Surgical History Past Surgical History: Yes: (30 years ago, fibroids removed, bartholin cyst in her 20s) - Alcohol/Substance Use Hx Alcohol Use: No - Smoking History Smoking history: Unknown if ever smoked Have you smoked in the past 12 months: No - Social History Usual Living Arrangement: With Child ADL: Independent Occupation: NURSE- worked several months ago History of Recent Travel: No Home Medications - Allergies Allergies/Adverse Reactions: Allergies Allergy/AdvReac Type Severity Reaction Status Date / Time lactose AdvReac Verified 09/16/18 20:49 - Home Medications Home Medications: Ambulatory Orders Amlodipine Besylate [Norvasc -] 10 mg PO DAILY tablet 09/25/18 Baclofen [Lioresal -] 10 mg PO TID tablet 09/25/18 Metoprolol Tartrate [Lopressor -] 50 mg PO BID tablet 09/25/18 Pantoprazole Sodium [Protonix -] 40 mg PO DAILY tablet.ec 09/25/18 Polyethylene Glycol 3350 [Miralax 119 gm Btl -] 17 gm PO DAILY bottle 09/25/18 Rivaroxaban [Xarelto] 15 mg PO BID tablet 09/25/18 oxyCODONE HCL [Roxicodone -] 5 mg PO Q6HPO #30 tablet MDD 4 09/25/18 Dexamethasone [Decadron -] 4 mg PO TID 10/03/18 Docusate Sodium [Colace -] 100 mg PO DAILY 10/03/18 Potassium Chloride [K-Dur -] 10 meq PO DAILY 10/03/18 Silver Sulfadiazine 1% Top Cr [Silvadene -] 1 applic TP PRN PRN 10/03/18 Family Disease History - Family Disease History Family Disease History: CA: Sister (breast ) Review of Systems - Review of Systems Constitutional: reports: Other (Acute paralysis) Eyes: reports: No Symptoms HENT: reports: No Symptoms Neck: reports: No Symptoms Cardiovascular: reports: No Symptoms Respiratory: reports: No Symptoms Gastrointestinal: reports: No Symptoms Genitourinary: reports: No Symptoms Breasts: reports: No Symptoms Reported Musculoskeletal: reports: Other (Paralysis) Integumentary: reports: No Symptoms Neurological: reports: Change in Speech, Other (Upper and lower extremity paralysis) Endocrine: reports: No Symptoms Hematology/Lymphatic: reports: No Symptoms Psychiatric: reports: No Symptoms Vital Signs: Vital Signs Temperature 98.5 F 10/04/18 10:00 Pulse Rate 122 H 10/04/18 10:00 Respiratory Rate 18 10/04/18 10:00 Blood Pressure 132/60 10/04/18 10:00 O2 Sat by Pulse Oximetry (%) 93 L 10/04/18 02:07 Constitutional: Yes: No Distress, Cachectic Eyes: Yes: WNL, Conjunctiva Clear HENT: Yes: WNL, Atraumatic, Normocephalic Neck: Yes: WNL, Supple, Trachea Midline Respiratory: Yes: WNL, Regular, CTA Bilaterally, Other (Poor inspiratory effort) Gastrointestinal: Yes: WNL, Normal Bowel Sounds, Soft Renal/: Yes: WNL Cardiovascular: Yes: WNL, Regular Rate and Rhythm, Tachycardia JVD: No Carotid Bruit: No PMI: Non-Displaced Heart Sounds: Yes: S1, S2 Murmur: Yes: Systolic Murmur, Grade 2 Musculoskeletal: Yes: Other (Upper and lower extremity paralysis) Extremities: Yes: Other (Paralysis) Edema: No Peripheral Pulses WNL: Yes Integumentary: Yes: WNL Neurological: Yes: Other (Upper and lower extremity paralysis) Psychiatric: Yes: Other (Nonverbal) - Other Data Labs, Other Data: CBC, BMP 10/04/18 10:10 10/04/18 10:10 INR, PTT INR 1.58 (0.83-1.09) H 10/03/18 13:46 Troponin, BNP 10/03/18 10/03/18 10/04/18 13:46 13:46 10:10 Troponin I 0.32 H Cancelled 0.65 H* Troponin, BNP 10/03/18 10/03/18 10/04/18 13:46 13:46 10:10 Troponin I 0.32 H Cancelled 0.65 H* Assessment/Plan The patient is a 68-year-old female, with a history of hypertension, metastatic cancer of unknown primary, DVT [place] relative, now admitted with acute upper and lower extremity paralysis. The patient is alert but nonverbal. She is in no apparent distress. Troponin is elevated. CPKs normal. The patient is in sinus rhythm. There are no acute ECG changes. Doubt acute coronary syndrome. Telemetry shows sinus tachycardia. No other clinically important findings on telemetry. There is no need for further cardiac workup in this setting. Continue neurological workup as needed. Continue Xarelto and current regimen. Please do not hesitate to call us when necessary.
[2018-10-04] MEDS ORDERED: PIPERACILLIN/TAZOBACTAM 3.375 GM VIAL IVPB ONE ×2 (13:16→17:11)
[2018-10-04] MEDS ORDERED: DEXTROSE 5%-WATER - 50 ML IVPB ONE ×2 (13:18→17:11)
[2018-10-04] MEDS: SODIUM CHLORIDE 1,000 ML IV SCH ×2 (14:29→17:25)
--- NOTE | 2018-10-04 16:03 | CONSULT ---
Consultation: REQUESTING PROVIDER: CONSULT REQUEST: New onset quadriplegia in patient with brain mets. 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 The patient initially presented from [facility] with R sided leg and arm weakness which has progressed within 1 day to now include the L sided leg and arm weakness. The patient was seen by Dr. Chris prior to this hospitalization for her pathologic lumbar fracture and she refused neurosurgery. Patient was previously seen by Dr. Gibbons and was noted to have mental capacity at that time. REVIEW OF SYSTEMS: CONSTITUTIONAL: Absent: fever, chills, diaphoresis, generalized weakness, malaise, loss of appetite, weight change HEENT: Absent: rhinorrhea, nasal congestion, throat pain, throat swelling, difficulty swallowing, mouth swelling, ear pain, eye pain, visual changes CARDIOVASCULAR: Absent: chest pain, syncope, palpitations, irregular heart rate, lightheadedness , peripheral edema RESPIRATORY: Absent: cough, shortness of breath, dyspnea with exertion, orthopnea, wheezing, stridor, hemoptysis GASTROINTESTINAL: Absent: abdominal pain, abdominal distension, nausea, vomiting, diarrhea, constipation, melena, hematochezia GENITOURINARY: Absent: dysuria, frequency, urgency, hesitancy, hematuria, flank pain, genital pain MUSCULOSKELETAL: Absent: myalgia, arthralgia, joint swelling, back pain, neck pain SKIN: Absent: rash, itching, pallor HEMATOLOGIC/IMMUNOLOGIC: Absent: easy bleeding, easy bruising, lymphadenopathy, frequent infections ENDOCRINE: Absent: unexplained weight gain, unexplained weight loss, heat intolerance, cold intolerance NEUROLOGIC: Absent: headache, focal weakness or paresthesias, dizziness, unsteady gait, seizure, mental status changes, bladder or bowel incontinence PSYCHIATRIC: Absent: anxiety, depression, suicidal or homicidal ideation, hallucinations. PHYSICAL EXAMINATION Vital Signs - 24 hr 10/03/18 10/03/18 10/03/18 15:35 16:01 16:20 Temperature Pulse Rate Pulse Rate [ 102 H 113 H Apical] Respiratory 17 Rate Blood Pressure Blood Pressure 120/90 129/81 [Left] O2 Sat by Pulse 100 99 99 Oximetry (%) 10/03/18 10/03/18 10/04/18 17:23 19:13 02:07 Temperature Pulse Rate Pulse Rate [ 91 H Apical] Respiratory 17 17 Rate Blood Pressure Blood Pressure 112/79 [Left] O2 Sat by Pulse 100 100 93 L Oximetry (%) 10/04/18 10/04/18 10/04/18 04:35 09:00 10:00 Temperature 98.4 F 98.5 F Pulse Rate 114 H 122 H Pulse Rate [ Apical] Respiratory 20 18 18 Rate Blood Pressure 123/90 132/60 Blood Pressure [Left] O2 Sat by Pulse 98 98 Oximetry (%) 10/04/18 14:35 Temperature 97.9 F Pulse Rate 127 H Pulse Rate [ Apical] Respiratory 20 Rate Blood Pressure 117/79 Blood Pressure [Left] O2 Sat by Pulse Oximetry (%) GENERAL: slightly alert to name, with HEAD: Normal with no signs of trauma. EYES: Pupils equal, round and reactive to light, EARS, NOSE, THROAT: dry mucous membranes, with cracked lips NECK: Normal range of motion LUNGS: + coarse breath sounds bilaterally L > R. No wheezes, and no crackles. No accessory muscle use. HEART: tachycardic rate and regular rhythm, normal S1 and S2 without murmur, rub or gallop. ABDOMEN: Soft, nontender, not distended, normoactive bowel sounds, no guarding, no rebound, no masses. MUSCULOSKELETAL: flaccid extremities, will withdraw R toe to nailbed pressure UPPER EXTREMITIES: 2+ pulses, warm, well-perfused. No cyanosis. No clubbing. Cap refill <2 seconds. No peripheral edema. LOWER EXTREMITIES: 2+ pulses, warm, well-perfused. No calf tenderness. No peripheral edema. NEUROLOGICAL: PERRLA, can follow some commands, mildly alerts to name, will withdraw R toe to nailbed pressure, blink reflex to confrontation/threat SKIN: Warm, dry, normal turgor, no rashes or lesions noted. Laboratory Results - last 24 hr 10/03/18 10/03/18 10/03/18 13:46 13:46 13:46 WBC RBC Hgb Hct MCV MCH MCHC RDW Plt Count MPV Neutrophils % (Manual) 84.0 H Band Neutrophils % 6.0 Lymphocytes % (Manual) 6.0 L D Monocytes % (Manual) 4 D Hypochromia 3+ Platelet Estimate Adequate Platelet Comment No clumping noted Anisocytosis 1+ Microcytosis 1+ PT with INR INR PTT (Actin FS) Sodium 135 L Potassium 4.2 Chloride 101 Carbon Dioxide 24 Anion Gap 10 BUN 26 H Creatinine 0.6 Creat Clearance w eGFR > 60 Random Glucose 98 Calcium 8.7 Total Bilirubin 0.5 Direct Bilirubin AST 23 ALT 24 Alkaline Phosphatase 161 H Creatine Kinase 56 Troponin I 0.32 H Total Protein 6.2 L Albumin 2.6 L Triglycerides 149 Cholesterol 329 H Total LDL Cholesterol 241 H HDL Cholesterol 62 H Urine Color Urine Appearance Urine pH Ur Specific [place] Urine Protein Urine Glucose (UA) Urine Ketones Urine Blood Urine Nitrite Urine Bilirubin Urine Urobilinogen Ur Leukocyte Esterase Urine WBC (Auto) Urine RBC (Auto) Ur Epithelial Cells Urine Bacteria Hyaline Casts Urine Mucus Urine Yeast Blood Type O POSITIVE Antibody Screen Negative 10/03/18 10/03/18 10/03/18 13:46 15:00 20:41 WBC RBC Hgb Hct MCV MCH MCHC RDW Plt Count MPV Neutrophils % (Manual) Band Neutrophils % Lymphocytes % (Manual) Monocytes % (Manual) Hypochromia Platelet Estimate Platelet Comment Anisocytosis Microcytosis PT with INR 18.70 H INR 1.58 H PTT (Actin FS) 24.2 L Sodium Potassium Chloride Carbon Dioxide Anion Gap BUN Creatinine Creat Clearance w eGFR Random Glucose Calcium Total Bilirubin Direct Bilirubin AST ALT Alkaline Phosphatase Creatine Kinase Troponin I Total Protein Albumin Triglycerides Cholesterol Total LDL Cholesterol HDL Cholesterol Urine Color Yellow Urine Appearance Slcloudy Urine pH 5.0 Ur Specific [place] 1.018 Urine Protein Negative Urine Glucose (UA) Negative Urine Ketones Negative Urine Blood 1+ H Urine Nitrite Negative Urine Bilirubin Negative Urine Urobilinogen Negative Ur Leukocyte Esterase Negative Urine WBC (Auto) 3 Urine RBC (Auto) 1 Ur Epithelial Cells Rare Urine Bacteria Many Hyaline Casts 2 Urine Mucus Few Urine Yeast Few Blood Type O POSITIVE Antibody Screen 10/04/18 10/04/18 10:10 10:10 WBC 19.8 H RBC 4.21 Hgb 8.8 L Hct 27.2 L MCV 64.6 L MCH 20.9 L MCHC 32.3 RDW 21.3 H Plt Count 145 MPV 8.8 Neutrophils % (Manual) Band Neutrophils % Lymphocytes % (Manual) Monocytes % (Manual) Hypochromia Platelet Estimate Platelet Comment Anisocytosis Microcytosis PT with INR INR PTT (Actin FS) Sodium 139 Potassium 4.2 Chloride 102 Carbon Dioxide 23 Anion Gap 13 BUN 33 H Creatinine 0.6 Creat Clearance w eGFR > 60 Random Glucose 118 H Calcium 8.4 L Total Bilirubin 0.6 Direct Bilirubin 0.2 AST 27 ALT 27 Alkaline Phosphatase 162 H Creatine Kinase 80 Troponin I 0.65 H* Total Protein 6.4 Albumin 2.7 L Triglycerides Cholesterol Total LDL Cholesterol HDL Cholesterol Urine Color Urine Appearance Urine pH Ur Specific [place] Urine Protein Urine Glucose (UA) Urine Ketones Urine Blood Urine Nitrite Urine Bilirubin Urine Urobilinogen Ur Leukocyte Esterase Urine WBC (Auto) Urine RBC (Auto) Ur Epithelial Cells Urine Bacteria Hyaline Casts Urine Mucus Urine Yeast Blood Type Antibody Screen Active Medications Generic Name Dose Route Start Last Admin Trade Name Freq PRN Reason Stop Dose Admin Albuterol/Ipratropium 1 amp 10/04/18 12:00 10/04/18 12:15 Duoneb - NEB 1 amp RQID SAMI Administration Amlodipine Besylate 10 mg 10/04/18 10:00 10/04/18 10:40 Norvasc - PO Not Given DAILY [facility] Atorvastatin Calcium 40 mg 10/04/18 22:00 Lipitor - PO [facility] Baclofen 10 mg 10/04/18 06:00 10/04/18 14:06 Lioresal - PO Not Given TID [facility] Chlorhexidine Gluconate 1 applic 10/04/18 22:00 Hibiclens For Decolonization - TP HS [facility] Dexamethasone Sodium Phosphate 4 mg 10/04/18 09:00 10/04/18 14:39 Decadron Injection - IVPUSH 4 mg Q6H-IV [facility] Administration Docusate Sodium 100 mg 10/04/18 06:00 10/04/18 14:06 Colace - PO Not Given TID [facility] Sodium Chloride 1,000 mls @ 42 mls/hr 10/03/18 14:00 10/04/18 14:29 Normal Saline - IV 42 mls/hr ASDIR SAMI Administration Piperacillin Sod/Tazobactam 50 mls @ 100 mls/hr 10/04/18 11:45 Sod 3.375 gm/ Dextrose IVPB Q8H-IV SAMI Protocol Piperacillin Sod/Tazobactam 50 mls @ 100 mls/hr 10/04/18 11:45 10/04/18 12:00 Sod 3.375 gm/ Dextrose IVPB 10/05/18 02:29 100 mls/hr Q8H-IV SAMI Administration Protocol Metoprolol Tartrate 50 mg 10/04/18 10:00 10/04/18 10:38 Lopressor - PO Not Given BID [facility]I Morphine Sulfate 4 mg 10/04/18 03:12 Morphine Sulfate IVPUSH Q4H PRN PAIN LEVEL 6-10 Mupirocin 1 applic 10/04/18 22:00 Bactroban Ointment (For Decolonization) - NS 10/09/18 21:59 BID SAMI Pantoprazole Sodium 40 mg 10/04/18 10:00 10/04/18 10:38 Protonix - PO Not Given DAILY [facility] Polyethylene Glycol 17 gm 10/04/18 10:00 10/04/18 10:38 Miralax (For Daily Use) - PO Not Given DAILY [facility] Potassium Chloride 10 meq 10/04/18 10:00 10/04/18 10:38 K-Dur - PO Not Given DAILY [facility] Rivaroxaban 15 mg 10/04/18 08:00 10/04/18 10:37 Xarelto PO Not Given BIDWM ASMI ASSESSMENT/PLAN: 68 year old woman with history of HTN, 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 The patient initially presented from [facility] with R sided leg and arm weakness which has progressed within 1 day to now include the L sided leg and arm weakness. Patient had negative head CT and was given high dose steroids now cont at 4mg Q6H. Neuro Hx of brain mets, infarct of frontal and parietal lobe, new onset quadriplegia - Neurology following case (Dr. Oro) - Neurosurgery following case (Dr. Chris) - Dexamethasone 10 mg loading dose, cont at 4mg IV Q6H - Head CT (10/03) - without bleed, unremarkable - Cervical CT (10/03) - unremarkable, w/o fx - Brain MRI (10/04) - Large acute infarct in frontal and parietal lobe, acute/ subacute lacunar infarct in bilateral supra and infratentoria, R basal ganglia, R thalamus and L thalamus. No mass lesions or intracranial hemorrhage. - pending MRI of thorax, lumbar spine, sacrum - pending EMG - pending carotid US - permissive HTN threshold of 220/110 - HOB > 30 degrees - consider Keppra for seizure ppx - Neuro checks Q2H ID Leukocytosis Consider sepsis vs steroid induced leukocytosis - ID following - Per primary team: Zosyn - pending blood culture, urine culture Cardiac HTN, HLD, troponinemia - Cardiology following - ECHO (10/04): mild concentric LVH, EF 50-55%, mild TR, mild AR - tele monitoring - contoniue home: amlodipine, metoprolol, lipitor - trend troponins, likely demand Ortho L2 Compression Fracture - Lumbar spine MRI 09/10/18 with L2 acute pathological compression and total bone marrow replacement of vertebral body. Pulm - CXR (10/04): nodular opacities in both lungs - supplemental O2 as needed - considering neuro status, may require intubation GI possible liver mets - Lumbar Spine MRI (09/10/18) showed hyperintense images in the R lobe of the liver [id number] concerning for mets. Vascular Bilateral DVT - Xarelto course 09/22 - 10/14 Analgesia - pain control with Morphine prn F/E/N - NPO - check fingersticks Lines, Tubes: gilmore, PIV DVT ppx: xarelto GI ppx: protonix Code status: full Dispo: We will continue to follow the patient. Thank you for this consultative opportunity. Visit type - Emergency Visit Emergency Visit: Yes ED Registration Date: 10/03/18 Care time: The patient presented to the Emergency Department on the above date and was hospitalized for further evaluation of their emergent condition. - New Patient This patient is new to me today: Yes Date on this admission: 10/04/18 - Critical Care Critical Care patient: Yes Total Critical Care Time (in minutes): 35 Critical Care Statement: The care of this patient involved high complexity decision making to prevent further life threatening deterioration of the patient 's condition and/or to evaluate & treat vital organ system(s) failure or risk of failure.
[2018-10-04] MEDS ORDERED: ASPIRIN 325 MG ENTERIC COATED TABLET (FP) PO ONE (16:09)
[2018-10-04] MEDS ORDERED: ATORVASTATIN CA 80 MG TABLET (FP) PO ONE (16:10)
[2018-10-04] MEDS ORDERED: SODIUM CHLORIDE 1,000 ML IV SCH ×3 (16:58→17:15)
[2018-10-04 17:12] LABS: BASO % 0.9 % (0-2.0); HEMATOCRIT 26.6 % (32.4-45.2); HEMOGLOBIN 8.7 GM/dL (10.7-15.3); LYMPH % 1.2 % (8-40); MCH 20.9 pg (25.7-33.7); MCHC 32.8 g/dl (32.0-36.0); MEAN CELL VOLUME 63.8 fl (80-96); MEAN PLT VOLUME 8.4 fl (7.5-11.1); MONO % 3.5 % (3.8-10.2); NEUT % 94.4 % (42.8-82.8); PLATELET COUNT 103 K/MM3 (134-434); RBC 4.17 M/mm3 (3.60-5.2); RDW 21.3 % (11.6-15.6); WHITE BLOOD COUNT 21.1 K/mm3 (4.0-10.0)
--- NOTE | 2018-10-04 17:38 | CONSULT ---
Consultation: REQUESTING PROVIDER: Dr. Darnell CONSULT REQUEST: We have been asked to medically evaluate this patient for GI Adenocarcinoma with metastasis HISTORY OF PRESENT ILLNESS: Patient is a 68 year old female with a PMHx of Mitral valve prolapse, HTN, Adenocarcinoma from GI origin, Bilateral DVT (On Xarelto) who was recently admitted 08/2018 for back pain and was found to have pathological fractre of L2 with osteolytic lesions and was diagnosed with Adenocarcinoma from GI origin with bone/liver mets and severe cauda equina compression. Patient refused treatment and recommendations and wanted a second opinion from [facility]. Patient was eventually discharged to rehab center and is now bed bound in a brace. Patient on this admission was BIBEMS from [facility] due to progressive right and left sided leg and arm weakness with slurred speech. Brain MRI done and revealed Large acute infarct in the left high convexity involving the frontal and parietal lobe. Multiple bilateral supra and infratentorial lacunar infarcts. Acute/subacute infarcts in right basal ganglia and right and left thalamus. 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 Lives alone and independent Denies smoking Denies alcohol use Denies drug use Allergies: NKDA REVIEW OF SYSTEMS: CONSTITUTIONAL: Absent: fever, chills, diaphoresis, generalized weakness, malaise, loss of appetite, weight change HEENT: Absent: rhinorrhea, nasal congestion, throat pain, throat swelling, difficulty swallowing, mouth swelling, ear pain, eye pain, visual changes CARDIOVASCULAR: Absent: chest pain, syncope, palpitations, irregular heart rate, lightheadedness , peripheral edema RESPIRATORY: Absent: cough, shortness of breath, dyspnea with exertion, orthopnea, wheezing, stridor, hemoptysis GASTROINTESTINAL: Absent: abdominal pain, abdominal distension, nausea, vomiting, diarrhea, constipation, melena, hematochezia GENITOURINARY: Absent: dysuria, frequency, urgency, hesitancy, hematuria, flank pain, genital pain MUSCULOSKELETAL: Absent: myalgia, arthralgia, joint swelling, back pain, neck pain SKIN: Absent: rash, itching, pallor HEMATOLOGIC/IMMUNOLOGIC: Absent: easy bleeding, easy bruising, lymphadenopathy, frequent infections ENDOCRINE: Absent: unexplained weight gain, unexplained weight loss, heat intolerance, cold intolerance NEUROLOGIC: focal weakness or paresthesia Absent: headaches, dizziness, unsteady gait, seizure, mental status changes, bladder or bowel incontinence PSYCHIATRIC: Absent: anxiety, depression, suicidal or homicidal ideation, hallucinations. PHYSICAL EXAMINATION Vital Signs Temperature 98.2 F 10/04/18 16:25 Pulse Rate 128 H 10/04/18 16:25 Respiratory Rate 24 H 10/04/18 17:34 Blood Pressure 129/97 10/04/18 16:25 O2 Sat by Pulse Oximetry (%) 98 10/04/18 17:34 GENERAL: Awake ,drowsy, oriented person and place. HEAD: Normal with no signs of trauma. EYES: Pupils equal, round and reactive to light, sclera anicteric, conjunctiva clear. ENT: Dry mucous membranes. NECK: Normal range of motion, supple without lymphadenopathy, JVD, or masses. LUNGS: Coarse breath sounds bilaterally L > R. No wheezes, and no crackles. No accessory muscle use. HEART: Tachycardic with regular rhythm, normal S1 and S2 (+) 3/6 Systolic murmur ABDOMEN: Soft, nontender, not distended, normoactive bowel sounds, no guarding, no rebound, no masses. No hepatomegaly or splenomegaly. EXTREMITIES: 2+ pulses, warm, well-perfused. No calf tenderness. No peripheral edema. NEUROLOGICAL: 1/5 motor strength on the right, Left hand business account leader, unable to lift, Left lower limb able to wiggle toes on command but unable to lift. Unable to speak but coughs when asked to speak PSYCHIATRIC: Poor eye contact SKIN: Warm, dry, normal turgor, no rashes or lesions noted. Laboratory Results 10/04/18 16:30 10/04/18 16:30 10/03/18 10/04/18 13:46 16:30 INR 1.58 H PTT (Actin FS) 24.2 L Alkaline Phosphatase 151 H Total Protein 6.1 L Albumin 2.5 L Active Medications Generic Name Dose Route Start Last Admin Trade Name Freq PRN Reason Stop Dose Admin Albuterol/Ipratropium 1 amp 10/04/18 20:00 Duoneb - NEB RQID SAMI Amlodipine Besylate 10 mg 10/05/18 10:00 Norvasc - PO DAILY [facility] Aspirin 81 mg 10/05/18 10:00 Ecotrin - PO DAILY [facility] Atorvastatin Calcium 40 mg 10/04/18 22:00 Lipitor - PO HS [facility] Baclofen 10 mg 10/04/18 22:00 Lioresal - PO TID [facility] Dexamethasone Sodium Phosphate 4 mg 10/04/18 21:00 Decadron Injection - IVPUSH Q6H-IV [facility]I Docusate Sodium 100 mg 10/04/18 22:00 Colace - PO TID [facility] Piperacillin Sod/Tazobactam 50 mls @ 100 mls/hr 10/04/18 11:45 10/04/18 12:00 Sod 3.375 gm/ Dextrose IVPB 10/05/18 02:29 100 mls/hr Q8H-IV SAMI Administration Protocol Sodium Chloride 1,000 mls @ 42 mls/hr 10/04/18 16:58 Normal Saline - IV ASDIR SAMI Piperacillin Sod/Tazobactam 50 mls @ 100 mls/hr 10/04/18 18:00 Sod 3.375 gm/ Dextrose IVPB Q8H-IV SAMI Protocol Metoprolol Tartrate 50 mg 10/04/18 22:00 Lopressor - PO BID [facility]I Morphine Sulfate 4 mg 10/04/18 16:58 Morphine Sulfate IVPUSH Q4H PRN PAIN LEVEL 6-10 Pantoprazole Sodium 40 mg 10/05/18 10:00 Protonix - PO DAILY [facility] Polyethylene Glycol 17 gm 10/05/18 10:00 Miralax (For Daily Use) - PO DAILY [facility] Potassium Chloride 10 meq 10/05/18 10:00 K-Dur - PO DAILY [facility] Rivaroxaban 15 mg 10/04/18 17:30 Xarelto PO BIDWM [facility] ASSESSMENT/PLAN: Patient is a 68 year old female who presented for progressive bilateral upper and lower extremity weakness and Brain MRI revealed multiple infarcts. We were consulted for further monitoring and management. Problem List: Upper and Lower extremity weakness Bilateral acute / subacute infarcts Adenocarcinoma from GI origin with mets to bone/liver Bilateral DVT (On Xarelto) Pathological fracture L2 with severe cauda equina compression Quadriplegia Leukocytosis Mitral valve prolapse HTN PLAN: -CVA due to hypercoaguable state from malignancy. Discussed with neurology and will continue AC with Lovenox. -Recommend MRI of brain with contrast and cervical MRI with contrast to confirm if mets vs infarct. If mets, would recommend neurosurgery consult and radiation oncologist. Dispo: We will continue to follow the patient. Thank you for this consultative opportunity. Visit type - Emergency Visit Emergency Visit: Yes ED Registration Date: 10/04/18 Care time: The patient presented to the Emergency Department on the above date and was hospitalized for further evaluation of their emergent condition. - New Patient This patient is new to me today: Yes Date on this admission: 10/04/18 - Critical Care Critical Care patient: Yes Total Critical Care Time (in minutes): 45 Critical Care Statement: The care of this patient involved high complexity decision making to prevent further life threatening deterioration of the patient 's condition and/or to evaluate & treat vital organ system(s) failure or risk of failure.
--- NOTE | 2018-10-04 17:45 | PN ---
Teaching Attending Note Name of Resident: Myah Cordero ATTENDING PHYSICIAN STATEMENT I saw and evaluated the patient. I reviewed the resident's note and discussed the case with the resident. I agree with the resident's findings and plan as documented. SUBJECTIVE: Patient seen and examined in the ICU. 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 Re-admitted with Right sided leg and arm weakness. Clinical decompensation over the last few hours. Poorly responsive and decreased bilateral motor function. MRI: Bialteral acute/subacute infarcts / no bleed / no mass lesions PHYSICAL EXAMINATION Vital Signs - 24 hr 10/03/18 10/03/18 10/03/18 15:35 16:01 16:20 Temperature Pulse Rate Pulse Rate [ 102 H 113 H Apical] Respiratory 17 Rate Blood Pressure Blood Pressure 120/90 129/81 [Left] O2 Sat by Pulse 100 99 99 Oximetry (%) 10/03/18 10/03/18 10/04/18 17:23 19:13 02:07 Temperature Pulse Rate Pulse Rate [ 91 H Apical] Respiratory 17 17 Rate Blood Pressure Blood Pressure 112/79 [Left] O2 Sat by Pulse 100 100 93 L Oximetry (%) 10/04/18 10/04/18 10/04/18 04:35 09:00 10:00 Temperature 98.4 F 98.5 F Pulse Rate 114 H 122 H Pulse Rate [ Apical] Respiratory 20 18 18 Rate Blood Pressure 123/90 132/60 Blood Pressure [Left] O2 Sat by Pulse 98 98 Oximetry (%) 10/04/18 14:35 Temperature 97.9 F Pulse Rate 127 H Pulse Rate [ Apical] Respiratory 20 Rate Blood Pressure 117/79 Blood Pressure [Left] O2 Sat by Pulse Oximetry (%) GENERAL: lethargic and not able to answer questions. Moves her head and UE intermittently HEAD: Normal with no signs of trauma. EYES: Pupils equal but sluggish EARS, NOSE, THROAT: dry mucous membranes, with cracked lips NECK: Normal range of motion LUNGS: coarse breath sounds HEART: tachycardic rate and regular rhythm, normal S1 and S2 without murmur, rub or gallop. ABDOMEN: Soft, nontender, not distended, normoactive bowel sounds, no guarding, no rebound, no masses. MUSCULOSKELETAL: flaccid extremities, will withdraw R toe to nailbed pressure UPPER EXTREMITIES: 2+ pulses, warm, well-perfused. No cyanosis. No clubbing. Cap refill <2 seconds. No peripheral edema. LOWER EXTREMITIES: 2+ pulses, warm, well-perfused. No calf tenderness. No peripheral edema. NEUROLOGICAL: lethargic, LE plegia SKIN: Warm, dry, normal turgor, no rashes or lesions noted. Laboratory Results - last 24 hr 10/03/18 10/03/18 10/03/18 13:46 13:46 13:46 WBC RBC Hgb Hct MCV MCH MCHC RDW Plt Count MPV Neutrophils % (Manual) 84.0 H Band Neutrophils % 6.0 Lymphocytes % (Manual) 6.0 L D Monocytes % (Manual) 4 D Hypochromia 3+ Platelet Estimate Adequate Platelet Comment No clumping noted Anisocytosis 1+ Microcytosis 1+ PT with INR INR PTT (Actin FS) Sodium 135 L Potassium 4.2 Chloride 101 Carbon Dioxide 24 Anion Gap 10 BUN 26 H Creatinine 0.6 Creat Clearance w eGFR > 60 Random Glucose 98 Calcium 8.7 Total Bilirubin 0.5 Direct Bilirubin AST 23 ALT 24 Alkaline Phosphatase 161 H Creatine Kinase 56 Troponin I 0.32 H Total Protein 6.2 L Albumin 2.6 L Triglycerides 149 Cholesterol 329 H Total LDL Cholesterol 241 H HDL Cholesterol 62 H Urine Color Urine Appearance Urine pH Ur Specific [place] Urine Protein Urine Glucose (UA) Urine Ketones Urine Blood Urine Nitrite Urine Bilirubin Urine Urobilinogen Ur Leukocyte Esterase Urine WBC (Auto) Urine RBC (Auto) Ur Epithelial Cells Urine Bacteria Hyaline Casts Urine Mucus Urine Yeast Blood Type O POSITIVE Antibody Screen Negative 10/03/18 10/03/18 10/03/18 13:46 15:00 20:41 WBC RBC Hgb Hct MCV MCH MCHC RDW Plt Count MPV Neutrophils % (Manual) Band Neutrophils % Lymphocytes % (Manual) Monocytes % (Manual) Hypochromia Platelet Estimate Platelet Comment Anisocytosis Microcytosis PT with INR 18.70 H INR 1.58 H PTT (Actin FS) 24.2 L Sodium Potassium Chloride Carbon Dioxide Anion Gap BUN Creatinine Creat Clearance w eGFR Random Glucose Calcium Total Bilirubin Direct Bilirubin AST ALT Alkaline Phosphatase Creatine Kinase Troponin I Total Protein Albumin Triglycerides Cholesterol Total LDL Cholesterol HDL Cholesterol Urine Color Yellow Urine Appearance Slcloudy Urine pH 5.0 Ur Specific [place] 1.018 Urine Protein Negative Urine Glucose (UA) Negative Urine Ketones Negative Urine Blood 1+ H Urine Nitrite Negative Urine Bilirubin Negative Urine Urobilinogen Negative Ur Leukocyte Esterase Negative Urine WBC (Auto) 3 Urine RBC (Auto) 1 Ur Epithelial Cells Rare Urine Bacteria Many Hyaline Casts 2 Urine Mucus Few Urine Yeast Few Blood Type O POSITIVE Antibody Screen 10/04/18 10/04/18 10:10 10:10 WBC 19.8 H RBC 4.21 Hgb 8.8 L Hct 27.2 L MCV 64.6 L MCH 20.9 L MCHC 32.3 RDW 21.3 H Plt Count 145 MPV 8.8 Neutrophils % (Manual) Band Neutrophils % Lymphocytes % (Manual) Monocytes % (Manual) Hypochromia Platelet Estimate Platelet Comment Anisocytosis Microcytosis PT with INR INR PTT (Actin FS) Sodium 139 Potassium 4.2 Chloride 102 Carbon Dioxide 23 Anion Gap 13 BUN 33 H Creatinine 0.6 Creat Clearance w eGFR > 60 Random Glucose 118 H Calcium 8.4 L Total Bilirubin 0.6 Direct Bilirubin 0.2 AST 27 ALT 27 Alkaline Phosphatase 162 H Creatine Kinase 80 Troponin I 0.65 H* Total Protein 6.4 Albumin 2.7 L Triglycerides Cholesterol Total LDL Cholesterol HDL Cholesterol Urine Color Urine Appearance Urine pH Ur Specific [place] Urine Protein Urine Glucose (UA) Urine Ketones Urine Blood Urine Nitrite Urine Bilirubin Urine Urobilinogen Ur Leukocyte Esterase Urine WBC (Auto) Urine RBC (Auto) Ur Epithelial Cells Urine Bacteria Hyaline Casts Urine Mucus Urine Yeast Blood Type Antibody Screen Active Medications Generic Name Dose Route Start Last Admin Trade Name Freq PRN Reason Stop Dose Admin Albuterol/Ipratropium 1 amp 10/04/18 12:00 10/04/18 12:15 Duoneb - NEB 1 amp RQID SAMI Administration Amlodipine Besylate 10 mg 10/04/18 10:00 10/04/18 10:40 Norvasc - PO Not Given DAILY SAMI Atorvastatin Calcium 40 mg 10/04/18 22:00 Lipitor - PO HS [facility] Baclofen 10 mg 10/04/18 06:00 10/04/18 14:06 Lioresal - PO Not Given TID [facility]I Chlorhexidine Gluconate 1 applic 10/04/18 22:00 Hibiclens For Decolonization - TP HS [facility] Dexamethasone Sodium Phosphate 4 mg 10/04/18 09:00 10/04/18 14:39 Decadron Injection - IVPUSH 4 mg Q6H-IV SAMI Administration Docusate Sodium 100 mg 10/04/18 06:00 10/04/18 14:06 Colace - PO Not Given TID SAMI Sodium Chloride 1,000 mls @ 42 mls/hr 10/03/18 14:00 10/04/18 14:29 Normal Saline - IV 42 mls/hr ASDIR SAMI Administration Piperacillin Sod/Tazobactam 50 mls @ 100 mls/hr 10/04/18 11:45 Sod 3.375 gm/ Dextrose IVPB Q8H-IV SMAI Protocol Piperacillin Sod/Tazobactam 50 mls @ 100 mls/hr 10/04/18 11:45 10/04/18 12:00 Sod 3.375 gm/ Dextrose IVPB 10/05/18 02:29 100 mls/hr Q8H-IV SAMI Administration Protocol Metoprolol Tartrate 50 mg 10/04/18 10:00 10/04/18 10:38 Lopressor - PO Not Given BID [facility] Morphine Sulfate 4 mg 10/04/18 03:12 Morphine Sulfate IVPUSH Q4H PRN PAIN LEVEL 6-10 Mupirocin 1 applic 10/04/18 22:00 Bactroban Ointment (For Decolonization) - NS 10/09/18 21:59 BID [facility] Pantoprazole Sodium 40 mg 10/04/18 10:00 10/04/18 10:38 Protonix - PO Not Given DAILY [facility] Polyethylene Glycol 17 gm 10/04/18 10:00 10/04/18 10:38 Miralax (For Daily Use) - PO Not Given DAILY [facility] Potassium Chloride 10 meq 10/04/18 10:00 10/04/18 10:38 K-Dur - PO Not Given DAILY [facility] Rivaroxaban 15 mg 10/04/18 08:00 10/04/18 10:37 Xarelto PO Not Given BIDWM [facility] ASSESSMENT/PLAN: Bilateral acute / subacute infarcts HTN 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 w/ pathological compression of L2 vertebral body now bed bound in a brace (09/10/18) Bilateral LE DVT (09/12/18) on xarelto Quadriplegia Leukocytosis HPL Elevated troponin Permissive HTN: (220/120) first 24 hours Was not a candidate for tPA Hold AC Aspiration precautions O2 as needed Neuro evaluation Neuro checks Noted empiric ABX Need to discuss with family GOC: ideally given her overall condition should be DNR/DNI Dr Pierre Critical Care patient: Yes Total Critical Care Time (in minutes): 35 Critical Care Statement: The care of this patient involved high complexity decision making to prevent further life threatening deterioration of the patient 's condition and/or to evaluate & treat vital organ system(s) failure or risk of failure.
--- NOTE | 2018-10-04 18:04 | PN ---
Progress Note (short form) - Note Progress Note: 68 year old female history of HTN, Metastatic cancer ( unknown origin), she has vertebral mets and pathological compression fracture of L 2. Patient was seen by Dr Anderson and refused surgery. Patient had supraclavicular lymph node biopsy and primary was suspected to be GI adenocarcinoma. Patient was at home and woke up on October 03 feeling right arm and leg weaknes She got worse overnight and became aphasic and left leg weakness and left upper extremity weakness . She did have mri of gerardo and showed left forntal lobe and temporal lobe stroke and multiple stroke in both supra and infra tentorial area. NEUROLOGICAL EXAMINATION Drowsy and opens eye and not following command and not able to understand eomi, pupils reactive, she is quite nervous but able to give history and engage in conversation. she denies any neck pain, no neck tenderness EOMI, PUPILS reactive, no face asymmetry right upper and lower extremity is complete paralysis Left lower extremity is wiggling her toes ( grade 1) and left upper extremity she is able to napper tender ct head unrearmakable mri of brain showed left fronto temporal infarct nad multiple acute infarct in supra and infratentorial infarct in both hemisphere Assessment :68 year old female historyoy of HTN, Metatstic cancer ( primary unknown) , dvt on xarelto, came with right sided arm and leg weakness and she become owrse and developed aphasia and left sided weakness and mri of brain showed there is bi hemispheric ischemic lesion vs mets Plan: suggest to continue steroid ( dexamethasone 4 mg iv q 8 hour ) - continue anticoagulation as she has dvt and suspect for bi hemipsheric stroke , suggest to do stroke work up including echo and she may need YESSENIA once stable , there is high risk of bleed on anticoagulation given she has bihemispheric stroke - she may need intubation tonight - once she is stable, she would need mri of brain with contrast and cervical mri iwth contrast , once mets confirmed, she would need radiation oncologist and neurosurgeyr consult - please feel free to call me if any question Thanking you so much Aneesh Oro MD
--- NOTE | 2018-10-04 18:19 | PN ---
Teaching Attending Note Name of Resident: Aviva Tariq ATTENDING PHYSICIAN STATEMENT I saw and evaluated the patient. I reviewed the resident's note and discussed the case with the resident. I agree with the resident's findings and plan as documented. ASSESSMENT AND PLAN: Patient is a 68 year old female who presented for progressive bilateral upper and lower extremity weakness and Brain MRI revealed multiple infarcts. 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 -Discussed with neurology and will continue AC with Lovenox. -Recommend palliative care discussions Discussed with patients daughter her overallpoor prognosis and recommended hospice care. Family to decide on goals of care
[2018-10-04 18:29] LABS: ALBUMIN 2.5 g/dl (3.4-5.0); ALK PHOS 151 U/L (45-117); ANION GAP 12 MMOL/L (8-16); BILIRUBIN,TOTAL 0.8 mg/dL (0.2-1); BLOOD UREA NITROGEN 33 mg/dL (7-18); CALCIUM 8.3 mg/dL (8.5-10.1); CHLORIDE 103 mmol/L (98-107); CO2 23 mmol/L (21-32); CREATININE 0.6 mg/dL (0.55-1.3); GLUCOSE,RANDOM 147 mg/dL (74-106); MAGNESIUM 2.9 mg/dL (1.8-2.4); PHOSPHOROUS 3.5 mg/dL (2.5-4.9); POTASSIUM 4.2 mmol/L (3.5-5.1); SGOT/AST 36 U/L (15-37); SGPT/ALT 29 U/L (13-61); SODIUM 138 mmol/L (136-145); TOT PROT 6.1 g/dl (6.4-8.2)
[2018-10-04 19:22] LABS: PLATELET ESTIMATE DECREASED
[2018-10-04] MEDS ORDERED: MUPIROCIN 2% TOPICAL OINTMENT FOR DECOLONIZATION NS SCH ×2 (22:00)
[2018-10-04] MEDS ORDERED: CHLORHEXIDINE GLUCONATE 4% CLEANSER FOR DECOLONIZATION TP SCH ×2 (22:00)
[2018-10-04] MEDS ORDERED: ATORVASTATIN CA 40 MG TABLET (FP) PO SCH ×2 (22:00)
[2018-10-04] MEDS: ENOXAPARIN NA (PORCINE) 80 MG/0.8 ML DISP.SYRIN SQ SCH (22:05)
[2018-10-04] MEDS ORDERED: PT OWN MED DRAWER 7, Y5N ONE (22:07)
[2018-10-05] MEDS: morphine SULFATE 4 MG/ML VIAL IVPUSH PRN ×2 (00:08→22:08)
[2018-10-05] MEDS: BACLOFEN 10 MG TABLET (FP) PO SCH ×3 (00:09→14:38)
[2018-10-05] MEDS ORDERED: PIPERACILLIN/TAZOBACTAM 3.375 GM VIAL IVPB ONE ×3 (01:18→17:12)
[2018-10-05] MEDS ORDERED: DEXTROSE 5%-WATER - 50 ML IVPB ONE ×3 (01:19→17:12)
[2018-10-05] MEDS: PIPERACILLIN/TAZOB 3.375 GM 3.375 GM in DEXTROSE 5%-WATER - 50 ML IVPB SCH ×3 (01:29→17:15)
[2018-10-05] MEDS: DEXAMETHASONE SOD PHOSPHATE 4 MG/1 ML VIAL IVPUSH SCH ×4 (02:10→22:07)
[2018-10-05 06:00] LABS: HEMATOCRIT 24.8 % (32.4-45.2); HEMOGLOBIN 7.5 GM/dL (10.7-15.3); LYMPH % 1.8 % (8-40); MCHC 30.4 g/dl (32.0-36.0); MEAN CELL VOLUME 64.7 fl (80-96); MEAN PLT VOLUME 8.5 fl (7.5-11.1); MONO % 3.2 % (3.8-10.2); PLATELET COUNT 85 K/MM3 (134-434); RBC 3.83 M/mm3 (3.60-5.2); RDW 21.2 % (11.6-15.6); WHITE BLOOD COUNT 20.7 K/mm3 (4.0-10.0)
[2018-10-05 06:05] LABS: MCH 19.7 pg (25.7-33.7)
[2018-10-05] MEDS: DOCUSATE SODIUM 100 MG CAPSULE (FP) PO SCH ×2 (06:28→14:38)
[2018-10-05 06:32] LABS: ALBUMIN 2.2 g/dl (3.4-5.0); ALK PHOS 129 U/L (45-117); ANION GAP 10 MMOL/L (8-16); BILIRUBIN,TOTAL 0.7 mg/dL (0.2-1); BLOOD UREA NITROGEN 35 mg/dL (7-18); CALCIUM 7.9 mg/dL (8.5-10.1); CHLORIDE 106 mmol/L (98-107); CO2 24 mmol/L (21-32); CREATININE 0.5 mg/dL (0.55-1.3); GLUCOSE,RANDOM 134 mg/dL (74-106); MAGNESIUM 2.7 mg/dL (1.8-2.4); N-TERMINAL BNP 997.6 pg/ml (5-125); PHOSPHOROUS 3.5 mg/dL (2.5-4.9); SGOT/AST 68 U/L (15-37); SGPT/ALT 43 U/L (13-61); SODIUM 141 mmol/L (136-145); TOT PROT 5.4 g/dl (6.4-8.2)
[2018-10-05 06:45] LABS: ARTERIAL BLD GAS O2 SATURATION 92.2 % (90-98.9); ARTERIAL BLOOD GAS BASE EXCESS 2.2 meq/l (-2-2); ARTERIAL BLOOD GAS PCO2 34.5 mmHg (35-45); ARTERIAL BLOOD GAS PO2 64.2 mmHg (80-100); ARTERIAL BLOOD GAS pH 7.48 (7.35-7.45)
[2018-10-05 06:52] LABS: ALLENS TEST POSITIVE
[2018-10-05] MEDS: ALBUTEROL SO4 2.5/IPRATROPIUM 0.5 INH SOL 3 ML VIAL.NEB. NEB SCH ×4 (07:25→20:51)
[2018-10-05 08:02] LABS: INR 1.56 (0.83-1.09); PROTHROMBIN TIME (PATIENT) 18.5 SEC (9.7-13.0)
[2018-10-05 08:05] LABS: ACTIVATED PTT 32.6 SECONDS (25.2-36.5)
--- NOTE | 2018-10-05 09:56 | PN ---
Teaching Attending Note Name of Resident: Azul Tariq ATTENDING PHYSICIAN STATEMENT I saw and evaluated the patient. I reviewed the resident's note and discussed the case with the resident. I agree with the resident's findings and plan as documented. SUBJECTIVE: Patient seen and examined in the ICU. Lethargic but arousable. Intermittently following commands (gripping with left hand). (+) blood culture noted. Intake & Output 10/02/18 10/03/18 10/04/18 10/05/18 23:59 23:59 23:59 23:59 Intake Total 416 524 Output Total 800 Balance 416 -276 Weight 150 lb 150 lb Last Vital Signs Temp Pulse Resp BP Pulse Ox 98.2 F 119 H 23 H 136/90 95 10/05/18 08:53 10/05/18 08:53 10/05/18 08:53 10/05/18 08:53 10/05/18 08:45 Active Medications Albuterol/Ipratropium (Duoneb -) 1 amp NEB RQID [facility] Last Admin: 10/05/18 07:25 Dose: 1 amp Aspirin (Ecotrin -) 81 mg PO DAILY [facility] Atorvastatin Calcium (Lipitor -) 40 mg PO HS [facility] Last Admin: 10/04/18 22:04 Dose: 40 mg Baclofen (Lioresal -) 10 mg PO TID [facility] Last Admin: 10/05/18 06:28 Dose: 10 mg Dexamethasone Sodium Phosphate (Decadron Injection -) 4 mg IVPUSH Q6H-IV [facility] Last Admin: 10/05/18 02:10 Dose: 4 mg Docusate Sodium (Colace -) 100 mg PO TID [facility] Last Admin: 10/05/18 06:28 Dose: Not Given Enoxaparin Sodium (Lovenox -) 70 mg SQ BID [facility] Last Admin: 10/04/18 22:05 Dose: 70 mg Piperacillin Sod/Tazobactam (Sod 3.375 gm/ Dextrose) 50 mls @ 100 mls/hr IVPB Q8H-IV [facility]I; Protocol Sodium Chloride (Normal Saline -) 1,000 mls @ 75 mls/hr IV ASDIR [facility]I Last Admin: 10/04/18 17:25 Dose: 75 mls/hr Levetiracetam (Keppra Injection -) 500 mg IVPB BID [facility] Morphine Sulfate (Morphine Sulfate) 4 mg IVPUSH Q4H PRN PRN Reason: PAIN LEVEL 6-10 Last Admin: 10/05/18 00:08 Dose: 4 mg Pantoprazole Sodium (Protonix -) 40 mg PO DAILY [facility] Polyethylene Glycol (Miralax (For Daily Use) -) 17 gm PO DAILY [facility] Potassium Chloride (K-Dur -) 10 meq PO DAILY [facility] GENERAL: lethargic and not able to answer questions. Moves her head and UE intermittently HEAD: Normal with no signs of trauma. EYES: Pupils equal but sluggish EARS, NOSE, THROAT: dry mucous membranes, with cracked lips NECK: Normal range of motion LUNGS: coarse breath sounds HEART: tachycardic rate and regular rhythm, normal S1 and S2 without murmur, rub or gallop. ABDOMEN: Soft, nontender, not distended, normoactive bowel sounds, no guarding, no rebound, no masses. MUSCULOSKELETAL: flaccid extremities, will withdraw R toe to nailbed pressure UPPER EXTREMITIES: 2+ pulses, warm, well-perfused. No cyanosis. No clubbing. Cap refill <2 seconds. No peripheral edema. LOWER EXTREMITIES: 2+ pulses, warm, well-perfused. No calf tenderness. No peripheral edema. NEUROLOGICAL: lethargic, LE plegia SKIN: Warm, dry, normal turgor, no rashes or lesions noted. Laboratory Results - last 24 hr 10/04/18 10/04/18 10/04/18 10:10 10:10 16:30 WBC 19.8 H 21.1 H RBC 4.21 4.17 Hgb 8.8 L 8.7 L Hct 27.2 L 26.6 L MCV 64.6 L 63.8 L MCH 20.9 L 20.9 L MCHC 32.3 32.8 RDW 21.3 H 21.3 H Plt Count 145 103 L D MPV 8.8 8.4 Absolute Neuts (auto) 19.9 H Neutrophils % 94.4 H Neutrophils % (Manual) 97.0 H Band Neutrophils % 1.0 Lymphocytes % 1.2 L D Lymphocytes % (Manual) 0.0 L Monocytes % 3.5 L Monocytes % (Manual) 1 L Eosinophils % 0.0 Eosinophils % (Manual) 0.0 Basophils % 0.9 D Basophils % (Manual) 0.0 Nucleated RBC % 0 Hypersegmented Neuts Few Platelet Estimate Decreased Platelet Comment No clumping noted PT with INR INR PTT (Actin FS) Anticoagulation Therapy Puncture Site ABG pH ABG pCO2 at Pt Temp ABG pO2 at Pt Temp ABG HCO3 ABG O2 Sat (Measured) ABG O2 Content ABG Base Excess Adi Test O2 Delivery Device Oxygen Flow Rate Vent Mode Vent Rate Mechanical Rate Pressure Support Vent Sodium 139 Potassium 4.2 Chloride 102 Carbon Dioxide 23 Anion Gap 13 BUN 33 H Creatinine 0.6 Creat Clearance w eGFR > 60 Random Glucose 118 H Lactic Acid Calcium 8.4 L Phosphorus Magnesium Total Bilirubin 0.6 Direct Bilirubin 0.2 AST 27 ALT 27 Alkaline Phosphatase 162 H Creatine Kinase 80 Troponin I 0.65 H* B-Natriuretic Peptide Total Protein 6.4 Albumin 2.7 L 10/04/18 10/04/18 10/05/18 16:30 16:30 05:30 WBC 20.7 H RBC 3.83 Hgb 7.5 L Hct 24.8 L MCV 64.7 L MCH 19.7 L MCHC 30.4 L RDW 21.2 H Plt Count 85 L MPV 8.5 Absolute Neuts (auto) 19.6 H Neutrophils % 95.0 H Neutrophils % (Manual) Band Neutrophils % Lymphocytes % 1.8 L D Lymphocytes % (Manual) Monocytes % 3.2 L Monocytes % (Manual) Eosinophils % 0.0 Eosinophils % (Manual) Basophils % 0.0 Basophils % (Manual) Nucleated RBC % 0 Hypersegmented Neuts Platelet Estimate Platelet Comment PT with INR INR PTT (Actin FS) Anticoagulation Therapy Puncture Site ABG pH ABG pCO2 at Pt Temp ABG pO2 at Pt Temp ABG HCO3 ABG O2 Sat (Measured) ABG O2 Content ABG Base Excess Adi Test O2 Delivery Device Oxygen Flow Rate Vent Mode Vent Rate Mechanical Rate Pressure Support Vent Sodium 138 Potassium 4.2 Chloride 103 Carbon Dioxide 23 Anion Gap 12 BUN 33 H Creatinine 0.6 Creat Clearance w eGFR > 60 Random Glucose 147 H Lactic Acid 2.3 H* Calcium 8.3 L Phosphorus 3.5 Magnesium 2.9 H Total Bilirubin 0.8 Direct Bilirubin AST 36 ALT 29 Alkaline Phosphatase 151 H Creatine Kinase Troponin I 1.55 H* B-Natriuretic Peptide Total Protein 6.1 L Albumin 2.5 L 10/05/18 10/05/18 10/05/18 05:30 05:30 05:30 WBC RBC Hgb Hct MCV MCH MCHC RDW Plt Count MPV Absolute Neuts (auto) Neutrophils % Neutrophils % (Manual) Band Neutrophils % Lymphocytes % Lymphocytes % (Manual) Monocytes % Monocytes % (Manual) Eosinophils % Eosinophils % (Manual) Basophils % Basophils % (Manual) Nucleated RBC % Hypersegmented Neuts Platelet Estimate Platelet Comment PT with INR 18.50 H INR 1.56 H PTT (Actin FS) 32.6 Anticoagulation Therapy Puncture Site ABG pH ABG pCO2 at Pt Temp ABG pO2 at Pt Temp ABG HCO3 ABG O2 Sat (Measured) ABG O2 Content ABG Base Excess Adi Test O2 Delivery Device Oxygen Flow Rate Vent Mode Vent Rate Mechanical Rate Pressure Support Vent Sodium 141 Potassium 4.0 Chloride 106 Carbon Dioxide 24 Anion Gap 10 BUN 35 H Creatinine 0.5 L Creat Clearance w eGFR > 60 Random Glucose 134 H Lactic Acid 1.6 Calcium 7.9 L Phosphorus 3.5 Magnesium 2.7 H Total Bilirubin 0.7 Direct Bilirubin AST 68 H ALT 43 Alkaline Phosphatase 129 H Creatine Kinase 135 Troponin I 3.20 H* B-Natriuretic Peptide 997.6 H Total Protein 5.4 L Albumin 2.2 L 10/05/18 10/05/18 06:00 08:25 WBC RBC Hgb Hct MCV MCH MCHC RDW Plt Count MPV Absolute Neuts (auto) Neutrophils % Neutrophils % (Manual) Band Neutrophils % Lymphocytes % Lymphocytes % (Manual) Monocytes % Monocytes % (Manual) Eosinophils % Eosinophils % (Manual) Basophils % Basophils % (Manual) Nucleated RBC % Hypersegmented Neuts Platelet Estimate Platelet Comment PT with INR INR PTT (Actin FS) Anticoagulation Therapy No Result Required. Puncture Site Right radial ABG pH 7.48 H ABG pCO2 at Pt Temp 34.5 L ABG pO2 at Pt Temp 64.2 L ABG HCO3 25.3 ABG O2 Sat (Measured) 92.2 ABG O2 Content 10.4 L ABG Base Excess 2.2 H Adi Test Positive O2 Delivery Device Nasal cannula Oxygen Flow Rate 5l Vent Mode No Result Required. Vent Rate No Result Required. Mechanical Rate No Result Required. Pressure Support Vent No Result Required. 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 w/ pathological compression of L2 vertebral body now bed bound in a brace (09/10/18) Bilateral LE DVT (09/12/18) on xarelto Quadriplegia Leukocytosis HPL Elevated troponin Was not a candidate for tPA Need to discuss with team risks and benefits of AC in the acute setting of CVA: she is high risk for hemorrhagic conversion Aspiration precautions O2 as needed Neuro evaluation Neuro checks ABX per ID Need to discuss with family GOC: ideally given her overall condition should be DNR/DNI Dr Pierre Critical Care patient: Yes Total Critical Care Time (in minutes): 35 Critical Care Statement: The care of this patient involved high complexity decision making to prevent further life threatening deterioration of the patient 's condition and/or to evaluate & treat vital organ system(s) failure or risk of failure.
[2018-10-05] MEDS ORDERED: amLODIPine BESYLATE 10 MG TABLET (FP) PO SCH (10:00)
[2018-10-05] MEDS ORDERED: ASPIRIN COATED 81 MG TABLET.EC PO SCH (10:00)
[2018-10-05 10:13] LABS: ANISOCYTOSIS 2+; MACROCYTOSIS 0; PLATELET ESTIMATE DECREASED; TEAR DROP CELLS 1+
[2018-10-05] MEDS ORDERED: PT OWN MED DRAWER 7, Y5N ONE ×2 (10:14→22:33)
[2018-10-05] MEDS: POTASSIUM CHLORIDE TABS 10 MEQ TABLET.ER (FP) PO SCH (10:16)
[2018-10-05] MEDS: levETIRAcetam 500 MG/5 ML INJECTION VIAL IVPB SCH ×2 (10:17→22:07)
[2018-10-05] MEDS: PANTOPRAZOLE 40 MG TABLET (FP) PO SCH (10:17)
[2018-10-05] MEDS: POLYETHYLENE GLYCOL 3350 119 GM BTL PO SCH (10:17)
--- NOTE | 2018-10-05 10:33 | PN ---
Physical Exam: SUBJECTIVE: Patient seen and examined. Following commands. Attempts to open mouth when asked. Nasal cannula. 96% on nasal cannula. OBJECTIVE: Vital Signs Period Temp Pulse Resp BP Sys/Zuniga Pulse Ox Last 24 Hr 97.9 F-98.9 F 90-130 16-33 99-138/59-98 95-100 GENERAL: follows commands. not able to answer questions. lethargic EYES: reactive pupils ENT: moist mucous membranes. LUNGS: course breath sounds HEART: regular rate ABDOMEN: Soft, nondistended, no grimacing to palpation EXTREMITIES: 2+ pulses NEUROLOGICAL: squeezes hand with L hand. No LLE,RUE,RLE movemens. Laboratory Results - last 24 hr 10/04/18 10/04/18 10/04/18 10:10 10:10 16:30 WBC 19.8 H 21.1 H RBC 4.21 4.17 Hgb 8.8 L 8.7 L Hct 27.2 L 26.6 L MCV 64.6 L 63.8 L MCH 20.9 L 20.9 L MCHC 32.3 32.8 RDW 21.3 H 21.3 H Plt Count 145 103 L D MPV 8.8 8.4 Absolute Neuts (auto) 19.9 H Neutrophils % 94.4 H Neutrophils % (Manual) 97.0 H Band Neutrophils % 1.0 Lymphocytes % 1.2 L D Lymphocytes % (Manual) 0.0 L Monocytes % 3.5 L Monocytes % (Manual) 1 L Eosinophils % 0.0 Eosinophils % (Manual) 0.0 Basophils % 0.9 D Basophils % (Manual) 0.0 Nucleated RBC % 0 Hypersegmented Neuts Few Platelet Estimate Decreased Platelet Comment No clumping noted PT with INR INR PTT (Actin FS) Anticoagulation Therapy Puncture Site ABG pH ABG pCO2 at Pt Temp ABG pO2 at Pt Temp ABG HCO3 ABG O2 Sat (Measured) ABG O2 Content ABG Base Excess Adi Test O2 Delivery Device Oxygen Flow Rate Vent Mode Vent Rate Mechanical Rate Pressure Support Vent Sodium 139 Potassium 4.2 Chloride 102 Carbon Dioxide 23 Anion Gap 13 BUN 33 H Creatinine 0.6 Creat Clearance w eGFR > 60 Random Glucose 118 H Lactic Acid Calcium 8.4 L Phosphorus Magnesium Total Bilirubin 0.6 Direct Bilirubin 0.2 AST 27 ALT 27 Alkaline Phosphatase 162 H Creatine Kinase 80 Troponin I 0.65 H* B-Natriuretic Peptide Total Protein 6.4 Albumin 2.7 L 10/04/18 10/04/18 10/05/18 16:30 16:30 05:30 WBC 20.7 H RBC 3.83 Hgb 7.5 L Hct 24.8 L MCV 64.7 L MCH 19.7 L MCHC 30.4 L RDW 21.2 H Plt Count 85 L MPV 8.5 Absolute Neuts (auto) 19.6 H Neutrophils % 95.0 H Neutrophils % (Manual) Band Neutrophils % Lymphocytes % 1.8 L D Lymphocytes % (Manual) Monocytes % 3.2 L Monocytes % (Manual) Eosinophils % 0.0 Eosinophils % (Manual) Basophils % 0.0 Basophils % (Manual) Nucleated RBC % 0 Hypersegmented Neuts Platelet Estimate Platelet Comment PT with INR INR PTT (Actin FS) Anticoagulation Therapy Puncture Site ABG pH ABG pCO2 at Pt Temp ABG pO2 at Pt Temp ABG HCO3 ABG O2 Sat (Measured) ABG O2 Content ABG Base Excess Adi Test O2 Delivery Device Oxygen Flow Rate Vent Mode Vent Rate Mechanical Rate Pressure Support Vent Sodium 138 Potassium 4.2 Chloride 103 Carbon Dioxide 23 Anion Gap 12 BUN 33 H Creatinine 0.6 Creat Clearance w eGFR > 60 Random Glucose 147 H Lactic Acid 2.3 H* Calcium 8.3 L Phosphorus 3.5 Magnesium 2.9 H Total Bilirubin 0.8 Direct Bilirubin AST 36 ALT 29 Alkaline Phosphatase 151 H Creatine Kinase Troponin I 1.55 H* B-Natriuretic Peptide Total Protein 6.1 L Albumin 2.5 L 10/05/18 10/05/18 10/05/18 05:30 05:30 05:30 WBC RBC Hgb Hct MCV MCH MCHC RDW Plt Count MPV Absolute Neuts (auto) Neutrophils % Neutrophils % (Manual) Band Neutrophils % Lymphocytes % Lymphocytes % (Manual) Monocytes % Monocytes % (Manual) Eosinophils % Eosinophils % (Manual) Basophils % Basophils % (Manual) Nucleated RBC % Hypersegmented Neuts Platelet Estimate Platelet Comment PT with INR 18.50 H INR 1.56 H PTT (Actin FS) 32.6 Anticoagulation Therapy Puncture Site ABG pH ABG pCO2 at Pt Temp ABG pO2 at Pt Temp ABG HCO3 ABG O2 Sat (Measured) ABG O2 Content ABG Base Excess Adi Test O2 Delivery Device Oxygen Flow Rate Vent Mode Vent Rate Mechanical Rate Pressure Support Vent Sodium 141 Potassium 4.0 Chloride 106 Carbon Dioxide 24 Anion Gap 10 BUN 35 H Creatinine 0.5 L Creat Clearance w eGFR > 60 Random Glucose 134 H Lactic Acid 1.6 Calcium 7.9 L Phosphorus 3.5 Magnesium 2.7 H Total Bilirubin 0.7 Direct Bilirubin AST 68 H ALT 43 Alkaline Phosphatase 129 H Creatine Kinase 135 Troponin I 3.20 H* B-Natriuretic Peptide 997.6 H Total Protein 5.4 L Albumin 2.2 L 10/05/18 10/05/18 06:00 08:25 WBC RBC Hgb Hct MCV MCH MCHC RDW Plt Count MPV Absolute Neuts (auto) Neutrophils % Neutrophils % (Manual) Band Neutrophils % Lymphocytes % Lymphocytes % (Manual) Monocytes % Monocytes % (Manual) Eosinophils % Eosinophils % (Manual) Basophils % Basophils % (Manual) Nucleated RBC % Hypersegmented Neuts Platelet Estimate Platelet Comment PT with INR INR PTT (Actin FS) Anticoagulation Therapy No Result Required. Puncture Site Right radial ABG pH 7.48 H ABG pCO2 at Pt Temp 34.5 L ABG pO2 at Pt Temp 64.2 L ABG HCO3 25.3 ABG O2 Sat (Measured) 92.2 ABG O2 Content 10.4 L ABG Base Excess 2.2 H Adi Test Positive O2 Delivery Device Nasal cannula Oxygen Flow Rate 5l Vent Mode No Result Required. Vent Rate No Result Required. Mechanical Rate No Result Required. Pressure Support Vent No Result Required. Sodium Potassium Chloride Carbon Dioxide Anion Gap BUN Creatinine Creat Clearance w eGFR Random Glucose Lactic Acid Calcium Phosphorus Magnesium Total Bilirubin Direct Bilirubin AST ALT Alkaline Phosphatase Creatine Kinase 154 Troponin I 3.71 H* B-Natriuretic Peptide Total Protein Albumin Active Medications Generic Name Dose Route Start Last Admin Trade Name Freq PRN Reason Stop Dose Admin Albuterol/Ipratropium 1 amp 10/04/18 20:00 10/05/18 07:25 Duoneb - NEB 1 amp RQID SAMI Administration Aspirin 81 mg 10/05/18 10:00 Ecotrin - PO DAILY SAMI Atorvastatin Calcium 40 mg 10/04/18 22:00 10/04/18 22:04 Lipitor - PO 40 mg HS SAMI Administration Baclofen 10 mg 10/04/18 22:00 10/05/18 06:28 Lioresal - PO 10 mg TID SAMI Administration Dexamethasone Sodium Phosphate 4 mg 10/04/18 21:00 10/05/18 02:10 Decadron Injection - IVPUSH 4 mg Q6H-IV SAMI Administration Docusate Sodium 100 mg 10/04/18 22:00 10/05/18 06:28 Colace - PO Not Given TID SAMI Piperacillin Sod/Tazobactam 50 mls @ 100 mls/hr 10/04/18 18:00 Sod 3.375 gm/ Dextrose IVPB Q8H-IV SAMI Protocol Sodium Chloride 1,000 mls @ 75 mls/hr 10/04/18 17:24 10/04/18 17:25 Normal Saline - IV 75 mls/hr ASDIR SAMI Administration Levetiracetam 500 mg 10/05/18 10:00 Keppra Injection - IVPB BID SAMI Morphine Sulfate 4 mg 10/04/18 16:58 10/05/18 00:08 Morphine Sulfate IVPUSH 4 mg Q4H PRN Administration PAIN LEVEL 6-10 Pantoprazole Sodium 40 mg 10/05/18 10:00 Protonix - PO DAILY SAMI Polyethylene Glycol 17 gm 10/05/18 10:00 Miralax (For Daily Use) - PO DAILY SAMI Potassium Chloride 10 meq 10/05/18 10:00 K-Dur - PO DAILY SAMI ASSESSMENT/PLAN: Neuro Hx of brain mets, infarct of frontal and parietal lobe -Decadron at 4mg IV Q6H -Head CT (10/03) - without bleed, unremarkable -Cervical CT (10/03) - unremarkable, w/o fx -Brain MRI (10/04) - Large acute infarct in frontal and parietal lobe, acute/ subacute lacunar infarct in bilateral supra and infratentoria, R basal ganglia, R thalamus and L thalamus. No mass lesions or intracranial hemorrhage. -Neurology following case (Dr. Oro) -Neurosurgery following case (Dr. Chris) -pending EMG -Carotid u/s unremarkable -permissive HTN threshold of 220/110 -HOB > 30 degrees -Keppra for seizure ppx -Neuro checks Q2H ID Leukocytosis Consider sepsis vs steroid induced leukocytosis -Blood cultures growing gram - - ID on board - Per primary team: Garthn - pending blood culture, urine culture Cardiac HTN, HLD, troponinemia - Cardiology following -Trops rising. now 3.71 from 3.2 -trend - ECHO (10/04): mild concentric LVH, EF 50-55%, mild TR, mild AR - cardiac monitoring - contoniue home: amlodipine, metoprolol, lipitor Ortho L2 Compression Fracture - Lumbar spine MRI 09/10/18 with L2 acute pathological compression and total bone marrow replacement of vertebral body. Pulm - supplemental O2 as needed - considering neuro status, may require intubation GI possible liver mets - Lumbar Spine MRI (09/10/18) showed hyperintense images in the R lobe of the liver [id number] concerning for mets. Vascular Bilateral DVT -Xarelto course 09/22 - 10/14 -hold AC for now. High risk for hemorrhagic conversion. Analgesia - pain control with Morphine prn F/E/N - NS @75 - monitor lytes -NPO Lines, Tubes: gilmore DVT ppx: SCDs GI ppx: protonix Dispo: Palliative consult. Discuss goals of care with family. Visit type - Emergency Visit Emergency Visit: Yes ED Registration Date: 10/04/18 Care time: The patient presented to the Emergency Department on the above date and was hospitalized for further evaluation of their emergent condition. - New Patient This patient is new to me today: Yes Date on this admission: 10/07/18 - Critical Care Critical Care patient: Yes Total Critical Care Time (in minutes): 35 Critical Care Statement: The care of this patient involved high complexity decision making to prevent further life threatening deterioration of the patient 's condition and/or to evaluate & treat vital organ system(s) failure or risk of failure.
--- NOTE | 2018-10-05 11:06 | PN ---
Progress Note, Physician History of Present Illness: In icu - Current Medication List Current Medications: Active Medications Albuterol/Ipratropium (Duoneb -) 1 amp NEB RQID [facility] Last Admin: 10/05/18 07:25 Dose: 1 amp Aspirin (Ecotrin -) 81 mg PO DAILY [facility] Last Admin: 10/05/18 10:16 Dose: 81 mg Atorvastatin Calcium (Lipitor -) 40 mg PO HS [facility] Last Admin: 10/04/18 22:04 Dose: 40 mg Baclofen (Lioresal -) 10 mg PO TID [facility] Last Admin: 10/05/18 06:28 Dose: 10 mg Dexamethasone Sodium Phosphate (Decadron Injection -) 4 mg IVPUSH Q6H-IV [facility]I Last Admin: 10/05/18 10:17 Dose: 4 mg Docusate Sodium (Colace -) 100 mg PO TID [facility] Last Admin: 10/05/18 06:28 Dose: Not Given Piperacillin Sod/Tazobactam (Sod 3.375 gm/ Dextrose) 50 mls @ 100 mls/hr IVPB Q8H-IV SAMI; Protocol Sodium Chloride (Normal Saline -) 1,000 mls @ 75 mls/hr IV ASDIR [facility] Last Admin: 10/04/18 17:25 Dose: 75 mls/hr Piperacillin Sod/Tazobactam (Sod 2.25 gm/ Dextrose) 50 mls @ 100 mls/hr IVPB ONCE ONE; Protocol Stop: 10/05/18 10:59 Levetiracetam (Keppra Injection -) 500 mg IVPB BID [facility] Last Admin: 10/05/18 10:17 Dose: 500 mg Morphine Sulfate (Morphine Sulfate) 4 mg IVPUSH Q4H PRN PRN Reason: PAIN LEVEL 6-10 Last Admin: 10/05/18 00:08 Dose: 4 mg Pantoprazole Sodium (Protonix -) 40 mg PO DAILY [facility] Last Admin: 10/05/18 10:17 Dose: 40 mg Polyethylene Glycol (Miralax (For Daily Use) -) 17 gm PO DAILY [facility] Last Admin: 10/05/18 10:17 Dose: 17 gm Potassium Chloride (K-Dur -) 10 meq PO DAILY [facility] Last Admin: 10/05/18 10:16 Dose: 10 meq - Objective Vital Signs: Vital Signs Temperature 98.2 F 10/05/18 08:53 Pulse Rate 119 H 12/08/18 08:53 Respiratory Rate 23 H 10/05/18 08:53 Blood Pressure 136/90 10/05/18 08:53 O2 Sat by Pulse Oximetry (%) 95 10/05/18 08:45 Cardiovascular: Yes: S1, S2 Respiratory: Yes: Regular, CTA Bilaterally Gastrointestinal: Yes: Normal Bowel Sounds, Soft Neurological: Yes: Aphasia, Weakness, Other (unble to move ext) Labs: CBC, BMP 10/05/18 05:30 10/05/18 05:30 INR, PTT INR 1.56 (0.83-1.09) H 10/05/18 05:30 Problem List - Problems (1) Hemiplegia affecting dominant side Assessment/Plan: -Progressive--now with left leg paralysis--r/o CVA --progressive neuropathy neuropathy--maliganacy--mets -Icu care -MRI Acute cva -R/O mets -AC per neuro -Monitor BP Code(s): G81.90 - HEMIPLEGIA, UNSPECIFIED AFFECTING UNSPECIFIED SIDE (2) HTN (hypertension) Assessment/Plan: Vital Signs Period Temp Pulse Resp BP Sys/Zuniga Pulse Ox Last 24 Hr 97.9 F-98.9 F 90-130 16-33 99-138/59-98 95-100 Code(s): I10 - ESSENTIAL (PRIMARY) HYPERTENSION (3) Malignancy Assessment/Plan: -Oncology consult -Continue with steroids -Further W/u once stable Code(s): C80.1 - MALIGNANT (PRIMARY) NEOPLASM, UNSPECIFIED (4) Troponin level elevated Assessment/Plan: monitor tele cardio Code(s): R74.8 - ABNORMAL LEVELS OF OTHER SERUM ENZYMES (5) Leukocytosis Assessment/Plan: -Maybe from steoids -r/o sepsis -id -abx -cxr Code(s): D72.829 - ELEVATED WHITE BLOOD CELL COUNT, UNSPECIFIED (6) Anemia Assessment/Plan: -PRBC -HOLD AC due to drop in hgb Code(s): D64.9 - ANEMIA, UNSPECIFIED
[2018-10-05] MEDS: ENOXAPARIN NA (PORCINE) 80 MG/0.8 ML DISP.SYRIN SQ SCH (11:30)
--- NOTE | 2018-10-05 12:13 | PN ---
Progress Note (short form) - Note Progress Note: ID Consult dictated Gram Negative sepsis CVA Metastatic ca Leukocytosis Thrombocytopenia lactic acidosis Pending c/s empiric zosyn Prognosis guarded
[2018-10-05] MEDS ORDERED: PIPERACILLIN/TAZOB 2.25 GM 2.25 GM in DEXTROSE 5%-WATER - 50 ML IVPB ONE (12:15)
--- NOTE | 2018-10-05 13:21 | CONS ---
DATE OF CONSULTATION: 10/05/2018 HISTORY OF PRESENT ILLNESS: The patient is a 68-year-old female evaluated for gram-negative sepsis. She was recently hospitalized at [facility] from August 09 through August 25 after complaining of back pain. She was found to have a pathologic fracture of the second lumbar vertebra. 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 She was noted to have bone and liver metastases. She was in a alf facility. She is now readmitted after developing right hemiparesis. MRI showed bilateral cerebral infarcts. She was seen in consultation by Neurology and was felt to possibly have cord compression. She was treated with dexamethasone. Blood cultures are now positive for gram-negative rods. At the present time, she is in the Intensive Care Unit. She was transferred after she became poorly responsive. She is not currently awake or responsive and is unable to give any additional details. Her course has been significant for an elevated white blood cell count and now for blood cultures that are positive for gram-negative rods. There are no reports of labored breathing, cough, sputum production, vomiting, diarrhea or grossly purulent urine. She does have pressure sores on the buttocks. PAST MEDICAL HISTORY: Positive for recently diagnosed metastatic adenocarcinoma, pathological fracture of L2, bone and liver metastases, hypertension, mitral valve prolapse, bilateral lower extremity DVTs. ALLERGIES: No known drug allergies. MEDICATIONS: Currently, these include Decadron 4 mg every 6 hours, Keppra, Colace, Baclofen, Lipitor, Ecotrin, morphine and Protonix. SOCIAL HISTORY: The patient was residing in a alf facility. No alcohol or tobacco use history. REVIEW OF SYSTEMS: Neurologic: As per HPI. Cardiac: Negative for chest pain or palpitations. Respiratory: Negative for cough or sputum production. Gastrointestinal: Negative for vomiting or diarrhea. Genitourinary: Negative for urinary tract infection. LABORATORY DATA: White count 20.7, 95% neutrophils, 2% lymphocytes, 3% monocytes. Hemoglobin 7.5, hematocrit 24.8, platelet count 85, creatinine 0.5, total bilirubin 0.7, alkaline phosphatase 129, AST 68, ALT 43. Lactic acid 2.3. Urinalysis shows 3 white cells. A chest x-ray shows increased markings bilaterally and diffuse nodular changes bilaterally with possible superimposed infiltrates. PHYSICAL EXAMINATION: General: She is poorly responsive. She is in no acute respiratory distress. Vital Signs: Temperature 98.2, pulse 119 and regular, blood pressure 136/90, respiratory rate 23 per minute. HEENT: Sclerae anicteric. Fullness present, left supraclavicular area. Heart: Heart sounds S1, S2. Lungs: Diminished breath sounds bilaterally. Abdomen: Soft and nontender. Extremities: There is 1+ edema. IMPRESSION: 1. Gram-negative bacteremia/sepsis, unclear source. 2. Acute cerebrovascular accident. 3. Metastatic carcinoma. 4. Leukocytosis, multifactorial. 5. Thrombocytopenia. 6. Bilateral DVTs. PLAN: 1. Await identification of blood isolate. Empiric antibiotic coverage with Zosyn 3.375 grams IV piggyback every 8 hours. 2. Continue supportive measures. 3. Monitor white blood cell count and platelet count. PROGNOSIS: Guarded. CRITICAL CARE TIME SPENT: 35 minutes. Thank you for the kind referral. EDGARDO CAMPOVERDE M.D. [id number]
[2018-10-05] MEDS ORDERED: METOPROLOL TARTRATE 5 MG/5 ML VIAL IVPUSH ONE (13:27)
--- NOTE | 2018-10-05 14:36 | PN ---
Progress Note (short form) - Note Progress Note: 68 year old female history of HTN, Metastatic cancer ( unknown origin), she has vertebral mets and pathological compression fracture of L 2. Patient was seen by Dr Anderson and refused surgery. Patient had supraclavicular lymph node biopsy and primary was suspected to be GI adenocarcinoma. 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, not moving right arm, leg and left lower eg NEUROLOGICAL EXAMINATION Drowsy and opens eye and not following command and not able to understand eomi, pupils reactive, right facial palsy right upper and lower extremity is complete paralysis Left lower extremity is wiggling her toes ( grade 1) and left upper extremity she is able to diagnostics tech minimal ct head unrearmakable mri of brain showed left fronto temporal infarct nad multiple acute infarct in supra and infratentorial infarct in both hemisphere Assessment :68 year old female historyoy of HTN, Metatstic cancer ( primary unknown) , dvt on xarelto, came with right sided arm and leg weakness and she become owrse and developed aphasia and left sided weakness and mri of brain showed there is bi hemispheric ischemic lesion vs mets Plan: continue steroid and anticoagulation - spent 15 minute discussing prongosis with family and doing 15 minute of critical care - overall prognosis is poor given she has bihemispheric stroke vs mets - family is thinking about making DNR/DNI Thanking you so much Aneesh Oro MD
--- NOTE | 2018-10-05 16:42 | PN ---
Progress Note (short form) - Note Progress Note: Discussed with daughter and sister of patient goals of care. They agreed to make patient DNR/DNI.
[2018-10-05] MEDS ORDERED: ATORVASTATIN CA 40 MG TABLET (FP) NGT SCH (18:44)
[2018-10-05] MEDS ORDERED: ASPIRIN 81 MG CHEWABLE TABLETS NGT SCH (18:45)
[2018-10-05] MEDS: SODIUM CHLORIDE 1,000 ML IV SCH (18:59)
--- NOTE | 2018-10-05 21:16 | EKG ---
Test Reason : Blood Pressure : / mmHG Vent. Rate : 121 BPM Atrial Rate : 121 BPM P-R Int : 144 ms QRS Dur : 074 ms QT Int : 296 ms P-R-T Axes : 059 028 005 degrees QTc Int : 420 ms SINUS TACHYCARDIA OTHERWISE NORMAL ECG WHEN COMPARED WITH ECG OF 05-OCT-2018 09:20, NO SIGNIFICANT CHANGE WAS FOUND Confirmed by LAZARA NORTH MD ([id number]) on 10/05/2018 9:16:43 PM Referred By: Ban DENNEY Confirmed By:LAZARA NORTH MD
--- NOTE | 2018-10-05 21:17 | EKG ---
Test Reason : Blood Pressure : / mmHG Vent. Rate : 122 BPM Atrial Rate : 122 BPM P-R Int : 140 ms QRS Dur : 078 ms QT Int : 296 ms P-R-T Axes : 053 009 005 degrees QTc Int : 421 ms SINUS TACHYCARDIA OTHERWISE NORMAL ECG WHEN COMPARED WITH ECG OF 04-OCT-2018 20:21, NO SIGNIFICANT CHANGE WAS FOUND Confirmed by LAZARA NORTH MD ([id number]) on 10/05/2018 9:17:15 PM Referred By: Ban DENNEY Confirmed By:LAZARA NORTH MD
--- NOTE | 2018-10-05 21:23 | EKG ---
Test Reason : Blood Pressure : / mmHG Vent. Rate : 124 BPM Atrial Rate : 124 BPM P-R Int : 162 ms QRS Dur : 082 ms QT Int : 292 ms P-R-T Axes : 047 000 -03 degrees QTc Int : 419 ms SINUS TACHYCARDIA OTHERWISE NORMAL ECG WHEN COMPARED WITH ECG OF 03-OCT-2018 14:43, INVERTED T WAVES HAVE REPLACED NONSPECIFIC T WAVE ABNORMALITY IN INFERIOR LEADS Confirmed by MARY ANNE CALVERT, LAZARA ([id number]) on 10/05/2018 9:23:26 PM Referred By: Confirmed By:LAZARA NORTH MD
[2018-10-05] MEDS: DOCUSATE NA 100 MG/10 ML UNIT-DOSE CUPS PO PRN (22:08)
[2018-10-05] MEDS: BACLOFEN 10 MG TABLET (FP) NGT SCH (22:46)
[2018-10-06] MEDS ORDERED: PIPERACILLIN/TAZOBACTAM 3.375 GM VIAL IVPB ONE ×2 (01:55→10:19)
[2018-10-06] MEDS ORDERED: DEXTROSE 5%-WATER - 50 ML IVPB ONE ×2 (01:56→10:20)
[2018-10-06] MEDS: DEXAMETHASONE SOD PHOSPHATE 4 MG/1 ML VIAL IVPUSH SCH ×3 (02:04→14:06)
[2018-10-06] MEDS: PIPERACILLIN/TAZOB 3.375 GM 3.375 GM in DEXTROSE 5%-WATER - 50 ML IVPB SCH ×2 (02:04→10:54)
[2018-10-06] MEDS: morphine SULFATE 4 MG/ML VIAL IVPUSH PRN ×4 (02:59→14:06)
[2018-10-06 05:58] LABS: BASO % 0.3 % (0-2.0); HEMATOCRIT 27.5 % (32.4-45.2); HEMOGLOBIN 8.5 GM/dL (10.7-15.3); MCH 20.9 pg (25.7-33.7); MCHC 30.9 g/dl (32.0-36.0); MEAN CELL VOLUME 67.8 fl (80-96); MEAN PLT VOLUME 8.5 fl (7.5-11.1); MONO % 1.9 % (3.8-10.2); NEUT % 95.8 % (42.8-82.8); PLATELET COUNT 89 K/MM3 (134-434); RBC 4.06 M/mm3 (3.60-5.2); RDW 23.1 % (11.6-15.6); WHITE BLOOD COUNT 18.9 K/mm3 (4.0-10.0)
[2018-10-06 06:32] LABS: INR 1.37 (0.83-1.09); PROTHROMBIN TIME (PATIENT) 16.2 SEC (9.7-13.0)
[2018-10-06] MEDS: DOCUSATE NA 100 MG/10 ML UNIT-DOSE CUPS PO PRN (06:33)
[2018-10-06] MEDS: BACLOFEN 10 MG TABLET (FP) NGT SCH ×2 (06:34→14:07)
[2018-10-06] MEDS: ALBUTEROL SO4 2.5/IPRATROPIUM 0.5 INH SOL 3 ML VIAL.NEB. NEB SCH ×2 (07:25→12:17)
[2018-10-06 07:33] LABS: ALBUMIN 2.1 g/dl (3.4-5.0); ALK PHOS 119 U/L (45-117); ANION GAP 9 MMOL/L (8-16); BILIRUBIN,TOTAL 0.7 mg/dL (0.2-1); BLOOD UREA NITROGEN 35 mg/dL (7-18); CHLORIDE 112 mmol/L (98-107); CO2 23 mmol/L (21-32); CREATININE 0.4 mg/dL (0.55-1.3); GLUCOSE,RANDOM 116 mg/dL (74-106); MAGNESIUM 2.8 mg/dL (1.8-2.4); POTASSIUM 3.8 mmol/L (3.5-5.1); SGOT/AST 53 U/L (15-37); SGPT/ALT 38 U/L (13-61); SODIUM 145 mmol/L (136-145); TOT PROT 5.2 g/dl (6.4-8.2)
--- NOTE | 2018-10-06 09:23 | PN ---
Progress Note (short form) - Note Progress Note: 68 year old female history of HTN, Metastatic cancer ( unknown origin), she has vertebral mets and pathological compression fracture of L 2. Patient was seen by Dr Anderson and refused surgery. Patient had supraclavicular lymph node biopsy and primary was suspected to be GI adenocarcinoma. Patient was at home and woke up on October 03 feeling right arm and leg weaknes Patient was made dnr yesterday, she is not responding verbal stimuli and staring . 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 minimal ct head unrearmakable mri of brain showed left fronto temporal infarct nad multiple acute infarct in supra and infratentorial infarct in both hemisphere Assessment :68 year old female historyoy of HTN, Metatstic cancer ( primary unknown) , dvt on xarelto, came with right sided arm and leg weakness and she become owrse and developed aphasia and left sided weakness and mri of brain showed there is bi hemispheric ischemic lesion vs mets Plan: continue steroid and anticoagulation( spoke to resident ) - prognosis is guarded, continue - mri of c spine can bd discontinue as we have pathology to explain her weakness and ct of c spine was unremarkable Thanking you so much
[2018-10-06] MEDS ORDERED: ASPIRIN 81 MG CHEWABLE TABLETS NGT SCH (10:00)
--- NOTE | 2018-10-06 10:05 | PN ---
Teaching Attending Note Name of Resident: Myah Cordero ATTENDING PHYSICIAN STATEMENT I saw and evaluated the patient. I reviewed the resident's note and discussed the case with the resident. I agree with the resident's findings and plan as documented. SUBJECTIVE: Patient seen and examined in the ICU. Lethargic but arousable. 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 Made DNR / DNI. Intake & Output 10/03/18 10/04/18 10/05/18 10/06/18 23:59 23:59 23:59 23:59 Intake Total 416 960 905.5 Output Total 1350 400 Balance 416 -390 505.5 Weight 150 lb 150 lb 126 lb 14.4 oz Last Vital Signs Temp Pulse Resp BP Pulse Ox 98.6 F 106 H 24 H 150/94 96 10/06/18 08:00 10/06/18 08:00 10/06/18 08:00 10/06/18 08:00 10/05/18 20:08 Active Medications Albuterol/Ipratropium (Duoneb -) 1 amp NEB RQID [facility] Last Admin: 10/06/18 07:25 Dose: 1 amp Aspirin (Asa -) 81 mg NGT DAILY [facility] Atorvastatin Calcium (Lipitor -) 40 mg NGT HS [facility] Last Admin: 10/05/18 22:09 Dose: 40 mg Baclofen (Lioresal -) 10 mg NGT TID [facility] Last Admin: 10/06/18 06:34 Dose: 10 mg Dexamethasone Sodium Phosphate (Decadron Injection -) 4 mg IVPUSH Q6H-IV [facility] Last Admin: 10/06/18 02:04 Dose: 4 mg Docusate Sodium (Colace Liquid -) 100 mg PO Q8H PRN PRN Reason: CONSTIPATION Last Admin: 10/06/18 06:33 Dose: 100 mg Sodium Chloride (Normal Saline -) 1,000 mls @ 75 mls/hr IV ASDIR [facility] Last Admin: 10/05/18 18:59 Dose: 75 mls/hr Piperacillin Sod/Tazobactam (Sod 3.375 gm/ Dextrose) 50 mls @ 100 mls/hr IVPB Q8H-IV [facility]; Protocol Last Admin: 10/06/18 02:04 Dose: 100 mls/hr Levetiracetam (Keppra Injection -) 500 mg IVPB BID [facility] Last Admin: 12/08/18 22:07 Dose: 500 mg Morphine Sulfate (Morphine Sulfate) 4 mg IVPUSH Q4H PRN PRN Reason: PAIN LEVEL 6-10 Last Admin: 10/06/18 06:34 Dose: 4 mg Pantoprazole Sodium (Protonix -) 40 mg PO DAILY [facility] Last Admin: 10/05/18 10:17 Dose: 40 mg Polyethylene Glycol (Miralax (For Daily Use) -) 17 gm PO DAILY [facility] Last Admin: 10/05/18 10:17 Dose: 17 gm Potassium Chloride (K-Dur -) 10 meq PO DAILY [facility] Last Admin: 10/05/18 10:16 Dose: 10 meq GENERAL: lethargic and not able to answer questions. Moves her head and UE intermittently HEAD: Normal with no signs of trauma. EYES: Pupils equal but sluggish EARS, NOSE, THROAT: dry mucous membranes, with cracked lips NECK: Normal range of motion LUNGS: coarse breath sounds HEART: tachycardic rate and regular rhythm, normal S1 and S2 without murmur, rub or gallop. ABDOMEN: Soft, nontender, not distended, normoactive bowel sounds, no guarding, no rebound, no masses. MUSCULOSKELETAL: flaccid extremities, will withdraw R toe to nailbed pressure UPPER EXTREMITIES: 2+ pulses, warm, well-perfused. No cyanosis. No clubbing. Cap refill <2 seconds. No peripheral edema. LOWER EXTREMITIES: 2+ pulses, warm, well-perfused. No calf tenderness. No peripheral edema. NEUROLOGICAL: lethargic, LE plegia SKIN: Warm, dry, normal turgor, no rashes or lesions noted. Laboratory Results - last 24 hr 10/03/18 10/05/18 10/05/18 20:41 05:30 08:25 WBC RBC Hgb Hct MCV MCH MCHC RDW Plt Count MPV Absolute Neuts (auto) Neutrophils % Neutrophils % (Manual) 95.0 H Band Neutrophils % 0.0 Lymphocytes % Lymphocytes % (Manual) 2.0 L D Monocytes % Monocytes % (Manual) 3 L D Eosinophils % Eosinophils % (Manual) 0.0 Basophils % Basophils % (Manual) 0.0 Myelocytes % (Man) 0 Promyelocytes % (Man) 0 Blast Cells % (Manual) 0 Nucleated RBC % Metamyelocytes 0 Hypochromia 3+ Platelet Estimate Decreased Polychromasia 1+ Poikilocytosis 1+ Anisocytosis 2+ Microcytosis 2+ Macrocytosis 0 Tear Drop Cells 1+ Fragmented RBCs 1+ PT with INR INR Sodium Potassium Chloride Carbon Dioxide Anion Gap BUN Creatinine Creat Clearance w eGFR POC Glucometer Random Glucose Lactic Acid Calcium Phosphorus Magnesium Total Bilirubin AST ALT Alkaline Phosphatase Creatine Kinase Index 12.9 H* CK-MB (CK-2) 19.9 H Troponin I Total Protein Albumin Blood Type O POSITIVE Crossmatch See Detail 10/05/18 10/05/18 10/05/18 11:58 13:13 18:07 WBC RBC Hgb Hct MCV MCH MCHC RDW Plt Count MPV Absolute Neuts (auto) Neutrophils % Neutrophils % (Manual) Band Neutrophils % Lymphocytes % Lymphocytes % (Manual) Monocytes % Monocytes % (Manual) Eosinophils % Eosinophils % (Manual) Basophils % Basophils % (Manual) Myelocytes % (Man) Promyelocytes % (Man) Blast Cells % (Manual) Nucleated RBC % Metamyelocytes Hypochromia Platelet Estimate Polychromasia Poikilocytosis Anisocytosis Microcytosis Macrocytosis Tear Drop Cells Fragmented RBCs PT with INR INR Sodium Potassium Chloride Carbon Dioxide Anion Gap BUN Creatinine Creat Clearance w eGFR POC Glucometer [phone] Random Glucose Lactic Acid Calcium Phosphorus Magnesium Total Bilirubin AST ALT Alkaline Phosphatase Creatine Kinase Index CK-MB (CK-2) Troponin I 4.00 H* 3.65 H* Total Protein Albumin Blood Type Crossmatch 10/05/18 10/06/18 10/06/18 19:12 05:30 05:30 WBC 18.9 H RBC 4.06 Hgb 8.5 L Hct 27.5 L MCV 67.8 L MCH 20.9 L MCHC 30.9 L RDW 23.1 H Plt Count 89 L MPV 8.5 Absolute Neuts (auto) 18.1 H Neutrophils % 95.8 H Neutrophils % (Manual) Band Neutrophils % Lymphocytes % 2.0 L Lymphocytes % (Manual) Monocytes % 1.9 L Monocytes % (Manual) Eosinophils % 0.0 Eosinophils % (Manual) Basophils % 0.3 D Basophils % (Manual) Myelocytes % (Man) Promyelocytes % (Man) Blast Cells % (Manual) Nucleated RBC % 0 Metamyelocytes Hypochromia Platelet Estimate Polychromasia Poikilocytosis Anisocytosis Microcytosis Macrocytosis Tear Drop Cells Fragmented RBCs PT with INR 16.20 H INR 1.37 H Sodium Potassium Chloride Carbon Dioxide Anion Gap BUN Creatinine Creat Clearance w eGFR POC Glucometer Random Glucose Lactic Acid 1.6 Calcium Phosphorus Magnesium Total Bilirubin AST ALT Alkaline Phosphatase Creatine Kinase Index CK-MB (CK-2) Troponin I Total Protein Albumin Blood Type Crossmatch 10/06/18 10/06/18 05:30 05:30 WBC RBC Hgb Hct MCV MCH MCHC RDW Plt Count MPV Absolute Neuts (auto) Neutrophils % Neutrophils % (Manual) Band Neutrophils % Lymphocytes % Lymphocytes % (Manual) Monocytes % Monocytes % (Manual) Eosinophils % Eosinophils % (Manual) Basophils % Basophils % (Manual) Myelocytes % (Man) Promyelocytes % (Man) Blast Cells % (Manual) Nucleated RBC % Metamyelocytes Hypochromia Platelet Estimate Polychromasia Poikilocytosis Anisocytosis Microcytosis Macrocytosis Tear Drop Cells Fragmented RBCs PT with INR INR Sodium 145 Potassium 3.8 Chloride 112 H Carbon Dioxide 23 Anion Gap 9 BUN 35 H Creatinine 0.4 L Creat Clearance w eGFR > 60 POC Glucometer Random Glucose 116 H Lactic Acid Calcium 8.0 L Phosphorus 3.0 Magnesium 2.8 H Total Bilirubin 0.7 AST 53 H ALT 38 Alkaline Phosphatase 119 H Creatine Kinase Index CK-MB (CK-2) Troponin I 2.69 H* Cancelled Total Protein 5.2 L Albumin 2.1 L Blood Type Crossmatch ASSESSMENT/PLAN: Bilateral acute / subacute infarcts HTN 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 w/ pathological compression of L2 vertebral body now bed bound in a brace (09/10/18) Bilateral LE DVT (09/12/18) on xarelto Quadriplegia Leukocytosis HPL Elevated troponin Was not a candidate for tPA Need to further discuss with team risks and benefits of AC in the acute setting of CVA: she is high risk for hemorrhagic conversion: hold for now Aspiration precautions O2 as needed Neuro checks ABX per ID DNR / DNI Stroke unit monitoring Dr Pierre Critical Care patient: Yes Total Critical Care Time (in minutes): 35 Critical Care Statement: The care of this patient involved high complexity decision making to prevent further life threatening deterioration of the patient 's condition and/or to evaluate & treat vital organ system(s) failure or risk of failure.
--- NOTE | 2018-10-06 10:12 | PDOC ---
Attending Attestation - Resident Resident Name: Petros Elizalde - ED Attending Attestation I have performed the following: I have examined & evaluated the patient, The case was reviewed & discussed with the resident, I agree w/resident's findings & plan, Exceptions are as noted - HPI HPI: 68 yo F history HTN, tricuspid regurg, mets due to unknown primary lesion, history of compression fracture to L2, BLE DVT. She presents with RUE and RLE weakness. She has been having symptoms since yesterday. - Physicial Exam PE: GENERAL: Awake, alert, and fully oriented. HEAD: No signs of trauma EYES: PERRLA, EOMI, sclera anicteric, conjunctiva clear ENT: Auricles normal inspection, hearing grossly normal, nares patent, oropharynx clear without exudates. Dry mucosa NECK: Normal ROM, supple, no lymphadenopathy, JVD, or masses LUNGS: Breath sounds equal, clear to auscultation bilaterally. No wheezes, and no crackles HEART: Regular rate and rhythm, normal S1 and S2, no murmurs, rubs or gallops ABDOMEN: Soft, nontender, normoactive bowel sounds. No guarding, no rebound. No masses EXTREMITIES: Normal range of motion, no edema. No clubbing or cyanosis. No cords, erythema, or tenderness NEUROLOGICAL: Cranial nerves II through XII grossly intact. Slurred speech ( chronic per patient). +RUE and RLE weakness, see NIHSS. SKIN: Warm, Dry, normal turgor, no rashes or lesions noted. - Medical Decision Making Pt arrived as a stroke code. Taken to [facility], no acute findings. Neurology evaluated patient, concerns for cord compression. Recommended NSx consult. Will discuss regarding MRI and management- admit vs transfer. NIH Stroke Scale - Last Known Well Date/Time & Onset Date Last Known Well: 10/01/18 - Initial Evaluation Level of consciousness: Alert Ask patient the month and their age: Answers both correctly Ask patient to open & close eyes; make fist and let go: Obeys both correctly Best gaze (horizontal eye movement): Normal Visual field testing: No visual field loss Facial paresis (Show teeth/raise eyebrows/close eyes tight): Normal symmetrical movement Motor Function: Left Arm: Normal Motor Function: Right Arm: No movement Motor Function: Left Leg: Normal (extends leg 30 degrees for 5 seconds without drift) Motor Function: Right Leg: No movement Limb Ataxia: No ataxia Sensory(Use pinprick test arms,legs,trunk,face/side to side): Normal Best language (Describe picture, name items, read sentences): Mild to moderate aphasia Dysarthria (read several words): Mild to moderate slurring of words Extinction and Inattention: No abnormality - Total Score NIH Stroke Scale Score: 10
[2018-10-06] MEDS ORDERED: levETIRAcetam 500 MG/5 ML INJECTION VIAL IVPB ONE (10:22)
--- NOTE | 2018-10-06 10:44 | PN ---
Physical Exam: SUBJECTIVE: Patient seen and examined Patient gripping with L hand, does not follow other commands cannot track with eyes. OBJECTIVE: Vital Signs Period Temp Pulse Resp BP Sys/Zuniga Pulse Ox Last 24 Hr 98 F-99.2 F 105-130 19-30 106-158/74-96 96 GENERAL: The patient is awake, unable to follow most commands HEAD: Normal with no signs of trauma. EYES: sclera anicteric, conjunctiva clear. No ptosis. NECK: Trachea midline LUNGS: crackles on auscultation bilaterally, no wheezes, no accessory muscle use. HEART: Regular rate and rhythm, S1, S2 without murmur, rub or gallop. ABDOMEN: Soft, nontender, nondistended, normoactive bowel sounds, no guarding, no rebound EXTREMITIES: 2+ pulses, warm, well-perfused, no edema. 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 SKIN: Warm, dry, normal turgor, no rashes or lesions noted Laboratory Results - last 24 hr 10/03/18 10/05/18 10/05/18 20:41 11:58 13:13 WBC RBC Hgb Hct MCV MCH MCHC RDW Plt Count MPV Absolute Neuts (auto) Neutrophils % Lymphocytes % Monocytes % Eosinophils % Basophils % Nucleated RBC % PT with INR INR Sodium Potassium Chloride Carbon Dioxide Anion Gap BUN Creatinine Creat Clearance w eGFR POC Glucometer [phone] Random Glucose Lactic Acid Calcium Phosphorus Magnesium Total Bilirubin AST ALT Alkaline Phosphatase Troponin I 4.00 H* Total Protein Albumin Blood Type O POSITIVE Crossmatch See Detail 10/05/18 10/05/18 10/06/18 18:07 19:12 05:30 WBC 18.9 H RBC 4.06 Hgb 8.5 L Hct 27.5 L MCV 67.8 L MCH 20.9 L MCHC 30.9 L RDW 23.1 H Plt Count 89 L MPV 8.5 Absolute Neuts (auto) 18.1 H Neutrophils % 95.8 H Lymphocytes % 2.0 L Monocytes % 1.9 L Eosinophils % 0.0 Basophils % 0.3 D Nucleated RBC % 0 PT with INR INR Sodium Potassium Chloride Carbon Dioxide Anion Gap BUN Creatinine Creat Clearance w eGFR POC Glucometer Random Glucose Lactic Acid 1.6 Calcium Phosphorus Magnesium Total Bilirubin AST ALT Alkaline Phosphatase Troponin I 3.65 H* Total Protein Albumin Blood Type Crossmatch 10/06/18 10/06/18 10/06/18 05:30 05:30 05:30 WBC RBC Hgb Hct MCV MCH MCHC RDW Plt Count MPV Absolute Neuts (auto) Neutrophils % Lymphocytes % Monocytes % Eosinophils % Basophils % Nucleated RBC % PT with INR 16.20 H INR 1.37 H Sodium 145 Potassium 3.8 Chloride 112 H Carbon Dioxide 23 Anion Gap 9 BUN 35 H Creatinine 0.4 L Creat Clearance w eGFR > 60 POC Glucometer Random Glucose 116 H Lactic Acid Calcium 8.0 L Phosphorus 3.0 Magnesium 2.8 H Total Bilirubin 0.7 AST 53 H ALT 38 Alkaline Phosphatase 119 H Troponin I 2.69 H* Cancelled Total Protein 5.2 L Albumin 2.1 L Blood Type Crossmatch Active Medications Generic Name Dose Route Start Last Admin Trade Name Freq PRN Reason Stop Dose Admin Albuterol/Ipratropium 1 amp 10/04/18 20:00 10/06/18 07:25 Duoneb - NEB 1 amp RQID SAMI Administration Aspirin 81 mg 10/06/18 10:00 Asa - NGT DAILY [facility]I Atorvastatin Calcium 40 mg 10/05/18 18:44 10/05/18 22:09 Lipitor - NGT 40 mg HS SAMI Administration Baclofen 10 mg 10/05/18 18:44 10/06/18 06:34 Lioresal - NGT 10 mg TID SAMI Administration Dexamethasone Sodium Phosphate 4 mg 10/04/18 21:00 10/06/18 02:04 Decadron Injection - IVPUSH 4 mg Q6H-IV SAMI Administration Docusate Sodium 100 mg 10/05/18 17:34 10/06/18 06:33 Colace Liquid - PO 100 mg Q8H PRN Administration CONSTIPATION Sodium Chloride 1,000 mls @ 75 mls/hr 10/04/18 17:24 10/05/18 18:59 Normal Saline - IV 75 mls/hr ASDIR SAMI Administration Piperacillin Sod/Tazobactam 50 mls @ 100 mls/hr 10/05/18 12:30 10/06/18 02:04 Sod 3.375 gm/ Dextrose IVPB 100 mls/hr Q8H-IV SAMI Administration Protocol Levetiracetam 500 mg 10/05/18 10:00 10/05/18 22:07 Keppra Injection - IVPB 500 mg BID SAMI Administration Morphine Sulfate 4 mg 10/04/18 16:58 10/06/18 06:34 Morphine Sulfate IVPUSH 4 mg Q4H PRN Administration PAIN LEVEL 6-10 Pantoprazole Sodium 40 mg 10/05/18 10:00 10/05/18 10:17 Protonix - PO 40 mg DAILY [facility] Administration Polyethylene Glycol 17 gm 10/05/18 10:00 10/05/18 10:17 Miralax (For Daily Use) - PO 17 gm DAILY [facility] Administration Potassium Chloride 10 meq 10/05/18 10:00 10/05/18 10:16 K-Dur - PO 10 meq DAILY [facility] Administration ASSESSMENT/PLAN: 68 year old woman with history of HTN, metastatic cancer (GI adenocarcinoma) to liver and vertebrae w/ pathological compression of L2 vertebral body now bed bound in a brace (09/10/18), and with bilateral LE DVT (09/12/18) on xarelto. The patient initially presented from [facility] with R sided leg and arm weakness which has progressed within 1 day to now include the L sided leg and arm weakness. Patient had negative head CT and was given high dose steroids now cont at 4mg Q6H. Neuro Infarct of frontal and parietal lobe -Decadron at 4mg IV Q6H -Head CT (10/03) - without bleed, unremarkable -Cervical CT (10/03) - unremarkable, w/o fx -Brain MRI (10/04) - Large acute infarct in frontal and parietal lobe, acute/ subacute lacunar infarct in bilateral supra and infratentoria, R basal ganglia, R thalamus and L thalamus. No mass lesions or intracranial hemorrhage. -Neurology following case (Dr. Oro) -Neurosurgery following case (Dr. Chris) -pending EMG -Carotid u/s unremarkable -permissive HTN threshold of 220/110 -HOB > 30 degrees -Keppra for seizure ppx -Neuro checks Q2H ID Leukocytosis Consider sepsis vs steroid induced leukocytosis -Blood cultures growing gram - - ID on board - Per primary team: Zosyn - pending blood culture, urine culture Cardiac HTN, HLD, troponinemia - Cardiology following -Trops rising. now 4 --> 3.65 --> 2.69 - ECHO (10/04): mild concentric LVH, EF 50-55%, mild TR, mild AR - cardiac monitoring - continue home: amlodipine, metoprolol, lipitor Ortho L2 Compression Fracture - Lumbar spine MRI 09/10/18 with L2 acute pathological compression and total bone marrow replacement of vertebral body. Pulm - supplemental O2 as needed - considering neuro status, may require intubation GI possible liver mets - Lumbar Spine MRI (09/10/18) showed hyperintense images in the R lobe of the liver [id number] concerning for mets. Vascular Bilateral DVT -Xarelto course 09/22 - 10/14 -held -hold AC for now. High risk for hemorrhagic conversion. Analgesia - pain control with Morphine prn F/E/N - NS @75 - monitor lytes - NPO Lines, Tubes: gilmore, NG, PIV DVT ppx: SCDs GI ppx: protonix Code Status: DNR/DNI Dispo: Palliative consult. Discuss goals of care with family, likely patient will need comfort care measures. Visit type - Emergency Visit Emergency Visit: No - New Patient This patient is new to me today: No - Critical Care Critical Care patient: Yes Total Critical Care Time (in minutes): 35 Critical Care Statement: The care of this patient involved high complexity decision making to prevent further life threatening deterioration of the patient 's condition and/or to evaluate & treat vital organ system(s) failure or risk of failure.
[2018-10-06] MEDS: POLYETHYLENE GLYCOL 3350 119 GM BTL PO SCH (10:55)
[2018-10-06] MEDS ORDERED: KCL 10 MEQ IVPB 10 MEQ/100 ML INFUS.BAG IVPB SCH (11:00)
[2018-10-06] MEDS ORDERED: DOCUSATE NA 100 MG/10 ML UNIT-DOSE CUPS NGT PRN (11:01)
[2018-10-06] MEDS ORDERED: POLYETHYLENE GLYCOL 3350 119 GM BTL NGT SCH (11:15)
[2018-10-06 11:22] LABS: ANISOCYTOSIS 2+; MACROCYTOSIS 0; OVALOCYTE 1+; PLATELET ESTIMATE DECREASED
[2018-10-06] MEDS: SODIUM CHLORIDE 1,000 ML IV SCH (11:30)
--- NOTE | 2018-10-06 11:44 | PN ---
Progress Note, Physician - Current Medication List Current Medications: Active Medications Albuterol/Ipratropium (Duoneb -) 1 amp NEB RQID [facility] Last Admin: 10/06/18 07:25 Dose: 1 amp Aspirin (Asa -) 81 mg NGT DAILY [facility] Last Admin: 10/06/18 10:55 Dose: 81 mg Atorvastatin Calcium (Lipitor -) 40 mg NGT HS [facility] Last Admin: 10/05/18 22:09 Dose: 40 mg Baclofen (Lioresal -) 10 mg NGT TID [facility] Last Admin: 10/06/18 06:34 Dose: 10 mg Dexamethasone Sodium Phosphate (Decadron Injection -) 4 mg IVPUSH Q6H-IV [facility] Last Admin: 10/06/18 10:55 Dose: 4 mg Docusate Sodium (Colace Liquid -) 100 mg NGT Q8H PRN PRN Reason: CONSTIPATION Sodium Chloride (Normal Saline -) 1,000 mls @ 75 mls/hr IV ASDIR [facility] Last Admin: 10/06/18 11:30 Dose: 75 mls/hr Piperacillin Sod/Tazobactam (Sod 3.375 gm/ Dextrose) 50 mls @ 100 mls/hr IVPB Q8H-IV [facility]; Protocol Last Admin: 10/06/18 10:54 Dose: 100 mls/hr Potassium Chloride (Potassium Chloride 10 Meq Premix Ivpb -) 10 meq in 100 mls @ 100 mls/hr IVPB Q60M [facility] Stop: 10/06/18 11:59 Levetiracetam (Keppra Injection -) 500 mg IVPB BID [facility] Last Admin: 10/05/18 22:07 Dose: 500 mg Morphine Sulfate (Morphine Sulfate) 4 mg IVPUSH Q4H PRN PRN Reason: PAIN LEVEL 6-10 Last Admin: 10/06/18 10:54 Dose: 4 mg Pantoprazole Sodium (Protonix Iv) 40 mg IVPUSH DAILY [facility] Polyethylene Glycol (Miralax (For Daily Use) -) 17 gm NGT DAILY [facility] - Objective Vital Signs: Vital Signs Temperature 98.6 F 10/06/18 08:00 Pulse Rate 106 H 10/06/18 08:00 Respiratory Rate 24 H 10/06/18 08:00 Blood Pressure 150/94 10/06/18 08:00 O2 Sat by Pulse Oximetry (%) 96 10/05/18 20:08 Cardiovascular: Yes: S1, S2 Respiratory: Yes: Rhonchi Gastrointestinal: Yes: Normal Bowel Sounds, Soft Labs: CBC, BMP 10/06/18 05:30 10/06/18 05:30 INR, PTT INR 1.37 (0.83-1.09) H 10/06/18 05:30 Problem List - Problems (1) Hemiplegia affecting dominant side Assessment/Plan: -Due to CVA -Icu care -MRI Acute cva -R/O mets -AC per neuro -Monitor BP Code(s): G81.90 - HEMIPLEGIA, UNSPECIFIED AFFECTING UNSPECIFIED SIDE (2) HTN (hypertension) Assessment/Plan: Vital Signs Period Temp Pulse Resp BP Sys/Zuniga Pulse Ox Last 24 Hr 97.9 F-98.9 F 90-130 16-33 99-138/59-98 95-100 Code(s): I10 - ESSENTIAL (PRIMARY) HYPERTENSION (3) Malignancy Assessment/Plan: -Oncology consult -Continue with steroids -Further W/u once stable Code(s): C80.1 - MALIGNANT (PRIMARY) NEOPLASM, UNSPECIFIED (4) Troponin level elevated Assessment/Plan: monitor cardio noted Code(s): R74.8 - ABNORMAL LEVELS OF OTHER SERUM ENZYMES (5) Leukocytosis Assessment/Plan: -Maybe from steoids -r/o sepsis -id -abx -cxr Code(s): D72.829 - ELEVATED WHITE BLOOD CELL COUNT, UNSPECIFIED (6) Anemia Assessment/Plan: -S/P PRBC -HOLD AC due to drop in hgb Code(s): D64.9 - ANEMIA, UNSPECIFIED Assessment/Plan -DNR/DNI
[2018-10-06] MEDS: levETIRAcetam 500 MG/5 ML INJECTION VIAL IVPB SCH (11:57)
[2018-10-06] MEDS ORDERED: amLODIPine BESYLATE 5 MG TABLET (FP) PO ONE (12:06)
[2018-10-06 12:14] VITALS: TEMP 98.6
[2018-10-06] MEDS ORDERED: amLODIPine BESYLATE 10 MG TABLET (FP) NGT SCH (12:30)
[2018-10-06] MEDS: PANTOPRAZOLE 40 MG TABLET (FP) PO SCH (12:40)
[2018-10-06] MEDS: POTASSIUM CHLORIDE TABS 10 MEQ TABLET.ER (FP) PO SCH (12:40)
--- NOTE | 2018-10-06 13:35 | PN ---
Progress Note, Physician History of Present Illness: Poorly responsive Afebrile WBC remains elevated BC anaerobic GNR - Current Medication List Current Medications: Active Medications Albuterol/Ipratropium (Duoneb -) 1 amp NEB RQID [facility] Last Admin: 10/06/18 12:17 Dose: 1 amp Amlodipine Besylate (Norvasc -) 10 mg NGT DAILY [facility] Last Admin: 10/06/18 12:24 Dose: 10 mg Aspirin (Asa -) 81 mg NGT DAILY [facility] Last Admin: 10/06/18 10:55 Dose: 81 mg Atorvastatin Calcium (Lipitor -) 40 mg NGT HS [facility] Last Admin: 10/05/18 22:09 Dose: 40 mg Baclofen (Lioresal -) 10 mg NGT TID [facility] Last Admin: 10/06/18 06:34 Dose: 10 mg Dexamethasone Sodium Phosphate (Decadron Injection -) 4 mg IVPUSH Q6H-IV [facility] Last Admin: 10/06/18 10:55 Dose: 4 mg Docusate Sodium (Colace Liquid -) 100 mg NGT Q8H PRN PRN Reason: CONSTIPATION Sodium Chloride (Normal Saline -) 1,000 mls @ 75 mls/hr IV ASDIR [facility] Last Admin: 10/06/18 11:30 Dose: 75 mls/hr Piperacillin Sod/Tazobactam (Sod 3.375 gm/ Dextrose) 50 mls @ 100 mls/hr IVPB Q8H-IV [facility]; Protocol Last Admin: 10/06/18 10:54 Dose: 100 mls/hr Levetiracetam (Keppra Injection -) 500 mg IVPB BID [facility] Last Admin: 10/06/18 11:57 Dose: 500 mg Morphine Sulfate (Morphine Sulfate) 4 mg IVPUSH Q4H PRN PRN Reason: PAIN LEVEL 6-10 Last Admin: 10/06/18 10:54 Dose: 4 mg Pantoprazole Sodium (Protonix Iv) 40 mg IVPUSH DAILY [facility] Polyethylene Glycol (Miralax (For Daily Use) -) 17 gm NGT DAILY [facility] Last Admin: 10/06/18 11:58 Dose: Not Given - Objective Vital Signs: Vital Signs Temperature 98.6 F 10/06/18 12:00 Pulse Rate 110 H 10/06/18 12:00 Respiratory Rate 23 H 10/06/18 12:00 Blood Pressure 164/102 H 12/09/18 12:00 O2 Sat by Pulse Oximetry (%) 98 10/06/18 09:00 Constitutional: Yes: No Distress Eyes: Yes: Conjunctiva Clear Cardiovascular: Yes: Regular Rate and Rhythm, S1, S2 Gastrointestinal: Yes: Normal Bowel Sounds, Soft. No: Tenderness Labs: CBC, BMP 10/06/18 05:30 10/06/18 05:30 INR, PTT INR 1.37 (0.83-1.09) H 10/06/18 05:30 Assessment/Plan Gram Negative bacteremia/ sepsis Metastatic ca CVS Leukocytosis Thrombocytopenia Continue zosyn Await final BC
[2018-10-06] MEDS ORDERED: morphine CARPU-JECT 4 MG/1 ML DISP.SYRIN IVPUSH PRN (13:58)
[2018-10-06] MEDS ORDERED: morphine SULFATE 4 MG/ML VIAL IVPUSH PRN ×2 (14:43→15:07)
[2018-10-06] MEDS ORDERED: LORazepam 2 MG/ML SDV VIAL IVPUSH PRN (15:46)
[2018-10-06] MEDS ORDERED: SODIUM CHLORIDE 1,000 ML IV SCH (16:15)
[2018-10-06] MEDS ORDERED: MORPHINE 100 MG in SODIUM CHLORIDE 98 ML IVPB SCH (16:15)
[2018-10-06] MEDS ORDERED: morphine SULFATE 4 MG/ML VIAL ONE (16:37)
[2018-10-06] MEDS ORDERED: MORPHINE SULFATE 2 MG/ML VIAL IVPUSH ONE (16:45)
--- NOTE | 2018-10-06 22:50 | PN ---
Progress Note (short form) - Note Progress Note: Note Patient was made comfort care Family called in and now at bedside No electrical activity on telemetry strip no breath sounds of heart sounds auscultated no movement of arms or legs no visible chest rise no pulses palpated no corneal or pupillary reflex Time of 2229 Family at bedside Will reach out to hospitalist team who is covering Dr. Darnell
[2018-10-06 22:53] VITALS: BP 84/50; PULSE 54
[2018-10-07] MEDS ORDERED: amLODIPine BESYLATE 10 MG TABLET (FP) NGT SCH (10:00)
[2018-10-07] MEDS ORDERED: PANTOPRAZOLE SODIUM 40 MG VIAL IVPUSH SCH (10:00)
== END 2018-10-06 22:30 | disposition expired | DRG 64 ==
LOC: JER 13:27 → JERBED 10-04 02:07 → J4W 10-04 05:29 → JICU 10-04 16:43
PROVIDERS: ADMIT Internal Medicine; ATTEND Family Medicine
PROC: 30233N1 Transfusion of Nonautologous Red Blood Cells into Peripheral Vein, Percutaneous Approach (ICD-10-PCS; principal; 2018-10-06)
DX: I63.9 Cerebral infarction, unspecified (principal); G82.50 Quadriplegia, unspecified; A41.50 Gram-negative sepsis, unspecified; G95.20 Unspecified cord compression; I82.402 Acute embolism and thrombosis of unspecified deep veins of left lower extremity; I82.401 Acute embolism and thrombosis of unspecified deep veins of right lower extremity; E87.2 Acidosis; R64 Cachexia; G81.90 Hemiplegia, unspecified affecting unspecified side; M84.48XD Pathological fracture, other site, subsequent encounter for fracture with routine healing; C80.1 Malignant (primary) neoplasm, unspecified; D69.6 Thrombocytopenia, unspecified; D72.829 Elevated white blood cell count, unspecified; D64.9 Anemia, unspecified; E78.5 Hyperlipidemia, unspecified; Z68.23 Body mass index [BMI] 23.0-23.9, adult; R29.710 NIHSS score 10; I10 Essential (primary) hypertension
CPT/HCPCS: 36415; 36430; 36600; 70450-TC; 70551-TC; 71045-TC-FY; 72125-TC; 80048; 80053; 80076; 81003; 81015; 82465; 82550; 82553; 82803; 82962; 83605; 83718; 83721; 83735; 83880; 84100; 84478; 84484; 85025; 85027; 85610; 85730; 86850; 86900; 86901; 86922; 87040; 87076; 87086; 93005; 93010; 93306-TC; 93880-TC; 94640; 97161-GP; 99285-25; J0475; J1100; J7030; P9058